=== PATIENT | female | born 1930 | race American Indian/Alaskan Native ===

== ENCOUNTER 2017-12-30 19:09 | Inpatient (IN) | payer MEDICARE ==
[2017-12-30 20:02] VITALS: BMI 33.8
--- NOTE | 2017-12-30 20:34 | ED PDOC ---
Arrival/HPI - General Chief Complaint: Lower Extremity Problem/Injury Time Seen by Provider: 12/30/17 19:20 Historian: Patient - History of Present Illness Narrative History of Present Illness (Text): 12/30/17 20:33 An 87 year old female presents to the emergency department complaining of generalized weakness and right leg swelling. Patient denies any fever, headache , dizziness, abdominal pain or any other complaints at this time. Symptom Onset: Sudden Symptom Course: Unchanged Activities at Onset: Rest Context: Home Past Medical History - Provider Review Nursing Documentation Reviewed: Yes - Infectious Disease Hx of Infectious Diseases: None - Psychiatric Hx Substance Use: No Family/Social History - Physician Review Nursing Documentation Reviewed: Yes Family/Social History: No Known Family HX Smoking Status: Never Smoked Hx Alcohol Use: No Hx Substance Use: No Allergies/Home Meds Allergies/Adverse Reactions: Allergies No Known Allergies Allergy (Verified 12/30/17 20:04) Home Medications: Home Meds Medication Instructions Recorded Confirmed Clopidogrel [Plavix] 1 tab PO DAILY 12/31/17 12/31/17 Furosemide [Lasix] 1 tab PO DAILY 12/31/17 12/31/17 Lubiprostone [Amitiza] 1 tab PO DAILY 12/31/17 12/31/17 Metoprolol Tartrate [Lopressor] 1 tab PO DAILY 12/31/17 12/31/17 Naproxen/Esomeprazole Mag [Vimovo 1 tab PO DAILY 12/31/17 12/31/17 Dr 375-20 mg Tablet] Torsemide [Demadex] 1 tab PO DAILY 12/31/17 12/31/17 amLODIPine [Norvasc] 1 tab PO DAILY 12/31/17 12/31/17 Review of Systems - Physician Review All systems were reviewed & negative as marked: Yes - Review of Systems Constitutional: Other (generalized weakness). absent: Fevers Gastrointestinal: absent: Abdominal Pain Musculoskeletal: Other (right leg swelling) Neurological: absent: Headache, Dizziness Physical Exam Vital Signs Reviewed: Yes Appearance: Positive for: Well-Appearing, Non-Toxic, Comfortable Pain Distress: None Mental Status: Positive for: Alert and Oriented X 3 - Systems Exam Head: Present: Atraumatic, Normocephalic Pupils: Present: PERRL Extroacular Muscles: Present: EOMI Conjunctiva: Present: Normal Mouth: Present: Moist Mucous Membranes Neck: Present: Normal Range of Motion Respiratory/Chest: Present: Clear to Auscultation, Good Air Exchange. No: Respiratory Distress, Accessory Muscle Use Cardiovascular: Present: Regular Rate and Rhythm, Normal S1, S2. No: Murmurs Abdomen: No: Tenderness, Distention, Peritoneal Signs Back: Present: Normal Inspection Upper Extremity: Present: Normal Inspection. No: Cyanosis, Edema Lower Extremity: Present: Other (right leg more swollen than left; erythematous) Neurological: Present: GCS=15, CN II-XII Intact, Speech Normal Skin: Present: Warm, Dry, Normal Color. No: Rashes Psychiatric: Present: Alert, Oriented x 3, Normal Insight, Normal Concentration Medical Decision Making ED Course and Treatment: 12/30/17 20:31 Impression: An 87 year old female with generalized weakness and right leg swelling. Plan: -- EKG -- Chest X-ray -- labs -- US lower extremity -- Reassess and disposition Progress Notes: 12/30/17 21:22 Chest X-ray shows cardiomegaly, as read by me. 12/30/17 22:06 Reviewed EKG, a fib at 72 bpm. Non-specific T wave changes. US Duplex Lower Extremities negative for DVT. 12/30/17 23:50 Case discussed with medical assembly airport operations manager, who is aware and agrees with plan. 12/31/17 00:[address] Almanza, who is aware and agrees with plan. Accepts pt in to his service. Pt will go to [facility] observation for leg cellulitis. - Lab Interpretations Microbiology Results: Microbiology Results 12/31/17 06:30 Blood-Venous Blood Culture - Preliminary NO GROWTH AFTER 3 DAYS 12/31/17 06:00 Blood-Venous Blood Culture - Preliminary NO GROWTH AFTER 3 DAYS Lab Results: 01/02/18 07:00 01/02/18 07:00 Lab Results 01/02/18 11:02: POC Glucose (mg/dL) 130 H 01/02/18 07:00: Manual Plt Count 110 L 01/02/18 07:00: Sodium 142, Chloride 99, Potassium 3.5 L, Carbon Dioxide 33, Anion Gap 13, BUN 21, Creatinine 0.9, Est GFR ( Amer) > 60, Est GFR (Non- Af Amer) 59, Random Glucose 109, Calcium 8.7, Magnesium 2.0, Total Bilirubin 0.6 , AST 32, ALT 22, Alkaline Phosphatase 100, Total Protein 7.2, Albumin 3.5, Globulin 3.7, Albumin/Globulin Ratio 0.9 L 01/02/18 07:00: WBC 5.1, RBC 4.33, Hgb 11.4 L, Hct 34.7 L, MCV 80.1, MCH 26.3, MCHC 32.9, RDW 16.5 H, Plt Count 97 L, MPV 10.5, Gran % 52.1, Lymph % (Auto) 32.7, [place] % (Auto) 12.1 H, Eos % (Auto) 2.9, Baso % (Auto) 0.2, Gran # 2.68, Lymph # (Auto) 1.7, [place] # (Auto) 0.6, Eos # (Auto) 0.2, Baso # (Auto) 0.01 01/02/18 06:40: POC Glucose (mg/dL) 107 01/01/18 21:04: POC Glucose (mg/dL) 142 H 01/01/18 15:47: POC Glucose (mg/dL) 128 H 01/01/18 11:27: POC Glucose (mg/dL) 90 01/01/18 07:30: Sodium 142, Chloride 101, Potassium 3.7, Carbon Dioxide 31, Anion Gap 14, BUN 18, Creatinine 0.9, Est GFR ( Amer) > 60, Est GFR (Non- Af Amer) 59, Random Glucose 87, Calcium 8.8, Magnesium 2.0, Total Bilirubin 0.6 , Direct Bilirubin 0.4, AST 30, ALT 27, Alkaline Phosphatase 113, Total Protein 7.5, Albumin 3.6, Globulin 3.9, Albumin/Globulin Ratio 0.9 L 01/01/18 07:30: WBC 5.4, RBC 4.30, Hgb 11.4 L, Hct 34.4 L, MCV 80.0, MCH 26.5, MCHC 33.1, RDW 16.6 H, Plt Count 91 L, Manual Plt Count 134, MPV 10.3, Gran % 51.7, Lymph % (Auto) 35.4 H, [place] % (Auto) 9.6 H, Eos % (Auto) 3.1, Baso % (Auto ) 0.2, Gran # 2.80, Lymph # (Auto) 1.9, [place] # (Auto) 0.5, Eos # (Auto) 0.2, Baso # (Auto) 0.01 01/01/18 06:52: POC Glucose (mg/dL) 88 12/31/17 : 25-OH Vitamin D Total 23.5 L 12/31/17 21:19: POC Glucose (mg/dL) 112 H 12/31/17 16:13: POC Glucose (mg/dL) 106 12/31/17 12:09: Manual Plt Count 160 12/31/17 10:57: POC Glucose (mg/dL) 114 H 12/31/17 07:43: POC Glucose (mg/dL) 106 12/31/17 07:35: Hemoglobin A1c 6.3 12/31/17 07:35: Free T4 1.74, Thyroxine (T4) 10.1, TSH 3rd Generation 2.39 12/31/17 06:00: Uric Acid 7.2 H, Magnesium 2.2, Triglycerides 61, Cholesterol 137, LDL Cholesterol Direct 44, HDL Cholesterol 67 H 12/31/17 06:00: NT-Pro-B Natriuret Pep 994 H 12/31/17 06:00: C-React Prot High Sens 5.62 H 12/31/17 06:00: Procalcitonin 0.05 L 12/31/17 06:00: Sodium 143, Chloride 100, Potassium 3.4 L, Carbon Dioxide 34 H, Anion Gap 13, BUN 18, Creatinine 0.8, Est GFR ( Amer) > 60, Est GFR (Non- Af Amer) > 60, Random Glucose 105, Calcium 9.1, Total Bilirubin 0.7, AST 33, ALT 33, Alkaline Phosphatase 141 H, C-Reactive Protein 9.20, Total Protein 7.9, Albumin 3.9, Globulin 3.9, Albumin/Globulin Ratio 1.0 L 12/31/17 06:00: WBC 4.5 D, RBC 4.55, Hgb 12.2, Hct 36.3, MCV 79.8 L, MCH 26.8, MCHC 33.6, RDW 16.6 H, Plt Count 95 L, MPV 10.8, Gran % 56.2, Lymph % (Auto) 32.6, [place] % (Auto) 8.6 H, Eos % (Auto) 2.2, Baso % (Auto) 0.4, Gran # 2.53, Lymph # (Auto) 1.5, [place] # (Auto) 0.4, Eos # (Auto) 0.1, Baso # (Auto) 0.02, ESR 36 H 12/31/17 00:05: POC Glucose (mg/dL) 129 H 12/30/17 22:05: Digoxin 0.9 12/30/17 22:05: Sodium 142, Chloride 97 L, Potassium 3.4 L, Carbon Dioxide 34 H , Anion Gap 14, BUN 23 H, Creatinine 0.8, Est GFR ( Amer) > 60, Est GFR ( Non-Af Amer) > 60, Random Glucose 120 H, Calcium 9.3, Magnesium 2.2, Lactate Dehydrogenase 711 H, Total Creatine Kinase 301 H, CK-MB (CK-2) 3.3, CK-MB (CK-2 ) % Cancelled, Troponin I 0.01, NT-Pro-B Natriuret Pep 934 H 12/30/17 22:05: pO2 78 H, VBG pH 7.41, VBG pCO2 58.0, VBG HCO3 36.8 H, VBG Total CO2 38.6 H, VBG O2 Sat (Calc) 96.6 H, VBG Base Excess 9.9 H, VBG Potassium 3.2 L, Sodium 137.0, Chloride 100.0, Glucose 119 H, Lactate 1.1, FiO2 21.0, Venous Blood Potassium 3.2 L 12/30/17 22:05: PT 11.1, INR 0.97, APTT 18.8 L 12/30/17 22:05: WBC 6.7, RBC 4.67, Hgb 12.6, Hct 37.0, MCV 79.2 L, MCH 27.0, MCHC 34.1, RDW 16.6 H, Plt Count 131, Gran % 70.6 H, Lymph % (Auto) 21.0 L, [place] % (Auto) 7.4 H, Eos % (Auto) 0.9 L, Baso % (Auto) 0.1, Gran # 4.74, Lymph # (Auto) 1.4, [place] # (Auto) 0.5, Eos # (Auto) 0.1, Baso # (Auto) 0.01 I have reviewed the lab results: Yes - RAD Interpretation Radiology Orders: 12/30/17 20:09 CHEST PORTABLE [RAD] Stat DUPLEX LOWER EXTRM VEIN BILAT [US] Stat 12/31/17 10:41 CHEST TWO VIEWS (PA/LAT) [RAD] Routine 01/01/18 11:22 BRAIN WITHOUT CONTRAST [MRI] Routine 01/02/18 12:43 ANKLE/BRACHIAL INDICE [US] Routine DUPLEX LOWER EXT ART BI LMTD [US] Routine 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: ED Physician - EKG Interpretation Interpreted by ED Physician: Yes Type: 12 lead EKG - Medication Orders Current Medication Orders: Allopurinol (Zyloprim) 100 mg PO DAILY [facility] Last Admin: 01/03/18 09:29 Dose: 100 mg Betamethasone/Clotrimazole (Lotrisone) 0 ml TOP DAILY [facility] Last Admin: 01/03/18 09:32 Dose: 1 applic Carbamide Peroxide (Debrox Ear Drops) 0 ml AU BID [facility] Last Admin: 01/03/18 18:33 Dose: 4 drop Comments: AU Docusate Sodium (Colace) 100 mg PO TID [facility] Last Admin: 01/03/18 18:26 Dose: 100 mg Enoxaparin Sodium (Lovenox) 40 mg SC DAILY [facility] PRN Reason: Protocol Last Admin: 01/03/18 09:30 Dose: 40 mg Subcutaneous Administrations Document 01/03/18 09:30 LMN (Rec: 01/03/18 09:30 LMN [id number]) Injection Site MAR Injection Site Left Abdomen Charges for Administration # of Subcutaneous Administrations 1 Ergocalciferol (Drisdol 50,000 Intl Units Cap) 1 cap PO Q7D [facility] Furosemide (Lasix) 40 mg IVP Q12 [facility] Last Admin: 01/03/18 09:29 Dose: 40 mg MAR Blood Pressure Document 01/03/18 09:29 LMN (Rec: 01/03/18 09:30 LMN [id number]) Blood Pressure Blood Pressure (100/60-150/90 mm Hg) 144/79 IVP Administration Document 01/03/18 09:29 LMN (Rec: 01/03/18 09:30 LMN [id number]) Charges for Administration # of IVP Administrations 1 Insulin Human Lispro (Humalog Low) 0 units SC ACHS [facility] PRN Reason: Protocol Last Admin: 01/03/18 17:55 Dose: Not Given Non-Admin Reason: Blood Sugar Parameter MAR Blood Glucose Document 01/03/18 17:55 LMN (Rec: 01/03/18 17:55 LMN [id number]) Blood Glucose Finger Stick Blood Glucose (70-120) 138 Metoprolol Tartrate (Lopressor) 12.5 mg PO 0800,1800 [facility] Pantoprazole Sodium (Protonix Ec Tab) 40 mg PO ACB [facility] Last Admin: 01/03/18 08:33 Dose: 40 mg Polyethylene Glycol (Miralax) 17 gm PO TID [facility] Last Admin: 01/03/18 18:26 Dose: 17 gm Potassium Chloride (K-Dur 20 Meq Er Tab) 20 meq PO TID [facility] Last Admin: 01/03/18 18:26 Dose: 20 meq Tramadol HCl (Ultram) 50 mg PO BID PRN PRN Reason: Pain, moderate (4-7) Discontinued Medications Betamethasone/Clotrimazole (Lotrisone) 1 ml TOP BID [facility] Digoxin (Digoxin) 0.125 mg PO 1400 [facility] Last Admin: 01/03/18 15:34 Dose: Not Given Non-Admin Reason: BP Parameters Not Met [facility] Apical Pulse Rate Document 01/03/18 15:34 LMN (Rec: 01/03/18 15:34 LMN [id number]) Apical Pulse Rate Apical Pulse Rate (60-90 beats/min) 55 Cefepime HCl (Maxipime 2gm) 2 gm in 100 mls @ 100 mls/hr IVPB Q12 [facility] PRN Reason: Protocol Stop: 01/05/18 01:16 Last Admin: 01/02/18 21:59 Dose: 100 mls/hr eMAR Start Stop Document 01/02/18 21:59 IMT (Rec: 01/02/18 21:59 IMT [id number]) Intravenous Solution Start Date 01/02/18 Start Time 21:59 End Date 01/02/18 End time 22:59 Total Infusion Time 60 Vancomycin HCl (Vancomycin 1gm) 1 gm in 250 mls @ 167 mls/hr IVPB STAT STA PRN Reason: Protocol Stop: 12/31/17 02:39 Last Admin: 12/31/17 02:59 Dose: 167 mls/hr eMAR Start Stop Document 05/10/18 02:59 PCO (Rec: 12/31/17 03:00 PCO [place] [id number]) Intravenous Solution Start Date 12/31/17 Start Time 04:30 End Date 12/31/17 End time 06:00 Total Infusion Time 90 Ketorolac Tromethamine (Toradol) 30 mg IM ONCE ONE Stop: 01/03/18 07:16 Last Admin: 01/03/18 07:13 Dose: 30 mg MAR Pain Assessment Document 01/03/18 07:13 LMN (Rec: 01/03/18 07:13 LMN [place] [id number]) Pain Reassessment Is this a pain reassessment? No Presence of Pain Presence of Pain Yes Pain Scale Used Pain Scale Used Numeric IM Administration Charges Document 01/03/18 07:13 LMN (Rec: 01/03/18 07:13 LMN [place] [id number]) Charges for Administration # of IM Administrations 1 Metoprolol Tartrate (Lopressor) 25 mg PO 0800,1800 [facility] Last Admin: 01/03/18 08:33 Dose: 25 mg MAR Pulse and Blood Pressure Document 01/03/18 08:33 LMN (Rec: 01/03/18 08:33 LMN [place] [id number]) Pulse Pulse Rate (60-90 beats/min) 79 Blood Pressure Blood Pressure (100/60-150/90 mm Hg) 144/79 Pantoprazole Sodium (Protonix Inj) 40 mg IVP DAILY [facility] Last Admin: 12/31/17 11:52 Dose: 40 mg Comments: Pt returned from xray, meds given late IVP Administration Document 12/31/17 11:52 KEVIN (Rec: 12/31/17 11:52 KEVIN [place] [id number]) Charges for Administration # of IVP Administrations 1 Polyethylene Glycol (Miralax) 17 gm PO DAILY [facility] Last Admin: 01/01/18 09:25 Dose: 17 gm Potassium Chloride (K-Dur 20 Meq Er Tab) 40 meq PO STAT STA Stop: 12/31/17 01:10 Last Admin: 12/31/17 02:46 Dose: 40 meq Potassium Chloride (K-Dur 20 Meq Er Tab) 40 meq PO STAT STA Stop: 12/31/17 07:28 Last Admin: 12/31/17 11:54 Dose: 40 meq Potassium Chloride (K-Dur 20 Meq Er Tab) 20 meq PO BID [facility] Last Admin: 01/02/18 09:51 Dose: 20 meq Potassium Chloride (Potassium Chloride Oral Soln) 40 meq PO ONCE ONE Stop: 01/02/18 14:34 Last Admin: 01/02/18 14:43 Dose: 40 meq - Scribe Statement The provider has reviewed the documentation as recorded by the Dominick Reaves Provider Scribe Attestation: All medical record entries made by the Scribe were at my direction and personally dictated by me. I have reviewed the chart and agree that the record accurately reflects my personal performance of the history, physical exam, medical decision making, and the department course for this patient. I have also personally directed, reviewed, and agree with the discharge instructions and disposition. Disposition/Present on Arrival - Present on Arrival Any Indicators Present on Arrival: No History of DVT/PE: No History of Uncontrolled Diabetes: No Urinary Catheter: No History of Decub. Ulcer: No History Surgical Site Infection Following: None - Disposition Have Diagnosis and Disposition been Completed?: Yes Diagnosis: Cellulitis of right lower extremity Disposition: HOSPITALIZED Disposition Time: 00:05 Patient Problems: Current Active Problems Problem Status Onset Cellulitis of right lower extremity Acute Gait abnormality Acute Impacted cerumen of right ear Acute Presbycusis of both ears Acute TIA (transient ischemic attack) Acute Condition: GOOD
[2017-12-30 22:17] LABS: VENOUS BLOOD GAS BASE EXCESS 9.9 mmol/L (0.0-2.0); VENOUS BLOOD GAS PO2 78 mm/Hg (30-55); VENOUS BLOOD PH 7.41 (7.32-7.43)
[2017-12-30 22:23] LABS: CALCIUM 9.3 mg/dL (8.4-10.5); GFR AFRICAN-AMERICAN > 60; GFR NON-AFRICAN AMERICAN > 60
[2017-12-30 22:24] LABS: INR 0.97 (0.93-1.08); PARTIAL THROMBOPLASTIN TIME 18.8 Seconds (25.1-36.5); PROTHROMBIN TIME 11.1 SECONDS (9.4-12.5)
[2017-12-30 22:27] LABS: BLOOD UREA NITROGEN 23 mg/dL (7-21)
[2017-12-30 22:28] LABS: BASO # 0.01 K/mm3 (0.0-2.0); BASO % 0.1 % (0.0-3.0); EOS # 0.1 (0.0-0.7); EOS % 0.9 % (1.5-5.0); GRAN # 4.74 (1.4-6.5); GRAN % 70.6 % (50.0-68.0); HEMOGLOBIN 12.6 g/dL (12.0-16.0); LYMPH # 1.4 (1.2-3.4); MEAN CELL VOLUME 79.2 fl (80.0-105.0); MEAN CORPUSCULAR HGB CONC 34.1 g/dl (31.0-37.0); MONO # 0.5 (0.1-0.6); MONO % 7.4 % (1.0-6.0); PLATELET COUNT 131 10^3/uL (120.0-450.0); RBC 4.67 10^6/uL (3.5-6.1); RED CELL DISTRIBUTION WIDTH 16.6 % (11.5-14.5); WHITE BLOOD COUNT 6.7 10^3/ul (4.5-11.0)
[2017-12-30 22:34] LABS: B-TYPE NATRIURETIC PEPTIDE 934 pg/mL (0-450); TROPONIN I 0.01 ng/mL
[2017-12-30 22:38] LABS: CK-MB 3.3 ng/mL (0.0-3.6)
[2017-12-31] MEDS ORDERED: Potassium Chloride 20 mEq ER Tab PO STA ×2 (01:09→07:27)
[2017-12-31] MEDS ORDERED: Vancomycin 1gm in NS 250ml 1 GM/250 ML BAG IVPB STA (01:10)
--- NOTE | 2017-12-31 01:29 | CP.PCM.HP ---
History of Present Illness - History of Present Illness History of Present Illness: CC: weakness and right leg swelling HPI: Patient is a 87 yo AA female with past medical history of DM2, HTN, and hemorrhoids who presents with a one day history of weakness and right lower leg swelling. Patient is noted to be poor historian in regards to medical history. Patient indicates that 1-2 days prior she began to experience dizzy spells at home while sitting, reporting the room was spinning. These symptoms resolved spontaneously and patient reported right lower extremity swelling and weakness. She contacted her PMD who informed her to go to the ED. Patient stated that she did not want to go to the ED yesterday due to her taking her constipation pills and that going to the ED would not work for her. She has chronic history of hemorrhoids for which she takes preparation H and follows up with a specialist. Patient denies fever, chills, diarrhea, nausea, vomiting, focal deficits, headache, changes in vision, shortness of breath, chest pain, abdominal pain, trauma or fall. 12 point ROS is benign other than mentioned in HPI PMH: HTN, DM2, Hemorrhoids PSH: ?Hemorrhoid repair FMH: Denies SOCHX: Denies tobacco, ETOH, ID ALL: [id number] MEDS: MAR reviewed PMD: Dr. Allegra Garcia Present on Admission - Present on Admission Any Indicators Present on Admission: Yes History of DVT/PE: Yes Review of Systems - Review of Systems All systems: reviewed and no additional remarkable complaints except (as mentioned in HPI) Past Patient History - Infectious Disease Hx of Infectious Diseases: None - Past Social History Smoking Status: Never Smoked Alcohol: None Drugs: Denies - PSYCHIATRIC Hx Substance Use: No Meds Allergies/Adverse Reactions: Allergies Allergy/AdvReac Type Severity Reaction Status Date / Time No Known Allergies Allergy Verified 12/30/17 20:04 Physical Exam - Constitutional Appears: Non-toxic - Head Exam Head Exam: ATRAUMATIC, NORMAL INSPECTION, NORMOCEPHALIC - Eye Exam Eye Exam: EOMI, PERRL - ENT Exam ENT Exam: Mucous Membranes Dry - Neck Exam Neck exam: Positive for: Full Rom - Respiratory Exam Respiratory Exam: Clear to Auscultation Bilateral, NORMAL BREATHING PATTERN. absent: Rales, Rhonchi, Wheezes - Cardiovascular Exam Cardiovascular Exam: Irregular Rhythm. absent: JVD, Systolic Murmur - GI/Abdominal Exam GI & Abdominal Exam: Normal Bowel Sounds, Soft. absent: Distended, Guarding, Tenderness - Extremities Exam Additional comments: bilateral lower extremity edema appreciated, right slightly more swollen than right, some mild erythematous skin changes on anterior right lower extremity - Neurological Exam Neurological exam: Alert, Oriented x3 Additional comments: motor and sensory grossly intact, able to move all four extremities past midline , follows simple commands - Psychiatric Exam Psychiatric exam: Normal Affect, Normal Mood - Skin Skin Exam: Dry, Erythema (mild LLE), Warm Results - Labs Result Diagrams: 12/31/17 06:00 12/31/17 06:00 Assessment & Plan - Assessment and Plan (Free Text) Assessment: 87 yo AA female with past medical history of DM2, HTN, and hemorrhoids who presents with a one day history of weakness and right lower leg swelling. Patient with negative doppler b/l lower extremities. Patient to be admitted for suspected cellulitis and general weakness. Plan: ?Cellulitis of right lower extremity - Afebrile, absent leukocytosis, slight erythematous on exam, right lower leg swelling compared to left - Cefepime, Vancomycin - Monitor, f/u labs Right lower extremity swelling - doppler US b/l negative - IV lasix 40mg BID - Monitor Atrial Fibrillation - unknown if valvular vs. non valvular afib - Not on anticoagulation from review of home meds, suspect 2/2 high risk for fall - INR subtheraputic, PT eval, discuss with day team consideration for AC - EKG showing Afib with rate control - Continue home metoprolol, digoxin - Repeat EKG in AM DVT ppx: Lovenox GI ppx: Protonix Case and plan discussed with attending - Date & Time Date: 12/31/17 Time: 01:31
--- NOTE | 2017-12-31 02:28 | CP.PCM.HP ---
Past Patient History - Infectious Disease Hx of Infectious Diseases: None - Past Social History Smoking Status: Never Smoked - PSYCHIATRIC Hx Substance Use: No Meds Allergies/Adverse Reactions: Allergies Allergy/AdvReac Type Severity Reaction Status Date / Time No Known Allergies Allergy Verified 12/30/17 20:04 Results - Vital Signs Recent Vital Signs: Last Vital Signs Temp 98 F 12/31/17 01:10 Pulse 71 12/31/17 01:10 Resp 19 12/31/17 01:10 BP 144/85 12/31/17 01:10 Pulse Ox 99 12/31/17 01:10 - Labs Result Diagrams: 12/30/17 22:05 12/30/17 22:05 Labs: Laboratory Results - last 24 hr 12/30/17 12/30/17 12/30/17 22:05 22:05 22:05 WBC 6.7 RBC 4.67 Hgb 12.6 Hct 37.0 MCV 79.2 L MCH 27.0 MCHC 34.1 RDW 16.6 H Plt Count 131 Gran % 70.6 H Lymph % (Auto) 21.0 L [place] % (Auto) 7.4 H Eos % (Auto) 0.9 L Baso % (Auto) 0.1 Gran # 4.74 Lymph # (Auto) 1.4 [place] # (Auto) 0.5 Eos # (Auto) 0.1 Baso # (Auto) 0.01 PT 11.1 INR 0.97 APTT 18.8 L pO2 78 H VBG pH 7.41 VBG pCO2 58.0 VBG HCO3 36.8 H VBG Total CO2 38.6 H VBG O2 Sat (Calc) 96.6 H VBG Base Excess 9.9 H VBG Potassium 3.2 L Sodium 137.0 Chloride 100.0 Glucose 119 H Lactate 1.1 FiO2 21.0 Potassium Carbon Dioxide Anion Gap BUN Creatinine Est GFR ( Amer) Est GFR (Non-Af Amer) POC Glucose (mg/dL) Random Glucose Calcium Magnesium Lactate Dehydrogenase Total Creatine Kinase CK-MB (CK-2) CK-MB (CK-2) % Troponin I NT-Pro-B Natriuret Pep Venous Blood Potassium 3.2 L Digoxin 12/30/17 12/30/17 12/31/17 22:05 22:05 00:05 WBC RBC Hgb Hct MCV MCH MCHC RDW Plt Count Gran % Lymph % (Auto) [place] % (Auto) Eos % (Auto) Baso % (Auto) Gran # Lymph # (Auto) [place] # (Auto) Eos # (Auto) Baso # (Auto) PT INR APTT pO2 VBG pH VBG pCO2 VBG HCO3 VBG Total CO2 VBG O2 Sat (Calc) VBG Base Excess VBG Potassium Sodium 142 Chloride 97 L Glucose Lactate FiO2 Potassium 3.4 L Carbon Dioxide 34 H Anion Gap 14 BUN 23 H Creatinine 0.8 Est GFR ( Amer) > 60 Est GFR (Non-Af Amer) > 60 POC Glucose (mg/dL) 129 H Random Glucose 120 H Calcium 9.3 Magnesium 2.2 Lactate Dehydrogenase 711 H Total Creatine Kinase 301 H CK-MB (CK-2) 3.3 CK-MB (CK-2) % Cancelled Troponin I 0.01 NT-Pro-B Natriuret Pep 934 H Venous Blood Potassium Digoxin 0.9
[2017-12-31] MEDS: Cefepime IV 2 gm in NS 2 GM/100 ML BAG IVPB SCH ×3 (02:58→22:14)
[2017-12-31 06:46] LABS: BASO # 0.02 K/mm3 (0.0-2.0); BASO % 0.4 % (0.0-3.0); EOS # 0.1 (0.0-0.7); EOS % 2.2 % (1.5-5.0); GRAN # 2.53 (1.4-6.5); GRAN % 56.2 % (50.0-68.0); HEMOGLOBIN 12.2 g/dL (12.0-16.0); LYMPH # 1.5 (1.2-3.4); LYMPH % 32.6 % (22.0-35.0); MEAN CELL VOLUME 79.8 fl (80.0-105.0); MEAN CORPUSCULAR HEMOGLOBIN 26.8 pg (25.0-35.0); MEAN CORPUSCULAR HGB CONC 33.6 g/dl (31.0-37.0); MEAN PLATELET VOLUME 10.8 fl (7.0-11.0); MONO # 0.4 (0.1-0.6); MONO % 8.6 % (1.0-6.0); RBC 4.55 10^6/uL (3.5-6.1); RED CELL DISTRIBUTION WIDTH 16.6 % (11.5-14.5); WHITE BLOOD COUNT 4.5 10^3/ul (4.5-11.0)
[2017-12-31 07:19] LABS: ALBUMIN 3.9 g/dL (3.0-4.8); ALT/SGPT 33 U/L (7-56); AST/SGOT 33 U/L (14-36); BLOOD UREA NITROGEN 18 mg/dL (7-21); CALCIUM 9.1 mg/dL (8.4-10.5); GFR AFRICAN-AMERICAN > 60; GFR NON-AFRICAN AMERICAN > 60
[2017-12-31] MEDS: Insulin Lispro (humaLOG) LOW Coverage SC SCH ×4 (07:52→22:15)
[2017-12-31 07:59] LABS: URIC ACID 7.2 mg/dL (2.5-6.2)
[2017-12-31 08:48] LABS: FREE T4 1.74 ng/dL (0.78-2.19); T4 10.1 ug/dL (5.5-11.0)
--- NOTE | 2017-12-31 09:12 | RAD ---
HISTORY: sob COMPARISON: No prior. FINDINGS: LUNGS: No active pulmonary disease. PLEURA: No significant pleural effusion identified, no pneumothorax apparent. CARDIOVASCULAR: Fall technique may magnify the cardiac silhouette however cardiomegaly is not completely excluded. No definite pulmonary vascular congestion. OSSEOUS STRUCTURES: No significant abnormalities. VISUALIZED UPPER ABDOMEN: Normal. OTHER FINDINGS: Surgical clips in the right neck soft tissue inferiorly. IMPRESSION: Questionable cardiomegaly however there is no infiltrate pleural effusion or pulmonary vascular congestion at this time. Frontal technique limits evaluation the cardiac size.
--- NOTE | 2017-12-31 10:25 | CARD ---
APPROVED REPORT EKG Measurement Heart [id number] <Conclusion> Atrial fibrillation with premature ventricular or aberrantly conducted complexes PRWP Nonspecific T wave abnormality
--- NOTE | 2017-12-31 11:30 | US ---
HISTORY: Leg pain and swelling. Evaluate for DVT PHYSICIAN(S): Rafael Elise MD. TECHNIQUE: Duplex sonography and color-flow Doppler with graded compression were used to evaluate the deep venous systems of both lower extremities. The exam is very limited by body habitus and edema. The tibial veins are not adequately seen. FINDINGS: The visualized deep venous systems of both lower extremities are sonographically normal and compressible. Normal wave forms and augmentation are seen. There is no sonographic evidence for deep venous thrombosis in the visualized segments of both lower extremities. IMPRESSION: No sonographic evidence for deep venous thrombosis in the visualized segments of both lower extremities. Very limited study.
--- NOTE | 2017-12-31 11:46 | RAD ---
HISTORY: Chf COMPARISON: 12/30/2017 TECHNIQUE: Chest PA and lateral FINDINGS: LUNGS: No active pulmonary disease. PLEURA: No significant pleural effusion identified. No pneumothorax apparent. CARDIOVASCULAR: Moderate cardiomegaly OSSEOUS STRUCTURES: No significant abnormalities. VISUALIZED UPPER ABDOMEN: Normal. OTHER FINDINGS: None. IMPRESSION: No active disease.
[2017-12-31] MEDS: Enoxaparin 40 mg Syringe SC SCH (11:52)
[2017-12-31] MEDS: POLYETHYLENE GLYCOL 3350 17 GM/Dose PACKET PO SCH (11:53)
[2017-12-31] MEDS: Digoxin 125 mcg (0.125 mg) Tab PO SCH (15:45)
[2017-12-31] MEDS: Potassium Chloride 20 mEq ER Tab PO SCH (18:57)
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
[2017-12-31] MEDS ORDERED: Ergocalciferol 50,000 Intl Units Cap PO SCH (23:15)
[2018-01-01] MEDS: Insulin Lispro (humaLOG) LOW Coverage SC SCH ×3 (07:42→16:19)
[2018-01-01 07:57] LABS: BASO # 0.01 K/mm3 (0.0-2.0); BASO % 0.2 % (0.0-3.0); EOS # 0.2 (0.0-0.7); EOS % 3.1 % (1.5-5.0); GRAN # 2.8 (1.4-6.5); GRAN % 51.7 % (50.0-68.0); HEMOGLOBIN 11.4 g/dL (12.0-16.0); LYMPH # 1.9 (1.2-3.4); LYMPH % 35.4 % (22.0-35.0); MEAN CORPUSCULAR HEMOGLOBIN 26.5 pg (25.0-35.0); MEAN CORPUSCULAR HGB CONC 33.1 g/dl (31.0-37.0); MEAN PLATELET VOLUME 10.3 fl (7.0-11.0); MONO # 0.5 (0.1-0.6); MONO % 9.6 % (1.0-6.0); RBC 4.3 10^6/uL (3.5-6.1); RED CELL DISTRIBUTION WIDTH 16.6 % (11.5-14.5); WHITE BLOOD COUNT 5.4 10^3/ul (4.5-11.0)
[2018-01-01] MEDS: Pantoprazole 40 mg EC Tab PO SCH (08:02)
[2018-01-01 08:17] LABS: ALB/GLOB RATIO 0.9 (1.1-1.8); ALBUMIN 3.6 g/dL (3.0-4.8); ALT/SGPT 27 U/L (7-56); AST/SGOT 30 U/L (14-36); BILIRUBIN,DIRECT 0.4 mg/dL (0.0-0.4); BLOOD UREA NITROGEN 18 mg/dL (7-21); CALCIUM 8.8 mg/dL (8.4-10.5); GFR AFRICAN-AMERICAN > 60; GFR NON-AFRICAN AMERICAN 59
[2018-01-01] MEDS: Potassium Chloride 20 mEq ER Tab PO SCH ×2 (09:23→18:33)
[2018-01-01] MEDS: Cefepime IV 2 gm in NS 2 GM/100 ML BAG IVPB SCH ×2 (09:24→22:12)
[2018-01-01] MEDS: Enoxaparin 40 mg Syringe SC SCH (09:25)
[2018-01-01] MEDS: POLYETHYLENE GLYCOL 3350 17 GM/Dose PACKET PO SCH ×2 (09:25→18:34)
--- NOTE | 2018-01-01 09:36 | CARD ---
APPROVED REPORT EXAM: Two-dimensional and M-mode echocardiogram with Doppler and color Doppler. Other Information Quality : AverageRhythm : INDICATION CHF 2D DIMENSIONS Left Atrium (2D)4.2 (1.6-4.0cm)IVSd1.2 (0.7-1.1cm) LVDd4.7 (3.9-5.9cm)PWd1.3 (0.7-1.1cm) LVDs3.5 (2.5-4.0cm)FS (%) 26.3 % LVEF (%)51.0 (>50%) M-Mode DIMENSIONS Aortic Root3.40 (2.2-3.7cm)Aortic Cusp Exc.2.10 (1.5-2.0cm) Aortic Valve AoV Peak Wlbzdrmo991.0cm/s Mitral Valve E/A ratio0.0 TDI E/Lateral E'0.0E/Medial E'0.0 Tricuspid Valve TR Peak [id number] [id number] Peak Gr.37mmHg [id number] LEFT VENTRICLE The left ventricle is normal size. There is normal left ventricular wall thickness. The left ventricular function is normal. The left ventricular ejection fraction is within the normal range. There is normal LV segmental wall motion. RIGHT VENTRICLE The right ventricle is normal size. ATRIA The left atrium is mildly dilated. The right atrium is moderately dilated. The interatrial septum is intact with no evidence for an atrial septal defect. AORTIC VALVE The aortic valve is normal in structure. MITRAL VALVE The mitral valve is normal in structure. Mitral regurgitation is mild. TRICUSPID VALVE The tricuspid valve is normal in structure. There is moderate tricuspid regurgitation. There is moderate pulmonary hypertension. PULMONIC VALVE The pulmonic valve is not well visualized. There is mild pulmonic valvular regurgitation. GREAT VESSELS The aortic root is normal in size. PERICARDIAL EFFUSION There is no pericardial effusion. <Conclusion> The left ventricle is normal size. There is normal left ventricular wall thickness. The left ventricular function is normal. Mitral regurgitation is mild. There is moderate tricuspid regurgitation. There is moderate pulmonary hypertension.
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
--- NOTE | 2018-01-01 10:07 | CP.PCM.PCO ---
Physician Communication Note - Physician Communication Note Physician Communication Note: Pleas allow patient to use her voltaren gel, check with pharmacy
--- NOTE | 2018-01-01 14:13 | PN ---
DATE: 01/01/2018 SUBJECTIVE: The patient is seen in room 574, bed 1. The patient states that she is feeling better since the day of hospitalization. The patient denies any chest pain, shortness of breath. Denies nausea, vomiting, diarrhea or constipation. The patient is complaining of being off balance and questionable dizziness with some ear fullness and questionable discharge. The patient complains of constipation. The patient's vital signs were reviewed. Overnight nurses' notes were reviewed. The patient has been voiding significant amount since on IV Lasix. OBJECTIVE: VITAL SIGNS: T-max, the patient is afebrile. Heart rate 74, 68, 86, 82; blood pressure 120/74, 130/84, 140/70; respirations 18 to 20; O2 saturation 98%, 97%, 96%. Intake and output as per the intake output sheets. HEENT: Head examination, normocephalic and atraumatic. HEENT examination shows pink conjunctivae. Anicteric sclerae. No oropharyngeal lesion. No neck rigidity. CHEST: Symmetrical. LUNGS: Show questionable decreased breath sounds at the bases, left more than the right. CARDIOVASCULAR: S1, S2. Positive systolic murmur, left sternal border, right second intercostal space, left second intercostal space. ABDOMEN: Protuberant, obese. Positive bowel sounds. No hepatosplenomegaly noted. GENITALIA: Female. RECTAL: Deferred. EXTREMITIES: Positive SCDs. Positive decreased swelling of the lower extremity. Positive pitting edema of the lower extremities, decreased since yesterday. MUSCULOSKELETAL: Shows an elevated body mass index for stated weight and height. NEUROLOGICAL: The patient is complaining of off balance and dizziness.. DIAGNOSTICS: The patient's chemistry and labs are pending from today. Vitamin D is low at 26. Echocardiogram results were reviewed. The patient appears to have pulmonary hypertension with tricuspid regurgitation, elevated right ventricular systolic pressure with left ventricular ejection fraction of around 50 plus percent. IMPRESSION AND PLAN: 1. Bilateral lower extremity cellulitis, right more than the left with lymphedema and venous stasis of the lower extremity (resolving). 2. Hypertension. 3. Well-controlled diabetes mellitus with hemoglobin A1c of 6.3. 4. Questionable gait dysfunction versus vertigo versus labyrinthitis versus dizziness of unknown etiology. 5. Constipation. 6. Questionable and possible bilateral cerumen impaction. 7. Morbid obesity. 8. Hypovitaminosis D. 9. Hypokalemia. 10. Pulmonary hypertension with elevated right ventricular systolic pressure. 11. Left ventricle ejection fraction of about 50 plus percent. 12. Tricuspid regurgitation. 13. Deconditioning. 14. History of thyroidectomy. 15. History of right knee surgery. PLAN: At this time, the patient will be ordered a Podiatry evaluation and consultation. ENT consultation has been requested. The patient will be started on Debrox ear drops for cerumen impaction. MiraLax will be increased to three times a day on Shanna Nicholson because she is constipated. The patient will be ordered an MRI of the brain with attention to internal auditory canal without gadolinium. The patient will be continued on IV antibiotics. The patient will be continued on IV Lasix 40 IV every 12 hours with potassium supplementation. The patient's lab work and chemistry will be monitored on a daily basis. The patient has been ordered out of bed to chair, ambulation, elevation of the lower extremity on two pillows, SCDs, RAMSES stockings, physical therapy, occupational therapy, ambulation therapy, out of bed has been ordered. The patient updated about her condition, diagnoses, test results, recommendation by all physicians involved in the care of the patient. All questions concerned answered to the patient's satisfaction. Dictated and electronically signed, not read. Kole Almanza MD
--- NOTE | 2018-01-01 14:30 | MRI ---
PROCEDURE: MRI BRAIN WITHOUT CONTRAST [facility] COMPARISON: None. TECHNIQUE: Multiplanar, multisequence MR images of the brain were obtained without intravenous contrast enhancement. FINDINGS: HEMORRHAGE: None DWI: No evidence of an acute or early subacute infarction. BRAIN PARENCHYMA: No mass effect or edema. Chronic encephalomalacia is seen in the left occipital and parietal lobe. There is no acute infarct VENTRICLES: Unremarkable. No hydrocephalus. CRANIUM: Unremarkable. ORBITS: Grossly unremarkable. PARANASAL SINUSES/MASTOIDS: Clear VASCULAR SYSTEM: Skull base flow voids intact. OTHER FINDINGS: Partially empty sella IMPRESSION: No acute intracranial findings
[2018-01-01] MEDS: Digoxin 125 mcg (0.125 mg) Tab PO SCH (14:40)
--- NOTE | 2018-01-01 18:04 | CP.PCM.CON ---
History of Present Illness - History of Present Illness History of Present Illness: Pt has had a gait issue for quite some time. Denies room spinning events. Walks with difficulty can not walk up stairs. She veers off while attempting to walk straight. She has some decreased hearing and has hx of cerumen noted. History of TIA Review of Systems - Constitutional Constitutional: As Per HPI - EENT Eyes: As Per HPI Ears: As Per HPI Nose/Mouth/Throat: As Per HPI - Breasts Breasts: As Per HPI - Cardiovascular Cardiovascular: As Per HPI - Respiratory Respiratory: As Per HPI - Gastrointestinal Gastrointestinal: As Per HPI - Genitourinary Genitourinary: As Per HPI - Reproductive: Female Reproductive:Female: As Per HPI - Menstruation Menstruation: As Per HPI - Musculoskeletal Musculoskeletal: As Per HPI - Integumentary Integumentary: As Per HPI - Neurological Neurological: As Per HPI - Psychiatric Psychiatric: As Per HPI - Endocrine Endocrine: As Per HPI - Hematologic/Lymphatic Hematologic: As Per HPI Past Patient History - Infectious Disease Hx of Infectious Diseases: None - Past Social History Smoking Status: Never Smoked Alcohol: None Drugs: Denies - CARDIAC Hx Hypertension: Yes - PULMONARY Hx Respiratory Disorders: No Hx Asthma: No Hx Bronchitis: No Hx Chronic Obstructive Pulmonary Disease (COPD): No Hx Emphysema: No Hx Pneumonia: No Hx Respiratory Aspiration: No Hx Respiratory Tract Infection: No Hx Sleep Apnea: No Hx Tuberculosis: No - NEUROLOGICAL Hx Neurological Disorder: No Hx Alzheimer's Disease: No HX Cerebrovascular Accident: Yes Hx Dementia: No Hx Dizziness: No Hx Migraine: No Hx Parkinson's Disease: No Hx Seizures: No Hx Transient Ischemic Attacks (TIA): No - HEENT Hx HEENT Problems: No Hx Blind: No Hx Cataracts: Yes Hx Deafness: No Hx Difficulty Chewing: No Hx Epistaxis: No Hx Glaucoma: No - ENDOCRINE/METABOLIC Hx Diabetes Mellitus Type 2: Yes - HEMATOLOGICAL/ONCOLOGICAL Hx Blood Disorders: Yes Hx AIDS: No Hx Anemia: No Hx Cancer: No Hx Chemotherapy: No Hx Cirrhosis: No Hx Hepatitis A: No Hx Hepatitis B: No Hx Hepatitis C: No Hx Human Immunodeficiency Virus (HIV): No Hx Metastesis: No Hx Shingles: No Hx Unexplained Bleeding: No - INTEGUMENTARY Hx Dermatological Problems: No Hx Basil Cell: No Hx Eczema: No Hx Melanoma: No Hx Psoriasis: No Hx Squamous Cell: No - MUSCULOSKELETAL/RHEUMATOLOGICAL Hx Falls: No - PSYCHIATRIC Hx Substance Use: No - SURGICAL HISTORY Hx Thyroidectomy: Yes (benign per patient) Meds Allergies/Adverse Reactions: Allergies Allergy/AdvReac Type Severity Reaction Status Date / Time No Known Allergies Allergy Verified 12/30/17 20:04 - Medications Medications: Current Medications Allopurinol (Zyloprim) 100 mg PO DAILY [facility] Last Admin: 01/01/18 09:23 Dose: 100 mg Carbamide Peroxide (Debrox Ear Drops) 0 ml AU BID [facility] Last Admin: 01/01/18 14:42 Dose: 4 drop Digoxin (Digoxin) 0.125 mg PO 1400 [facility] Last Admin: 01/01/18 14:40 Dose: 0.125 mg Docusate Sodium (Colace) 100 mg PO TID [facility] Last Admin: 01/01/18 14:45 Dose: Not Given Enoxaparin Sodium (Lovenox) 40 mg SC DAILY [facility] PRN Reason: Protocol Last Admin: 01/01/18 09:25 Dose: 40 mg Ergocalciferol (Drisdol 50,000 Intl Units Cap) 1 cap PO Q7D [facility] Furosemide (Lasix) 40 mg IVP Q12 [facility] Last Admin: 01/01/18 09:22 Dose: 40 mg Cefepime HCl (Maxipime 2gm) 2 gm in 100 mls @ 100 mls/hr IVPB Q12 [facility] PRN Reason: Protocol Stop: 01/05/18 01:16 Last Admin: 01/01/18 09:24 Dose: 100 mls/hr Insulin Human Lispro (Humalog Low) 0 units SC ACHS [facility] PRN Reason: Protocol Last Admin: 01/01/18 16:19 Dose: Not Given Metoprolol Tartrate (Lopressor) 25 mg PO 0800,1800 [facility] Last Admin: 01/01/18 08:02 Dose: 25 mg Pantoprazole Sodium (Protonix Ec Tab) 40 mg PO ACB [facility] Last Admin: 01/01/18 08:02 Dose: 40 mg Polyethylene Glycol (Miralax) 17 gm PO TID [facility] Potassium Chloride (K-Dur 20 Meq Er Tab) 20 meq PO BID [facility] Last Admin: 01/01/18 09:23 Dose: 20 meq Physical Exam - Constitutional Appears: Well, Non-toxic, No Acute Distress - Head Exam Head Exam: ATRAUMATIC, NORMAL INSPECTION, NORMOCEPHALIC - Eye Exam Eye Exam: EOMI, Normal appearance Pupil Exam: NORMAL ACCOMODATION, PERRL - ENT Exam ENT Exam: Mucous Membranes Moist - Expanded ENT Exam Expanded TM/Canal Exam: Cerumen Impaction: Right (removed with irrigation, patient tolerated well TM wnl) Mouth exam: normal external inspection Teeth exam: normal external inspection Throat exam: Normal Inspection - Neck Exam Neck exam: Negative for: Lymphadenopathy - Neurological Exam Neurological exam: Alert, CN II-XII Intact Results - Vital Signs Recent Vital Signs: Last Vital Signs Temp 98.1 F 01/01/18 06:00 Pulse 78 01/01/18 08:02 Resp 19 01/01/18 06:00 BP 123/60 01/01/18 09:22 Pulse Ox 94 L 01/01/18 06:00 - Labs Result Diagrams: 01/01/18 07:30 01/01/18 07:30 Labs: Laboratory Results - last 24 hr 12/31/17 01/01/18 01/01/18 21:19 06:52 07:30 WBC 5.4 RBC 4.30 Hgb 11.4 L Hct 34.4 L MCV 80.0 MCH 26.5 MCHC 33.1 RDW 16.6 H Plt Count 91 L Manual Plt Count 134 MPV 10.3 Gran % 51.7 Lymph % (Auto) 35.4 H Oliver % (Auto) 9.6 H Eos % (Auto) 3.1 Baso % (Auto) 0.2 Gran # 2.80 Lymph # (Auto) 1.9 Oliver # (Auto) 0.5 Eos # (Auto) 0.2 Baso # (Auto) 0.01 Sodium Potassium Chloride Carbon Dioxide Anion Gap BUN Creatinine Est GFR ( Amer) Est GFR (Non-Af Amer) POC Glucose (mg/dL) 112 H 88 Random Glucose Calcium Magnesium Total Bilirubin Direct Bilirubin AST ALT Alkaline Phosphatase Total Protein Albumin Globulin Albumin/Globulin Ratio 01/01/18 01/01/18 01/01/18 07:30 11:27 15:47 WBC RBC Hgb Hct MCV MCH MCHC RDW Plt Count Manual Plt Count MPV Gran % Lymph % (Auto) Oliver % (Auto) Eos % (Auto) Baso % (Auto) Gran # Lymph # (Auto) Oliver # (Auto) Eos # (Auto) Baso # (Auto) Sodium 142 Potassium 3.7 Chloride 101 Carbon Dioxide 31 Anion Gap 14 BUN 18 Creatinine 0.9 Est GFR ( Amer) > 60 Est GFR (Non-Af Amer) 59 POC Glucose (mg/dL) 90 128 H Random Glucose 87 Calcium 8.8 Magnesium 2.0 Total Bilirubin 0.6 Direct Bilirubin 0.4 AST 30 ALT 27 Alkaline Phosphatase 113 Total Protein 7.5 Albumin 3.6 Globulin 3.9 Albumin/Globulin Ratio 0.9 L Assessment & Plan (1) Impacted cerumen of right ear Status: Acute (2) Presbycusis of both ears Status: Acute (3) Gait abnormality Status: Acute (4) TIA (transient ischemic attack) Status: Acute - Assessment and Plan (Free Text) Plan: cerumen removed with irrigation right ear, f/u in office for out patient audio and VNG, may benefit from physical therapy - Date & Time Date: 01/01/18 Time: 18:03
[2018-01-02] MEDS: Pantoprazole 40 mg EC Tab PO SCH (07:22)
[2018-01-02 07:31] LABS: BASO # 0.01 K/mm3 (0.0-2.0); BASO % 0.2 % (0.0-3.0); EOS # 0.2 (0.0-0.7); EOS % 2.9 % (1.5-5.0); GRAN # 2.68 (1.4-6.5); GRAN % 52.1 % (50.0-68.0); HEMOGLOBIN 11.4 g/dL (12.0-16.0); LYMPH # 1.7 (1.2-3.4); LYMPH % 32.7 % (22.0-35.0); MEAN CELL VOLUME 80.1 fl (80.0-105.0); MEAN CORPUSCULAR HEMOGLOBIN 26.3 pg (25.0-35.0); MEAN CORPUSCULAR HGB CONC 32.9 g/dl (31.0-37.0); MEAN PLATELET VOLUME 10.5 fl (7.0-11.0); MONO # 0.6 (0.1-0.6); MONO % 12.1 % (1.0-6.0); RBC 4.33 10^6/uL (3.5-6.1); RED CELL DISTRIBUTION WIDTH 16.5 % (11.5-14.5); WHITE BLOOD COUNT 5.1 10^3/ul (4.5-11.0)
[2018-01-02 07:53] LABS: ALB/GLOB RATIO 0.9 (1.1-1.8); ALBUMIN 3.5 g/dL (3.0-4.8); ALT/SGPT 22 U/L (7-56); AST/SGOT 32 U/L (14-36); BLOOD UREA NITROGEN 21 mg/dL (7-21); CALCIUM 8.7 mg/dL (8.4-10.5); GFR AFRICAN-AMERICAN > 60; GFR NON-AFRICAN AMERICAN 59
[2018-01-02] MEDS: Insulin Lispro (humaLOG) LOW Coverage SC SCH ×4 (08:18→21:47)
--- NOTE | 2018-01-02 09:47 | CON ---
DATE: HISTORY OF PRESENT ILLNESS: An 87-year-old pleasant female seen at bedside with chief complaint of painful thickened fungal toenails and painful ingrowing right great toenail. PAST MEDICAL HISTORY: The patient's medical history is significant for type 2 diabetes with peripheral neuropathy, essential hypertension, morbid obesity and hemorrhoids. PAST SURGICAL HISTORY: The patient's past surgical history includes hemorrhoidectomy, SOCIAL HISTORY: The patient is a nonsmoker. Denies illicit drug use. Never used tobacco products. ALLERGIES: THE PATIENT HAS NO KNOWN DRUG ALLERGIES. FAMILY HISTORY: Noncontributory. MEDICATIONS: All medications are noted in the MAR. VITAL SIGNS: Reveal a temperature of 98.3, pulse rate 63, blood pressure of 129/70, respiratory rate of 18. LABORATORY DATA: Laboratory findings reveal white count of 5.1, hemoglobin of 11.4, hematocrit of 34.7, platelet count of 97. Her ESR is elevated at 36. Most recent blood culture reveals no growth after 48 hours. OBJECTIVE: Nonpalpable posterior tibial pulse and weakly palpable dorsalis pedis pulse noted bilaterally. Absent pedal hair growth noted bilaterally. Lower extremity skin presents thin, shining discolored bilaterally. Temperature gradient is within normal limits, bilateral legs. Lower extremity skin presents thin, shiny and discolored. The patient is unable to detect 5.07 g monofilament wire testing bilaterally. All nail plates are noted to be elongated, dystrophic, discolored with severe subungual fungal debris. There is noted to be a painful tibial nail border of the right hallux secondary to incurvation; however, there is no paronychia noted. There is no drainage. There are no signs of infection. ASSESSMENT: Diabetic with peripheral neuropathy, complaining of painful ingrowing right great toenail and thickened fungal toes. PLAN: The patient was examined. Both feet were cleansed with normal sterile saline. Excisional debridement was performed on all nail plates and angulated excisional debridement was performed on the right tibial nail border, which was then cleansed with saline and application of Bactroban and a dry sterile dressing was applied. We will order Lotrisone cream to be applied to both feet and legs daily. The patient will be seen and followed as needed. Kurt Lucas DPM
[2018-01-02] MEDS: Potassium Chloride 20 mEq ER Tab PO SCH ×2 (09:51→18:52)
[2018-01-02] MEDS ORDERED: Clotrimazole/Betamethasone Lotion(30 ml) TOP SCH (10:00)
[2018-01-02] MEDS: Cefepime IV 2 gm in NS 2 GM/100 ML BAG IVPB SCH ×2 (10:04→21:59)
[2018-01-02] MEDS: POLYETHYLENE GLYCOL 3350 17 GM/Dose PACKET PO SCH ×3 (10:04→18:52)
[2018-01-02] MEDS: Enoxaparin 40 mg Syringe SC SCH (10:04)
[2018-01-02] MEDS: Clotrimazole/Betamethasone Lotion(30 ml) TOP SCH (10:05)
[2018-01-02] MEDS ORDERED: Potassium Chloride 40 mEq/30 ml LIQ UD PO ONE ×2 (11:09→14:33)
[2018-01-02] MEDS: Digoxin 125 mcg (0.125 mg) Tab PO SCH (14:24)
--- NOTE | 2018-01-02 15:44 | PN ---
DATE: 01/02/2018 SUBJECTIVE: The patient is in room 574, bed 1. Overnight nurse's notes were reviewed. The patient's last 24-hour events were noted. The patient was seen by Podiatry. The patient was seen by Ear, Nose and Throat. The patient does report increased urination since the patient is on intravenous Lasix. The patient denies any chest pain or shortness of breath. The patient does complain of some constipation. PHYSICAL EXAMINATION: VITAL SIGNS: T-max 98, pulse 63, blood pressure 144/83 , respiration 18, O2 sat 95%. HEENT: Head: Normocephalic, atraumatic. HEENT examination shows pinkish conjunctivae. Anicteric sclerae. No oropharyngeal lesion. NECK: No neck rigidity. CHEST: Kyphosis. LUNGS: Shows decreased breath sound at the bases, left more than the right. CARDIOVASCULAR: S1 and S2, regular rhythm. Positive systolic murmur, left sternal border, right second intercostal space, left second intercostal space. ABDOMEN: Obese. Positive bowel sounds. Protuberant. No hepatosplenomegaly appreciated. GENITALIA: Female. RECTAL: Deferred. EXTREMITY: Shows positive SCDs. Positive decreasing edema and swelling of the lower extremity since admission. MUSCULOSKELETAL: Shows elevated body mass index for stated height and weight. NEUROLOGICAL: The patient is alert, awake, oriented x3. Gait examination is not tested. DIAGNOSTICS: On January 02, WBC 5.1, hemoglobin and hematocrit are 11.4 and 34.7, platelet 110. ESR 36. Sodium 140, potassium 3.5, chloride 99, CO2 33, anion gap noted, BUN 21, creatinine 0.9, glucose 109, calcium 8.7, magnesium 2.0. The patient's MRI of the brain was done, which shows left occipitoparietal encephalomalacia and partially empty sella. Echocardiogram was done shows ejection fraction 51%. Right ventricular systolic pressure 47 mmHg, biatrial enlargement, moderate tricuspid regurgitation, moderate pulmonary hypertension and mild pulmonic regurgitation. The patient was seen by Ear, Nose and Throat. The patient had cerumen impaction, right more than the left, which was removed by irrigation. The patient was noted to have presbycusis bilaterally. The patient was seen by Podiatry. Their evaluation also suggested decreased pulses of the lower extremity and peripheral neuropathy of both legs. IMPRESSION: 1. Resolving bilateral lower extremity cellulitis. 2. Resolving bilateral lower extremity venous stasis and lymphedema. 3. Normocytic anemia. 4. Relative thrombocytopenia. 5. Elevated erythrocyte sedimentation rate. 6. History of hypertension and diabetes. 7. History of transient ischemic infarct. 8. Hypokalemia. 9. Left occipitoparietal encephalomalacia. 10. Partial empty sella. 11. Hypertensive cardiovascular disease. 12. Pulmonary hypertension with right ventricular systolic pressure of 47 mmHg. 13. Moderate tricuspid regurgitation. 14. Mild pulmonic regurgitation. 15. Cerumen impaction status post irrigation and removal. 16. Bilateral presbycusis. 17. Bilateral lower extremity peripheral neuropathy and possible bilateral lower extremity peripheral arterial disease. 18. History of hypertension. 19. Gait dysfunction. 20. Morbid obesity. 21. History of right knee surgery. 22. History of thyroidectomy. PLAN AT THIS TIME: The patient is to be continued on therapeutic intervention as per MAR. The patient will be given supplemental potassium for hypokalemia. The patient has been ordered noninvasive arterial Doppler of the lower extremity with ankle-brachial indices. The patient had debridement of the foot nails by the Podiatry, which was noted. The patient was seen by ENT. The patient had wax removal from ears. The patient was recommended to have an outpatient followup with ENT for further evaluation of ENT tissues, which was explained to the patient at length. All questions and concerned answered. The patient has been ordered out of bed to chair. The patient has been ordered physical therapy, occupational therapy, ambulation therapy and gait training. Dictated and electronically signed, not read. Kole Almanza MD
[2018-01-03 07:52] LABS: ALB/GLOB RATIO 0.9 (1.1-1.8); ALBUMIN 3.4 g/dL (3.0-4.8); ALT/SGPT 23 U/L (7-56); AST/SGOT 24 U/L (14-36); BILIRUBIN,DIRECT 0.4 mg/dL (0.0-0.4); BLOOD UREA NITROGEN 20 mg/dL (7-21); CALCIUM 8.7 mg/dL (8.4-10.5); GFR AFRICAN-AMERICAN > 60; GFR NON-AFRICAN AMERICAN > 60
[2018-01-03] MEDS: Pantoprazole 40 mg EC Tab PO SCH (08:33)
[2018-01-03] MEDS: Potassium Chloride 20 mEq ER Tab PO SCH ×3 (09:29→18:26)
[2018-01-03] MEDS: POLYETHYLENE GLYCOL 3350 17 GM/Dose PACKET PO SCH ×3 (09:30→18:26)
[2018-01-03] MEDS: Enoxaparin 40 mg Syringe SC SCH (09:30)
[2018-01-03] MEDS: Insulin Lispro (humaLOG) LOW Coverage SC SCH ×4 (09:31→22:43)
[2018-01-03] MEDS: Clotrimazole/Betamethasone Lotion(30 ml) TOP SCH (09:32)
[2018-01-03 10:00] VITALS: RESP 18
[2018-01-03] MEDS: Digoxin 125 mcg (0.125 mg) Tab PO SCH (15:34)
[2018-01-03 15:40] VITALS: PULSE 55
--- NOTE | 2018-01-03 19:31 | PN ---
DATE: 01/03/2018 SUBJECTIVE: Overnight nurse's notes were reviewed. PHYSICAL EXAMINATION: VITAL SIGNS: T-max is 98.2, heart rate 55, 50, 79, 76, blood pressure 108/75, 144/79, respiration 18, O2 sat 99%. INTAKE/OUTPUT: Not documented correctly. HEENT: Head: Normocephalic, atraumatic. HEENT examination shows pinkish pale conjunctivae. Anicteric sclerae. No oropharyngeal lesion. NECK: No neck rigidity. CHEST: Kyphosis. LUNGS: Shows decreased breath sound at the bases, left more than the right. CARDIOVASCULAR: S1 and S2. Positive systolic murmur, left sternal border, right second intercostal space, left second intercostal space. ABDOMEN: Soft, protuberant. Positive bowel sounds. GENITALIA: Female. RECTAL: Deferred. EXTREMITIES: Shows trace to 1+ pitting edema of the lower extremity which is significantly less since admission. The patient had more than 2+ pitting edema on admission. MUSCULOSKELETAL: Shows a body mass index of 34. NEUROLOGICAL: The patient is alert, awake, oriented x3. Cranial nerves II-XII grossly intact. Motor strength is 5/5. DIAGNOSTICS: From 01/03/2018: Fingerstick blood sugar 138, 143, 106, 128, 106, 120. Sodium 145, potassium 3.8, chloride 102, CO2 33, anion gap 14, BUN 20, creatinine 0.8, GFR greater than 60, glucose 106, calcium 8.7, magnesium 2. LFTs are normal. Digoxin 0.9. Blood cultures are negative. Echocardiogram noted. IMPRESSION: 1. Bilateral lower extremity cellulitis (resolving to resolved). 2. Episodic bradycardia, asymptomatic. 3. Hypertension. 4. Normocytic anemia with mild thrombocytopenia. 5. Elevated erythrocyte sedimentation rate of 36. 6. Hyperglycemia with prediabetes and hemoglobin A1c of 6.3. 7. Hypokalemia. 8. Hypovitaminosis D. 9. Bilateral lower extremity venous stasis and possible lymphedema. 10. Hyperglycemia. 11. Left ventricular ejection fraction of 51%. 12. Biatrial enlargement. 13. Mild mitral regurgitation. 14. Moderate tricuspid regurgitation, moderate pulmonary hypertension. 15. Mild pulmonic valvular regurgitation. 16. Left occipitoparietal encephalomalacia. 17. Partially empty sella. 18. Questionable peripheral vascular disease. 19. Peripheral neuropathy. 20. Painful ingrown toenails. 21. Gait dysfunction. 22. Morbid obesity. 23. Episodic bradycardia. 24. Constipation. 25. Cerumen impaction. 26. Presbycusis of both ears. 27. History of old transient ischemic attack and old cerebrovascular accident. 28. Status post cerumen removal. PLAN AT THIS TIME: The patient has been ordered serial labs. Current consultation, ENT and Podiatry. The patient's case referred to Transitional Care Unit. CURRENT MEDICATIONS: Colace 100 mg three times a day, Debrox ear drop 4 drops to both ears twice a day, digoxin 0.125 daily, which will be stopped because ejection fraction is within normal limits, Drisdol 50,000 units weekly, Humalog low-dose sliding scale coverage, K-Dur 20 mEq three times a day, Lasix 40 IV every 12, Lopressor decreased to 12.5 mg daily, Lotrisone cream to the affected area of feet, Lovenox 40 mg subcu daily, MiraLax 17 g three times a day, Protonix 40 mg daily, Ultram 50 mg b.i.d. p.r.n. for hand pain, allopurinol 100 mg daily. The patient's arterial Doppler and ankle-brachial indices results are still pending. The patient is on consistent carbohydrate diet, out of bed, RAMSES stockings, SCDs, occupational and physical therapy ordered. Dictated and electronically signed, not read. Kole Almanza MD
[2018-01-04 08:06] LABS: ALBUMIN 3.7 g/dL (3.0-4.8); ALT/SGPT 27 U/L (7-56); AST/SGOT 26 U/L (14-36); BILIRUBIN,DIRECT 0.3 mg/dL (0.0-0.4); BLOOD UREA NITROGEN 26 mg/dL (7-21); CALCIUM 8.7 mg/dL (8.4-10.5); GFR AFRICAN-AMERICAN > 60; GFR NON-AFRICAN AMERICAN 53
[2018-01-04] MEDS: Insulin Lispro (humaLOG) LOW Coverage SC SCH ×2 (08:18→13:26)
[2018-01-04] MEDS: Pantoprazole 40 mg EC Tab PO SCH (08:22)
[2018-01-04 08:24] VITALS: O2SAT 100
[2018-01-04] MEDS ORDERED: Potassium Chloride 20 mEq ER Tab PO SCH (10:00)
[2018-01-04] MEDS: Clotrimazole/Betamethasone Lotion(30 ml) TOP SCH (11:10)
[2018-01-04] MEDS: Enoxaparin 40 mg Syringe SC SCH (11:10)
[2018-01-04] MEDS: POLYETHYLENE GLYCOL 3350 17 GM/Dose PACKET PO SCH ×2 (11:11→13:27)
--- NOTE | 2018-01-04 11:54 | CP.PCM.DIS ---
Provider - Provider Date of Admission: 01/02/18 12:44 Attending physician: Kole Almanza MD Primary care physician: Christine Garcia MD Hospital Course - Lab Results Lab Results: Most Recent Lab Values WBC 5.1 10^3/ul (4.5-11.0) 01/02/18 07:00 RBC 4.33 10^6/uL (3.5-6.1) 01/02/18 07:00 Hgb 11.4 g/dL (12.0-16.0) L 01/02/18 07:00 Hct 34.7 % (36.0-48.0) L 01/02/18 07:00 MCV 80.1 fl (80.0-105.0) 01/02/18 07:00 MCH 26.3 pg (25.0-35.0) 01/02/18 07:00 MCHC 32.9 g/dl (31.0-37.0) 01/02/18 07:00 RDW 16.5 % (11.5-14.5) H 01/02/18 07:00 Plt Count 97 10^3/uL (120.0-450.0) L 01/02/18 07:00 Manual Plt Count 110 K/mm3 (120-450) L 01/02/18 07:00 MPV 10.5 fl (7.0-11.0) 01/02/18 07:00 Gran % 52.1 % (50.0-68.0) 01/02/18 07:00 Lymph % (Auto) 32.7 % (22.0-35.0) 01/02/18 07:00 Stokes % (Auto) 12.1 % (1.0-6.0) H 01/02/18 07:00 Eos % (Auto) 2.9 % (1.5-5.0) 01/02/18 07:00 Baso % (Auto) 0.2 % (0.0-3.0) 01/02/18 07:00 Gran # 2.68 (1.4-6.5) 01/02/18 07:00 Lymph # (Auto) 1.7 (1.2-3.4) 01/02/18 07:00 Stokes # (Auto) 0.6 (0.1-0.6) 01/02/18 07:00 Eos # (Auto) 0.2 (0.0-0.7) 01/02/18 07:00 Baso # (Auto) 0.01 K/mm3 (0.0-2.0) 01/02/18 07:00 ESR 36 mm/hr (0.0-20.0) H 12/31/17 06:00 PT 11.1 SECONDS (9.4-12.5) 12/30/17 22:05 INR 0.97 (0.93-1.08) 12/30/17 22:05 APTT 18.8 Seconds (25.1-36.5) L 12/30/17 22:05 pO2 78 mm/Hg (30-55) H 12/30/17 22:05 VBG pH 7.41 (7.32-7.43) 12/30/17 22:05 VBG pCO2 58.0 (40-60) 12/30/17 22:05 VBG HCO3 36.8 mmol/l (21-28) H 12/30/17 22:05 VBG Total CO2 38.6 mmol.L (22-28) H 12/30/17 22:05 VBG O2 Sat (Calc) 96.6 % (40-65) H 12/30/17 22:05 VBG Base Excess 9.9 mmol/L (0.0-2.0) H 12/30/17 22:05 VBG Potassium 3.2 mmol/L (3.6-5.2) L 12/30/17 22:05 Sodium 137.0 mmol/L (132-148) 12/30/17 22:05 Chloride 100.0 mmol/L (98-107) 12/30/17 22:05 Glucose 119 mg/dl (65-105) H 12/30/17 22:05 Lactate 1.1 mmol/L (0.7-2.1) 12/30/17 22:05 FiO2 21.0 % 12/30/17 22:05 Sodium 144 mmol/L (132-148) 01/04/18 07:30 Potassium 4.1 mmol/L (3.6-5.0) 01/04/18 07:30 Chloride 101 mmol/L (98-107) 01/04/18 07:30 Carbon Dioxide 35 mmol/L (21-33) H 01/04/18 07:30 Anion Gap 12 (10-20) 01/04/18 07:30 BUN 26 mg/dL (7-21) H 01/04/18 07:30 Creatinine 1.0 mg/dl (0.7-1.2) 01/04/18 07:30 Est GFR ( Amer) > 60 01/04/18 07:30 Est GFR (Non-Af Amer) 53 01/04/18 07:30 POC Glucose (mg/dL) 111 mg/dL (65-110) H 01/04/18 11:10 Random Glucose 113 mg/dL (70-110) H 01/04/18 07:30 Hemoglobin A1c 6.3 % (4.2-6.5) 12/31/17 07:35 Uric Acid 7.2 mg/dL (2.5-6.2) H 12/31/17 06:00 Calcium 8.7 mg/dL (8.4-10.5) 01/04/18 07:30 Magnesium 2.0 mg/dL (1.7-2.2) 01/04/18 07:30 Total Bilirubin 0.4 mg/dL (0.2-1.3) 01/04/18 07:30 Direct Bilirubin 0.3 mg/dL (0.0-0.4) 01/04/18 07:30 AST 26 U/L (14-36) 01/04/18 07:30 ALT 27 U/L (7-56) 01/04/18 07:30 Alkaline Phosphatase 105 U/L (38-126) 01/04/18 07:30 Lactate Dehydrogenase 711 U/L (333-699) H 12/30/17 22:05 Total Creatine Kinase 301 U/L (35-230) H 12/30/17 22:05 CK-MB (CK-2) 3.3 ng/mL (0.0-3.6) 12/30/17 22:05 CK-MB (CK-2) % Cancelled 12/30/17 22:05 Troponin I 0.01 ng/mL 12/30/17 22:05 C-Reactive Protein 9.20 mg/L (0.0-9.9) 12/31/17 06:00 C-React Prot High Sens 5.62 mg/L (1.00-3.00) H 12/31/17 06:00 NT-Pro-B Natriuret Pep 994 pg/mL (0-450) H 12/31/17 06:00 Total Protein 7.4 g/dL (5.8-8.3) 01/04/18 07:30 Albumin 3.7 g/dL (3.0-4.8) 01/04/18 07:30 Globulin 3.7 gm/dL 01/04/18 07:30 Albumin/Globulin Ratio 1.0 (1.1-1.8) L 01/04/18 07:30 Triglycerides 61 mg/dL (35-160) 12/31/17 06:00 Cholesterol 137 mg/dL (130-200) 12/31/17 06:00 LDL Cholesterol Direct 44 mg/dL (0-129) 12/31/17 06:00 HDL Cholesterol 67 mg/dL (29-60) H 12/31/17 06:00 25-OH Vitamin D Total 23.5 NG/ML (30.0-100.0) L 12/31/17 Unknown Procalcitonin 0.05 NG/ML (0.19-0.49) L 12/31/17 06:00 Free T4 1.74 ng/dL (0.78-2.19) 12/31/17 07:35 Thyroxine (T4) 10.1 ug/dL (5.5-11.0) 12/31/17 07:35 TSH 3rd Generation 2.39 mIU/mL (0.46-4.68) 12/31/17 07:35 Venous Blood Potassium 3.2 mmol/L (3.6-5.2) L 12/30/17 22:05 Digoxin 0.9 ng/mL (0.8-2.0) 12/30/17 22:05 Discharge Exam - Head Exam Head Exam: ATRAUMATIC, NORMAL INSPECTION, NORMOCEPHALIC Discharge Plan - Discharge Medications Prescriptions: Allopurinol [Zyloprim] 100 mg PO DAILY #90 tab Carbamide Peroxide [Debrox Ear Drops] 1 ml AU BID #1 bottle Clotrimazole/Betamethasone [Lotrisone] 5 ml TOP DAILY #3 tub Docusate [Colace] 100 mg PO TID #90 cap Ergocalciferol [Drisdol 50,000 Intl Units Cap] 1 cap PO Q7D #12 cap Furosemide [Lasix] 1 tab PO BID #30 tablet Lubiprostone [Amitiza] 1 tab PO DAILY #60 capsule Metoprolol Tartrate [Lopressor] 1 tab PO DAILY #30 tab Pantoprazole [Protonix EC Tab] 40 mg PO ACB #30 ect Potassium Chloride [K-Dur 20 mEq ER Tab] 20 meq PO TID #30 tab - Follow Up Plan Condition: GOOD Disposition: HOME/ ROUTINE Additional Instructions: MAY DISCHARGE TO TCU IF ACCEPTED OTHERWISE MAY DISCHARGE HOME WITH [facility] AFTER ARTERIAL DOPPLER ARE DONE FOLLOW UP WITHIN 1 WEEK DISCHARGE MEDS PER UPDATED AMBULATORY MEDS AND NEW SCRIPTS. NO ALCOHOL, NO SMOKING NO DRIVING. Referrals: Christine Garcia MD [Primary Care Provider] - 1 Week (MAY DISCHARGE TO TCU IF ACCEPTED OTHERWISE MAY DISCHARGE HOME WITH [facility] AFTER ARTERIAL DOPPLER ARE DONE FOLLOW UP WITHIN 1 WEEK DISCHARGE MEDS PER UPDATED AMBULATORY MEDS AND NEW SCRIPTS. NO ALCOHOL, NO SMOKING NO DRIVING.)
[2018-01-04 14:24] VITALS: BP 145/70; PULSE 60; TEMP 97.5
--- NOTE | 2018-01-04 19:21 | US ---
PROCEDURE: Lower extremity JAYESH exam HISTORY: Peripheral vascular disease with pain and claudication. Diabetes. Previous smoking. PHYSICIAN(S): Rafael Elise MD. FINDINGS: The exam is limited by noncompressible vessels proximally. The resting JAYESH's are normal: right, and left, . The brachial systolic pressures are symmetric. The high thigh pressures are noncompressible. The high thigh PVR waveforms are normal and symmetric. The calf PVR waveforms are relatively normal and symmetric. However augmentation is not clearly demonstrated. The ankle and metatarsal waveforms are relatively normal and symmetric. No significant pressure gradients are noted across the lower legs. IMPRESSION: 1. Relatively normal JAYESH and PVR examination at rest.
--- NOTE | 2018-01-05 07:39 | DS ---
The patient is seen in room 574 bed 1. Overnight nurse's notes were reviewed. The patient had intermittent complaint of some hand pain and joint pain, for which the patient was given one dose of Toradol IV or IM with positive relief and the patient was started on Ultram 50 mg b.i.d. p.r.n. No other adverse events were documented. OBJECTIVE: GENERAL: The patient is comfortable. VITAL SIGNS: T-max 98.2; pulse 62; blood pressure 151/80, 150/80; respirations 18;O2 sat 96%. HEENT: Head examination, normocephalic and atraumatic. HEENT examination shows pink conjunctivae. Anicteric sclerae. No oropharyngeal lesion. No neck rigidity. CHEST: Examination is kyphosis. LUNGS: Examination shows no rales, crackles or wheezing. CARDIOVASCULAR: Examination S1, S2. Regular rhythm. Positive systolic murmur, left sternal border, right second intercostal space, left second intercostal space. ABDOMEN: Soft. Positive bowel sounds. Obese. GENITALIA: Female. RECTAL: Deferred. EXTREMITIES: Show significantly decreased pitting edema of the lower extremity. Now, the patient has trace to 1+ pitting edema of the legs as compared to more than 2+ pitting edema at the time of admission. Motor strength is 5/5 in upper and lower extremities. Positive surgical scar of the right knee. Positive surgical scar of the thyroid surgery noted. MUSCULOSKELETAL: Examination shows an elevated body mass with elevated body mass index. Gait examination is not tested. VASCULAR: . DATA: The patient's lab data is still pending. Chemistry from 01/04 was reviewed. Potassium is 4.1. Sodium is within normal limit. BUN is slightly elevated at 26. Creatinine is within normal limits. LFTs are normal. Magnesium and calcium are within normal limit. FINAL IMPRESSION, PLAN AND DISCHARGE DIAGNOSES: 1. Bilateral lower extremity cellulitis and venous stasis of the lower extremity (resolved versus resolving). 2. Uncontrolled hypertension. 3. Bradycardia. 4. Moderate pulmonary hypertension with moderate tricuspid regurgitation and elevated right ventricular systolic pressure. 5. Hypertensive cardiovascular disease. 6. Mild normocytic anemia with mild thrombocytopenia. 7. Hyperlipidemia. 8. Hypovitaminosis D. 9. Hyperuricemia. 10. Cerumen impaction, status post cerumen disimpaction. 11. Chronic history of old transient ischemic infarct versus cerebrovascular accident with occipitoparietal area chronic encephalomalacia. 12. Morbid obesity. 13. Hypokalemia. 14. Degenerative joint disease. PLAN: At this time, the patient has completed IV antibiotic treatment. The patient has responded to inpatient treatment and therapy. The patient's case was referred for discharge options. The patient has been ordered to be discharge either to Transitional Care Unit if accepted. If the patient is not accepted, otherwise the patient will be considered for discharge home with [facility], home physical therapy. The patient's case will be referred to [facility] Health aide, home physical therapy if the patient is discharged home and if the patient is not accepted to Transitional Care Unit. The patient has been advised to follow up. Discharge followup is with Dr. Christine Garcia in [place], the patient's primary care physician. The patient's discharge medications is as per updated ambulatory orders and the new scripts. Discharge diet is heart healthy diet, low salt, low cholesterol diet. The patient will be discharged after completion of the arterial Doppler of the lower extremity. DISCHARGE MEDICATIONS: Lasix 40 mg twice a day, K-Dur 20 mEq twice a day, allopurinol 100 mg daily, vitamin D 50,000 units weekly, Lopressor decreased to 25 mg p.o. daily. In addition, the patient will resume some of her home medications. The patient's discharge medications have been modified so the patient will be discharged home on updated ambulatory orders and the new scripts. During this hospitalization, the patient was extensively explained about the details of her diagnostic test results, recommendation by all physician involved the care of the patient including Podiatry and Ear, Nose, Throat. All questions concerned were answered to the patient during this hospitalization at length on a daily basis. Time spent in the entire discharge process was more than 45 minutes. Dictated and electronically signed, not read. Kole Almanza MD
== END 2018-01-04 18:19 | disposition home or self-care (01) | DRG 603 ==
LOC: ED 19:09 → ERH 12-31 00:05 → 5RSO 12-31 02:08 → OBSVTOIN 01-02 12:44
PROVIDERS: ADMIT Internal Medicine; ATTEND Internal Medicine
PROC: 3E1B78Z Irrigation of Ear using Irrigating Substance, Via Natural or Artificial Opening (ICD-10-PCS; 2018-01-01)
PROC: 0HBRXZZ Excision of Toe Nail, External Approach (ICD-10-PCS; principal; 2018-01-02)
PROC: 0HBRXZZ Excision of Toe Nail, External Approach (ICD-10-PCS; 2018-01-02)
PROC: 0HBRXZZ Excision of Toe Nail, External Approach (ICD-10-PCS; 2018-01-02)
PROC: 0HBRXZZ Excision of Toe Nail, External Approach (ICD-10-PCS; 2018-01-02)
PROC: 0HBRXZZ Excision of Toe Nail, External Approach (ICD-10-PCS; 2018-01-02)
PROC: 0HBRXZZ Excision of Toe Nail, External Approach (ICD-10-PCS; 2018-01-02)
PROC: 0HBRXZZ Excision of Toe Nail, External Approach (ICD-10-PCS; 2018-01-02)
PROC: 0HBRXZZ Excision of Toe Nail, External Approach (ICD-10-PCS; 2018-01-02)
PROC: 0HBRXZZ Excision of Toe Nail, External Approach (ICD-10-PCS; 2018-01-02)
PROC: 0HBRXZZ Excision of Toe Nail, External Approach (ICD-10-PCS; 2018-01-02)
DX: L03.116 Cellulitis of left lower limb (principal); E87.3 Alkalosis; N17.9 Acute kidney failure, unspecified; L03.115 Cellulitis of right lower limb; I87.8 Other specified disorders of veins; I27.22 Pulmonary hypertension due to left heart disease; I08.1 Rheumatic disorders of both mitral and tricuspid valves; I11.9 Hypertensive heart disease without heart failure; D64.9 Anemia, unspecified; D69.6 Thrombocytopenia, unspecified; E78.5 Hyperlipidemia, unspecified; E55.9 Vitamin D deficiency, unspecified; E87.6 Hypokalemia; G93.89 Other specified disorders of brain; E79.0 Hyperuricemia without signs of inflammatory arthritis and tophaceous disease; H61.21 Impacted cerumen, right ear; E66.01 Morbid (severe) obesity due to excess calories; I48.91 Unspecified atrial fibrillation; I37.1 Nonrheumatic pulmonary valve insufficiency; E11.42 Type 2 diabetes mellitus with diabetic polyneuropathy; E11.65 Type 2 diabetes mellitus with hyperglycemia; L60.0 Ingrowing nail; B35.1 Tinea unguium; H91.13 Presbycusis, bilateral; M19.90 Unspecified osteoarthritis, unspecified site; I89.0 Lymphedema, not elsewhere classified; K59.00 Constipation, unspecified; R00.1 Bradycardia, unspecified; R26.9 Unspecified abnormalities of gait and mobility; Z79.02 Long term (current) use of antithrombotics/antiplatelets; Z68.34 Body mass index [BMI] 34.0-34.9, adult; Z86.73 Personal history of transient ischemic attack (TIA), and cerebral infarction without residual deficits; Z86.718 Personal history of other venous thrombosis and embolism

== ENCOUNTER 2018-02-24 21:45 | Inpatient (IN) | payer MEDICARE ==
[2018-02-24 21:47] VITALS: PULSE 55; BMI 33.8
[2018-02-24 23:17] LABS: ALBUMIN 3.8 g/dL (3.0-4.8); ALT/SGPT 38 U/L (7-56); AST/SGOT 40 U/L (14-36); BLOOD UREA NITROGEN 17 mg/dL (7-21); CALCIUM 8.9 mg/dL (8.4-10.5); GFR AFRICAN-AMERICAN > 60; GFR NON-AFRICAN AMERICAN > 60
[2018-02-24 23:28] LABS: TROPONIN I 0.03 ng/mL
[2018-02-24 23:31] LABS: BASO # 0.01 K/mm3 (0.0-2.0); BASO % 0.2 % (0.0-3.0); EOS # 0.1 (0.0-0.7); EOS % 1.2 % (1.5-5.0); GRAN # 3.68 (1.4-6.5); GRAN % 63.3 % (50.0-68.0); LYMPH # 1.6 (1.2-3.4); MEAN CELL VOLUME 80.5 fl (80.0-105.0); MEAN CORPUSCULAR HEMOGLOBIN 26.8 pg (25.0-35.0); MEAN CORPUSCULAR HGB CONC 33.3 g/dl (31.0-37.0); MEAN PLATELET VOLUME 11.1 fl (7.0-11.0); MONO # 0.5 (0.1-0.6); MONO % 8.3 % (1.0-6.0); RBC 4.1 10^6/uL (3.5-6.1); RED CELL DISTRIBUTION WIDTH 16.3 % (11.5-14.5); WHITE BLOOD COUNT 5.8 10^3/ul (4.5-11.0)
--- NOTE | 2018-02-24 23:45 | ED PDOC ---
Arrival/HPI - General Historian: Patient - History of Present Illness Time/Duration: 24 hours Symptom Onset: Gradual Symptom Course: Unchanged Activities at Onset: Light Context: Home - General Chief Complaint: Lower Extremity Problem/Injury Time Seen by Provider: 02/24/18 22:37 - History of Present Illness Narrative History of Present Illness (Text): 02/24/18 22:40 Shanna Nicholson is an 88 year old female, whose past medical history includes Type 2 diabetes, recently treated for cellulitis, who presents to the Emergency department with left lower extremity pain for the two days. Patient states she normally uses a walker to ambulate and has stiffness in both legs but noticed more pronounced pain in the left lower extremity. Patient states she found it difficult to continue moving in house and had to sit more often. Patient also states she has a hemorrhoid, notes she is often constipated. Patient states she took a laxative and normal bowel movements today. Patient denies any rectal bleeding, bladder/bowel issues, recent trauma, fever, chills, nausea, vomiting, diarrhea, or any other complaints. (Mariam Espinosa) Past Medical History - Provider Review Nursing Documentation Reviewed: Yes - Travel History Have you recently traveled outside [place] w/in the past 3 mons?: No - Infectious Disease Hx of Infectious Diseases: None - Cardiac Hx Hypertension: Yes - Pulmonary Hx Respiratory Disorders: No Hx Asthma: No Hx Bronchitis: No Hx Chronic Obstructive Pulmonary Disease (COPD): No Hx Emphysema: No Hx Pneumonia: No Hx Respiratory Aspiration: No Hx Respiratory Tract Infection: No Hx Sleep Apnea: No Hx Tuberculosis: No - Neurological Hx Neurological Disorder: No Hx Alzheimer's Disease: No HX Cerebrovascular Accident: Yes Hx Dementia: No Hx Dizziness: No Hx Migraine: No Hx Parkinson's Disease: No Hx Seizures: No Hx Transient Ischemic Attacks (TIA): No - HEENT Hx HEENT Disorder: No Hx Blind: No Hx Cataracts: Yes Hx Deafness: No Hx Difficulty Chewing: No Hx Epistaxis: No Hx Glaucoma: No - Endocrine/Metabolic Hx Diabetes Mellitus Type 2: Yes - Hematological/Oncological Hx Blood Disorders: Yes Hx AIDS: No Hx Anemia: No Hx Cancer: No Hx Chemotherapy: No Hx Cirrhosis: No Hx Hepatitis A: No Hx Hepatitis B: No Hx Hepatitis C: No Hx Metastasis: No Hx Shingles: No Hx Unexplained Bleeding: No - Integumentary Hx Dermatological Disorder: No Hx Basal Cell Carcinoma: No Hx Eczema: No Hx Melanoma: No Hx Psoriasis: No Hx Squamous Cell Carcinoma: No - Musculoskeletal/Rheumatological Hx Falls: No - Psychiatric Hx Substance Use: No - Surgical History Hx Thyroidectomy: Yes (benign per patient) Family/Social History - Physician Review Nursing Documentation Reviewed: Yes Family/Social History: Unknown Family HX Smoking Status: Former Smoker Hx Alcohol Use: No Hx Substance Use: No Allergies/Home Meds Allergies/Adverse Reactions: Allergies No Known Allergies Allergy (Verified 12/30/17 20:04) Home Medications: Home Meds Medication Instructions Recorded Confirmed Clopidogrel [Plavix] 1 tab PO DAILY 12/31/17 02/25/18 Naproxen/Esomeprazole Mag [Vimovo 1 tab PO DAILY 12/31/17 02/25/18 Dr 375-20 mg Tablet] Review of Systems - Physician Review All systems were reviewed & negative as marked: Yes - Review of Systems Constitutional: Normal. absent: Fevers Eyes: Normal ENT: Normal Respiratory: Normal. absent: SOB, Cough Cardiovascular: Normal. absent: Chest Pain Gastrointestinal: Normal. absent: Abdominal Pain, Diarrhea, Nausea, Vomiting Genitourinary Female: Normal. absent: Dysuria, Frequency, Hematuria, Urine Output Changes Musculoskeletal: Other (+bilateral lower extremity stiffness/pain). absent: Back Pain, Neck Pain Skin: Normal. absent: Rash Neurological: Normal. absent: Headache, Dizziness Endocrine: Normal Hemo/Lymphatic: Normal Psychiatric: Normal Physical Exam Vital Signs Reviewed: Yes Temperature: Afebrile Blood Pressure: Hypertensive Pulse: Regular Respiratory Rate: Normal Appearance: Positive for: Well-Appearing, Non-Toxic, Comfortable Pain Distress: None Mental Status: Positive for: Alert and Oriented X 3 - Systems Exam Head: Present: Atraumatic, Normocephalic Pupils: Present: PERRL Extroacular Muscles: Present: EOMI Conjunctiva: Present: Normal Mouth: Present: Moist Mucous Membranes Neck: Present: Normal Range of Motion Respiratory/Chest: Present: Clear to Auscultation, Good Air Exchange. No: Respiratory Distress, Accessory Muscle Use Cardiovascular: Present: Regular Rate and Rhythm, Normal S1, S2. No: Murmurs Abdomen: No: Tenderness, Distention, Peritoneal Signs Back: Present: Normal Inspection Upper Extremity: Present: Normal Inspection. No: Cyanosis, Edema Lower Extremity: Present: Edema (General bilateral lower extremity edema), NORMAL PULSES, Normal ROM (Motor function limited, which is patient's baseline) , Neurovascularly Intact (Sensation intact), Capillary Refill < 2 s. No: Cyanosis, Tenderness, Erythema, Deformity, Temperature Abnormalties, Other (No lesions noted) Neurological: Present: GCS=15, CN II-XII Intact, Speech Normal Skin: Present: Warm, Dry, Normal Color. No: Rashes Psychiatric: Present: Alert, Oriented x 3, Normal Insight, Normal Concentration Vital Signs Temp Pulse Resp BP Pulse Ox 02/25/18 04:08 97.8 F 95 H 20 155/66 H 95 02/25/18 03:40 75 18 135/70 98 02/25/18 00:15 76 18 164/87 H 98 02/24/18 22:15 98.1 F 85 16 164/87 H 95 Medical Decision Making - EKG Interpretation Interpreted by ED Physician: Yes (Atrial fibrillation, non specific T wave abnormality, rate 68) Comparison: Com.w/previous EKG ED Course and Treatment: 02/25/18 02:[address] Stevenson, covering for Dr. Almanza, who is aware and agrees with plan. (Michael Hartley) 02/24/18 22:40 Impression: 88 year old female presents for bilateral lower extremity stiffness. Working Dx: cellulitis vs DVT Plan: -- Labs, cardiac enzymes -- Urinalysis -- US Duplex Lower Extremities -- Reassess and disposition Progress Notes: US Duplex Lower Extremity negative for DVT. 02/25/18 00:17 labs wnl pt resting well 02/25/18 01:15 will admit pt for cellulitis under Dr Almanza 02/25/18 01:44 02/25/18 02:[address] Hartley (Mariam Espinosa) - Lab Interpretations Lab Results: 02/24/18 23:02 02/24/18 23:02 Lab Results 02/24/18 23:02: Sodium 143, Potassium 3.4 L, Chloride 100, Carbon Dioxide 33, Anion Gap 12, BUN 17, Creatinine 0.8, Est GFR ( Amer) > 60, Est GFR (Non- Af Amer) > 60, Random Glucose 80, Calcium 8.9, Total Bilirubin 0.5, AST 40 H D, ALT 38, Alkaline Phosphatase 131 H D, Lactate Dehydrogenase 575, Total Creatine Kinase 221, Troponin I 0.03 D, Total Protein 7.4, Albumin 3.8, Globulin 3.7, Albumin/Globulin Ratio 1.0 L 02/24/18 23:02: PT 11.6, INR 1.02, APTT 29.5 02/24/18 23:02: WBC 5.8, RBC 4.10, Hgb 11.0 L, Hct 33.0 L, MCV 80.5, MCH 26.8, MCHC 33.3, RDW 16.3 H, Plt Count 125, MPV 11.1 H, Gran % 63.3, Lymph % (Auto) 27.0, [place] % (Auto) 8.3 H, Eos % (Auto) 1.2 L, Baso % (Auto) 0.2, Gran # 3.68, Lymph # (Auto) 1.6, [place] # (Auto) 0.5, Eos # (Auto) 0.1, Baso # (Auto) 0.01 - RAD Interpretation Narrative RAD Interpretations (Text): 02/25/18 00:17 Negative for DVT on bilateral doppler LE (Mariam Espinosa) Radiology Orders: 02/24/18 22:41 DUPLEX LOWER EXTRM VEIN BILAT [US] Stat 02/25/18 01:48 CHEST PORTABLE [RAD] Stat - Medication Orders Current Medication Orders: Acetaminophen (Tylenol 325mg Tab) 650 mg PO Q4H PRN PRN Reason: Pain, Mild (1-3) Allopurinol (Zyloprim) 100 mg PO DAILY [facility] Last Admin: 02/25/18 10:32 Dose: 100 mg Betamethasone/Clotrimazole (Lotrisone) 0 ml TOP DAILY [facility] Last Admin: 02/25/18 10:32 Dose: 1 applic Clopidogrel Bisulfate (Plavix) 75 mg PO DAILY [facility] Last Admin: 02/25/18 10:32 Dose: 75 mg Docusate Sodium (Colace) 100 mg PO TID [facility] Last Admin: 02/25/18 10:32 Dose: 100 mg Furosemide (Lasix) 40 mg PO BID [facility] Last Admin: 02/25/18 10:31 Dose: 40 mg MAR Blood Pressure Document 02/25/18 10:31 ML (Rec: 02/25/18 10:32 ML [id number]) Blood Pressure Blood Pressure (100/60-150/90) 135/72 Insulin Human Regular (Humulin R Low) 0 units SC ACHS [facility] PRN Reason: Protocol Metoprolol Succinate (Toprol Xl) 25 mg PO BRK [facility] Last Admin: 02/25/18 10:32 Dose: 25 mg Naproxen (Anaprox) 275 mg PO BID [facility] Last Admin: 02/25/18 10:32 Dose: 275 mg MAR Pain Assessment Document 02/25/18 10:32 ML (Rec: 02/25/18 10:32 ML [id number]) Pain Reassessment Is this a pain reassessment? No Pantoprazole Sodium (Protonix Ec Tab) 40 mg PO ACB [facility] Potassium Chloride (K-Dur 20 Meq Er Tab) 20 meq PO TID [facility] Last Admin: 02/25/18 10:32 Dose: 20 meq Discontinued Medications Vancomycin HCl (Vancomycin 1gm) 1 gm in 250 mls @ 167 mls/hr IVPB STAT STA PRN Reason: Protocol Stop: 02/25/18 03:53 Last Admin: 02/25/18 04:59 Dose: 167 mls/hr eMAR Start Stop Document 02/25/18 04:59 SG (Rec: 02/25/18 04:59 SG [id number]) Intravenous Solution Start Date 02/25/18 Start Time 04:59 End Date 02/25/18 End time 06:29 Total Infusion Time 90 Aztreonam (Azactam 1 Gm) 100 mls @ 100 mls/hr IVPB STAT STA PRN Reason: Protocol Stop: 02/25/18 03:24 Last Admin: 02/25/18 03:22 Dose: 100 mls/hr eMAR Start Stop Document 02/25/18 03:22 SS (Rec: 02/25/18 03:23 SS [id number]) Intravenous Solution Start Date 02/25/18 Start Time 03:23 End Date 02/25/18 End time 04:23 Total Infusion Time 60 - Scribe Statement The provider has reviewed the documentation as recorded by the Scribe - Scribe Statement Meri Aragon All medical record entries made by the Scribe were at my direction and personally dictated by me. I have reviewed the chart and agree that the record accurately reflects my personal performance of the history, physical exam, medical decision making, and the department course for this patient. I have also personally directed, reviewed, and agree with the discharge instructions and disposition. (Mariam Espinosa) Disposition/Present on Arrival - Present on Arrival Any Indicators Present on Arrival: Yes History of DVT/PE: No History of Uncontrolled Diabetes: No Urinary Catheter: No History of Decub. Ulcer: No History Surgical Site Infection Following: None - Disposition Have Diagnosis and Disposition been Completed?: Yes Disposition Time: 04:00 Patient Plan: Admission - Disposition Diagnosis: Cellulitis, leg, Gait abnormality Disposition: HOSPITALIZED Patient Problems: Current Active Problems Problem Status Onset Cellulitis, leg Acute Condition: STABLE
[2018-02-24 23:47] LABS: INR 1.02 (0.93-1.08); PARTIAL THROMBOPLASTIN TIME 29.5 Seconds (25.1-36.5); PROTHROMBIN TIME 11.6 SECONDS (9.4-12.5)
[2018-02-25] MEDS ORDERED: Vancomycin 1gm in NS 250ml 1 GM/250 ML BAG IVPB STA (02:24)
[2018-02-25] MEDS ORDERED: Aztreonam 1 Gm in NS 100mL 100 ML IVPB STA (02:25)
--- NOTE | 2018-02-25 07:51 | RAD ---
HISTORY: cp COMPARISON: Chest radiographs 12/31/2017. FINDINGS: LUNGS: No active pulmonary disease. A granuloma is questioned at the lateral mid left chest PLEURA: Trace right pleural effusion is identified. None is seen on the left. No pneumothorax bilaterally. CARDIOVASCULAR: Normal. OSSEOUS STRUCTURES: No significant abnormalities. VISUALIZED UPPER ABDOMEN: Normal. OTHER FINDINGS: Surgical clips are again seen the right neck base. IMPRESSION: Trace right pleural effusion suggested. Cardiomegaly stable. No pulmonary vascular congestion.
--- NOTE | 2018-02-25 08:03 | CP.PCM.HP ---
History of Present Illness - History of Present Illness History of Present Illness: 88 year old female with history of diabetes mellitus type II, hemorrhoids, constipation, anemia, atrial fibrillation, hypertension and TIA presented to the Emergency Room with pain and weakness of her left lower extremity. She says that she had cellulitis in December which she was treated for in the hospital. Since that time, she has felt progressively weaker in the left leg. She denies fever. Present on Admission - Present on Admission Any Indicators Present on Admission: No History of DVT/PE: No History of Uncontrolled Diabetes: No Urinary Catheter: No Decubitus Ulcer Present: No Review of Systems - Constitutional Constitutional: absent: Chills, Fever - Cardiovascular Cardiovascular: absent: Chest Pain, Diaphoresis, Dyspnea - Gastrointestinal Gastrointestinal: absent: Abdominal Pain, Nausea, Vomiting - Musculoskeletal Musculoskeletal: Abnormal Gait, Arthralgias Past Patient History - Infectious Disease Hx of Infectious Diseases: None - Past Social History Smoking Status: Never Smoked - CARDIAC Hx Cardiac Disorders: Yes Hx Atrial Fibrillation: Yes Hx Hypertension: Yes - PULMONARY Hx Respiratory Disorders: No Hx Asthma: No Hx Bronchitis: No Hx Chronic Obstructive Pulmonary Disease (COPD): No Hx Emphysema: No Hx Pneumonia: No Hx Respiratory Aspiration: No Hx Respiratory Tract Infection: No Hx Sleep Apnea: No Hx Tuberculosis: No - NEUROLOGICAL Hx Neurological Disorder: No Hx Alzheimer's Disease: No HX Cerebrovascular Accident: No Hx Dementia: No Hx Dizziness: No Hx Migraine: No Hx Parkinson's Disease: No Hx Seizures: No Hx Transient Ischemic Attacks (TIA): Yes - HEENT Hx HEENT Problems: No Hx Blind: No Hx Cataracts: Yes Hx Deafness: No Hx Difficulty Chewing: No Hx Epistaxis: No Hx Glaucoma: No - RENAL Hx Chronic Kidney Disease: No - ENDOCRINE/METABOLIC Hx Endocrine Disorders: Yes Hx Diabetes Mellitus Type 2: Yes - HEMATOLOGICAL/ONCOLOGICAL Hx Blood Disorders: No Hx AIDS: No Hx Anemia: No Hx Cancer: No Hx Chemotherapy: No Hx Cirrhosis: No Hx Hepatitis A: No Hx Hepatitis B: No Hx Hepatitis C: No Hx Metastesis: No Hx Shingles: No Hx Unexplained Bleeding: No - INTEGUMENTARY Hx Dermatological Problems: No Hx Basil Cell: No Hx Eczema: No Hx Melanoma: No Hx Psoriasis: No Hx Squamous Cell: No - MUSCULOSKELETAL/RHEUMATOLOGICAL Hx Musculoskeletal Disorders: Yes Hx Arthritis: Yes Hx Falls: No - GASTROINTESTINAL Hx Gastrointestinal Disorders: Yes Hx Constipation: Yes Hx Hemorrhoids: Yes - GENITOURINARY/GYNECOLOGICAL Hx Incontinence: Yes - PSYCHIATRIC Hx Psychophysiologic Disorder: No Hx Substance Use: No Meds Home Medications: Home Medication List Medication Instructions Recorded Confirmed Type Acetaminophen [Tylenol 325mg tab] 650 mg PO Q4H PRN tab 03/01/18 Rx Allopurinol [Zyloprim] 100 mg PO DAILY tab 03/01/18 Rx Clotrimazole/Betamethasone 0 ml TOP DAILY bottle 03/01/18 Rx [Lotrisone] Furosemide [Lasix] 40 mg IVP Q12 vial 03/01/18 Rx Lidocaine 5% [Lidoderm] 1 ea TD DAILY patch 03/01/18 Rx Metoprolol Succinate XL [Toprol XL] 25 mg PO BRK tab 03/01/18 Rx Allergies/Adverse Reactions: Allergies Allergy/AdvReac Type Severity Reaction Status Date / Time No Known Allergies Allergy Verified 03/01/18 19:10 Physical Exam - Constitutional Appears: No Acute Distress - Head Exam Head Exam: ATRAUMATIC, NORMOCEPHALIC - Respiratory Exam Respiratory Exam: Clear to Auscultation Bilateral, NORMAL BREATHING PATTERN - Cardiovascular Exam Cardiovascular Exam: +S1, +S2 - GI/Abdominal Exam GI & Abdominal Exam: Normal Bowel Sounds, Soft. absent: Tenderness - Extremities Exam Extremities exam: Positive for: pedal edema Additional comments: + thickened skin BL LE - Neurological Exam Neurological exam: Alert, CN II-XII Intact, Oriented x3 Results - Vital Signs Recent Vital Signs: Last Vital Signs Temp 97.8 F 02/25/18 04:08 Pulse 95 H 02/25/18 04:08 Resp 16 02/25/18 04:10 BP 155/66 H 02/25/18 04:08 Pulse Ox 100 02/25/18 04:10 - Labs Result Diagrams: 02/28/18 06:30 02/28/18 06:30 Labs: Laboratory Results - last 24 hr 02/25/18 03:40 POC Glucose (mg/dL) 61 L Assessment & Plan - Assessment and Plan (Free Text) Assessment: LLE cellulitis Weakness LLE HTN DMII H/O TIA history of anemia constipation Plan: Patient with cellulitis. Venous doppler negative for DVT. Arterial doppler done in December was relatively normal. Consult infectious disease for cellulitis. continue Metoprolol for hypertension. continue Colace for constipation. continue potassium for hypokalemia and Lasix for lower extremity edema. Will order accuchecks with sliding scale coverage for diabetes. Will order physical therapy evaluation.
--- NOTE | 2018-02-25 09:16 | US ---
HISTORY: Leg pain and swelling. Evaluate for DVT PHYSICIAN(S): Rafael Elise MD. TECHNIQUE: Duplex sonography and color-flow Doppler with graded compression were used to evaluate the deep venous systems of both lower extremities. The exam is very limited by body habitus and edema. The lower femoral veins and tibial veins are not well seen FINDINGS: The visualized deep venous systems of both lower extremities are sonographically normal and compressible. Normal wave forms and augmentation are seen. There is no sonographic evidence for deep venous thrombosis in the visualized segments of both lower extremities. IMPRESSION: No sonographic evidence for deep venous thrombosis in the visualized segments of both lower extremities. Very limited study.
[2018-02-25] MEDS: Naproxen 275 mg Tab PO SCH ×2 (10:32→18:31)
[2018-02-25] MEDS: Potassium Chloride 20 mEq ER Tab PO SCH ×3 (10:32→18:31)
[2018-02-25] MEDS: Clotrimazole/Betamethasone Lotion(30 ml) TOP SCH (10:32)
[2018-02-25] MEDS: Metoprolol Succinate 25 mg XL Tab PO SCH (10:32)
[2018-02-25] MEDS: Insulin Reg-LOW-Coverage SC SCH ×3 (12:48→22:05)
--- NOTE | 2018-02-25 12:59 | CARD ---
APPROVED REPORT EKG Measurement Heart [id number] <Conclusion> Atrial fibrillation with premature ventricular or aberrantly conducted complex Nonspecific T wave abnormality PRWP V 1 - 4
[2018-02-25] MEDS ORDERED: Iohexol 240 (50 ml) ONE (17:25)
[2018-02-25] MEDS: Cefepime 1gm in NS 100ml 1 GM/100 ML BAG IVPB SCH ×2 (18:30→22:07)
[2018-02-25 20:16] LABS: IRON 79 ug/dL (45-180)
[2018-02-25 20:24] LABS: TOTAL IRON BINDING CAPACITY 381 ug/dL (265-497)
[2018-02-25 20:26] LABS: % IRON SATURATION 21 % (20-55)
--- NOTE | 2018-02-25 22:52 | CON ---
DATE: 02/25/2018 LOCATION: The patient is in room 367, bed 2. CHIEF COMPLAINT: Lower extremity edema times several days. HISTORY OF PRESENT ILLNESS: This is an 88-year-old female with hypertension, diabetes, hemorrhoids, constipation, anemia, cataract, recent hospitalization, TIA, CVA, atrial fibrillation, who was admitted with a diagnosis of cellulitis of the leg. Review of systems reveals the patient has mild low-grade fevers. No chills. No chest pain. There is mild shortness of breath. No cough. REVIEW OF SYSTEMS: A 12-point review of systems is performed. PAST MEDICAL HISTORY: Significant for hypertension, diabetes, TIA, CVA, constipation, atrial fibrillation, anemia, cataracts, recent hospitalization. PAST SURGICAL HISTORY: Significant for thyroidectomy. ALLERGIES: THE PATIENT HAS NO KNOWN ALLERGIES. MEDICATIONS AT HOME: Noted with Plavix, Lopressor, Lasix, Colace. PHYSICAL EXAMINATION: GENERAL: The patient is in bed, appearing comfortable. VITAL SIGNS: Temperature of 96, blood pressure is 150/60, respiratory rate of 20, heart rate of 95. HEENT: Examination of HEENT is unremarkable. NECK: Supple. LUNGS: Have decreased breath sounds. HEART: Normal S1 and S2. ABDOMEN: Soft, nontender. No organomegaly. No rebound. No guarding. It is mildly distended. EXTREMITIES: Examination of lower extremities, significant bilateral edema; however, the left leg has erythema. Pulses are intact. LABORATORY DATA: Laboratory examination reveals a white count of 5.8, hemoglobin of 11, platelets of 125. BUN is 17, creatinine of 0.8. Microbiology is noted. Chest x-ray is reported to be negative. Urinalysis is negative . EKG has 401 QTc. ASSESSMENT AND PLAN: An 88-year-old female with diabetes, hypertension, transient ischemic attack, cerebrovascular accident, atrial fibrillation, hemorrhoids, constipation, anemia cataract with #1 is left leg cellulitis, bilateral edema of lower extremity, etiology of which is not clear. We will check on the blood cultures, urine culture, urinalysis and order a CAT scan of the abdomen and pelvis. We will treat with vancomycin and cefepime pending clinical response and the initial culture and workup results. We will follow closely with you. Christiano Mcintyre MD [facility] # [id number]
[2018-02-26] MEDS: Cefepime 1gm in NS 100ml 1 GM/100 ML BAG IVPB SCH ×3 (05:17→21:54)
[2018-02-26 06:35] LABS: BASO # 0.01 K/mm3 (0.0-2.0); BASO % 0.2 % (0.0-3.0); EOS # 0.1 (0.0-0.7); EOS % 2.2 % (1.5-5.0); GRAN # 3.44 (1.4-6.5); GRAN % 64.2 % (50.0-68.0); HEMOGLOBIN 10.6 g/dL (12.0-16.0); LYMPH # 1.4 (1.2-3.4); LYMPH % 25.4 % (22.0-35.0); MEAN CELL VOLUME 80.5 fl (80.0-105.0); MEAN CORPUSCULAR HEMOGLOBIN 26.4 pg (25.0-35.0); MEAN CORPUSCULAR HGB CONC 32.8 g/dl (31.0-37.0); MEAN PLATELET VOLUME 10.7 fl (7.0-11.0); MONO # 0.4 (0.1-0.6); RBC 4.01 10^6/uL (3.5-6.1); RED CELL DISTRIBUTION WIDTH 16.4 % (11.5-14.5); WHITE BLOOD COUNT 5.4 10^3/ul (4.5-11.0)
[2018-02-26 06:42] LABS: ALB/GLOB RATIO 0.9 (1.1-1.8); ALBUMIN 3.3 g/dL (3.0-4.8); ALT/SGPT 38 U/L (7-56); AST/SGOT 37 U/L (14-36); BLOOD UREA NITROGEN 17 mg/dL (7-21); CALCIUM 8.4 mg/dL (8.4-10.5); GFR AFRICAN-AMERICAN > 60; GFR NON-AFRICAN AMERICAN 59
--- NOTE | 2018-02-26 07:56 | CP.PCM.PN ---
Subjective - Date & Time of Evaluation Date of Evaluation: 02/26/18 Time of Evaluation: 07:35 - Subjective Subjective: (covering for Dr. Amlanza) Patient is seen this morning. She denies shortness of breath. Objective - Vital Signs/Intake and Output Vital Signs (last 24 hours): Temp Pulse Resp BP Pulse Ox 97.8 F 72 20 135/72 96 02/25/18 18:00 02/25/18 18:00 02/25/18 18:00 02/25/18 18:31 02/25/18 18:00 Intake and Output: 02/26/18 02/26/18 06:59 18:59 Intake Total 400 Output Total 1 Balance 399 - Medications Medications: Current Medications Acetaminophen (Tylenol 325mg Tab) 650 mg PO Q4H PRN PRN Reason: Pain, Mild (1-3) Allopurinol (Zyloprim) 100 mg PO DAILY [facility] Last Admin: 02/25/18 10:32 Dose: 100 mg Betamethasone/Clotrimazole (Lotrisone) 0 ml TOP DAILY [facility] Last Admin: 02/25/18 10:32 Dose: 1 applic Clopidogrel Bisulfate (Plavix) 75 mg PO DAILY [facility] Last Admin: 02/25/18 10:32 Dose: 75 mg Docusate Sodium (Colace) 100 mg PO TID [facility] Last Admin: 02/25/18 17:03 Dose: Not Given Furosemide (Lasix) 40 mg PO BID [facility] Last Admin: 02/25/18 18:31 Dose: 40 mg Cefepime HCl (Maxipime 1gm) 1 gm in 100 mls @ 100 mls/hr IVPB Q8 [facility] PRN Reason: Protocol Stop: 03/06/18 17:16 Last Admin: 02/26/18 05:17 Dose: 100 mls/hr Vancomycin HCl (Vancomycin 1gm) 1 gm in 250 mls @ 167 mls/hr IVPB DAILY [facility] PRN Reason: Protocol Stop: 03/03/18 10:01 Insulin Human Regular (Humulin R Low) 0 units SC ACHS [facility] PRN Reason: Protocol Last Admin: 02/25/18 22:05 Dose: Not Given Metoprolol Succinate (Toprol Xl) 25 mg PO BRK [facility] Last Admin: 02/25/18 10:32 Dose: 25 mg Naproxen (Anaprox) 275 mg PO BID [facility] Last Admin: 02/25/18 18:31 Dose: 275 mg Pantoprazole Sodium (Protonix Ec Tab) 40 mg PO ACB [facility] Potassium Chloride (K-Dur 20 Meq Er Tab) 20 meq PO TID [facility] Last Admin: 02/25/18 18:31 Dose: 20 meq - Labs Labs: 02/26/18 06:00 02/26/18 06:00 PT 11.6 SECONDS (9.4-12.5) 02/24/18 23:02 INR 1.02 (0.93-1.08) 02/24/18 23:02 APTT 29.5 Seconds (25.1-36.5) 02/24/18 23:02 - Constitutional Appears: No Acute Distress - Head Exam Head Exam: ATRAUMATIC, NORMOCEPHALIC - Respiratory Exam Respiratory Exam: Decreased Breath Sounds, Clear to Ausculation Bilateral, NORMAL BREATHING PATTERN - Cardiovascular Exam Cardiovascular Exam: +S1, +S2 - GI/Abdominal Exam GI & Abdominal Exam: Soft, Normal Bowel Sounds. absent: Tenderness - Extremities Exam Extremities Exam: Pedal Edema - Neurological Exam Neurological Exam: Alert, Awake, Oriented x3 Assessment and Plan - Assessment and Plan (Free Text) Assessment: LLE cellulitis BL lower extremity edema HTN Diabetes Plan: Patient is on IV antibiotics as per infectious disease. continue Lasix for lower extremity edema. Awaiting results of CT abd/pelvis. Doppler of lower extremities negative for DVT. PT evaluation was done yesterday and patient recommended for further PT and rehab in [facility].
[2018-02-26] MEDS: Insulin Reg-LOW-Coverage SC SCH ×4 (07:59→21:52)
[2018-02-26] MEDS ORDERED: Vancomycin 1gm in NS 250ml 1 GM/250 ML BAG IVPB SCH (10:00)
--- NOTE | 2018-02-26 10:00 | CT ---
PROCEDURE: CT Abdomen and Pelvis without intravenous contrast HISTORY: abd distention COMPARISON: None. TECHNIQUE: Without contrast.. Contrast dose: 0 Radiation dose: Total exam DLP = 1052.45 mGy-cm. This CT exam was performed using one or more of the following dose reduction techniques: Automated exposure control, adjustment of the mA and/or kV according to patient size, and/or use of iterative reconstruction technique. FINDINGS: LOWER THORAX: Unremarkable. LIVER: Unremarkable. No gross lesion or ductal dilatation. GALLBLADDER AND BILE DUCTS: Unremarkable. PANCREAS: Unremarkable. No gross lesion or ductal dilatation. SPLEEN: Unremarkable. ADRENALS: Unremarkable. No mass. KIDNEYS AND URETERS: Unremarkable. No hydronephrosis. No solid mass. VASCULATURE: Unremarkable. No aortic aneurysm. BOWEL: Sigmoid diverticulosis. No evidence of diverticulitis. No bowel obstruction. No other abnormal bowel loops are appreciated. APPENDIX: Unremarkable. Normal appendix. PERITONEUM: Unremarkable. No free fluid. No free air. LYMPH NODES: Unremarkable. No enlarged lymph nodes. BLADDER: Unremarkable. REPRODUCTIVE: Normal uterus. BONES: Extensive multilevel lumbar degenerative disc disease. No acute fracture. Incidentally noted lipoma of the right rectus femoris muscle. OTHER FINDINGS: None. IMPRESSION: Sigmoid diverticulosis without evidence of diverticulitis. No bowel obstruction. No ascites. No acute abnormality. Incidental findings as above. Preliminary interpretation of this examination was reported by [employer] at 9:40 p.m. on 02/25/2018. There is concurrence of this report with the preliminary interpretation.
[2018-02-26] MEDS: Naproxen 275 mg Tab PO SCH ×2 (11:12→17:52)
[2018-02-26] MEDS: Pantoprazole 40 mg EC Tab PO SCH (11:12)
[2018-02-26] MEDS: Potassium Chloride 20 mEq ER Tab PO SCH ×3 (11:12→17:52)
[2018-02-26] MEDS: Metoprolol Succinate 25 mg XL Tab PO SCH (11:13)
[2018-02-26] MEDS: Clotrimazole/Betamethasone Lotion(30 ml) TOP SCH (11:14)
[2018-02-26 18:08] LABS: FOLATE 15.4 ng/mL
--- NOTE | 2018-02-27 01:44 | PN ---
DATE: 02/26/2018 SUBJECTIVE: Patient is in bed, in no acute distress, was seen earlier this morning in 367, bed 2. PHYSICAL EXAMINATION: VITAL SIGNS: Temperature is 97, blood pressure is 130/80, respiratory rate of 20, heart rate of 66. HEENT: Unremarkable. NECK: Supple. LUNGS: Decreased breath sounds. HEART: Normal S1 and S2. ABDOMEN: Soft. EXTREMITIES: Examination of the leg is much improved. LABORATORY DATA: Reveals a white count of 5.4 and hemoglobin of 10. Chemistries are noted. Microbiology reveals the blood cultures have no growth. Patient had a CAT scan of the abdomen and pelvis, no evidence of any findings, and chest x-ray, trace right pleural effusion, cardiomegaly. ASSESSMENT AND PLAN: This is an 88-year-old female, seen earlier in room 367, bed 2, with diabetes, hypertension, transient ischemic attack, cerebrovascular accident, atrial fibrillation, hemorrhoids, constipation, anemia with a left leg cellulitis. Currently on vancomycin and cefepime, continues to improve. We will discontinue the antibiotics in the next 24 or 48 hours. We had an ultrasound of lower extremities, no evidence of deep venous thrombosis. Etiology of the bilateral edema is not entirely clear. We will request the third urinalysis which has been ordered twice and not done. We will also order a urine culture. Christiano Mcintyre MD
[2018-02-27 02:18] LABS: URINE BILIRUBIN NEGATIVE (NEGATIVE); URINE BLOOD NEGATIVE (NEGATIVE); URINE GLUCOSE (UA) NEGATIVE (NEGATIVE); URINE LEUKOCYTE ESTERASE NEGATIVE Leu/uL (NEGATIVE); URINE PROTEIN NEGATIVE mg/dL (<30 mg/dL); URINE UROBILINOGEN 0.2 E.U./dL (<1 E.U./dL)
[2018-02-27 02:20] LABS: URINE APPEARANCE CLEAR (CLEAR); URINE COLOR LIGHT YELLOW (YELLOW)
[2018-02-27] MEDS: Cefepime 1gm in NS 100ml 1 GM/100 ML BAG IVPB SCH (05:47)
[2018-02-27] MEDS: Insulin Reg-LOW-Coverage SC SCH ×4 (07:59→21:38)
[2018-02-27 08:28] VITALS: RESP 20
[2018-02-27] MEDS: Naproxen 275 mg Tab PO SCH ×2 (09:15→17:43)
[2018-02-27] MEDS: Metoprolol Succinate 25 mg XL Tab PO SCH (09:15)
[2018-02-27] MEDS: Potassium Chloride 20 mEq ER Tab PO SCH ×3 (09:15→17:43)
[2018-02-27] MEDS: Pantoprazole 40 mg EC Tab PO SCH (09:16)
[2018-02-27 09:19] LABS: ALBUMIN 3.9 g/dL (3.0-4.8); ALT/SGPT 42 U/L (7-56); AST/SGOT 35 U/L (14-36); BLOOD UREA NITROGEN 21 mg/dL (7-21); CALCIUM 8.6 mg/dL (8.4-10.5); GFR AFRICAN-AMERICAN > 60; GFR NON-AFRICAN AMERICAN 59
--- NOTE | 2018-02-27 09:51 | PN ---
DATE: 02/27/2018 SUBJECTIVE: This is an 88-year-old female patient who was admitted with cellulitis of left leg. The patient has past history of hypertension, history of hyperuricemia. The patient has history of hemorrhoids and constipation. The patient seen this morning sitting on the commode. She is complaining of some constipation problem at this time, but she had a bowel movement, she said yesterday. PHYSICAL EXAMINATION: VITAL SIGNS: The pulse is 62, blood pressure 125/77, respirations were 19 and O2 sat is 91% on room air. HEENT: The patient's head is normocephalic. The eyes are within normal limits. NECK: The thyroid is not enlarged. Carotid pulses are present. JVP is flat. LUNGS: Trachea is central. Breath sounds are vesicular. No adventitious sounds. ABDOMEN: Soft. Liver and spleen not palpable. FIELD PLACEMENT DIRECTOR: The patient has no focal deficits at this time. EXTREMITIES: The patient's legs shows marked chronic edema with induration of skin on both sides of the legs with long-standing edema. The patient has had evaluation for peripheral vascular disease, which was negative. MEDICATIONS: The patient is placed on medications; at this time, Lasix is given IV 40 mg every 12 hours, the patient is on potassium chloride 30 mEq daily, insulin coverage for diabetes, naproxen 275 mg b.i.d., the patient is on Plavix 75 mg daily, Maxipime 1 g every 8 hours, the patient gets metoprolol 25 mg daily, pantoprazole 40 mg daily and vancomycin 1 g daily. The patient is also on Zyloprim for gout. The patient's diet is heart-healthy diet, low sodium. The patient is improving gradually and progressing well at this time. We will continue current management and followup and the patient will be seen by the Infectious Disease, Dr. Mcintyre. Damaris Stevenson MD MTDOlivia
[2018-02-27] MEDS: Clotrimazole/Betamethasone Lotion(30 ml) TOP SCH (10:12)
--- NOTE | 2018-02-27 10:50 | PN ---
DATE: 02/27/2018 SUBJECTIVE: The patient is in bed, in no acute distress, nontoxic, was seen early this morning sitting in 367, bed 2. She is awake and alert. She is complaining of edema at this point. Her erythema in the left leg is resolved; however, she still has lower extremity edema. PHYSICAL EXAMINATION: VITAL SIGNS: On exam, temperature is 98, blood pressure is 119/70, respiratory rate of 18, heart rate of 62. HEENT: Examination of HEENT is unremarkable. NECK: Supple. LUNGS: Have decreased breath sounds. HEART: Normal S1, S2. ABDOMEN: Soft, nontender. No rebound or guarding. LABORATORY DATA: Laboratory examination reveals the blood cultures are negative, no growth at 24 hours. White count is 5.8, hemoglobin of 11, platelets of 107. Chemistries reveals the patient's blood sugar is elevated and AST is 37, BUN of 17, creatinine of 0.9. Urinalysis is unremarkable. Essentially a negative urinalysis with negative leukocyte esterase, negative nitrites. The patient had a CAT scan of the abdomen and pelvis, which showed sigmoid diverticulosis without any evidence of diverticulitis. No bowel obstruction, no ascites, no acute abnormalities. ASSESSMENT AND PLAN: An 88-year-old female, seen earlier this morning at 367 and the patient with diabetes, hypertension, TIA, cerebrovascular accident, atrial fibrillation, hemorrhoids, constipation, anemia and mild left leg cellulitis, now has bilateral lower extremity edema, negative ultrasound for deep venous thrombosis. Cultures negative. CAT scan of the abdomen is negative. No evidence of infection at this point. We will discontinue the cefepime and vancomycin. No need for any further antibiotics. The patient does have obesity with a body mass index of 33. Christiano Mcintyre MD
[2018-02-27 11:39] LABS: MEAN CELL VOLUME 80.9 fl (80.0-105.0); MEAN CORPUSCULAR HEMOGLOBIN 27.3 pg (25.0-35.0); MEAN CORPUSCULAR HGB CONC 33.7 g/dl (31.0-37.0); MEAN PLATELET VOLUME 10.1 fl (7.0-11.0); RBC 4.4 10^6/uL (3.5-6.1); RED CELL DISTRIBUTION WIDTH 16.3 % (11.5-14.5); WHITE BLOOD COUNT 5.2 10^3/ul (4.5-11.0)
[2018-02-27] MEDS ORDERED: Magnesium Citrate Oral SOL (300 ml) PO ONE (17:04)
--- NOTE | 2018-02-27 23:30 | CON ---
DATE: 02/27/2018 CONSULT REQUESTED BY: Dr. Jeff Stevenson. REASON FOR CONSULTATION: Anemia. HISTORY OF PRESENT ILLNESS: Ms. Nicholson is an 88-year-old female admitted to the hospital with lower extremity swelling and weakness. She has longstanding history of diabetes mellitus type 2. She also has a history of hemorrhoids. No active bleeding from hemorrhoids as per the patient. She has chronic constipation. History of atrial fibrillation, heart rate controlled with current medications. Her hemoglobin was above 12 last year and declined to 10.6 yesterday. Iron study showed normal iron of 79. B12 level is normal at 954. Renal functions are within normal limits with creatinine of 0.9 and BUN 21. She is able to ambulate in the house. She has prior history of TIA and no history of residual weakness. No history of bleeding from any site. REVIEW OF SYSTEMS: As per HPI. Rest of 12-point review of systems reviewed negative. PAST MEDICAL HISTORY: Diabetes mellitus type 2, history of internal hemorrhoids, constipation, chronic anemia, atrial fibrillation, hypertension, TIA. PAST SURGICAL HISTORY: None. ALLERGIES: NO KNOWN DRUG ALLERGIES. PHYSICAL EXAMINATION: GENERAL: Comfortable in bed, in no acute distress. VITAL SIGNS: Temperature 97.7, heart rate 66 per minute, blood pressure 148/65, respiratory rate 20 per minute, oxygen saturation 95% on room air. HEENT: Pallor positive. NECK: No lymphadenopathy. CHEST: Air entry present and equal bilateral. No added sound. CARDIOVASCULAR: S1, S2 normal. No murmur. No gallop. ABDOMEN: Soft, nontender. No hepatosplenomegaly. EXTREMITIES: Bilateral leg edema. Chronic skin changes present, peripheral vascular insufficiency. 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 No focal sensory or motor deficit. SKIN: No petechiae. No rash. SPINE: Nontender. LABORATORY DATA: White count is 5.2, hemoglobin 10.6 on 02/26/2018. On 02/27/2018, hemoglobin 12, hematocrit 35.6, platelet count 106. MCV 80, iron 79, bilirubin 0.6, LDH 575, B12 of 954, creatinine 0.9. Sodium 140, potassium 4, glucose 142. Blood culture, urine culture, no growth. ASSESSMENT AND PLAN: 1. Anemia. 2. Bilateral lower leg extremity cellulitis. 3. Atrial fibrillation. 4. History of hemorrhoids. No active bleeding. 5. Hypertension. 6. Diabetes mellitus type 2. 7. Morbid obesity. PLAN: Anemia is normocytic, normochromic. Normal iron studies, B12, folate normal. Very likely, she has anemia of chronic disease. She has diabetes mellitus, hypertension, stroke. We will continue to monitor blood count closely. She might have underlying myelodysplasia, but hemoglobin improved to 12 g/dL, normal MCV. Bilateral lower extremity edema. Antibiotics discontinued by Dr. Mcintyre. She was on cefepime and vanco. GI; she has history of hemorrhoids. No active bleeding. She might have slow bleeding from the hemorrhoids. We will repeat the blood counts tomorrow. We will repeat the iron studies also to make sure she is not iron deficient. Thank you, Dr. Stevenson for allowing us to participate in Ms. Nicholson's care. Nadia Ordonez MD RENE
[2018-02-28 06:54] LABS: BASO # 0.01 K/mm3 (0.0-2.0); BASO % 0.2 % (0.0-3.0); EOS # 0.1 (0.0-0.7); EOS % 1.6 % (1.5-5.0); GRAN # 3.07 (1.4-6.5); GRAN % 61.5 % (50.0-68.0); HEMOGLOBIN 11.2 g/dL (12.0-16.0); LYMPH # 1.4 (1.2-3.4); LYMPH % 28.7 % (22.0-35.0); MEAN CELL VOLUME 80.6 fl (80.0-105.0); MEAN CORPUSCULAR HEMOGLOBIN 26.5 pg (25.0-35.0); MEAN CORPUSCULAR HGB CONC 32.9 g/dl (31.0-37.0); MONO # 0.4 (0.1-0.6); RBC 4.22 10^6/uL (3.5-6.1); RED CELL DISTRIBUTION WIDTH 16.4 % (11.5-14.5)
[2018-02-28 07:20] LABS: BLOOD UREA NITROGEN 22 mg/dL (7-21); CALCIUM 8.4 mg/dL (8.4-10.5); GFR AFRICAN-AMERICAN > 60; GFR NON-AFRICAN AMERICAN 59
[2018-02-28] MEDS: Insulin Reg-LOW-Coverage SC SCH ×3 (07:45→17:14)
[2018-02-28 08:04] LABS: IRON 33 ug/dL (45-180)
[2018-02-28 08:14] LABS: % IRON SATURATION 9 % (20-55); TOTAL IRON BINDING CAPACITY 347 ug/dL (265-497)
--- NOTE | 2018-02-28 09:07 | PN ---
DATE: 02/28/2018 SUBJECTIVE: The patient is an 88-year-old white female. She is admitted with cellulitis of left leg for management with intravenous antibiotic and diuresis. The patient's past history, the patient has hypertension, history of reflux esophagitis, diabetes mellitus, chronic edema of legs associated with multiple episodes of cellulitis. The patient was seen this morning. She is resting. She was constipated yesterday. She had medication and the bowel emptied out to satisfaction. PHYSICAL EXAMINATION: VITAL SIGNS: The pulse is 66, blood pressure 135/83, respirations 20. O2 sat is 95% on room air. HEENT: The patient's examination of the head is normocephalic. NECK: The thyroid is not enlarged. JVP is flat. LUNGS: Trachea central. Breath sounds are vesicular. No adventitious sounds are heard. HEART: Normal sinus rhythm. S1 and S2 present. No murmurs. ABDOMEN: Soft. No distention now. The patient has no tenderness. GSA COORDINATOR: No focal deficits. MEDICATIONS: The patient's medications consist of naproxen. The patient is on Colace, insulin coverage for diabetes, potassium Lasix, Plavix, pantoprazole, Protonix, metoprolol, allopurinol and Tylenol. LABORATORY DATA: The patient's blood work, recent blood work done today. The patient's hemoglobin is 11.2. The patient's chemistry: The sodium is 141, GFR is within normal limits. The patient's blood sugar was 106. ASSESSMENT AND PLAN: The patient's condition is improving. The swelling in the leg is going down and the cellulitis seemed to show some improvement also. The patient is on antibiotic coverage, but currently the patient's antibiotic has been discontinued by the Infectious Disease. We will continue current management and follow up. Damaris Stevenson MD MTDD
[2018-02-28] MEDS: Potassium Chloride 20 mEq ER Tab PO SCH ×3 (09:22→17:13)
[2018-02-28] MEDS: Naproxen 275 mg Tab PO SCH ×2 (09:22→17:14)
[2018-02-28] MEDS: Metoprolol Succinate 25 mg XL Tab PO SCH (09:22)
[2018-02-28] MEDS: Pantoprazole 40 mg EC Tab PO SCH (09:24)
[2018-02-28] MEDS: Clotrimazole/Betamethasone Lotion(30 ml) TOP SCH (10:02)
--- NOTE | 2018-02-28 10:16 | PN ---
DATE: 02/28/2018 FOLLOWUP NOTE SUBJECTIVE: She is comfortable in bed, in no acute distress. Bilateral leg swelling decreased. She is ambulating in the room. She has mild anemia. Hemoglobin 11 g/dL. Iron studies were repeated. First set of iron studies was normal. Second set done today showed low iron of 33. Consistent with iron-deficiency anemia. She has history of hemorrhoids. She might have occult GI bleed. REVIEW OF SYSTEMS: As per HPI. Rest of 12-point review of systems reviewed negative. PHYSICAL EXAMINATION: GENERAL: Comfortable in bed, in no acute distress. VITAL SIGNS: Temperature 98, heart rate is 60 per minute, blood pressure 130/80, respiratory rate 18 per minute, oxygen saturation 95% on room air. NECK: No lymphadenopathy. CHEST: Air entry present and equal bilateral. No added sound. CARDIOVASCULAR: S1, S2 normal. No murmur. No gallop. ABDOMEN: Soft, nontender. No hepatosplenomegaly. EXTREMITY: Bilateral leg edema, 1+. Chronic skin changes present. 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 No focal sensorimotor deficits. SKIN: No petechiae. No rash. SPINE: Nontender. LABORATORY DATA: White count 5, hemoglobin 11.2, hematocrit 34, platelet 103. Iron 33, iron saturation 9%, ferritin pending. Sodium 141, potassium 3.8, creatinine 0.9. MEDICATIONS: Tylenol 650 every 4 hours p.r.n., allopurinol 100 mg daily, Plavix 75 mg daily, Lasix 40 mg IV every 12, insulin, metoprolol 25 mg p.o., Protonix 40 mg daily, K-Dur 20 mEq p.o. b.i.d. ASSESSMENT: 1. Severe iron deficiency. 2. Bilateral leg cellulitis. 3. Hypertension. 4. Diabetes mellitus type 2. PLAN: She has iron deficiency as indicated by second set of iron studies. Iron saturation is 9%. She will need oral / IV iron to replete the iron stores. She might have occult GI bleed. Stool occult to be sent. She declined GI workup. We will send the CEA for screening for colon cancer in combination with stool occult blood. She has chronic constipation. oral iron will not be a good choice for her . She declined IV iron. Advised her to improve diet . Discussed the iron rich diet with her. I advised her to follow up with PMD regarding iron deficiency, she sees Dr. Garcia in [place]. Bilateral lower extremity cellulitis improved. Diabetes mellitus type 2. Thank you, Dr. Stevenson for allowing us to participate in [facility] amita. Nadia Ordonez MD MTDOlivia
[2018-02-28 12:43] LABS: FERRITIN 13.5 ng/mL
--- NOTE | 2018-02-28 13:05 | PN ---
DATE: 02/28/2018 SUBJECTIVE: The patient is in bed, in no acute distress, nontoxic. No fevers and chills. PHYSICAL EXAMINATION: VITAL SIGNS: On exam, temperature is 98, blood pressure is 130/60, respiratory rate of 16. HEENT: Examination of HEENT is unremarkable. NECK: Supple. LUNGS: Have decreased breath sounds. HEART: Normal S1, S2. ABDOMEN: Soft, nontender. LABORATORY DATA: Laboratory examination reveals a white count of 5, hemoglobin of 11, platelets of 103. Chemistries reveals a BUN of 22, creatinine of 0.9. Urinalysis is noted. Microbiology reveals the urine cultures are negative. Blood cultures are negative. Review of orders reveals the patient to be on no antibiotics. The patient is on Plavix. Dr. Stevenson's note from this morning is reviewed. Dr. Ordonez's consultation from yesterday is reviewed. ASSESSMENT AND PLAN: An 88-year-old female seen earlier today in 364, bed 2 with diabetes mellitus, hypertension, transient ischemic attack, cerebrovascular accident, atrial fibrillation, hemorrhoids, constipation, anemia, mild left leg cellulitis which is resolved; however, bilateral edema is still present. The patient had a CAT scan of the abdomen and pelvis, which is negative. Currently, now off of antibiotics, afebrile in this patient with obesity with a body mass index of 33 and lower extremity edema, negative urinalysis with no proteinuria. Normal coagulation. Renal function is normal. The patient does have anemia and now a drop in the platelets. Hematology is following the patient. We will follow with you. Currently off of antibiotics. The patient is at risk for developing nosocomial infections. Christiano Mcintyre MD
[2018-03-01] MEDS: Insulin Reg-LOW-Coverage SC SCH ×3 (02:40→12:07)
[2018-03-01 08:14] VITALS: PULSE 72; TEMP 97.4; O2SAT 96
[2018-03-01] MEDS: Potassium Chloride 20 mEq ER Tab PO SCH ×2 (09:30→14:08)
[2018-03-01] MEDS: Metoprolol Succinate 25 mg XL Tab PO SCH (09:30)
[2018-03-01] MEDS: Pantoprazole 40 mg EC Tab PO SCH (09:31)
[2018-03-01] MEDS: Naproxen 275 mg Tab PO SCH (09:31)
[2018-03-01] MEDS: Clotrimazole/Betamethasone Lotion(30 ml) TOP SCH (09:32)
[2018-03-01 09:35] VITALS: BP 122/60
[2018-03-01] MEDS ORDERED: Lidocaine 5% Patch TD SCH (11:45)
--- NOTE | 2018-03-01 18:52 | DS ---
FINAL PROGRESS NOTE AND DISCHARGE SUMMARY HISTORY OF PRESENT ILLNESS: Patient is seen in room 367, bed 2. Patient is out of bed to recliner, sitting up in the recliner. Patient is alert, awake, and responsive. A 13-system review was done. Patient's nurse's notes were reviewed for the last 24 hours.. No adverse events were documented. PHYSICAL EXAMINATION: VITAL SIGNS: T-max 98.1; pulse 70 to 76; blood pressure 122/60, 128/63, 149/75, 149/86; respirations 20; O2 sat 96%. Intake and output noted. GENERAL: Patient is seen lying in the bed. HEENT: Head normocephalic, atraumatic. Pinkish conjunctivae. Anicteric sclerae. No oropharyngeal lesion. NECK: No neck rigidity. CHEST: Kyphosis. LUNGS: Show decreased breath sound at the bases. No rales, crackles, or wheezing. CARDIOVASCULAR: S1, S2. Regular rhythm. Positive systolic murmur at left sternal border, right second intercostal space, left second intercostal space. ABDOMEN: Obese. Positive bowel sound. Questionable suprapubic and lower abdominal distention noted. GENITALIA: Female. RECTAL: Not done. EXTREMITIES: Lower extremities show positive 2+ pitting edema of the lower extremities. MUSCULOSKELETAL: Shows a body mass index of 34. NEUROLOGIC: Cranial nerves II through XII limited. Gait examination not tested. VASCULAR: Unable to palpate lower extremity pulses because of obesity. PSYCHIATRIC: Negative. DIAGNOSTICS: 02/28/2018, was reviewed and 03/01/2018, was reviewed. Urinalysis, microbiology, blood and urine cultures were reviewed. FINAL IMPRESSION AND DISCHARGE DIAGNOSES: 1. Bilateral lower extremity cellulitis, left more than the right (resolved). 2. Gait dysfunction. 3. Hypertension. 4. Normocytic iron-deficiency anemia. 5. Chronic constipation. 6. Questionable urinary retention. 7. Hypokalemia. 8. Morbid obesity with elevated body mass index of 34. 9. Right pleural effusion. 10. Cardiomegaly. 11. Sigmoid diverticulosis. 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 14. Atrial fibrillation. 15. Resolved bilateral lower extremity venostasis. 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 17. Hyperuricemia. 18. Moderate tricuspid regurgitation and moderate pulmonary hypertension. PLAN: At this time, patient has been accepted to Transitional Care Unit. Patient has been off the intravenous antibiotics as per Infectious Disease recommendation. Patient will be discharged to Transitional Care Unit under Dr. Almanza's service. Discharge medications will be as follows: Allopurinol 100 mg daily, Tylenol 650 every 4 hours p.r.n., Toprol XL 25 mg daily, Protonix 40 mg daily, Plavix 75 mg daily, Lotrisone cream to the affected area, Lidoderm patch to affected area daily, Lasix 40 mg IV every 12 hours, K-Dur 20 mEq twice a day. Patient was given a dose of Venofer 200 mg x1 dose. Patient is on Humulin regular sliding scale coverage before meals and at bedtime, Colace 100 mg three times a day, Plavix 75 mg daily. The patient has been ordered to be discharged to Transitional Care Unit under Dr. Almanza's service with continuation of physical therapy, occupational therapy, ambulation therapy, and gait training. Patient was seen and evaluated by physical therapist. Their discharge recommendation was to continue PT in TCU. Time spent in the entire discharge process is more than 45 minutes. Dictated and electronically signed, not read. Kole Almanza MD
--- NOTE | 2018-03-01 20:54 | CP.PCM.PN ---
Subjective - Date & Time of Evaluation Date of Evaluation: 03/01/18 Time of Evaluation: 09:20 - Subjective Subjective: Comfortable, not in distress. Seen earlier this morning. Objective - Vital Signs/Intake and Output Vital Signs (last 24 hours): Temp Pulse Resp BP Pulse Ox 97.4 F L 72 20 122/60 96 03/01/18 08:13 03/01/18 09:30 03/01/18 08:13 03/01/18 09:32 03/01/18 08:13 - Labs Labs: 02/28/18 06:30 02/28/18 06:30 PT 11.6 SECONDS (9.4-12.5) 02/24/18 23:02 INR 1.02 (0.93-1.08) 02/24/18 23:02 APTT 29.5 Seconds (25.1-36.5) 02/24/18 23:02 - Constitutional Appears: Chronically Ill - Head Exam Head Exam: NORMAL INSPECTION - Cardiovascular Exam Cardiovascular Exam: +S1, +S2 - GI/Abdominal Exam GI & Abdominal Exam: Soft. absent: Tenderness Assessment and Plan - Assessment and Plan (Free Text) Plan: Assessment S/P mild cellulitis of right leg DM HTN TIA CVA history of hemorrhoids chronic constipation chronic anemia atrial fibrillation obesity with BMI 30 Plan Continue to monitor off antibiotics and apply lotrisone cream to prevent progression of fungal infections into cellulitis
== END 2018-03-01 15:31 | DRG 603 ==
LOC: ED 21:45 → ERH 02-25 02:50 → 3RNO 02-25 04:13 → OBSVTOIN 02-26 07:11
PROVIDERS: ADMIT Internal Medicine; ATTEND Internal Medicine
DX: L03.116 Cellulitis of left lower limb (principal); I10 Essential (primary) hypertension; E11.36 Type 2 diabetes mellitus with diabetic cataract; D50.9 Iron deficiency anemia, unspecified; E66.01 Morbid (severe) obesity due to excess calories; E89.0 Postprocedural hypothyroidism; I48.91 Unspecified atrial fibrillation; Z86.73 Personal history of transient ischemic attack (TIA), and cerebral infarction without residual deficits; K59.09 Other constipation; K64.9 Unspecified hemorrhoids; L03.115 Cellulitis of right lower limb; Z68.33 Body mass index [BMI] 33.0-33.9, adult; R33.9 Retention of urine, unspecified; E87.6 Hypokalemia; I51.7 Cardiomegaly; K57.30 Diverticulosis of large intestine without perforation or abscess without bleeding; M19.90 Unspecified osteoarthritis, unspecified site; E79.0 Hyperuricemia without signs of inflammatory arthritis and tophaceous disease; I07.1 Rheumatic tricuspid insufficiency; I27.20 Pulmonary hypertension, unspecified

== ENCOUNTER 2018-03-01 14:47 | Inpatient (IN) | payer OTHER, MEDICARE ==
[2018-03-01] MEDS: Insulin Reg-LOW-Coverage SC SCH ×2 (17:29→21:57)
[2018-03-01] MEDS ORDERED: Potassium Chloride 20 mEq ER Tab PO SCH (18:00)
[2018-03-01] MEDS ORDERED: Pneumococcal 23-Valent Vaccine IM ONE (20:25)
[2018-03-02] MEDS: Pantoprazole 40 mg EC Tab PO SCH (06:15)
[2018-03-02] MEDS: Insulin Reg-LOW-Coverage SC SCH ×4 (06:44→21:21)
[2018-03-02 07:06] LABS: ALB/GLOB RATIO 0.9 (1.1-1.8); ALBUMIN 3.5 g/dL (3.0-4.8); ALT/SGPT 25 U/L (7-56); AST/SGOT 26 U/L (14-36); BLOOD UREA NITROGEN 23 mg/dL (7-21); CALCIUM 8.6 mg/dL (8.4-10.5); GFR AFRICAN-AMERICAN > 60; GFR NON-AFRICAN AMERICAN > 60
[2018-03-02] MEDS: Metoprolol Succinate 25 mg XL Tab PO SCH (08:02)
[2018-03-02] MEDS: Lidocaine 5% Patch TD SCH (10:06)
[2018-03-02] MEDS: Clotrimazole/Betamethasone Lotion(30 ml) TOP SCH (10:07)
[2018-03-02] MEDS: Potassium Chloride 20 mEq ER Tab PO SCH ×2 (12:29→17:52)
[2018-03-02] MEDS: POLYETHYLENE GLYCOL 3350 17 GM/Dose PACKET PO SCH (17:53)
[2018-03-03] MEDS: Pantoprazole 40 mg EC Tab PO SCH (06:20)
[2018-03-03] MEDS: Insulin Reg-LOW-Coverage SC SCH ×4 (06:35→22:05)
[2018-03-03 06:54] LABS: ALBUMIN 3.5 g/dL (3.0-4.8); ALT/SGPT 28 U/L (7-56); AST/SGOT 30 U/L (14-36); BILIRUBIN,DIRECT 0.2 mg/dL (0.0-0.4); BLOOD UREA NITROGEN 20 mg/dL (7-21); CALCIUM 8.5 mg/dL (8.4-10.5); GFR AFRICAN-AMERICAN > 60; GFR NON-AFRICAN AMERICAN > 60
[2018-03-03] MEDS: Potassium Chloride 20 mEq ER Tab PO SCH ×4 (07:51→21:15)
[2018-03-03] MEDS: Metoprolol Succinate 25 mg XL Tab PO SCH (07:51)
[2018-03-03] MEDS ORDERED: Potassium Chloride 20 mEq/15 ml LIQ UD PO STA (07:56)
[2018-03-03] MEDS ORDERED: Magnesium Citrate Oral SOL (300 ml) PO ONE ×2 (08:19→11:34)
[2018-03-03] MEDS: Lidocaine 5% Patch TD SCH (09:17)
[2018-03-03] MEDS: Clotrimazole/Betamethasone Lotion(30 ml) TOP SCH (09:18)
[2018-03-03] MEDS: POLYETHYLENE GLYCOL 3350 17 GM/Dose PACKET PO SCH ×3 (09:18→17:17)
[2018-03-03] MEDS ORDERED: Potassium Chloride 20 mEq ER Tab PO SCH (10:00)
--- NOTE | 2018-03-03 12:39 | CP.PCM.HP ---
<Jimena Pina - Last Filed: 03/03/18 12:13> History of Present Illness - History of Present Illness History of Present Illness: Jimena Pina, PGY2, H&P for Dr Almanza: CC: leg weakness 88 year old female with PMH DM2, HTN, constipation, anemia, atrial fibrillation, and TIA, presents for pain and weakness of left lower extremity, admitted for mild lower extremity cellulitis and leg swelling. She says that she had cellulitis in December which she was treated for in the hospital. Since that time, she has felt progressively weaker in the left leg. Patient treated with IV cefepime and Vancomycin. Patient diuresed well with IV Lasix. Infectious disease consulted, deemed discontinuation of antibiotics as it is mild cellulitis. Hematology (Dr Ordonez) consulted for anemia, likely anemia of chronic disease, stable hgb. Physical therapy evaluated patient, recommended TCU. Patient transferred to TCU for further care and rehab. PMH: HTN, DM2, Hemorrhoids PSH: ?Hemorrhoid repair FMH: Denies SOCHX: Denies tobacco, ETOH, ID ALL: [id number] MEDS: MAR reviewed PMD: Dr. Allegra Garcia Present on Admission - Present on Admission Any Indicators Present on Admission: No History of DVT/PE: No History of Uncontrolled Diabetes: No Urinary Catheter: No Decubitus Ulcer Present: No Review of Systems - Review of Systems All systems: reviewed and no additional remarkable complaints except Review of Systems: as per HPI Past Patient History - Infectious Disease Hx of Infectious Diseases: None - Past Social History Smoking Status: Former Smoker - CARDIAC Hx Hypertension: Yes - PULMONARY Hx Chronic Obstructive Pulmonary Disease (COPD): No - NEUROLOGICAL HX Cerebrovascular Accident: Yes - HEENT Hx HEENT Problems: No Hx Blind: No Hx Cataracts: Yes Hx Deafness: No Hx Difficulty Chewing: No Hx Epistaxis: No Hx Glaucoma: No - RENAL Hx Chronic Kidney Disease: No - ENDOCRINE/METABOLIC Hx Diabetes Mellitus Type 2: Yes - HEMATOLOGICAL/ONCOLOGICAL Hx Blood Disorders: Yes Hx AIDS: No Hx Anemia: No Hx Cancer: No Hx Chemotherapy: No Hx Cirrhosis: No Hx Hepatitis A: No Hx Hepatitis B: No Hx Hepatitis C: No Hx Metastesis: No Hx Shingles: No Hx Unexplained Bleeding: No - INTEGUMENTARY Hx Dermatological Problems: No Hx Basil Cell: No Hx Eczema: No Hx Melanoma: No Hx Psoriasis: No Hx Squamous Cell: No - MUSCULOSKELETAL/RHEUMATOLOGICAL Hx Falls: No - GASTROINTESTINAL Hx Gastrointestinal Disorders: Yes (CONSTIPATION,SIGMOID DIVERTICULITIS,) - GENITOURINARY/GYNECOLOGICAL Hx Genitourinary Disorders: Yes (URINARY RETENTION,INCONTINENT) Hx Reproductive Disorders: No - PSYCHIATRIC Hx Substance Use: No - SURGICAL HISTORY Hx Thyroidectomy: Yes (benign per patient) Meds Allergies/Adverse Reactions: Allergies Allergy/AdvReac Type Severity Reaction Status Date / Time No Known Allergies Allergy Verified 03/01/18 19:10 Physical Exam - Constitutional Appears: Non-toxic, No Acute Distress - Head Exam Head Exam: ATRAUMATIC, NORMOCEPHALIC - Eye Exam Eye Exam: EOMI, PERRL. absent: Conjunctival injection, Scleral icterus Pupil Exam: NORMAL ACCOMODATION, PERRL. absent: Mydriatic, Unequal - ENT Exam ENT Exam: Mucous Membranes Moist - Neck Exam Neck exam: Positive for: Full Rom - Respiratory Exam Respiratory Exam: Clear to Auscultation Bilateral, NORMAL BREATHING PATTERN. absent: Chest Wall Tenderness, Prolonged Expiratory Phase, Rales, Rhonchi, Wheezes, Respiratory Distress - Cardiovascular Exam Cardiovascular Exam: Irregular Rhythm - GI/Abdominal Exam GI & Abdominal Exam: Normal Bowel Sounds, Soft. absent: Distended, Firm, Guarding, Organomegaly, Pulsatile Mass - Extremities Exam Extremities exam: Positive for: pedal edema. Negative for: calf tenderness Additional comments: eduar stockings in place - Back Exam Back exam: NORMAL INSPECTION - Neurological Exam Neurological exam: Alert, Oriented x3 - Psychiatric Exam Psychiatric exam: Normal Affect, Normal Mood - Skin Skin Exam: Dry, Normal Color, Warm Results - Vital Signs Recent Vital Signs: Last Vital Signs Temp 98.1 F 03/02/18 16:00 Pulse 63 03/03/18 07:51 Resp 20 03/02/18 16:00 BP 121/78 03/03/18 09:23 Pulse Ox 90 L 03/02/18 16:00 - Labs Result Diagrams: 03/03/18 05:30 Labs: Laboratory Results - last 24 hr 03/02/18 03/02/18 03/03/18 16:17 21:19 05:30 Sodium 141 Potassium 3.4 L Chloride 96 L Carbon Dioxide 39 H Anion Gap 10 BUN 20 Creatinine 0.7 Est GFR ( Amer) > 60 Est GFR (Non-Af Amer) > 60 POC Glucose (mg/dL) 129 H 108 Random Glucose 140 H Calcium 8.5 Magnesium 2.1 Total Bilirubin 0.5 Direct Bilirubin 0.2 AST 30 ALT 28 Alkaline Phosphatase 131 H Total Protein 7.1 Albumin 3.5 Globulin 3.6 Albumin/Globulin Ratio 1.0 L 03/03/18 03/03/18 06:25 11:06 Sodium Potassium Chloride Carbon Dioxide Anion Gap BUN Creatinine Est GFR ( Amer) Est GFR (Non-Af Amer) POC Glucose (mg/dL) 141 H 106 Random Glucose Calcium Magnesium Total Bilirubin Direct Bilirubin AST ALT Alkaline Phosphatase Total Protein Albumin Globulin Albumin/Globulin Ratio Assessment & Plan - Assessment and Plan (Free Text) Assessment: 88 year old female with PMH DM2, HTN, constipation, anemia, atrial fibrillation, and TIA, presents for pain and weakness of left lower extremity, admitted for mild lower extremity cellulitis and leg swelling: Lower extremity swelling: - s/p antibiotics. - ID on board, appreciate recs - Lasix IV 40 BID - Lidoderm patch b/l knees - clotrimazole cream - tylenol prn - remains afebrile, no leukocytosis - Physical therapy on board. Gout: - Allopurinol Hx of Afib: - Metoprolol succinate 25 mg PO daily Hx of DM: - ISS - Gabapentin. Cymbalta not supplied on TCU Hx of TIA: - Plavix Hx of cerumen: - debrox ear drops both ears qid Hx of constipation: - colace tid - miralax - mag citrate and dulcolax x1 PPX: protonix, scds Case seen and discussed with Dr Almanza. Jimena Pina, PGY2 <Kole Almanza U - Last Filed: 03/03/18 16:17> Results - Vital Signs Recent Vital Signs: Last Vital Signs Temp 98.1 F 03/02/18 16:00 Pulse 67 03/03/18 15:22 Resp 20 03/02/18 16:00 BP 121/78 03/03/18 09:23 Pulse Ox 94 L 03/03/18 15:22 - Labs Result Diagrams: 03/03/18 05:30 Labs: Laboratory Results - last 24 hr 03/02/18 03/02/18 03/03/18 16:17 21:19 05:30 Sodium 141 Potassium 3.4 L Chloride 96 L Carbon Dioxide 39 H Anion Gap 10 BUN 20 Creatinine 0.7 Est GFR ( Amer) > 60 Est GFR (Non-Af Amer) > 60 POC Glucose (mg/dL) 129 H 108 Random Glucose 140 H Calcium 8.5 Magnesium 2.1 Total Bilirubin 0.5 Direct Bilirubin 0.2 AST 30 ALT 28 Alkaline Phosphatase 131 H Total Protein 7.1 Albumin 3.5 Globulin 3.6 Albumin/Globulin Ratio 1.0 L 03/03/18 03/03/18 06:25 11:06 Sodium Potassium Chloride Carbon Dioxide Anion Gap BUN Creatinine Est GFR ( Amer) Est GFR (Non-Af Amer) POC Glucose (mg/dL) 141 H 106 Random Glucose Calcium Magnesium Total Bilirubin Direct Bilirubin AST ALT Alkaline Phosphatase Total Protein Albumin Globulin Albumin/Globulin Ratio Attending/Attestation - Attestation I have personally seen and examined this patient.: Yes I have fully participated in the care of the patient.: Yes I have reviewed all pertinent clinical information: Yes Notes (Text): Please see/read my dictated notes.
--- NOTE | 2018-03-03 14:10 | PN ---
DATE: 03/03/2018 SUBJECTIVE: The patient was seen in the physical therapist room. She is sitting in the chair. The patient is alert, awake, responsive. The patient is complaining of left earache, complaining of constipation and numbness of the fingertips. Overnight, the patient also complained of constipation and had very minimal bowel movement. Overnight nurse's notes were reviewed. PHYSICAL EXAMINATION: VITAL SIGNS: T-max is 98.1, pulse 63, blood pressure 121/78. O2 sat is 95-92%. GENERAL: The patient is seen sitting up in the chair. HEAD: Normocephalic, atraumatic. HEENT examination shows pinkish conjunctivae. Anicteric sclerae. No oropharyngeal lesions. No neck rigidity. CHEST: Kyphosis. LUNGS: No rales, crackles or wheezing. Questionable decreased breath sound at the bases. CARDIOVASCULAR: Shows S1, S2, regular rhythm. Questionable soft systolic murmur, left sternal border, left second intercostal space, right second intercostal space. ABDOMEN: Soft, protuberant, obese. Positive bowel sounds. GENITALIA: Female. RECTAL: Deferred. EXTREMITIES: Shows positive Colt wraps. MUSCULOSKELETAL: Shows body mass index of 34. NEUROLOGIC: The patient is alert, awake, responsive. Gait examination not tested. DIAGNOSTICS: Sodium 141, potassium 3.4, chloride 96, CO2 of 39, anion gap 10, BUN 20, creatinine 0.7, GFR greater than 60, glucose 140, calcium 8.5, magnesium 2.1. LFTs shows alk phos of 131. IMPRESSION AND PLAN: 1. Questionable and possible diabetic neuropathy with bilateral hand and fingertip numbness. 2. Constipation. 3. History of cerumen impaction. 4. Hypertension. 5 . Gait dysfunction. 6. Deconditioning. 7. Morbid obesity with elevated body mass index of 34. 8. Hypokalemia. 9. Possible mild diuretic-induced metabolic alkalosis. 10. Prerenal kidney injury (this is resolved). 11. Non insulin-requiring, non-oral hypoglycemic requiring diabetes mellitus with hyperglycemia. 12. Bilateral lower extremity venous stasis and lymphedema. 13. Gait dysfunction. 14. Deconditioning. 15. History of atrial fibrillation. 16. Right-sided diastolic congestive heart failure with moderate pulmonary hypertension and moderate tricuspid regurgitation. 17. Degenerative joint disease. 18. Hyperuricemia. 1. Bilateral lower extremity cellulitis, left more than the right (resolved). 2. Gait dysfunction. 3. Hypertension. 4. Normocytic iron-deficiency anemia. 5. Chronic constipation. 6. Questionable urinary retention. 7. Hypokalemia. 8. Morbid obesity with elevated body mass index of 34. 9. Right pleural effusion. 10. Cardiomegaly. 11. Sigmoid diverticulosis. 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 14. Atrial fibrillation. 15. Resolved bilateral lower extremity venostasis. 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 17. Hyperuricemia. 18. Moderate tricuspid regurgitation and moderate pulmonary hypertension. PLAN: At this time, the patient will be continued on the Transitional Care Unit with continuation of the physical therapy, occupational therapy, ambulation therapy, gait training. Serial labs ordered. Consultation Podiatry. MEDICATIONS: The patient is ordered a bottle of magnesium citrate for constipation, Colace 100 three times a day. The patient was started on Cymbalta 30 mg daily for fingertip numbness and tingling, Debrox 4 drops 4 times daily to both ears ordered, insulin low-dose sliding scale ordered, K-Dur 20 mEq changed to 4 times a day, Lasix 40 mg IV every 12 hours, Lidoderm 5% patch to the affected area, Lotrisone cream to the affected area. MiraLax 17 g three times a day, Plavix 75 mg daily, Protonix 40 mg daily, Toprol XL 25 mg daily, Tylenol 650 every 4 hours p.r.n., allopurinol 100 mg daily. Bladder scan has been ordered, out of bed, RAMSES stockings, sequential compression devices, physical therapy, occupational therapy ordered, gait training ordered. The patient will continue on physical therapy on the Transitional Care Unit, with daily physical therapy, ambulation therapy, gait training, occupational therapy. Dictated and electronically signed, not read. Kole Almanza MD MTDOlivia
[2018-03-04] MEDS: Pantoprazole 40 mg EC Tab PO SCH (05:29)
[2018-03-04] MEDS: Insulin Reg-LOW-Coverage SC SCH ×4 (06:46→22:29)
[2018-03-04] MEDS: Metoprolol Succinate 25 mg XL Tab PO SCH (08:23)
[2018-03-04] MEDS: Potassium Chloride 20 mEq ER Tab PO SCH ×4 (08:23→21:06)
--- NOTE | 2018-03-04 09:19 | CP.PCM.CON ---
<Sherice Mejía - Last Filed: 03/04/18 09:33> History of Present Illness - History of Present Illness History of Present Illness: Podiatry Consult Note - Dr. Mccallum 88 y/o -[place] female with PMHx of DM type II, HTN, TIA, atrial fibrillation and constipation seen at bedside for bilateral leg edema and right leg cellulitis. Pt states she noticed her legs swelling over the last week or so. States she has been given water pills which have helped with the swelling. She admits to formerly going to a foot doctor for diabetic foot care but no longer does so. States she is usually able to walk but lives alone, making it hard for her to go out of the house much. Admits to having poor circulation in the legs, but denies any pain to both lower extremities. She does however state that her legs often feel weak and tired. Denies any history of foot ulcerations or lower extremity infected wounds. Admits to occasional tingling and numbness in her fingers but not her toes or feet. Denies F/C/N/V/CP/SOB PSHx: thyroidectomy, hemorrhoid repair All: NKDA FamHx: family hx of diabetes SocHx: denies EtOH, cigarette or drug use Review of Systems - Review of Systems All systems: reviewed and no additional remarkable complaints except (per HPI) Past Patient History - Infectious Disease Hx of Infectious Diseases: None - Past Social History Smoking Status: Former Smoker - CARDIAC Hx Hypertension: Yes - PULMONARY Hx Chronic Obstructive Pulmonary Disease (COPD): No - NEUROLOGICAL HX Cerebrovascular Accident: Yes - HEENT Hx HEENT Problems: No Hx Blind: No Hx Cataracts: Yes Hx Deafness: No Hx Difficulty Chewing: No Hx Epistaxis: No Hx Glaucoma: No - RENAL Hx Chronic Kidney Disease: No - ENDOCRINE/METABOLIC Hx Diabetes Mellitus Type 2: Yes - HEMATOLOGICAL/ONCOLOGICAL Hx Blood Disorders: Yes Hx AIDS: No Hx Anemia: No Hx Cancer: No Hx Chemotherapy: No Hx Cirrhosis: No Hx Hepatitis A: No Hx Hepatitis B: No Hx Hepatitis C: No Hx Metastesis: No Hx Shingles: No Hx Unexplained Bleeding: No - INTEGUMENTARY Hx Dermatological Problems: No Hx Basil Cell: No Hx Eczema: No Hx Melanoma: No Hx Psoriasis: No Hx Squamous Cell: No - MUSCULOSKELETAL/RHEUMATOLOGICAL Hx Falls: No - GASTROINTESTINAL Hx Gastrointestinal Disorders: Yes (CONSTIPATION,SIGMOID DIVERTICULITIS,) - GENITOURINARY/GYNECOLOGICAL Hx Genitourinary Disorders: Yes (URINARY RETENTION,INCONTINENT) Hx Reproductive Disorders: No - PSYCHIATRIC Hx Substance Use: No - SURGICAL HISTORY Hx Thyroidectomy: Yes (benign per patient) Meds Allergies/Adverse Reactions: Allergies Allergy/AdvReac Type Severity Reaction Status Date / Time No Known Allergies Allergy Verified 03/01/18 19:10 - Medications Medications: Current Medications Acetaminophen (Tylenol 325mg Tab) 650 mg PO Q4H PRN PRN Reason: Pain, Mild (1-3) Allopurinol (Zyloprim) 100 mg PO 0800 [facility] PRN Reason: Protocol Last Admin: 03/04/18 08:23 Dose: 100 mg Betamethasone/Clotrimazole (Lotrisone) 0 ml TOP DAILY [facility] Last Admin: 03/03/18 09:18 Dose: 1 applic Carbamide Peroxide (Debrox Ear Drops) 0 ml AU QID [facility] Last Admin: 03/03/18 21:14 Dose: 10 drop Clopidogrel Bisulfate (Plavix) 75 mg PO DAILY [facility] Last Admin: 03/03/18 09:19 Dose: 75 mg Docusate Sodium (Colace) 100 mg PO TID [facility] Last Admin: 03/03/18 17:15 Dose: Not Given Furosemide (Lasix) 40 mg IVP Q12 [facility] Last Admin: 03/03/18 22:14 Dose: 40 mg Gabapentin (Neurontin) 300 mg PO TID [facility] PRN Reason: Protocol Last Admin: 03/03/18 17:18 Dose: 300 mg Insulin Human Regular (Humulin R Low) 0 units SC ACHS [facility] PRN Reason: Protocol Last Admin: 03/04/18 06:46 Dose: Not Given Lactic Acid (Lac-Hydrin 12% Cream (140 G)) 0 ea TOP DAILY [facility] Lidocaine (Lidoderm) 2 ea TD DAILY [facility] Last Admin: 03/03/18 09:17 Dose: 2 ea Metoprolol Succinate (Toprol Xl) 25 mg PO BRK [facility] Last Admin: 03/04/18 08:23 Dose: 25 mg Pantoprazole Sodium (Protonix Ec Tab) 40 mg PO 0630 [facility] Last Admin: 03/04/18 05:29 Dose: 40 mg Polyethylene Glycol (Miralax) 17 gm PO TID [facility] PRN Reason: Protocol Last Admin: 03/03/18 17:17 Dose: Not Given Potassium Chloride (K-Dur 20 Meq Er Tab) 20 meq PO 0730,1200,1800,2200 [facility] PRN Reason: Protocol Last Admin: 03/04/18 08:23 Dose: 20 meq Physical Exam - Constitutional Appears: Well, Non-toxic, No Acute Distress - Extremities Exam Additional comments: Lower extremity focused exam: Vasc: DP/PT pulses non-palpable B/L. +1 pitting edema noted to bilateral lower extremities: +2 at dorsum of foot B/L. Temperature gradient is warm to cold B/ L. Pedal hair growth absent. Derm: Thickened dystrophic toenails x 10. Diffuse xerosis noted to bilateral legs and feet. No open lesions, no erythema or cellulitis noted Neuro: Protective sensation grossly intact to bilateral lower extremities Ortho: no tenderness to palpation of bilateral lower extremities. Pes planus deformity noted B/L - Neurological Exam Neurological exam: Alert, Oriented x3 - Psychiatric Exam Psychiatric exam: Normal Affect, Normal Mood Results - Vital Signs Recent Vital Signs: Last Vital Signs Temp 98 F 03/03/18 16:00 Pulse 61 03/03/18 16:00 Resp 20 03/03/18 16:00 BP 125/66 03/04/18 08:23 Pulse Ox 92 L 03/03/18 16:00 - Labs Result Diagrams: 03/03/18 05:30 Labs: Laboratory Results - last 24 hr 03/03/18 03/03/18 03/03/18 11:06 17:20 21:44 POC Glucose (mg/dL) 106 94 148 H 03/04/18 04:45 POC Glucose (mg/dL) 156 H Assessment & Plan - Assessment and Plan (Free Text) Assessment: 88 y/o diabetic female with peripheral vascular disease Plan: Pt seen and evaluated with Dr. Mccallum Rx Lac Hydrin to be applied to legs and feet daily Rx arterial duplex LE study B/L Ultrasound called to inform us of recently performed arterial dopplers showing ABIs of approx 1.1; canceled studies Pt to be referred to Dr. Lucas for home visits for diabetic foot care Thank you for this consultation <Sharon Mccallum - Last Filed: 03/06/18 18:59> Meds - Medications Medications: Current Medications Acetaminophen (Tylenol 325mg Tab) 650 mg PO Q4H PRN PRN Reason: Pain, Mild (1-3) Allopurinol (Zyloprim) 100 mg PO 0800 [facility] PRN Reason: Protocol Last Admin: 03/06/18 08:18 Dose: 100 mg Betamethasone/Clotrimazole (Lotrisone) 0 ml TOP DAILY [facility] Last Admin: 03/06/18 09:53 Dose: 1 applic Carbamide Peroxide (Debrox Ear Drops) 0 ml AU QID [facility] Last Admin: 03/06/18 17:41 Dose: 1 drop Clopidogrel Bisulfate (Plavix) 75 mg PO DAILY [facility] Last Admin: 03/06/18 09:54 Dose: 75 mg Docusate Sodium (Colace) 100 mg PO TID [facility] Last Admin: 03/06/18 17:41 Dose: 100 mg Furosemide (Lasix) 40 mg IVP 0600,1800 [facility] Last Admin: 03/06/18 17:44 Dose: 40 mg Gabapentin (Neurontin) 100 mg PO HS [facility] PRN Reason: Protocol Last Admin: 03/05/18 22:59 Dose: 100 mg Insulin Human Regular (Humulin R Low) 0 units SC ACHS [facility] PRN Reason: Protocol Last Admin: 03/06/18 17:30 Dose: Not Given Lactic Acid (Lac-Hydrin 12% Cream (140 G)) 0 ea TOP DAILY [facility] Last Admin: 03/06/18 09:53 Dose: 1 appl Lidocaine (Lidoderm) 2 ea TD DAILY [facility] Last Admin: 03/06/18 09:54 Dose: 2 ea Metoprolol Succinate (Toprol Xl) 25 mg PO BRK [facility] Last Admin: 03/06/18 08:18 Dose: 25 mg Pantoprazole Sodium (Protonix Ec Tab) 40 mg PO 0630 [facility] Last Admin: 03/06/18 06:31 Dose: 40 mg Polyethylene Glycol (Miralax) 17 gm PO TID [facility] PRN Reason: Protocol Last Admin: 03/06/18 17:45 Dose: 17 gm Potassium Chloride (K-Dur 20 Meq Er Tab) 20 meq PO 0730,1200,1800,2200 [facility] PRN Reason: Protocol Last Admin: 03/06/18 17:42 Dose: 20 meq Results - Vital Signs Recent Vital Signs: Last Vital Signs Temp 97.3 F L 03/06/18 10:00 Pulse 60 03/06/18 10:00 Resp 20 07/14/18 10:00 BP 134/90 03/06/18 17:44 Pulse Ox 96 03/06/18 10:00 - Labs Result Diagrams: 03/05/18 06:30 Labs: Laboratory Results - last 24 hr 03/05/18 03/06/18 03/06/18 21:38 05:33 11:17 POC Glucose (mg/dL) 104 110 122 H 03/06/18 16:15 POC Glucose (mg/dL) 150 H Attending/Attestation - Attestation I have personally seen and examined this patient.: Yes I have fully participated in the care of the patient.: Yes I have reviewed all pertinent clinical information: Yes
[2018-03-04] MEDS: Lidocaine 5% Patch TD SCH (09:42)
[2018-03-04] MEDS: Ammonium Lactate 12% Cream (140 g) TOP SCH (09:44)
[2018-03-04] MEDS: POLYETHYLENE GLYCOL 3350 17 GM/Dose PACKET PO SCH ×3 (09:46→17:14)
[2018-03-04] MEDS: Clotrimazole/Betamethasone Lotion(30 ml) TOP SCH (09:50)
[2018-03-05] MEDS: Pantoprazole 40 mg EC Tab PO SCH (05:33)
[2018-03-05] MEDS: Insulin Reg-LOW-Coverage SC SCH ×4 (06:52→22:58)
[2018-03-05 07:34] LABS: ALBUMIN 3.4 g/dL (3.0-4.8); ALT/SGPT 24 U/L (7-56); AST/SGOT 26 U/L (14-36); BILIRUBIN,DIRECT 0.3 mg/dL (0.0-0.4); BLOOD UREA NITROGEN 20 mg/dL (7-21); CALCIUM 8.6 mg/dL (8.4-10.5); GFR AFRICAN-AMERICAN > 60; GFR NON-AFRICAN AMERICAN 59
--- NOTE | 2018-03-05 07:53 | PN ---
DATE: 03/04/2018 LOCATION: The patient is seen in room 319, bed 1. SUBJECTIVE: The patient was also seen today by the occupational therapist. The patient was seen also by the physical therapist today. The patient had a therapy session. The patient was seen ambulating with physical therapy. The patient ambulated. Overnight nurse's notes were reviewed. The patient had massive amount of stool yesterday after the patient was given magnesium citrate and after that, the patient has been having soft bowel movement. The patient refused bladder scan. OBJECTIVE: VITAL SIGNS: T-max 98.2, pulse 72, blood pressure 128/64, respiration 20, O2 sat 95%. HEENT: Head normocephalic, atraumatic. Pinkish conjunctivae. Anicteric sclerae. No oropharyngeal lesion. No neck rigidity. CHEST: Kyphosis. LUNGS: Shows no rales, crackles or wheezing. CARDIOVASCULAR: S1, S2. Irregular rhythm. ABDOMEN: Obese. Positive bowel sounds. GENITALIA: Female. RECTAL: Deferred. EXTREMITIES: Shows chronic venous stasis and lymphedema of the lower extremity. MUSCULOSKELETAL: Shows a body mass index of 41.2. NEUROLOGICAL: Motor strength is 5/5. Gait examination, the patient is ambulating with physical therapy. IMPRESSION AND PLAN: 1. Morbid obesity. 2. Gait dysfunction. 3. Deconditioning. 4. Bilateral lower extremity venous stasis of the lower extremity versus lymphedema. 5. Constipation. 6. History of cerumen impaction. 7. Questionable diabetic nephropathy of the hands and the feet. 8. Hypertension. 9. History of atrial fibrillation. 10. Hypokalemia. 11. [id number], non-oral hypoglycemic requiring diabetes mellitus. 12. Mild diuretic induced metabolic alkalosis. 13. Hyperglycemia. 14. Degenerative joint disease. 16. Diabetic neuropathy. 17. Hyperuricemia. PLAN: At this time, the patient has been ordered repeat labs. The patient's Podiatry consultation noted. The patient is seen by litigation secretary today. Their recommendation is to continue with Lac-Hydrin lotion. Current medications, Colace 100 three times a day, Debrox ear drops to both ears four times a day, sliding scale coverage insulin, regular insulin, K-Dur 20 mEq four times a day, Lac-Hydrin lotion to both legs and feet, Lasix 40 IV every 12 hours, Lidoderm 5% patch to the affected area, Lotrisone cream to the affected area, MiraLax 17 g three times a day, Neurontin has been ordered 100 mg at bedtime. The patient does not seem to be on Cymbalta. Plavix 75 mg daily, Protonix 40 mg daily, Toprol XL 25 mg daily, Tylenol 650 every 4 hours p.r.n., allopurinol 100 mg daily. The patient's Cymbalta which was started yesterday was changed to Neurontin 100 mg at bedtime. At present, the patient will be continued on physical therapy, occupational therapy, ambulation therapy, gait training. The patient seen by occupational therapist today. The patient recommendations were home with services. The patient seen by physical therapist today. The patient ambulated 100 feet times three with rolling walker and supervision with assist with wheelchair follow. Physical therapy recommendations, continue physical therapy, home with services. The patient is to be continued on physical therapy, occupational therapy, ambulation therapy, gait training while the patient is on Transitional Care Unit. Dictated and electronically signed, not read. Kole Almanza MD
[2018-03-05] MEDS: Metoprolol Succinate 25 mg XL Tab PO SCH (08:01)
[2018-03-05] MEDS: Potassium Chloride 20 mEq ER Tab PO SCH ×4 (08:01→22:58)
[2018-03-05] MEDS: Ammonium Lactate 12% Cream (140 g) TOP SCH (09:58)
[2018-03-05] MEDS: Lidocaine 5% Patch TD SCH (10:00)
--- NOTE | 2018-03-05 10:42 | CP.PCM.PN ---
Subjective - Date & Time of Evaluation Date of Evaluation: 03/05/18 Time of Evaluation: 10:40 - Subjective Subjective: Jimena Pina, pGY2, Progress Note for Dr Almanza: Patient seen and examined at bedside. No acute events overnight. Denies fevers, chills, nausea, vomiting, abdominal pain. Objective - Vital Signs/Intake and Output Vital Signs (last 24 hours): Temp Pulse Resp BP Pulse Ox 97.9 F 62 20 125/72 92 L 03/04/18 16:00 03/05/18 08:01 03/04/18 16:00 03/05/18 10:00 03/04/18 16:00 Intake and Output: 03/05/18 03/05/18 06:59 18:59 Output Total 800 800 Balance -800 -800 - Medications Medications: Current Medications Acetaminophen (Tylenol 325mg Tab) 650 mg PO Q4H PRN PRN Reason: Pain, Mild (1-3) Allopurinol (Zyloprim) 100 mg PO 0800 [facility] PRN Reason: Protocol Last Admin: 03/05/18 08:02 Dose: 100 mg Betamethasone/Clotrimazole (Lotrisone) 0 ml TOP DAILY [facility] Last Admin: 03/04/18 09:50 Dose: 1 applic Carbamide Peroxide (Debrox Ear Drops) 0 ml AU QID [facility] Last Admin: 03/05/18 09:58 Dose: 1 drop Clopidogrel Bisulfate (Plavix) 75 mg PO DAILY [facility] Last Admin: 03/05/18 09:58 Dose: 75 mg Docusate Sodium (Colace) 100 mg PO TID [facility] Last Admin: 03/05/18 09:58 Dose: 100 mg Furosemide (Lasix) 40 mg IVP Q12 [facility] Last Admin: 03/05/18 10:00 Dose: 40 mg Gabapentin (Neurontin) 100 mg PO HS [facility] PRN Reason: Protocol Last Admin: 03/04/18 23:04 Dose: 100 mg Insulin Human Regular (Humulin R Low) 0 units SC ACHS [facility] PRN Reason: Protocol Last Admin: 03/05/18 06:52 Dose: Not Given Lactic Acid (Lac-Hydrin 12% Cream (140 G)) 0 ea TOP DAILY [facility] Last Admin: 03/05/18 09:58 Dose: 1 appl Lidocaine (Lidoderm) 2 ea TD DAILY [facility] Last Admin: 03/05/18 10:00 Dose: 2 ea Metoprolol Succinate (Toprol Xl) 25 mg PO BRK [facility] Last Admin: 03/05/18 08:01 Dose: 25 mg Pantoprazole Sodium (Protonix Ec Tab) 40 mg PO 0630 [facility] Last Admin: 03/05/18 05:33 Dose: 40 mg Polyethylene Glycol (Miralax) 17 gm PO TID [facility] PRN Reason: Protocol Last Admin: 03/04/18 17:14 Dose: Not Given Potassium Chloride (K-Dur 20 Meq Er Tab) 20 meq PO 0730,1200,1800,2200 [facility] PRN Reason: Protocol Last Admin: 03/05/18 08:01 Dose: 20 meq - Labs Labs: 03/05/18 06:30 - Additional Findings Additional findings: - Constitutional Appears: Non-toxic, No Acute Distress - Head Exam Head Exam: ATRAUMATIC, NORMOCEPHALIC - Eye Exam Eye Exam: EOMI, PERRL. absent: Conjunctival injection, Scleral icterus Pupil Exam: NORMAL ACCOMODATION, PERRL. absent: Mydriatic, Unequal - ENT Exam ENT Exam: Mucous Membranes Moist - Neck Exam Neck exam: Positive for: Full Rom - Respiratory Exam Respiratory Exam: Clear to Auscultation Bilateral, NORMAL BREATHING PATTERN. absent: Chest Wall Tenderness, Prolonged Expiratory Phase, Rales, Rhonchi, Wheezes, Respiratory Distress - Cardiovascular Exam Cardiovascular Exam: Irregular Rhythm - GI/Abdominal Exam GI & Abdominal Exam: Normal Bowel Sounds, Soft. absent: Distended, Firm, Guarding, Organomegaly, Pulsatile Mass - Extremities Exam Extremities exam: Positive for: pedal edema. Negative for: calf tenderness Additional comments: eduar stockings in place - Back Exam Back exam: NORMAL INSPECTION - Neurological Exam Neurological exam: Alert, Oriented x3 - Psychiatric Exam Psychiatric exam: Normal Affect, Normal Mood - Skin Skin Exam: Dry, Normal Color, Warm Assessment and Plan - Assessment and Plan (Free Text) Assessment: 88 year old female with PMH DM2, HTN, constipation, anemia, atrial fibrillation, and TIA, presents for pain and weakness of left lower extremity, admitted for mild lower extremity cellulitis and leg swelling: Lower extremity swelling: - s/p antibiotics. - ID on board, appreciate recs - Lasix IV 40 BID - Lidoderm patch b/l knees - clotrimazole cream - tylenol prn - remains afebrile, no leukocytosis - Physical therapy on board. Gout: - Allopurinol Hx of Afib: - Metoprolol succinate 25 mg PO daily Hx of DM: - ISS - Gabapentin. Cymbalta not supplied on TCU Hx of TIA: - Plavix Hx of ear cerumen: - debrox ear drops both ears qid Hx of constipation: - colace tid - miralax - s/p mag citrate and dulcolax x1 PPX: protonix, scds Upon discharge, patient will f/u with Dr Garcia. Case seen and discussed with Dr Almanza. Jimena Pina, PGY2
[2018-03-05] MEDS: POLYETHYLENE GLYCOL 3350 17 GM/Dose PACKET PO SCH ×3 (11:00→17:16)
[2018-03-05] MEDS: Clotrimazole/Betamethasone Lotion(30 ml) TOP SCH (11:00)
--- NOTE | 2018-03-05 22:33 | PN ---
DATE: 03/05/2018 SUBJECTIVE: The patient is seen sitting up in the recliner today. The patient is out of bed to chair. The patient just finished lunch. The patient denies any chest pain. Denies any shortness of breath. Denies numbness, tingling of the hands or feet. The patient is refusing bladder scan. The patient denies any constipation. States that she is having a good bowel movement since the patient is taking a laxative. Overnight nurse's notes were reviewed. PHYSICAL EXAMINATION: VITAL SIGNS: T-max is 98.2; pulse 73 to 60; blood pressure 120/52, 122/71, 125/72, 124/69; respirations 20; O2 sat is 92%-94%. GENERAL: The patient is out of bed to chair. HEAD: Normocephalic, atraumatic. EENT: Shows pinkish conjunctivae. Anicteric sclerae. No oropharyngeal lesion. No neck rigidity. CHEST: Kyphosis. LUNGS: Show no rales, crackles, or wheezing. CARDIOVASCULAR: S1, S2, irregular rhythm. Positive systolic murmur in left sternal border, right second intercostal space, left second intercostal space. ABDOMEN: Protuberant, obese. Positive bowel sound. GENITALIA: Female. RECTAL: Deferred. EXTREMITIES: Lower extremity shows positive Colt wraps, positive lymphedema noted. MUSCULOSKELETAL: Shows a body mass index of 42. Motor strength is 5/5 upper and lower extremity. Gait examination is not tested. The patient is ambulating with physical therapy. VASCULAR: Nonpalpable. DIAGNOSTICS: From 03/05/2018, sodium 142, potassium 4, chloride 97, CO2 of 39, anion gap 10, BUN 20, creatinine 0.9, GFR greater than 60, glucose 117. Fingerstick blood sugar 145, 111, 148, 114, 136. Calcium 8.6, magnesium 2.4. LFTs are within normal limit. The patient is seen by Podiatry. Their recommendations are noted. IMPRESSION: 1. Deconditioning. 2. Gait dysfunction. 3. Morbid obesity with elevated body mass index of 42. 4. Diuretic-induced mild metabolic alkalosis. 5. Gkx-xbrywqt-xopyrthtc, zye-wplf-feeichzngdab-requiring diabetes mellitus with hyperglycemia. 6. Hypertension. 7. Atrial fibrillation. 8. Bilateral lower extremity venous stasis ulceration and lymphedema. 9. Constipation. 10. Cerumen impaction. 11. Hypokalemia. 12. Diastolic congestive heart failure with pulmonary hypertension and tricuspid regurgitation. 13. Degenerative joint disease. 14. Neuropathy. 15. Hyperuricemia. PLAN: At this time, the patient is to be continued on Transitional Care Unit with continuation of the daily physical therapy, occupational therapy, ambulation therapy, and gait training. The patient at present will be continued on the above. The patient's current medications: Colace 100 mg three times a day, Debrox ear drops to both ears four times a day, regular insulin sliding scale coverage before meals and at bedtime, K-Dur 20 mEq four times a day, Lac-Hydrin lotion to both legs daily, Lasix 40 mg IV every 12 hours, Lidoderm 5% patch daily, Lotrisone cream to the affected area daily, MiraLax 17 g three times a day, Neurontin 100 mg at bedtime, Plavix 75 mg daily, Protonix 40 mg daily, Toprol-XL 25 mg daily, Tylenol 650 mg p.o. every 4 hours p.r.n., allopurinol 100 mg daily. Chest PT ordered. Consistent carbohydrate diet ordered. Elevation of the bilateral lower extremity ordered, on two pillows, lying or sitting. Fingerstick blood sugar, out of bed to chair, RAMSES stockings, SCDs, occupational therapy, physical therapy all ordered. The patient will be continued on the Transitional Care Unit stay until approved number of days. The patient's case is referred to the [facility] for discharge planning. The patient's discharge planning is home with home care of via [facility]. Dictated and electronically signed, not read. Kole Almanza MD
[2018-03-06] MEDS: Pantoprazole 40 mg EC Tab PO SCH (06:31)
[2018-03-06] MEDS: Insulin Reg-LOW-Coverage SC SCH ×4 (07:00→22:10)
[2018-03-06] MEDS: Potassium Chloride 20 mEq ER Tab PO SCH ×4 (08:17→21:03)
[2018-03-06] MEDS: Metoprolol Succinate 25 mg XL Tab PO SCH (08:18)
--- NOTE | 2018-03-06 09:41 | PN ---
DATE: 03/06/2018 SUBJECTIVE: The patient is seen in TCU bed 319. The patient is lying in the bed and the patient is sitting up in the bed and eating breakfast. The patient is alert, awake, responsive. The patient states that she is feeling excellent.. The patient has no constipation. OBJECTIVE: VITAL SIGNS: At present, T max is 98; pulse 60; blood pressure 126/73, 130/67; respirations 20; O2 sat is 92 to 94 to 96. Intake/output is not documented. HEENT: Head examination, normocephalic and atraumatic. HEENT examination shows pinkish conjunctivae. Anicteric sclerae. No oropharyngeal lesion. NECK: No neck rigidity. CHEST: Examination, kyphosis. LUNGS: Examination shows no rales, crackles or wheezing. ABDOMEN: Soft. Positive bowel sounds. Obese, protuberant, distended. GENITALIA: Female. RECTAL: Deferred. EXTREMITIES: Show positive SCDs, positive swelling, venous stasis of the lower extremity. MUSCULOSKELETAL: Examination shows a body mass index of 42. Gait examination is not tested. Musculoskeletal: Examination shows an elevated body mass index. Cranial nerves II through XII limited. PSYCHIATRIC: Examination is negative. DIAGNOSTICS: None from today. IMPRESSION AND PLAN: 1. Deconditioning. 2. Gait dysfunction. 3. Morbid obesity with elevated body mass index. 4. Constipation. 5. Atrial fibrillation. 6. Hypokalemia. 7. Bilateral lower extremity venous stasis and lymphedema. 8. Right-sided diastolic congestive heart failure. 9. Pulmonary hypertension with tricuspid regurgitation. 10. Degenerative joint disease. 11. Neuropathy. 12. Hypertension. 13. Hyperuricemia. 14. Gex-bxkfhoz-lgevqcred, non-oral hypoglycemic requiring diabetes mellitus. 15. Sigmoid diverticulosis. 16. Urinary incontinence. PLAN: At this time, the patient is to be continued on Transitional Care Unit stay. The patient will continue on physical therapy, occupational therapy, ambulation therapy, gait training, out of bed to chair. CURRENT MEDICATIONS: 1. Colace 100 mg three times a day. 2. Debrox ear drops both ears four times a day. 3. Humulin regular low-dose sliding scale coverage. 4. K-Dur 20 mEq four times a day. 5. Lac-Hydrin lotion to both legs daily. 6. Lasix 40 mg IV every 12 hours. 7. Lidoderm 5% patch to the affected area. 8. Lotrisone cream to the affected area daily. 9. MiraLax 17 g three times a day. 10. Neurontin 100 mg p.o. at bedtime. 11. Plavix 75 mg daily. 12. Protonix 40 mg daily. 13. Toprol-XL 25 mg daily. 14. Tylenol 650 mg p.o. every 4 hours p.r.n. 15. Zyloprim 100 mg daily. Chest PT every 6 hours. The patient will be ordered out of bed to chair. The patient is on Plavix 75 daily, Protonix 40 daily, Toprol-XL 25 mg daily, Tylenol 650 every 4 hours p.r.n., allopurinol 100 mg daily, Neurontin 100 mg at bedtime, MiraLax 17 g three times a day, Lotrisone cream to the affected area, Lidoderm 5% patch to the knee area, Lasix 40 mg IV every 12 hours, Lac-Hydrin lotion to the legs and feet, K-Dur 20 mEq four times a day, Humulin low-dose sliding scale coverage, Debrox ear drops, Colace 100 mg three times a day. Dictated and electronically signed, not read. Kole Almanza MD
[2018-03-06] MEDS: Clotrimazole/Betamethasone Lotion(30 ml) TOP SCH (09:53)
[2018-03-06] MEDS: POLYETHYLENE GLYCOL 3350 17 GM/Dose PACKET PO SCH ×3 (09:53→17:45)
[2018-03-06] MEDS: Ammonium Lactate 12% Cream (140 g) TOP SCH (09:53)
[2018-03-06] MEDS: Lidocaine 5% Patch TD SCH (09:54)
[2018-03-07] MEDS: Pantoprazole 40 mg EC Tab PO SCH (06:07)
[2018-03-07] MEDS: Insulin Reg-LOW-Coverage SC SCH ×4 (06:47→21:23)
[2018-03-07 08:07] LABS: ALBUMIN 3.5 g/dL (3.0-4.8); ALT/SGPT 29 U/L (7-56); AST/SGOT 28 U/L (14-36); BILIRUBIN,DIRECT 0.2 mg/dL (0.0-0.4); BLOOD UREA NITROGEN 23 mg/dL (7-21); CALCIUM 8.8 mg/dL (8.4-10.5); GFR AFRICAN-AMERICAN > 60; GFR NON-AFRICAN AMERICAN > 60
[2018-03-07] MEDS: Metoprolol Succinate 25 mg XL Tab PO SCH (08:24)
[2018-03-07] MEDS: Potassium Chloride 20 mEq ER Tab PO SCH ×4 (09:27→21:18)
[2018-03-07] MEDS: Clotrimazole/Betamethasone Lotion(30 ml) TOP SCH (09:27)
[2018-03-07] MEDS: POLYETHYLENE GLYCOL 3350 17 GM/Dose PACKET PO SCH ×3 (09:28→18:29)
[2018-03-07] MEDS: Lidocaine 5% Patch TD SCH (09:37)
[2018-03-07] MEDS: Ammonium Lactate 12% Cream (140 g) TOP SCH (09:39)
--- NOTE | 2018-03-07 23:04 | PN ---
DATE: 03/07/2018 SUBJECTIVE: The patient is seen lying in the bed in room 319, bed 1. The patient is sleeping, but comfortable. The patient is arousable, alert, awake, responsive. The patient denies any constipation. Denies diarrhea. Denies nausea. Denies vomiting. Denies hemoptysis. Denies melena. Denies hematochezia. The patient is alert, awake, oriented x3. PHYSICAL EXAMINATION: VITAL SIGNS: T-max 97.1, pulse 60, blood pressure 128/82, 134/90; respiration 16-20, O2 sat 96%. Intake/output not documented. HEAD: Normocephalic, atraumatic. HEENT examination shows pinkish conjunctivae. Anicteric sclerae. No oropharyngeal lesion. No neck rigidity. CHEST: Kyphosis. LUNGS: Shows no rales, crackles or wheezing. CARDIOVASCULAR: S1, S2, regular rhythm. Questionable soft systolic murmur in left sternal border, right second intercostal space, left second intercostal space. ABDOMEN: Protuberant, obese. Positive bowel sounds. No hepatosplenomegaly appreciated. GENITALIA: Female. RECTAL: Examination deferred. EXTREMITIES: Shows positive Colt wrap. Positive leg swelling noted. MUSCULOSKELETAL: Shows a body mass index of 42. NEUROLOGIC: Cranial nerves II-XII limited. Gait examination is not tested. DIAGNOSTICS: On 03/07/2018: Sodium 141, potassium 4.1, chloride 98, CO2 of 37, anion gap 10, BUN 23, creatinine 0.8, GFR greater than 60, glucose 104, 134, calcium 8.8, magnesium 2.3. LFTs are normal. Alk phos 132. IMPRESSION AND PLAN: 1. Deconditioning. 2. Gait dysfunction. 3. Bilateral lower extremity venous stasis ulceration and lymphedema, slow resolving. 4. Diuretic-induced metabolic alkalosis. 5. Mild prerenal kidney injury. 6. Ssl-xdoggvb-honhiuayr, non-oral hypoglycemic requiring diabetes mellitus with hyperglycemia. 7. Morbid obesity with elevated body mass index of 42. 8. Anemia. 9. Cerumen impaction. 10. Constipation. 11. Questionable urinary retention. 12. Right-sided diastolic congestive heart failure. 13. Bilateral lower extremity venous stasis. 14. Hypokalemia. 15. Degenerative joint disease. 16. Neuropathy. 17. Hyperuricemia. PLAN: At this time, the patient is to be continued on the Transitional Care Unit stay with continuation of the physical therapy, occupational therapy, ambulation therapy and gait training. Serial labs ordered. Consultation, Podiatry. CURRENT MEDICATIONS: 1. Colace 100 mg 3 times a day. 2. Debrox ear drops 4 times a day. 3. Humulin low-dose sliding scale coverage before lunch and at bedtime. 4. K-Dur 20 mEq 4 times a day. 5. Lac-Hydrin lotion to the affected area daily. 6. Lasix 40 mg IV every 12 hours. 7. Lidoderm 5% patch to the affected area of pain. 8. Lotrisone cream to the affected area. 9. MiraLax 17 g 3 times a day. 10. Neurontin 100 mg at bedtime. 11. Plavix 75 mg daily. 12. Protonix 40 mg daily. 13. Toprol XL 25 mg daily. 14. Tylenol 650 every 4 hours p.r.n. 15. Allopurinol 100 mg daily. Chest PT ordered. Consistent carbohydrate diet ordered. Out of bed, RAMSES stockings, SCDs, physical therapy, occupational therapy all ordered. Dictated and electronically signed, not read. Kole Almanza MD
[2018-03-08] MEDS: Pantoprazole 40 mg EC Tab PO SCH (06:04)
[2018-03-08] MEDS: Insulin Reg-LOW-Coverage SC SCH ×4 (07:06→22:51)
[2018-03-08] MEDS: Metoprolol Succinate 25 mg XL Tab PO SCH (08:06)
[2018-03-08] MEDS: Potassium Chloride 20 mEq ER Tab PO SCH ×4 (08:06→22:51)
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
--- NOTE | 2018-03-08 10:38 | CP.PCM.PN ---
Subjective - Date & Time of Evaluation Date of Evaluation: 03/08/18 Time of Evaluation: 10:35 - Subjective Subjective: Podiatry Progress Note- Dr. Mccallum 88 female with PMHx of DM type II, HTN, TIA, atrial fibrillation and constipation seen at bedside for bilateral leg edema and right leg cellulitis- cellultis resolved. Patient seen resting comfortably in bed, in NAD. Patient denies lower extremity pain. Reports feeling her feet and legs are feeling well and doing good. Denies F/C/N/V/CP/SOB Objective - Vital Signs/Intake and Output Vital Signs (last 24 hours): Temp Pulse Resp BP Pulse Ox 97.1 F L 73 16 116/62 96 03/07/18 16:00 03/08/18 08:06 03/07/18 16:00 03/08/18 08:06 03/07/18 10:00 - Medications Medications: Current Medications Acetaminophen (Tylenol 325mg Tab) 650 mg PO Q4H PRN PRN Reason: Pain, Mild (1-3) Allopurinol (Zyloprim) 100 mg PO 0800 [facility] PRN Reason: Protocol Last Admin: 03/08/18 08:06 Dose: 100 mg Betamethasone/Clotrimazole (Lotrisone) 0 ml TOP DAILY [facility] Last Admin: 03/07/18 09:27 Dose: 1 applic Carbamide Peroxide (Debrox Ear Drops) 0 ml AU QID [facility] Last Admin: 03/07/18 21:17 Dose: 1 drop Clopidogrel Bisulfate (Plavix) 75 mg PO DAILY [facility] Last Admin: 03/07/18 09:28 Dose: 75 mg Docusate Sodium (Colace) 100 mg PO TID [facility] Last Admin: 03/07/18 18:25 Dose: Not Given Furosemide (Lasix) 40 mg IVP 0600,1800 [facility] Last Admin: 03/08/18 06:04 Dose: 40 mg Gabapentin (Neurontin) 100 mg PO HS [facility] PRN Reason: Protocol Last Admin: 03/07/18 21:18 Dose: 100 mg Insulin Human Regular (Humulin R Low) 0 units SC ACHS [facility] PRN Reason: Protocol Last Admin: 03/08/18 07:06 Dose: Not Given Lactic Acid (Lac-Hydrin 12% Cream (140 G)) 0 ea TOP DAILY [facility] Last Admin: 03/07/18 09:39 Dose: 1 appl Lidocaine (Lidoderm) 2 ea TD DAILY [facility] Last Admin: 03/07/18 09:37 Dose: 2 ea Metoprolol Succinate (Toprol Xl) 25 mg PO BRK [facility] Last Admin: 03/08/18 08:06 Dose: 25 mg Pantoprazole Sodium (Protonix Ec Tab) 40 mg PO 0630 [facility] Last Admin: 03/08/18 06:04 Dose: 40 mg Polyethylene Glycol (Miralax) 17 gm PO TID [facility] PRN Reason: Protocol Last Admin: 03/07/18 18:29 Dose: Not Given Potassium Chloride (K-Dur 20 Meq Er Tab) 20 meq PO 0730,1200,1800,2200 [facility] PRN Reason: Protocol Last Admin: 03/08/18 08:06 Dose: 20 meq - Labs Labs: 03/07/18 06:30 - Constitutional Appears: Well, Non-toxic, No Acute Distress - Extremities Exam Extremities Exam: absent: Calf Tenderness Additional comments: Lower extremity focused exam: Vasc: DP/PT pulses non-palpable B/L. +1 pitting edema noted to bilateral lower extremities: +2 at dorsum of foot B/L. Temperature gradient is warm to cold B/ L. Pedal hair growth absent. Derm: Thickened dystrophic toenails x 10. Diffuse xerosis noted to bilateral legs and feet. No open lesions, no erythema or cellulitis noted Neuro: Protective sensation grossly intact to bilateral lower extremities Ortho: no tenderness to palpation of bilateral lower extremities. Pes planus deformity noted B/L - Neurological Exam Neurological Exam: Awake - Psychiatric Exam Psychiatric exam: Normal Affect, Normal Mood Assessment and Plan - Assessment and Plan (Free Text) Assessment: 88 y/o diabetic female with lower extremity swelling with resolved cellulites Plan: Pt seen and evaluated with Dr. Mccallum Rx Lac Hydrin to be applied to legs and feet daily Venous duplex 02/24/18 (-) DVT Arterial duplex on 01/02 relatively normal JAYESH/PVR at rest Dispensed and applied compression tubigrip to bilateral lower extremity May take off tubigrip at night and put back on in the morning- thank you Pt to be referred to Dr. Lucas for home visits for diabetic foot care
[2018-03-08] MEDS: Clotrimazole/Betamethasone Lotion(30 ml) TOP SCH (11:35)
[2018-03-08] MEDS: Ammonium Lactate 12% Cream (140 g) TOP SCH (11:35)
[2018-03-08] MEDS: POLYETHYLENE GLYCOL 3350 17 GM/Dose PACKET PO SCH ×3 (11:35→17:30)
[2018-03-08] MEDS: Lidocaine 5% Patch TD SCH (12:30)
--- NOTE | 2018-03-08 14:57 | CP.PCM.PN ---
Subjective - Date & Time of Evaluation Date of Evaluation: 03/08/18 Time of Evaluation: 10:00 - Subjective Subjective: Jimena Pina, PGY2, Medicine Progress Note for Dr Almanza: Patient seen and examined at bedside. No acute events overnight. Denies fevers, chills, nausea, vomiting, abdominal pain, leg swelling. Pt reports long toenail of left foot that needs to be cut. Discussed with nursing staff, podiatry, who will come in again tomorrow. Objective - Vital Signs/Intake and Output Vital Signs (last 24 hours): Temp Pulse Resp BP Pulse Ox 97.1 F L 73 16 116/62 96 03/07/18 16:00 03/08/18 08:06 03/07/18 16:00 03/08/18 08:06 03/07/18 10:00 - Medications Medications: Current Medications Acetaminophen (Tylenol 325mg Tab) 650 mg PO Q4H PRN PRN Reason: Pain, Mild (1-3) Allopurinol (Zyloprim) 100 mg PO 0800 [facility] PRN Reason: Protocol Last Admin: 03/08/18 08:06 Dose: 100 mg Betamethasone/Clotrimazole (Lotrisone) 0 ml TOP DAILY [facility] Last Admin: 03/08/18 11:35 Dose: 1 applic Carbamide Peroxide (Debrox Ear Drops) 0 ml AU QID [facility] Last Admin: 03/08/18 11:35 Dose: 5 drop Clopidogrel Bisulfate (Plavix) 75 mg PO DAILY [facility] Last Admin: 03/08/18 11:36 Dose: 75 mg Docusate Sodium (Colace) 100 mg PO TID [facility] Last Admin: 03/08/18 14:22 Dose: Not Given Furosemide (Lasix) 40 mg IVP 0600,1800 [facility] Last Admin: 03/08/18 06:04 Dose: 40 mg Gabapentin (Neurontin) 100 mg PO HS [facility] PRN Reason: Protocol Last Admin: 03/07/18 21:18 Dose: 100 mg Insulin Human Regular (Humulin R Low) 0 units SC ACHS [facility] PRN Reason: Protocol Last Admin: 03/08/18 12:29 Dose: Not Given Lactic Acid (Lac-Hydrin 12% Cream (140 G)) 0 ea TOP DAILY [facility] Last Admin: 03/08/18 11:35 Dose: 1 appl Lidocaine (Lidoderm) 2 ea TD DAILY [facility] Last Admin: 03/08/18 12:30 Dose: 2 ea Metoprolol Succinate (Toprol Xl) 25 mg PO BRK [facility] Last Admin: 03/08/18 08:06 Dose: 25 mg Pantoprazole Sodium (Protonix Ec Tab) 40 mg PO 0630 [facility] Last Admin: 03/08/18 06:04 Dose: 40 mg Polyethylene Glycol (Miralax) 17 gm PO TID [facility] PRN Reason: Protocol Last Admin: 03/08/18 14:22 Dose: Not Given Potassium Chloride (K-Dur 20 Meq Er Tab) 20 meq PO 0730,1200,1800,2200 [facility] PRN Reason: Protocol Last Admin: 03/08/18 12:49 Dose: 20 meq - Labs Labs: 03/07/18 06:30 - Additional Findings Additional findings: - Constitutional Appears: Non-toxic, No Acute Distress - Head Exam Head Exam: ATRAUMATIC, NORMOCEPHALIC - Eye Exam Eye Exam: EOMI, PERRL. absent: Conjunctival injection, Scleral icterus Pupil Exam: NORMAL ACCOMODATION, PERRL. absent: Mydriatic, Unequal - ENT Exam ENT Exam: Mucous Membranes Moist - Neck Exam Neck exam: Positive for: Full Rom - Respiratory Exam Respiratory Exam: Clear to Auscultation Bilateral, NORMAL BREATHING PATTERN. absent: Chest Wall Tenderness, Prolonged Expiratory Phase, Rales, Rhonchi, Wheezes, Respiratory Distress - Cardiovascular Exam Cardiovascular Exam: Irregular Rhythm - GI/Abdominal Exam GI & Abdominal Exam: Normal Bowel Sounds, Soft. absent: Distended, Firm, Guarding, Organomegaly, Pulsatile Mass - Extremities Exam Extremities exam: decreasing pedal edema. + ingrown nail seen on left foot. Negative for: calf tenderness - Back Exam Back exam: NORMAL INSPECTION - Neurological Exam Neurological exam: Alert, Oriented x3 - Psychiatric Exam Psychiatric exam: Normal Affect, Normal Mood - Skin Skin Exam: Dry, Normal Color, Warm Assessment and Plan - Assessment and Plan (Free Text) Assessment: 88 year old female with PMH DM2, HTN, constipation, anemia, atrial fibrillation, and TIA, presents for pain and weakness of left lower extremity, admitted for mild lower extremity cellulitis and leg swelling: Lower extremity swelling: - improved - s/p antibiotics. - ID on board, appreciate recs - Lasix IV 40 BID - Lidoderm patch b/l knees - clotrimazole cream - tylenol prn - remains afebrile, no leukocytosis - Physical therapy on board. Gout: - Allopurinol Hx of Afib: - Metoprolol succinate 25 mg PO daily Hx of DM: - ISS - Gabapentin. Cymbalta not supplied on TCU Hx of TIA: - Plavix Hx of ear cerumen: - debrox ear drops both ears qid Hx of constipation: - colace tid - miralax - s/p mag citrate and dulcolax x1 PPX: protonix, scds Upon discharge, patient will f/u with Dr Garcia. Case seen and discussed with Dr Almanza. Jimena Pina, PGY2
--- NOTE | 2018-03-08 20:36 | PN ---
DATE: 03/08/2018 SUBJECTIVE: The patient is seen in room 319, bed 1. The patient is seen sitting up in the bed. The patient is alert, awake, responsive. The patient reports resolution of the earache and pain of the hands and numbness of the hands. Overnight nurse's notes were reviewed. The patient was found to be alert, awake, oriented x3 without any complaints. PHYSICAL EXAMINATION: VITAL SIGNS: T-max 97.1, heart rate 73, blood pressure 116/62, 128/82, respirations 16, O2 sat 96%. HEENT: Head examination normocephalic, atraumatic. Pinkish, pale conjunctivae. Anicteric sclerae. No neck rigidity. No facial asymmetry. CHEST: Kyphosis. LUNGS: Show no rales, crackles or wheezing. CARDIOVASCULAR: S1, S2. Regular rhythm. Questionable soft systolic murmur, left sternal border, right second intercostal space, left second intercostal space. ABDOMEN: Soft, protuberant, obese. Positive bowel sounds. Unable to appreciate any hepatosplenomegaly. GENITALIA: Female. RECTAL: Deferred. EXTREMITY: Shows positive Colt wraps. MUSCULOSKELETAL: Shows an elevated body mass index of BMI of 42. Fingerstick blood sugar 125, 82, 104, 134, 138, 102. DIAGNOSTIC DATA: None from today. The patient is complaining of toenail issue for which we will reconsult Podiatry. IMPRESSION AND PLAN: 1. Gait dysfunction. 2. Deconditioning. 3. Hypertension. 4. Morbid obesity with elevated body mass index of 42. 5. Cerumen impaction. 6. Diabetic neuropathy of the upper extremity and hands and fingertips. 7. Diuretic-induced metabolic alkalosis. 8. Prerenal kidney injury. 9. Non-insulin non-oral hypoglycemic requiring diabetes mellitus. 10. 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 11. Atrial fibrillation, non anticoagulation dependent. 12. Constipation. 13. Hypokalemia. 14. Right-sided diastolic congestive heart failure with pulmonary hypertension and tricuspid regurgitation. 15. Degenerative joint disease. 16. Neuropathy. 17. Hyperuricemia. Plan at this time, the patient is to continue on Transitional Care Unit with daily physical therapy, ambulation therapy, occupational therapy, gait training and ambulation treatment. The patient will continue Transitional Care Unit until approved number of days. Upon completion of TCU, the patient will be discharged home with visiting nurse, home health aide, home PT. Dictated and electronically signed, not read. Kole Almanza MD
[2018-03-09] MEDS: Pantoprazole 40 mg EC Tab PO SCH (05:38)
[2018-03-09] MEDS: Insulin Reg-LOW-Coverage SC SCH (06:39)
[2018-03-09] MEDS: Potassium Chloride 20 mEq ER Tab PO SCH ×2 (06:44→11:09)
[2018-03-09] MEDS: Metoprolol Succinate 25 mg XL Tab PO SCH (08:22)
[2018-03-09 10:28] VITALS: BP 118/81; PULSE 75; RESP 20; TEMP 97.8; O2SAT 94
[2018-03-09] MEDS: Lidocaine 5% Patch TD SCH (11:09)
[2018-03-09] MEDS: POLYETHYLENE GLYCOL 3350 17 GM/Dose PACKET PO SCH (11:11)
[2018-03-09] MEDS: Clotrimazole/Betamethasone Lotion(30 ml) TOP SCH (11:11)
--- NOTE | 2018-03-09 12:19 | CP.PCM.PN ---
<Alexei Crowe - Last Filed: 03/09/18 12:35> Subjective - Date & Time of Evaluation Date of Evaluation: 03/09/18 Time of Evaluation: 12:38 - Subjective Subjective: Podiatry Progress Note- Dr. Lucas 88 female with PMHx of DM type II, HTN, TIA, atrial fibrillation and constipation seen at bedside for bilateral leg edema and right leg cellulitis- cellultis resolved and elongated painful toenails x10. Patient seen resting comfortably in bed, in NAD. Patient denies lower extremity pain. Reports she is going home today. Denies F/C/N/V/CP/SOB Objective - Vital Signs/Intake and Output Vital Signs (last 24 hours): Temp Pulse Resp BP Pulse Ox 97.8 F 75 20 118/81 94 L 03/09/18 10:00 03/09/18 10:00 03/09/18 10:00 03/09/18 10:00 03/09/18 10:00 Intake and Output: 03/09/18 03/09/18 06:59 18:59 Output Total 400 Balance -400 - Medications Medications: Current Medications Acetaminophen (Tylenol 325mg Tab) 650 mg PO Q4H PRN PRN Reason: Pain, Mild (1-3) Last Admin: 03/09/18 05:38 Dose: 650 mg Allopurinol (Zyloprim) 100 mg PO 0800 [facility] PRN Reason: Protocol Last Admin: 03/09/18 08:23 Dose: 100 mg Betamethasone/Clotrimazole (Lotrisone) 0 ml TOP DAILY [facility] Last Admin: 03/09/18 11:11 Dose: 1 applic Carbamide Peroxide (Debrox Ear Drops) 0 ml AU QID [facility] Last Admin: 03/09/18 11:09 Dose: Not Given Clopidogrel Bisulfate (Plavix) 75 mg PO DAILY [facility] Last Admin: 03/09/18 11:11 Dose: 75 mg Docusate Sodium (Colace) 100 mg PO TID [facility] Last Admin: 03/09/18 11:08 Dose: Not Given Furosemide (Lasix) 40 mg IVP 0600,1800 [facility] Last Admin: 03/09/18 05:37 Dose: 40 mg Gabapentin (Neurontin) 100 mg PO HS [facility] PRN Reason: Protocol Last Admin: 03/08/18 22:52 Dose: 100 mg Insulin Human Regular (Humulin R Low) 0 units SC ACHS [facility] PRN Reason: Protocol Last Admin: 03/09/18 06:39 Dose: Not Given Lactic Acid (Lac-Hydrin 12% Cream (140 G)) 0 ea TOP DAILY [facility] Last Admin: 03/08/18 11:35 Dose: 1 appl Lidocaine (Lidoderm) 2 ea TD DAILY [facility] Last Admin: 03/09/18 11:09 Dose: 2 ea Metoprolol Succinate (Toprol Xl) 25 mg PO BRK [facility] Last Admin: 03/09/18 08:22 Dose: 25 mg Pantoprazole Sodium (Protonix Ec Tab) 40 mg PO 0630 [facility] Last Admin: 03/09/18 05:38 Dose: 40 mg Polyethylene Glycol (Miralax) 17 gm PO TID [facility] PRN Reason: Protocol Last Admin: 03/09/18 11:11 Dose: Not Given Potassium Chloride (K-Dur 20 Meq Er Tab) 20 meq PO 0730,1200,1800,2200 [facility] PRN Reason: Protocol Last Admin: 03/09/18 11:09 Dose: 20 meq - Labs Labs: 03/07/18 06:30 - Constitutional Appears: Well, Non-toxic, No Acute Distress - Extremities Exam Extremities Exam: absent: Calf Tenderness Additional comments: Lower extremity focused exam: Vasc: DP/PT pulses non-palpable B/L. +1 pitting edema noted to bilateral lower extremities: +2 at dorsum of foot B/L. Temperature gradient is warm to cold B/ L. Pedal hair growth absent. Derm: Thickened dystrophic toenails x 10. Diffuse xerosis noted to bilateral legs and feet. No open lesions, no erythema or cellulitis noted Neuro: Protective sensation grossly intact to bilateral lower extremities Ortho: no tenderness to palpation of bilateral lower extremities. Pes planus deformity noted B/L - Neurological Exam Neurological Exam: Alert, Awake, Oriented x3 - Psychiatric Exam Psychiatric exam: Normal Affect, Normal Mood Assessment and Plan - Assessment and Plan (Free Text) Assessment: 88 y/o diabetic female with lower extremity swelling with resolved cellulites and elongated bothersome toenails x10 Plan: Pt seen and evaluated with Dr. Mccallum Elongated toenails x10 debrided to normal length and thickness with a nail nipper. Patient tolerated the procedure well without incident. Tubigrip reapplied to the lower extremity bilaterally. Venous duplex 02/24/18 (-) DVT Arterial duplex on 01/02 relatively normal JAYESH/PVR at rest May take off tubigrip at night and put back on in the morning- thank you Pt to be referred to Dr. Lucas for home visits for diabetic foot care <Kurt Lucas - Last Filed: 03/09/18 14:04> Objective - Vital Signs/Intake and Output Vital Signs (last 24 hours): Temp Pulse Resp BP Pulse Ox 97.8 F 75 20 118/81 94 L 03/09/18 10:00 03/09/18 10:00 03/09/18 10:00 03/09/18 10:00 03/09/18 10:00 Intake and Output: 03/09/18 03/09/18 06:59 18:59 Output Total 400 Balance -400 - Medications Medications: Current Medications Acetaminophen (Tylenol 325mg Tab) 650 mg PO Q4H PRN PRN Reason: Pain, Mild (1-3) Last Admin: 03/09/18 05:38 Dose: 650 mg Allopurinol (Zyloprim) 100 mg PO 0800 [facility] PRN Reason: Protocol Last Admin: 03/09/18 08:23 Dose: 100 mg Betamethasone/Clotrimazole (Lotrisone) 0 ml TOP DAILY [facility] Last Admin: 03/09/18 11:11 Dose: 1 applic Carbamide Peroxide (Debrox Ear Drops) 0 ml AU QID [facility] Last Admin: 03/09/18 11:09 Dose: Not Given Clopidogrel Bisulfate (Plavix) 75 mg PO DAILY [facility] Last Admin: 03/09/18 11:11 Dose: 75 mg Docusate Sodium (Colace) 100 mg PO TID [facility] Last Admin: 03/09/18 11:08 Dose: Not Given Furosemide (Lasix) 40 mg IVP 0600,1800 [facility] Last Admin: 03/09/18 05:37 Dose: 40 mg Gabapentin (Neurontin) 100 mg PO HS [facility] PRN Reason: Protocol Last Admin: 03/08/18 22:52 Dose: 100 mg Insulin Human Regular (Humulin R Low) 0 units SC ACHS [facility] PRN Reason: Protocol Last Admin: 03/09/18 06:39 Dose: Not Given Lactic Acid (Lac-Hydrin 12% Cream (140 G)) 0 ea TOP DAILY [facility] Last Admin: 03/08/18 11:35 Dose: 1 appl Lidocaine (Lidoderm) 2 ea TD DAILY [facility] Last Admin: 03/09/18 11:09 Dose: 2 ea Metoprolol Succinate (Toprol Xl) 25 mg PO BRK [facility] Last Admin: 03/09/18 08:22 Dose: 25 mg Pantoprazole Sodium (Protonix Ec Tab) 40 mg PO 0630 [facility] Last Admin: 03/09/18 05:38 Dose: 40 mg Polyethylene Glycol (Miralax) 17 gm PO TID [facility] PRN Reason: Protocol Last Admin: 03/09/18 11:11 Dose: Not Given Potassium Chloride (K-Dur 20 Meq Er Tab) 20 meq PO 0730,1200,1800,2200 [facility] PRN Reason: Protocol Last Admin: 03/09/18 11:09 Dose: 20 meq - Labs Labs: 03/07/18 06:30 Attending/Attestation - Attestation I have personally seen and examined this patient.: Yes I have fully participated in the care of the patient.: Yes I have reviewed all pertinent clinical information, including history, physical exam and plan: Yes
--- NOTE | 2018-03-09 15:09 | CP.PCM.DIS ---
Provider - Provider Date of Admission: 03/01/18 14:47 Attending physician: Kole Almanza MD Primary care physician: NO FAMILY PROVIDER Consults: JOLYNN Ordonez Time Spent in preparation of Discharge (in minutes): 60 Diagnosis - Discharge Diagnosis (1) Cellulitis of right lower extremity Status: Acute (2) Gait abnormality Status: Acute (3) Impacted cerumen of right ear Status: Acute (4) Swelling of lower extremity Status: Acute Hospital Course - Lab Results Lab Results: Most Recent Lab Values Sodium 141 mmol/L (132-148) 03/07/18 06:30 Potassium 4.1 mmol/L (3.6-5.0) 03/07/18 06:30 Chloride 98 mmol/L (98-107) 03/07/18 06:30 Carbon Dioxide 37 mmol/L (21-33) H 03/07/18 06:30 Anion Gap 10 (10-20) 03/07/18 06:30 BUN 23 mg/dL (7-21) H 03/07/18 06:30 Creatinine 0.8 mg/dl (0.7-1.2) 03/07/18 06:30 Est GFR ( Amer) > 60 03/07/18 06:30 Est GFR (Non-Af Amer) > 60 03/07/18 06:30 POC Glucose (mg/dL) 150 mg/dL (65-110) H 03/09/18 05:26 Random Glucose 102 mg/dL (70-110) 03/07/18 06:30 Calcium 8.8 mg/dL (8.4-10.5) 03/07/18 06:30 Magnesium 2.3 mg/dL (1.7-2.2) H 03/07/18 06:30 Total Bilirubin 0.5 mg/dL (0.2-1.3) 03/07/18 06:30 Direct Bilirubin 0.2 mg/dL (0.0-0.4) 03/07/18 06:30 AST 28 U/L (14-36) 03/07/18 06:30 ALT 29 U/L (7-56) 03/07/18 06:30 Alkaline Phosphatase 132 U/L (38-126) H 03/07/18 06:30 Total Protein 7.0 g/dL (5.8-8.3) 03/07/18 06:30 Albumin 3.5 g/dL (3.0-4.8) 03/07/18 06:30 Globulin 3.5 gm/dL 03/07/18 06:30 Albumin/Globulin Ratio 1.0 (1.1-1.8) L 03/07/18 06:30 - Hospital Course Hospital Course: 88 year old female with PMH DM2, HTN, constipation, anemia, atrial fibrillation, and TIA, presents for pain and weakness of left lower extremity, admitted for mild lower extremity cellulitis and leg swelling. She states that she had cellulitis in December which she was treated for in the hospital. Since that time, she has felt progressively weaker in the left leg. Patient treated with IV cefepime and Vancomycin. Patient diuresed well with IV Lasix. Infectious disease consulted, deemed discontinuation of antibiotics as it is mild cellulitis. Hematology (Dr Ordonez) consulted for anemia, likely anemia of chronic disease, stable hgb. Physical therapy evaluated patient, recommended TCU. Patient transferred to TCU for further care and rehab. Patient received adequate strength training in TCU. Patient discharged home, will follow up with Dr Almanza in 1 week. Referral made to [facility], home PT. Medications reconciled. Case seen and discussed with Dr Almanza. Jimena Pina, PGY2 Discharge Exam - Additional Findings Additional findings: - Constitutional Appears: Non-toxic, No Acute Distress - Head Exam Head Exam: ATRAUMATIC, NORMOCEPHALIC - Eye Exam Eye Exam: EOMI, PERRL. absent: Conjunctival injection, Scleral icterus Pupil Exam: NORMAL ACCOMODATION, PERRL. absent: Mydriatic, Unequal - ENT Exam ENT Exam: Mucous Membranes Moist - Neck Exam Neck exam: Positive for: Full Rom - Respiratory Exam Respiratory Exam: Clear to Auscultation Bilateral, NORMAL BREATHING PATTERN. absent: Chest Wall Tenderness, Prolonged Expiratory Phase, Rales, Rhonchi, Wheezes, Respiratory Distress - Cardiovascular Exam Cardiovascular Exam: Irregular Rhythm - GI/Abdominal Exam GI & Abdominal Exam: Normal Bowel Sounds, Soft. absent: Distended, Firm, Guarding, Organomegaly, Pulsatile Mass - Extremities Exam Extremities exam: no pedal edema. Negative for: calf tenderness - Back Exam Back exam: NORMAL INSPECTION - Neurological Exam Neurological exam: Alert, Oriented x3 - Psychiatric Exam Psychiatric exam: Normal Affect, Normal Mood - Skin Skin Exam: Dry, Normal Color, Warm Discharge Plan - Discharge Medications Prescriptions: Acetaminophen [Tylenol 325mg tab] 650 mg PO Q4H PRN 30 Days tab PRN Reason: Pain, Mild (1-3) Allopurinol [Zyloprim] 100 mg PO DAILY #30 tab Ammonium Lactate 12% [Lac-Hydrin 12% Cream (140 g)] 1 gra TOP DAILY 30 Days tube Carbamide Peroxide [Debrox Ear Drops] 1 ml AU BID #1 bottle Clopidogrel [Plavix] 1 tab PO DAILY #30 tab Clotrimazole/Betamethasone [Lotrisone] 0 ml TOP DAILY 30 Days bottle Docusate [Colace] 100 mg PO TID 30 Days #90 cap Ergocalciferol [Drisdol 50,000 Intl Units Cap] 1 cap PO Q7D #12 cap Furosemide [Lasix] 40 mg PO BID 30 Days tablet Gabapentin [Neurontin] 100 mg PO HS 30 Days cap Lidocaine 5% [Lidoderm] 1 ea TD DAILY 30 Days patch Lubiprostone [Amitiza] 1 tab PO DAILY #60 capsule Metoprolol Succinate XL [Toprol XL] 25 mg PO BRK 30 Days tab Pantoprazole [Protonix EC Tab] 40 mg PO 0630 30 Days ect Pantoprazole [Protonix EC Tab] 40 mg PO ACB #30 ect Polyethylene Glycol 3350 [Miralax] 17 gm PO TID #30 packet Potassium Chloride [K-Dur 20 mEq ER Tab] 20 meq PO TID #30 tab - Follow Up Plan Condition: GOOD Disposition: HOME/ ROUTINE Instructions: Preventing Falls in the Older Adult, How to Weigh Yourself, Fluid Restricted Diet, Cellulitis (GEN), Weakness (GEN) Additional Instructions: FOLLOW UP WITHIN 1 WEEK DISCHARGE MEDS PER UPDATED AMBULATORY ORDERS PLUS NEW SCRIPTS REFER TO [facility] - Please take meds as given - Follow up with Podiatry in 1 week. - Follow up with Dr Almanza in 1 week. - Return to ER for any symptoms. Referrals: Kole Almanza MD [Staff Provider] - 1 Week (FOLLOW UP WITHIN 1 WEEK DISCHARGE MEDS PER UPDATED AMBULATORY ORDERS PLUS NEW SCRIPTS)
--- NOTE | 2018-03-09 19:57 | DS ---
HISTORY OF PRESENT ILLNESS: The patient is seen sitting up in the chair in room 319, bed 1. The patient is awake, comfortable, in no distress. The patient was found to be alert, awake, and oriented x3. PHYSICAL EXAMINATION: VITAL SIGNS: T-max 98.1; pulse 64 to 68; blood pressure 112/67, 117/67, 118/70; respirations 18; O2 sat 98%. HEENT: Head: Normocephalic, atraumatic. Pinkish pale conjunctivae. Anicteric sclerae. No oropharyngeal lesion. NECK: No neck rigidity. CHEST: Kyphosis. LUNGS: Show no rales, crackles, or wheezing. CARDIOVASCULAR: S1 and S2, regular rhythm. Questionable soft systolic murmur at the left sternal border, right second intercostal space, left second intercostal space. ABDOMEN: Protuberant, obese. Positive bowel sounds. No hepatosplenomegaly noted. GENITALIA: Female. RECTAL: Deferred. EXTREMITIES: Show significantly reduced venous stasis and pitting edema. MUSCULOSKELETAL: Shows a body mass index of 42. Motor strength is 5/5 in upper and lower extremities. Gait examination could not be tested. DIAGNOSTICS: None from today. FINAL IMPRESSION AND DISCHARGE DIAGNOSES: 1. Deconditioning. 2. Gait dysfunction. 3. Morbid obesity with elevated body mass index of 42. 4. 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 5. Bilateral lymphedema (resolved). 6. Resolving to resolved bilateral lower extremity venous stasis. 7. Hypertension. 8. Atrial fibrillation. 9. Status post cerumen impaction. 10. Trx-[id number], non-oral hypoglycemic requiring diabetes mellitus. 11. Hypokalemia. 12. Right-sided diastolic congestive heart failure with pulmonary hypertension and tricuspid regurgitation. 13. Degenerative joint disease. 14. Constipation. 15. Neuropathy. 16. Obesity. 17. Diabetic neuropathy. 18. Hyperuricemia. PLAN: At this time, the patient will be considered for discharge after completion of the transitional care unit stay. The patient will be discharged home with referral to A home health aide with home PT. Discharge followup with Dr. Almanza within 1 week. DISCHARGE MEDICATIONS: Tylenol 650 mg p.o. every 4 hours p.r.n., allopurinol 100 mg daily, Lac-Hydrin lotion to the affected area daily, Debrox ear drops to both ears twice a day, Plavix 75 mg daily, Lotrisone cream to the affected area daily, Colace 100 mg three times a day, Drisdol 50,000 units weekly, Lasix 40 mg twice a day, Neurontin 100 mg at bedtime, Lidoderm 5% patch to the affected area daily, Amitiza 24 mcg daily, Toprol-XL 25 mg daily, Protonix 40 mg daily, MiraLax 17 g three times a day, K-Dur 20 mEq twice a day. During this hospitalization, the patient was extensively explained about the details of her medical condition, diagnostic test results, recommendation by all physician was explained and reinforced on an almost daily basis in layman's language. All questions concerned answered. Time spent in the entire discharge process more than 45 minutes. Dictated and electronically signed, not read. Kole Almanza MD
== END 2018-03-09 14:27 | disposition home health service (06) | DRG 92 ==
LOC: TRCU 14:47
PROVIDERS: ADMIT Internal Medicine; ATTEND Internal Medicine
PROC: F07Z9FZ Gait Training/Functional Ambulation Treatment using Assistive, Adaptive, Supportive or Protective Equipment (ICD-10-PCS; principal; 2018-03-02)
PROC: F08Z4FZ Home Management Treatment using Assistive, Adaptive, Supportive or Protective Equipment (ICD-10-PCS; 2018-03-02)
DX: R26.89 Other abnormalities of gait and mobility (principal); L03.115 Cellulitis of right lower limb; Z68.41 Body mass index [BMI] 40.0-44.9, adult; I50.30 Unspecified diastolic (congestive) heart failure; L03.116 Cellulitis of left lower limb; E87.3 Alkalosis; L97.919 Non-pressure chronic ulcer of unspecified part of right lower leg with unspecified severity; L97.929 Non-pressure chronic ulcer of unspecified part of left lower leg with unspecified severity; H61.21 Impacted cerumen, right ear; K59.09 Other constipation; I48.91 Unspecified atrial fibrillation; M10.9 Gout, unspecified; E66.01 Morbid (severe) obesity due to excess calories; I87.2 Venous insufficiency (chronic) (peripheral); E87.6 Hypokalemia; I11.0 Hypertensive heart disease with heart failure; E11.40 Type 2 diabetes mellitus with diabetic neuropathy, unspecified; I27.20 Pulmonary hypertension, unspecified; I36.1 Nonrheumatic tricuspid (valve) insufficiency; E11.51 Type 2 diabetes mellitus with diabetic peripheral angiopathy without gangrene; E11.65 Type 2 diabetes mellitus with hyperglycemia; E11.622 Type 2 diabetes mellitus with other skin ulcer; D50.9 Iron deficiency anemia, unspecified; M47.816 Spondylosis without myelopathy or radiculopathy, lumbar region; M17.0 Bilateral primary osteoarthritis of knee; K57.30 Diverticulosis of large intestine without perforation or abscess without bleeding; T50.2X5A Adverse effect of carbonic-anhydrase inhibitors, benzothiadiazides and other diuretics, initial encounter; Z86.73 Personal history of transient ischemic attack (TIA), and cerebral infarction without residual deficits; Z87.891 Personal history of nicotine dependence

== ENCOUNTER 2018-03-27 20:39 | Inpatient (IN) | payer MEDICARE ==
[2018-03-27 20:40] VITALS: BMI 33.8
--- NOTE | 2018-03-27 21:27 | ED PDOC ---
Arrival/HPI - General Chief Complaint: Lower Extremity Problem/Injury Time Seen by Provider: 03/27/18 20:41 Historian: Patient - History of Present Illness Narrative History of Present Illness (Text): 03/27/18 21:27 This 88 year old female with PMH DM2, HTN, constipation, anemia , atrial fibrillation, and TIA, presents bilateral lower extremity swelling, and SOB x 2 days. Denies CP, abdominal pain, ABRLOW, dizziness, weakness, fever, recent trauma, or urinary symptoms. Time/Duration: Other (see hpi) Context: Home Past Medical History - Provider Review Nursing Documentation Reviewed: Yes - Infectious Disease Hx of Infectious Diseases: None - Cardiac Hx Cardiac Disorders: Yes Hx Hypertension: Yes - Pulmonary Hx Chronic Obstructive Pulmonary Disease (COPD): No - Neurological HX Cerebrovascular Accident: No - HEENT Hx HEENT Disorder: Yes Hx Blind: No Hx Cataracts: Yes Hx Deafness: No Hx Difficulty Chewing: No Hx Epistaxis: No Hx Glaucoma: No - Renal Hx Renal Disorder: No - Endocrine/Metabolic Hx Endocrine Disorders: Yes Hx Diabetes Mellitus Type 2: Yes - Hematological/Oncological Hx Blood Disorders: No - Integumentary Hx Dermatological Disorder: No Hx Basal Cell Carcinoma: No Hx Eczema: No Hx Melanoma: No Hx Psoriasis: No Hx Squamous Cell Carcinoma: No - Musculoskeletal/Rheumatological Hx Falls: No - Gastrointestinal Hx Gastrointestinal Disorders: Yes - Genitourinary/Gynecological Hx Genitourinary Disorders: Yes Hx Incontinence: Yes - Psychiatric Hx Psychophysiologic Disorder: No Hx Substance Use: No - Surgical History Hx Thyroidectomy: Yes (benign per patient) Family/Social History - Physician Review Nursing Documentation Reviewed: Yes Family/Social History: Other (noncontributory) Smoking Status: Never Smoked Hx Alcohol Use: No Hx Substance Use: No Allergies/Home Meds Allergies/Adverse Reactions: Allergies No Known Allergies Allergy (Verified 03/01/18 19:10) Home Medications: Home Meds Medication Instructions Recorded Confirmed Aspirin [Lo-Dose Aspirin EC] 81 mg PO DAILY 03/27/18 03/27/18 Digoxin [Lanoxin] 0.125 mg PO DAILY 03/27/18 03/27/18 Furosemide [Lasix] 40 mg PO DAILY 03/27/18 03/27/18 Metoprolol Succinate XL [Toprol XL] 25 mg PO DAILY 03/27/18 03/27/18 Polyethylene Glycol 3350 [Miralax] 17 gm PO PRN PRN 03/27/18 03/27/18 Repaglinide [Prandin] 1 mg PO DAILY 03/27/18 03/27/18 amLODIPine [Norvasc] 5 mg PO DAILY 03/27/18 03/27/18 Review of Systems - Review of Systems Constitutional: Normal. absent: Fatigue, Weight Change, Fevers, Night Sweats Eyes: Normal ENT: Normal Respiratory: SOB. absent: Sputum, Wheezing Cardiovascular: Edema, PEREIRA, Orthopnea. absent: Chest Pain, Palpitations, Calf Pain, Syncope Gastrointestinal: Normal. absent: Abdominal Pain, Nausea, Vomiting Genitourinary Female: Normal. absent: Dysuria, Frequency Musculoskeletal: Normal. absent: Back Pain, Neck Pain Skin: Normal Neurological: Gait Changes. absent: Headache, Dizziness, Focal Weakness, Speech Changes, Facial Droop, Disequilibrium, Seizure Endocrine: Normal Hemo/Lymphatic: Normal Psychiatric: Normal Physical Exam Vital Signs Temp Pulse Resp BP Pulse Ox 03/28/18 06:19 79 18 151/65 H 95 03/28/18 03:55 70 18 155/89 H 95 03/28/18 02:04 145/80 03/28/18 01:02 79 18 145/80 95 03/27/18 20:49 98.5 F 93 H 20 161/78 H 92 L Temperature: Afebrile Blood Pressure: Normal Pulse: Regular Respiratory Rate: Normal Appearance: Positive for: Well-Appearing, Non-Toxic, Comfortable Pain Distress: None Mental Status: Positive for: Alert and Oriented X 3 Finger Stick Blood Glucose: 94 - Systems Exam Head: Present: Atraumatic, Normocephalic Pupils: Present: PERRL Extroacular Muscles: Present: EOMI Conjunctiva: Present: Normal Mouth: Present: Moist Mucous Membranes Pharnyx: Present: Normal. No: ERYTHEMA, EXUDATE, TONSILS ENLARGED Neck: Present: Normal Range of Motion Respiratory/Chest: Present: Clear to Auscultation, Good Air Exchange. No: Respiratory Distress, Accessory Muscle Use, Wheezes, Rales, Retracting, Rhonchi , Tachypneic Cardiovascular: Present: Regular Rate and Rhythm, Normal S1, S2. No: Murmurs Abdomen: No: Tenderness, Distention, Peritoneal Signs Back: Present: Normal Inspection. No: CVA Tenderness Upper Extremity: Present: Normal Inspection, Normal ROM. No: Cyanosis, Edema Lower Extremity: Present: Normal Inspection, Edema (b/l lower leg edema), NORMAL PULSES, Normal ROM. No: CALF TENDERNESS Neurological: Present: GCS=15, CN II-XII Intact, Speech Normal Skin: Present: Warm, Dry, Normal Color. No: Rashes Psychiatric: Present: Alert, Oriented x 3, Normal Insight, Normal Concentration Medical Decision Making ED Course and Treatment: 03/28/18 01:[address] Almanza regarding patient c/o worsening of leg edema, and associated with SOB. BNP was elevated. Patient treated with Lasix. He recommended admission on Telemetry. He recommended DR. Ovalle consult. Re-evaluation Time: 01:00 Reassessment Condition: Re-examined, Improving,but remains with symptoms - Lab Interpretations Lab Results: 03/27/18 22:20 03/27/18 00:55 Lab Results 03/27/18 22:20: WBC 6.3 D, RBC 4.43, Hgb 12.1, Hct 35.6 L, MCV 80.4, MCH 27.3, MCHC 34.0, RDW 16.9 H, Plt Count 125, Gran % 70.8 H, Lymph % (Auto) 20.4 L, [place] % (Auto) 7.3 H, Eos % (Auto) 1.3 L, Baso % (Auto) 0.2, Gran # 4.43, Lymph # (Auto) 1.3, [place] # (Auto) 0.5, Eos # (Auto) 0.1, Baso # (Auto) 0.01 03/27/18 00:55: Sodium 143, Potassium 3.7, Chloride 103, Carbon Dioxide 31, Anion Gap 13, BUN 15, Creatinine 0.8, Est GFR ( Amer) > 60, Est GFR (Non- Af Amer) > 60, Random Glucose 120 H, Calcium 8.7, Magnesium 2.4 H, Total Bilirubin 0.6, AST 33, ALT 47, Alkaline Phosphatase 138 H, Lactate Dehydrogenase 569, Total Creatine Kinase 202, Troponin I 0.02 D, NT-Pro-B Natriuret Pep 1530 H, Total Protein 7.5, Albumin 3.6, Globulin 3.9, Albumin/ Globulin Ratio 0.9 L 03/27/18 00:55: PT 11.7, INR 1.03, APTT 27.5, D-Dimer, Quantitative 1587 I have reviewed the lab results: Yes Interpretation: Abnormal lab values - RAD Interpretation Narrative RAD Interpretations (Text): 03/28/18 01:32 CXR: NAD 03/28/18 03:30 PROCEDURE: CT Chest with contrast (Pulmonary Angiogram) FINDINGS: PULMONARY ARTERIES: Unremarkable. No pulmonary embolism. AORTA: There is minimal contrast opacification of the aorta. There is mild aortic dilatation LUNGS: Unremarkable. No nodule, mass or pulmonary consolidation. PLEURAL SPACES: Small bilateral pleural effusions HEART: Unremarkable. No cardiomegaly. No significant pericardial effusion. Coronary artery calcification LYMPH NODES: No lymphadenopathy. BONES, CHEST WALL: Unremarkable. No fracture or destructive lesion multilevel disc degeneration in the thoracic spine OTHER FINDINGS: The report concurs with the preliminary [facility] report IMPRESSION: Unremarkable CT pulmonary angiogram. No pulmonary embolus. Radiology Orders: 03/27/18 21:30 CHEST PORTABLE [RAD] Stat 03/27/18 21:37 DUPLEX LOWER EXTRM VEIN BILAT [US] Stat - EKG Interpretation Interpreted by ED Physician: Yes (A-fib @ [address] changes) Type: 12 lead EKG Comparison: Similar to previous EKG - Medication Orders Current Medication Orders: Albuterol/Ipratropium (Duoneb 3 Mg/0.5 Mg (3 Ml) Ud) 3 ml IH Q4H PRN PRN Reason: Shortness of Breath Amlodipine Besylate (Norvasc) 5 mg PO DAILY [facility] Last Admin: 03/28/18 09:47 Dose: 5 mg Aspirin (Ecotrin) 81 mg PO DAILY [facility] Last Admin: 03/28/18 09:47 Dose: 81 mg Clopidogrel Bisulfate (Plavix) 75 mg PO DAILY [facility] Last Admin: 03/28/18 09:48 Dose: 75 mg Digoxin (Digoxin) 0.125 mg PO DAILY [facility] Last Admin: 03/28/18 09:47 Dose: 0.125 mg MAR Apical Pulse Rate Document 03/28/18 09:47 ML (Rec: 03/28/18 09:47 ML [id number]) Apical Pulse Rate Apical Pulse Rate (60-90 beats/min) 72 Docusate Sodium (Colace) 100 mg PO TID [facility] Last Admin: 03/28/18 13:04 Dose: Not Given Non-Admin Reason: Patient Refused Furosemide (Lasix) 40 mg IVP DAILY [facility] Last Admin: 03/28/18 09:46 Dose: 40 mg MAR Blood Pressure Document 03/28/18 09:46 ML (Rec: 03/28/18 09:46 ML [id number]) Blood Pressure Blood Pressure (100/60-150/90) 176/76 IVP Administration Document 03/28/18 09:46 ML (Rec: 03/28/18 09:46 ML [id number]) Charges for Administration # of IVP Administrations 1 Gabapentin (Neurontin) 100 mg PO HS [facility] PRN Reason: Protocol Insulin Human Regular (Humulin R Low) 0 units SC ACHS [facility] PRN Reason: Protocol Last Admin: 03/28/18 12:18 Dose: Not Given Non-Admin Reason: Blood Sugar Parameter Lactic Acid (Lac-Hydrin 12% Cream (140 G)) 1 ea TOP DAILY [facility] Last Admin: 03/28/18 09:46 Dose: 1 applic Lidocaine (Lidoderm) 1 ea TD DAILY [facility] Last Admin: 03/28/18 09:46 Dose: 1 ea Metoprolol Succinate (Toprol Xl) 25 mg PO BRK [facility] Pantoprazole Sodium (Protonix Ec Tab) 40 mg PO ACB [facility] Polyethylene Glycol (Miralax) 17 gm PO DAILY [facility] Last Admin: 03/28/18 10:23 Dose: Potassium Chloride (K-Dur 20 Meq Er Tab) 20 meq PO TID [facility] Last Admin: 03/28/18 13:32 Dose: 20 meq Repaglinide (Prandin) 1 mg PO DAILY [facility] Last Admin: 03/28/18 09:48 Dose: 1 mg Discontinued Medications Furosemide (Lasix) 60 mg IVP STAT STA Stop: 03/28/18 01:37 Last Admin: 03/28/18 02:04 Dose: 60 mg MAR Blood Pressure Document 03/28/18 02:04 CNR (Rec: 03/28/18 02:04 CNR [id number]) Blood Pressure Blood Pressure (100/60-150/90) 145/80 IVP Administration Document 03/28/18 02:04 CNR (Rec: 03/28/18 02:04 CNR [id number]) Charges for Administration # of IVP Administrations 1 Disposition/Present on Arrival - Present on Arrival Any Indicators Present on Arrival: No History of DVT/PE: No History of Uncontrolled Diabetes: No Urinary Catheter: No History of Decub. Ulcer: No History Surgical Site Infection Following: None - Disposition Have Diagnosis and Disposition been Completed?: Yes Diagnosis: Acute exacerbation of CHF (congestive heart failure) Disposition: HOSPITALIZED Disposition Time: 02:05 Patient Plan: Admission Patient Problems: Current Active Problems Problem Status Onset Acute exacerbation of CHF (congestive heart failure) Acute Condition: STABLE
[2018-03-27 22:32] LABS: BASO # 0.01 K/mm3 (0.0-2.0); BASO % 0.2 % (0.0-3.0); EOS # 0.1 (0.0-0.7); EOS % 1.3 % (1.5-5.0); GRAN # 4.43 (1.4-6.5); GRAN % 70.8 % (50.0-68.0); HEMOGLOBIN 12.1 g/dL (12.0-16.0); LYMPH # 1.3 (1.2-3.4); LYMPH % 20.4 % (22.0-35.0); MEAN CELL VOLUME 80.4 fl (80.0-105.0); MEAN CORPUSCULAR HEMOGLOBIN 27.3 pg (25.0-35.0); MONO # 0.5 (0.1-0.6); MONO % 7.3 % (1.0-6.0); PLATELET COUNT 125 10^3/uL (120.0-450.0); RBC 4.43 10^6/uL (3.5-6.1); RED CELL DISTRIBUTION WIDTH 16.9 % (11.5-14.5); WHITE BLOOD COUNT 6.3 10^3/ul (4.5-11.0)
[2018-03-28 01:18] LABS: INR 1.03; PROTHROMBIN TIME 11.7 SECONDS (9.4-12.5)
[2018-03-28 01:21] LABS: PARTIAL THROMBOPLASTIN TIME 27.5 Seconds (25.1-36.5)
[2018-03-28 01:25] LABS: ALB/GLOB RATIO 0.9 (1.1-1.8); ALBUMIN 3.6 g/dL (3.0-4.8); ALT/SGPT 47 U/L (7-56); AST/SGOT 33 U/L (14-36); BLOOD UREA NITROGEN 15 mg/dL (7-21); CALCIUM 8.7 mg/dL (8.4-10.5); GFR AFRICAN-AMERICAN > 60; GFR NON-AFRICAN AMERICAN > 60
[2018-03-28 01:33] LABS: B-TYPE NATRIURETIC PEPTIDE 1530 pg/mL (0-450); TROPONIN I 0.02 ng/mL
[2018-03-28] MEDS ORDERED: Albuterol-Ipratrop 3 mg / 0.5 (3 ml) UD IH PRN (01:52)
[2018-03-28] MEDS ORDERED: Iohexol 300 100 ML IJ ONE (02:27)
--- NOTE | 2018-03-28 09:07 | CP.PCM.HP ---
History of Present Illness - History of Present Illness History of Present Illness: 88 year old female with history of diabetes mellitus, hypertension, anemia, atrial fibrillation, and TIA presented to the Emergency Room with shortness of breath for 2 days. Patient says that she was given respiratory treatment by her primary care doctor last week but she did not use it. Once she began having difficulty breathing, she decided to come to the hospital. She denies chest pain, nausea, vomiting or abdominal pain. Present on Admission - Present on Admission Any Indicators Present on Admission: No History of DVT/PE: No History of Uncontrolled Diabetes: No Urinary Catheter: No Decubitus Ulcer Present: No Review of Systems - Constitutional Constitutional: absent: Chills, Fever, Lethargy - Cardiovascular Cardiovascular: Dyspnea, Leg Edema. absent: Chest Pain - Respiratory Respiratory: As Per HPI - Gastrointestinal Gastrointestinal: absent: Abdominal Pain, Nausea, Vomiting Past Patient History - Infectious Disease Hx of Infectious Diseases: None - Past Social History Smoking Status: Former Smoker - CARDIAC Hx Cardiac Disorders: Yes Hx Hypertension: Yes - PULMONARY Hx Chronic Obstructive Pulmonary Disease (COPD): No - NEUROLOGICAL HX Cerebrovascular Accident: No - HEENT Hx HEENT Problems: Yes Hx Blind: No Hx Cataracts: Yes Hx Deafness: No Hx Difficulty Chewing: No Hx Epistaxis: No Hx Glaucoma: No - RENAL Hx Chronic Kidney Disease: No - ENDOCRINE/METABOLIC Hx Endocrine Disorders: Yes Hx Diabetes Mellitus Type 2: Yes - HEMATOLOGICAL/ONCOLOGICAL Hx Blood Disorders: No - INTEGUMENTARY Hx Dermatological Problems: No Hx Basil Cell: No Hx Eczema: No Hx Melanoma: No Hx Psoriasis: No Hx Squamous Cell: No - MUSCULOSKELETAL/RHEUMATOLOGICAL Hx Falls: Yes - GASTROINTESTINAL Hx Gastrointestinal Disorders: Yes - GENITOURINARY/GYNECOLOGICAL Hx Genitourinary Disorders: Yes Hx Incontinence: Yes - PSYCHIATRIC Hx Psychophysiologic Disorder: No - SURGICAL HISTORY Hx Surgeries: Yes Meds Allergies/Adverse Reactions: Allergies Allergy/AdvReac Type Severity Reaction Status Date / Time No Known Allergies Allergy Verified 03/01/18 19:10 Physical Exam - Constitutional Appears: No Acute Distress - Head Exam Head Exam: ATRAUMATIC, NORMOCEPHALIC - Cardiovascular Exam Cardiovascular Exam: +S1, +S2 - GI/Abdominal Exam GI & Abdominal Exam: Normal Bowel Sounds, Soft. absent: Tenderness - Extremities Exam Extremities exam: Positive for: pedal edema - Neurological Exam Neurological exam: Alert, CN II-XII Intact, Oriented x3 Results - Vital Signs Recent Vital Signs: Last Vital Signs Temp 98.5 F 03/27/18 20:49 Pulse 79 03/28/18 08:06 Resp 18 03/28/18 08:06 BP 151/65 H 03/28/18 08:06 Pulse Ox 95 03/28/18 06:19 - Labs Result Diagrams: 03/27/18 22:20 03/27/18 00:55 Assessment & Plan - Assessment and Plan (Free Text) Assessment: Acute on chronic diastolic heart failure HTN Diabetes mellitus Chronic anemia AFib history of TIA Plan: Patient is seen this morning. She is admitted with exacerbation of heart failure. Will have cardiology evaluate the patient. Echocardiogram done in December of 2017 shows normal LV function, mild mitral regurgitation, Moderate tricuspid regurgitation, and moderate pulmonary hypertension. continue maintenance medications for hypertension, atrial fibrillation and diabetes.
--- NOTE | 2018-03-28 09:09 | RAD ---
Date of service: 03/27/2018 HISTORY: sob COMPARISON: 02/25/2018 FINDINGS: LUNGS: No active pulmonary disease. PLEURA: No significant pleural effusion identified, no pneumothorax apparent. CARDIOVASCULAR: Mild cardiomegaly OSSEOUS STRUCTURES: No significant abnormalities. VISUALIZED UPPER ABDOMEN: Normal. OTHER FINDINGS: None. IMPRESSION: No active disease.
[2018-03-28] MEDS: Lidocaine 5% Patch TD SCH (09:46)
[2018-03-28] MEDS: Ammonium Lactate 12% Cream (140 g) TOP SCH (09:46)
[2018-03-28] MEDS: Potassium Chloride 20 mEq ER Tab PO SCH ×3 (09:47→17:15)
[2018-03-28] MEDS: Digoxin 125 mcg (0.125 mg) Tab PO SCH (09:47)
[2018-03-28] MEDS: POLYETHYLENE GLYCOL 3350 17 GM/Dose PACKET PO SCH ×2 (09:48→10:23)
[2018-03-28] MEDS ORDERED: REPAGLINIDE 1 MG PO SCH (10:00)
--- NOTE | 2018-03-28 10:22 | CT ---
Date of service: 03/28/2018 PROCEDURE: CT Chest with contrast (Pulmonary Angiogram) HISTORY: sob elevated dimer COMPARISON: None available. TECHNIQUE: Axial computed tomography images were obtained of the chest in the pulmonary arterial phase of enhancement. Coronal and sagittal reformatted images were created and reviewed. Intravenous contrast dose: 100 cc of Omni 300 Radiation dose: Total exam DLP = 534 mGy-cm. This CT exam was performed using one or more of the following dose reduction techniques: Automated exposure control, adjustment of the mA and/or kV according to patient size, and/or use of iterative reconstruction technique. FINDINGS: PULMONARY ARTERIES: Unremarkable. No pulmonary embolism. AORTA: There is minimal contrast opacification of the aorta. There is mild aortic dilatation LUNGS: Unremarkable. No nodule, mass or pulmonary consolidation. PLEURAL SPACES: Small bilateral pleural effusions HEART: Unremarkable. No cardiomegaly. No significant pericardial effusion. Coronary artery calcification LYMPH NODES: No lymphadenopathy. BONES, CHEST WALL: Unremarkable. No fracture or destructive lesion multilevel disc degeneration in the thoracic spine OTHER FINDINGS: The report concurs with the preliminary [facility] report IMPRESSION: Unremarkable CT pulmonary angiogram. No pulmonary embolus.
[2018-03-28] MEDS: Insulin Reg-LOW-Coverage SC SCH ×3 (12:18→22:05)
[2018-03-28 16:52] VITALS: RESP 20
--- NOTE | 2018-03-29 02:52 | CON ---
Copied To: Ander Bailey MD Attending MD: Ander Bailey MD DATE: 03/28/2018 CARDIOLOGY CONSULTATION REASON FOR CONSULTATION: Exacerbation of congestive heart failure as well as atrial fibrillation. HISTORY OF PRESENT ILLNESS: The patient is 88-year-old female with history of hypertension, diabetes mellitus, chronic atrial fibrillation, history of TIA in the past, presented because of shortness of breath, productive cough and bilateral leg swelling. The patient denies any fever or chills and denies any recent dizziness or syncope. The patient is followed by her clean up worker, Dr. Garcia in [place]. SOCIAL HISTORY: The patient is a nonsmoker, nondrinker. MEDICATIONS: The patient's home medications include Neurontin, Protonix, Plavix, K-Dur 20 mEq once a day, digoxin 0.125 mg once a day, aspirin 81 mg once a day, amlodipine 5 mg once a day, Toprol-XL 25 mg once a day, Lasix 40 mg p.o. once a day. Current hospital medications are digoxin 0.125 mg orally once a day, aspirin 81 mg once a day, K-Dur 20 mEq once a day, Lasix 40 mg intravenously once a day, Neurontin 100 mg once a day, Plavix 75 mg once a day, Norvasc 5 mg once a day, Toprol-XL 25 mg once a day, Protonix 40 mg p.o. once a day. REVIEW OF SYSTEMS: The patient is unaware of any prior history of coronary intervention. PHYSICAL EXAMINATION GENERAL: The patient is elderly female who does not appear to be in acute distress. VITAL SIGNS: Blood pressure 176/76, heart rate 73, respiration 18, temperature 98.5. HEENT: Normocephalic. NECK: Jugular venous distention is noted. CHEST: Diffuse bilateral rhonchi. HEART: S1, S2 regular. ABDOMEN: Soft. EXTREMITIES: 2+ pitting edema. LABORATORY DATA: Hemoglobin and hematocrit 12.1 and 35.6, white count 6.3, platelet count 125,000. SMA-7: Sodium 143, potassium 3.7, chloride 103, CO2 of 31, glucose 120, BUN 15, creatinine 0.7. ProBNP is 1530. PT, PTT, INR, and D-dimer are within normal limit. Echocardiographic study performed in 12/2017 revealed normal left ventricular size, wall thickness and ejection fraction with mild mitral insufficiency and moderate pulmonary hypertension. EKG revealed atrial fibrillation at the rate of 85. ASSESSMENT: 1. Chronic atrial fibrillation. 2. Moderate pulmonary hypertension. 3. Consider exacerbation of bronchial asthma. 4. Rule out deep venous thrombosis. 5. Consider diastolic heart failure. RECOMMENDATIONS: I did review the CT angio report, which was negative for pulmonary embolus and venous Doppler results are still pending. Continue digoxin 0.125 mg daily, aspirin 81 mg once a day, Lasix 40 mg intravenously daily, K-Dur 20 mEq t.i.d. Continue Toprol-XL 25 mg once a day. The indication of Plavix is not clear to me if this is an anticoagulation for chronic atrial fibrillation. Obtain TSH level and serum digoxin level. Ander Bailey MD
--- NOTE | 2018-03-29 06:56 | CARD ---
APPROVED REPORT Date of service: 03/27/2018 EKG Measurement Heart [id number] <Conclusion> Atrial fibrillation Nonspecific T wave abnormality Abnormal ECG
[2018-03-29] MEDS ORDERED: Pantoprazole 40 mg EC Tab PO SCH (07:30)
[2018-03-29] MEDS: Insulin Reg-LOW-Coverage SC SCH ×3 (07:31→16:30)
[2018-03-29 07:53] LABS: BASO # 0.01 K/mm3 (0.0-2.0); BASO % 0.2 % (0.0-3.0); EOS # 0.2 (0.0-0.7); EOS % 3.2 % (1.5-5.0); GRAN # 3.61 (1.4-6.5); GRAN % 63.2 % (50.0-68.0); HEMOGLOBIN 10.8 g/dL (12.0-16.0); LYMPH # 1.4 (1.2-3.4); LYMPH % 23.9 % (22.0-35.0); MEAN CORPUSCULAR HEMOGLOBIN 26.5 pg (25.0-35.0); MEAN PLATELET VOLUME 10.7 fl (7.0-11.0); MONO # 0.5 (0.1-0.6); MONO % 9.5 % (1.0-6.0); RBC 4.07 10^6/uL (3.5-6.1); RED CELL DISTRIBUTION WIDTH 16.6 % (11.5-14.5); WHITE BLOOD COUNT 5.7 10^3/ul (4.5-11.0)
[2018-03-29] MEDS ORDERED: Metoprolol Succinate 25 mg XL Tab PO SCH (08:00)
[2018-03-29 08:12] LABS: ALB/GLOB RATIO 0.9 (1.1-1.8); ALBUMIN 3.3 g/dL (3.0-4.8); ALT/SGPT 35 U/L (7-56); AST/SGOT 30 U/L (14-36); BLOOD UREA NITROGEN 18 mg/dL (7-21); CALCIUM 8.2 mg/dL (8.4-10.5); GFR AFRICAN-AMERICAN > 60; GFR NON-AFRICAN AMERICAN > 60
[2018-03-29 08:31] VITALS: PULSE 78
[2018-03-29 08:58] VITALS: TEMP 98; O2SAT 96
[2018-03-29] MEDS: Digoxin 125 mcg (0.125 mg) Tab PO SCH (09:24)
[2018-03-29] MEDS: Potassium Chloride 20 mEq ER Tab PO SCH ×3 (09:29→17:57)
[2018-03-29] MEDS: Ammonium Lactate 12% Cream (140 g) TOP SCH (09:30)
[2018-03-29] MEDS: Lidocaine 5% Patch TD SCH (09:31)
[2018-03-29] MEDS: POLYETHYLENE GLYCOL 3350 17 GM/Dose PACKET PO SCH ×3 (09:32→18:05)
[2018-03-29 09:44] VITALS: BP 125/64; PULSE 78
--- NOTE | 2018-03-29 10:00 | US ---
HISTORY: Leg pain and swelling. Evaluate for DVT PHYSICIAN(S): Rafael Elise MD. TECHNIQUE: Duplex sonography and color-flow Doppler with graded compression were used to evaluate the deep venous systems of both lower extremities. The exam is very limited by edema. FINDINGS: The visualized deep venous systems of both lower extremities are sonographically normal and compressible. Normal wave forms and augmentation are seen. There is no sonographic evidence for deep venous thrombosis in the visualized segments of both lower extremities. IMPRESSION: No sonographic evidence for deep venous thrombosis in the visualized segments of both lower extremities. Very limited study.
[2018-03-29] MEDS ORDERED: Enoxaparin 40 mg Syringe SC SCH (11:15)
--- NOTE | 2018-03-29 17:24 | DS ---
FINAL PROGRESS NOTE AND DISCHARGE SUMMARY Copied To: Kole Almanza MD Attending MD: Kole Almanza MD DATE: 03/29/2018 LOCATION: The patient is seen in room 373, bed 1. SUBJECTIVE: The patient was seen lying in the bed. The patient is comfortable. The patient's blood sugar yesterday dropped to 35 and the patient was symptomatic with diaphoresis. PHYSICAL EXAMINATION: GENERAL: Today, the patient is alert, awake, and responsive. VITAL SIGNS: T-max 98, pulse 78, blood pressure 125/64, respirations 20, and O2 sat 96%. HEENT: Head: Normocephalic, atraumatic. Pinkish pale conjunctivae. Anicteric sclerae. No oropharyngeal lesion. NECK: No neck rigidity. CHEST: Kyphosis. LUNGS: Show decreased breath sound at the bases. CARDIOVASCULAR: S1 and S2, irregular rhythm. Positive systolic murmur in the left sternal border, right second intercostal space, left second intercostal space. ABDOMEN: Obese. Positive bowel sound. No appreciable hepatosplenomegaly noted. GENITALIA: Female. EXTREMITIES: Show positive 2+ pitting edema of the lower extremity. MUSCULOSKELETAL: Shows a body mass index of 28. GAIT: Not tested. FINAL ASSESSMENT & PLAN AND DISCHARGE DIAGNOSES: 1. Questionable [id number] recurrent right-sided diastolic congestive heart failure with bilateral lower extremity venostasis. 2. Hypoglycemia. 3. Hypertension. 4. Severe gait dysfunction and deconditioning. 5. Normocytic anemia with granulocytosis. 6. Elevated D-dimer of greater than 1500. 7. Non-insulin, non-oral hypoglycemia requiring diabetic . 8. Congestive heart failure with elevated BNP. 9. Morbid obesity with elevated body mass index of 28. 10. Atrial fibrillation. 11. Aortic opacification with mild aortic dilatation. 12. Bilateral pleural effusion. 13. Cardiomegaly 14. Bilateral lower extremity venostasis. 15. Atrial fibrillation. 16. Symptomatic congestive heart failure, acute on chronic, recurrent. 17. Gait dysfunction. 18. Deconditioning. 19. Moderate pulmonary hypertension. 20. Diabetes mellitus with hypoglycemia. 22. Constipation. 23. Hypokalemia. 24. Hyperlipidemia. 25. Diabetic neuropathy. PLAN: At this time, the patient has been ordered serial labs. The patient is consulted with Cardiology. TCU evaluation referral ordered. CURRENT DISCHARGE MEDICATIONS: Colace 100 three times a day, digoxin 0.125 daily, aspirin 81 mg daily, Humulin low-dose sliding scale coverage before meals and at bedtime, K-Dur 20 mEq three times a day, Lasix 40 mg IV every 12 hours, Lidoderm 5% patch to the affected area, Lipitor 40 mg daily, Lovenox 40 mg subcu daily, MiraLax 17 g twice a day, Neurontin 100 mg at bedtime, Plavix 75 mg daily, patient's Prandin 1 mg is discontinued, Protonix 40 mg daily, Toprol-XL 25 mg daily, Tylenol p.r.n. ordered. Incentive spirometry. Oxygen ordered. Heart healthy diet. Out of bed to chair, physical therapy, occupational therapy, RAMSES stockings, SCDs ordered. The patient's diagnostic labs from 03/29/2018 reviewed. WBC 5.7, hemoglobin and hematocrit 11 and 34, platelet 98,000 which will be repeated. Sodium 140, potassium 3.7, chloride 99, CO2 of 35, anion gap 10. BUN 18, creatinine 0.8. GFR greater than 60. Glucose 130. Calcium 8.2. Alkaline phosphatase 178. The patient has been ordered. Repeat labs including CBC, CMP, LFTs, magnesium, phosphorous. The patient has also been ordered hemoglobin A1c, thyroid panel, vitamin D 25-hydroxy. At present, patient is to be continued on above therapeutic intervention with increased activity. The patient has been extensively explained about the details of her medical condition, diagnoses, etc. at length and all questions concerned answered, which she acknowledged and understand. PATIENT ACCEPTED TO TCU FOR DISCHARGE TO TCU TODAY. Dictated and electronically signed, not read. Kole Almanza MD RENE
[2018-03-30] MEDS ORDERED: Pantoprazole 40 mg EC Tab PO SCH (06:00)
== END 2018-03-29 19:06 | DRG 293 ==
LOC: ED 20:39 → ERH 03-28 01:49 → 3RSO 03-28 06:47
PROVIDERS: ADMIT Internal Medicine; ATTEND Internal Medicine
DX: I11.0 Hypertensive heart disease with heart failure (principal); I50.33 Acute on chronic diastolic (congestive) heart failure; I48.2 Chronic atrial fibrillation; I27.20 Pulmonary hypertension, unspecified; E11.649 Type 2 diabetes mellitus with hypoglycemia without coma; E11.40 Type 2 diabetes mellitus with diabetic neuropathy, unspecified; D64.9 Anemia, unspecified; I08.1 Rheumatic disorders of both mitral and tricuspid valves; Z87.891 Personal history of nicotine dependence; Z86.73 Personal history of transient ischemic attack (TIA), and cerebral infarction without residual deficits

== ENCOUNTER 2018-03-29 19:06 | Inpatient (IN) | payer OTHER, MEDICARE ==
[2018-03-29 21:48] VITALS: BMI 28.1
[2018-03-29] MEDS: Albuterol-Ipratrop 3 mg / 0.5 (3 ml) UD IH SCH (23:22)
[2018-03-30] MEDS: Albuterol-Ipratrop 3 mg / 0.5 (3 ml) UD IH SCH ×6 (05:16→23:38)
[2018-03-30] MEDS: Pantoprazole 40 mg EC Tab PO SCH (06:08)
[2018-03-30] MEDS: Insulin Reg-LOW-Coverage SC SCH ×4 (06:44→21:24)
[2018-03-30 07:04] LABS: BASO # 0.01 K/mm3 (0.0-2.0); BASO % 0.2 % (0.0-3.0); EOS # 0.1 (0.0-0.7); EOS % 3.1 % (1.5-5.0); GRAN # 2.77 (1.4-6.5); GRAN % 61.3 % (50.0-68.0); HEMOGLOBIN 11.6 g/dL (12.0-16.0); LYMPH # 1.2 (1.2-3.4); LYMPH % 27.4 % (22.0-35.0); MEAN CELL VOLUME 83.6 fl (80.0-105.0); MEAN CORPUSCULAR HEMOGLOBIN 26.9 pg (25.0-35.0); MEAN CORPUSCULAR HGB CONC 32.1 g/dl (31.0-37.0); MEAN PLATELET VOLUME 10.8 fl (7.0-11.0); MONO # 0.4 (0.1-0.6); RBC 4.32 10^6/uL (3.5-6.1); RED CELL DISTRIBUTION WIDTH 16.6 % (11.5-14.5); WHITE BLOOD COUNT 4.5 10^3/ul (4.5-11.0)
[2018-03-30] MEDS: Metoprolol Succinate 25 mg XL Tab PO SCH (07:53)
[2018-03-30 08:11] LABS: ALBUMIN 3.5 g/dL (3.0-4.8); BLOOD UREA NITROGEN 17 mg/dL (7-21); CALCIUM 8.6 mg/dL (8.4-10.5); GFR AFRICAN-AMERICAN > 60; GFR NON-AFRICAN AMERICAN > 60
[2018-03-30 08:12] LABS: ALB/GLOB RATIO 0.9 (1.1-1.8); ALT/SGPT 32 U/L (7-56); AST/SGOT 26 U/L (14-36)
[2018-03-30] MEDS: Lidocaine 5% Patch TD SCH (10:00)
[2018-03-30] MEDS ORDERED: Enoxaparin 40 mg Syringe SC SCH (10:00)
[2018-03-30] MEDS ORDERED: Potassium Chloride 20 mEq ER Tab PO SCH (10:00)
[2018-03-30] MEDS: Potassium Chloride 20 mEq ER Tab PO SCH ×2 (12:12→17:39)
[2018-03-30] MEDS: POLYETHYLENE GLYCOL 3350 17 GM/Dose PACKET PO SCH ×2 (12:13→17:42)
[2018-03-30] MEDS: Digoxin 125 mcg (0.125 mg) Tab PO SCH (13:35)
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
[2018-03-31] MEDS: Albuterol-Ipratrop 3 mg / 0.5 (3 ml) UD IH SCH ×5 (05:00→20:06)
[2018-03-31] MEDS: Enoxaparin 40 mg Syringe SC SCH (05:54)
[2018-03-31] MEDS: Pantoprazole 40 mg EC Tab PO SCH (05:54)
[2018-03-31] MEDS: Insulin Reg-LOW-Coverage SC SCH ×4 (06:51→21:59)
[2018-03-31] MEDS: Potassium Chloride 20 mEq ER Tab PO SCH ×3 (07:48→17:47)
[2018-03-31] MEDS: Metoprolol Succinate 25 mg XL Tab PO SCH (07:48)
[2018-03-31] MEDS: Lidocaine 5% Patch TD SCH (10:09)
[2018-03-31] MEDS: POLYETHYLENE GLYCOL 3350 17 GM/Dose PACKET PO SCH ×2 (10:10→17:48)
[2018-03-31] MEDS: Digoxin 125 mcg (0.125 mg) Tab PO SCH (13:36)
[2018-03-31] MEDS ORDERED: DICLOFENAC 1% TOP PRN (15:48)
[2018-03-31] MEDS: Nystatin 100,000 Units/gm Topical Pow(15 gm) TOP SCH (17:49)
--- NOTE | 2018-04-01 01:00 | PN ---
Copied To: Kole Almanza MD Attending MD: Kole Almanza MD DATE: 03/31/2018 SUBJECTIVE: The patient is seen in room 321 bed 1. The patient is sitting up out of bed to chair. The patient has multiple complaints and seems to be very unhappy with the care at on Transitional Care Unit. The patient is complaining about nursing home assistant administrator, nursing, etc. and I am unable to understand what is the real reason for the patient's complaint and it is very difficult to convince the patient regarding her care. I have explained almost on a daily basis regarding the patient's diagnoses, treatment plan, etc. in detail, which appears that the patient is just forgetting and has forgetfulness. REVIEW OF SYSTEMS: The patient's 13-system review was done. The patient was seen by the social media developer. PHYSICAL EXAMINATION: VITAL SIGNS: T-max 98, pulse 77; blood pressure 105/69, 122/59; respirations 16; O2 sat 97% on 2 liters. HEENT: Head: Normocephalic, atraumatic. HEENT examination shows pink conjunctivae. Anicteric sclerae. No oropharyngeal lesion. NECK: No rigidity. CHEST: Kyphosis. LUNG: Shows no rales, crackles or wheezing. Shows decreased breath sound at the bases. CARDIOVASCULAR: S1 and S2. Irregular rhythm. Positive systolic murmur in left sternal border, right second intercostal space, left second intercostal space. ABDOMEN: Obese. Positive bowel sounds. GENITALIA: Female. RECTAL: Deferred. EXTREMITIES: Shows positive lymphedema, both lower extremity; the patient has Colt wraps on. MUSCULOSKELETAL: Shows elevated body mass index of 42. NEUROLOGIC: The patient is alert, awake, responsive. She is able to move upper and lower extremity without assistance. GAIT: Not tested and unable to be tested by me. DIAGNOSTICS: From 03/30/2018 reviewed. Fingerstick blood sugar 112, 99, 163, 162, 128, 126. IMPRESSION AND PLAN: 1. Gait dysfunction. 2. Questionable memory dysfunction versus cognitive impairment versus mild dementia or early dementia. 3. Hypertension. 4. Morbid obesity with elevated body mass index of 41. 5. Severe deconditioning. 6. Non-insulin, non-oral hypoglycemic requiring diabetes mellitus. 7. Normocytic anemia. 8. Thrombocytopenia. 9. Bilateral lower extremity venous stasis. 10. Constipation. 11. Non anticoagulation dependent atrial fibrillation. 12. Hypokalemia. 13. Degenerative joint disease. 14. Hyperlipidemia. 15. Diabetic neuropathy. PLAN: At this time, the patient's case is referred to social science research assistant, case management for discharge planning. The patient is also been consulted with Neurology and Podiatry. Diabetic education,social media developer referral ordered. The patient is started on Aricept 5 mg at bedtime, Colace 100 mg three times a day, digoxin 0.125 daily, DuoNeb nebulizer every 4 hours, Ecotrin 81 mg daily, insulin Humulin low-dose sliding scale coverage. The patient is also taking home medications diclofenac gel to the affected area, K-Dur 20 mEq three times a day, Lasix 40 mg IV every 12, Lidoderm 5% patch to the affected area, Lipitor 40 mg daily, Lovenox 40 mg subcu daily, MiraLax 17 g twice a day, Neurontin 100 mg at bedtime, nystatin powder to the affected area, Plavix 75 mg daily, Protonix 40 mg daily, Toprol XL 25 mg daily, Tylenol p.r.n. 650 mg. The patient has been ordered out of bed, RAMSES stockings, ambulation, SCDs, occupational therapy, physical therapy. The patient will be continued on the Transitional Care Unit with daily physical therapy, occupational therapy, ambulation therapy, gait training. The patient was seen by the social media developer regarding discharge planning. The patient's further management will be dependent upon the patient's clinical condition, hemodynamic status and as per the patient response to therapeutic intervention as per the patient's diagnostic test results and as per evaluation by Podiatry and Urology. Dictated and electronically signed, not read. Kole Almanza MD
[2018-04-01] MEDS: Albuterol-Ipratrop 3 mg / 0.5 (3 ml) UD IH SCH ×7 (01:15→23:02)
[2018-04-01] MEDS: Enoxaparin 40 mg Syringe SC SCH (05:27)
[2018-04-01] MEDS: Pantoprazole 40 mg EC Tab PO SCH (05:27)
[2018-04-01] MEDS: Insulin Reg-LOW-Coverage SC SCH ×4 (06:42→22:28)
[2018-04-01] MEDS: Potassium Chloride 20 mEq ER Tab PO SCH ×3 (08:06→17:39)
[2018-04-01] MEDS: Metoprolol Succinate 25 mg XL Tab PO SCH (08:07)
--- NOTE | 2018-04-01 08:55 | CP.PCM.CON ---
History of Present Illness - History of Present Illness History of Present Illness: Podiatry Consult note for Dr. Mccallum 88F with PMHx diabetes mellitus, hypertension, anemia, atrial fibrillation, and TIA seen at bedside complaining of elongated, thickened, dystrophic nails. Patient states that she has tried antifungal medication for the nails in the past with limited success. She is AAO x 3 and NAD at time of visit. Denies any acute overnight events or any other pedal complaints at this time. Denies any recent N/V/F/C/CP/SOB/D/posterior calf pain when squeezed. Review of Systems - Review of Systems All systems: reviewed and no additional remarkable complaints except Review of Systems: as per HPI Past Patient History - Infectious Disease Hx of Infectious Diseases: None - Past Social History Smoking Status: Never Smoked - CARDIAC Hx Cardiac Disorders: Yes Hx Congestive Heart Failure: Yes Hx Hypertension: Yes - PULMONARY Hx Chronic Obstructive Pulmonary Disease (COPD): No - NEUROLOGICAL HX Cerebrovascular Accident: No - HEENT Hx HEENT Problems: Yes Hx Blind: No Hx Cataracts: Yes Hx Deafness: No Hx Difficulty Chewing: No Hx Epistaxis: No Hx Glaucoma: No - RENAL Hx Chronic Kidney Disease: No - ENDOCRINE/METABOLIC Hx Diabetes Mellitus Type 2: Yes - HEMATOLOGICAL/ONCOLOGICAL Hx Blood Disorders: No - INTEGUMENTARY Hx Dermatological Problems: No Hx Basil Cell: No Hx Eczema: No Hx Melanoma: No Hx Psoriasis: No Hx Squamous Cell: No - MUSCULOSKELETAL/RHEUMATOLOGICAL Hx Falls: No - GASTROINTESTINAL Hx Gastrointestinal Disorders: No - GENITOURINARY/GYNECOLOGICAL Hx Reproductive Disorders: No - PSYCHIATRIC Hx Psychophysiologic Disorder: No Hx Substance Use: No - SURGICAL HISTORY Hx Thyroidectomy: Yes (benign per patient) Meds Allergies/Adverse Reactions: Allergies Allergy/AdvReac Type Severity Reaction Status Date / Time No Known Allergies Allergy Verified 04/01/18 05:55 - Medications Medications: Current Medications Acetaminophen (Tylenol 325mg Tab) 650 mg PO Q6H PRN PRN Reason: Fever >100.4 F Albuterol/Ipratropium (Duoneb 3 Mg/0.5 Mg (3 Ml) Ud) 3 ml IH [id number] Last Admin: 04/01/18 07:31 Dose: 3 ml Aspirin (Ecotrin) 81 mg PO 0800 [facility] Last Admin: 04/01/18 08:06 Dose: 81 mg Atorvastatin Calcium (Lipitor) 40 mg PO DIN [facility] Last Admin: 03/31/18 17:48 Dose: 40 mg Clopidogrel Bisulfate (Plavix) 75 mg PO 0800 [facility] Last Admin: 04/01/18 08:07 Dose: 75 mg Digoxin (Digoxin) 0.125 mg PO 1400 [facility] Last Admin: 03/31/18 13:36 Dose: 0.125 mg Docusate Sodium (Colace) 100 mg PO TID [facility] Last Admin: 03/31/18 17:46 Dose: 100 mg Donepezil HCl (Aricept) 5 mg PO HS [facility] Last Admin: 03/31/18 21:16 Dose: 5 mg Enoxaparin Sodium (Lovenox) 40 mg SC 0600 [facility] PRN Reason: Protocol Last Admin: 04/01/18 05:27 Dose: 40 mg Furosemide (Lasix) 40 mg IVP 0600,1800 [facility] PRN Reason: Protocol Last Admin: 04/01/18 05:27 Dose: 40 mg Gabapentin (Neurontin) 100 mg PO HS [facility] PRN Reason: Protocol Last Admin: 03/31/18 21:16 Dose: 100 mg Home Med (Home Med) 0 unit TOP QID PRN; Protocol PRN Reason: Pain, Mild (1-3) Insulin Human Regular (Humulin R Low) 0 units SC ACHS [facility] PRN Reason: Protocol Last Admin: 04/01/18 06:42 Dose: Not Given Lidocaine (Lidoderm) 1 ea TD DAILY [facility] Last Admin: 03/31/18 10:09 Dose: Not Given Metoprolol Succinate (Toprol Xl) 25 mg PO BRK [facility] Last Admin: 04/01/18 08:07 Dose: 25 mg Nystatin (Nystop Topical Powder) 1 gm TOP BID [facility] PRN Reason: Protocol Last Admin: 03/31/18 17:49 Dose: 1 applic Pantoprazole Sodium (Protonix Ec Tab) 40 mg PO 0600 [facility] Last Admin: 04/01/18 05:27 Dose: 40 mg Polyethylene Glycol (Miralax) 17 gm PO BID [facility] Last Admin: 03/31/18 17:48 Dose: 17 gm Potassium Chloride (K-Dur 20 Meq Er Tab) 20 meq PO 0730,1200,1800 [facility] PRN Reason: Protocol Last Admin: 04/01/18 08:06 Dose: 20 meq Physical Exam - Constitutional Appears: Well, Non-toxic, No Acute Distress - Extremities Exam Additional comments: B/l LE focused exam: Vasc: DP/PT pulses fully palpable 2/4 b/l. Skin temperature warm to warm from proximal to distal. CFT < 3 seconds to all digits b/l. Minimal 1+, pitting b/l LE edema noted Neuro: Epicritic and protective sensation grossly intact b/l Derm: Nails 1-5 b/l noted to be elongated, thickened and dystrophic. Otherwise, no open lesions, wounds, maceration, xerosis, abnormal pigmentation or abnormal growths noted bl/ MSK: Minimal POP to nail plates. ROM WNL at all major muscle groups. MMT WNL for patient age. No other gross deformities noted - Neurological Exam Neurological exam: Alert, Oriented x3 - Psychiatric Exam Psychiatric exam: Normal Affect, Normal Mood Results - Vital Signs Recent Vital Signs: Last Vital Signs Temp 98 F 03/31/18 10:00 Pulse 77 03/31/18 12:21 Resp 16 03/31/18 10:00 BP 106/64 04/01/18 08:07 Pulse Ox 97 03/31/18 12:21 - Labs Result Diagrams: 03/30/18 06:20 03/30/18 06:20 Labs: Laboratory Results - last 24 hr 03/31/18 03/31/18 03/31/18 11:14 16:46 21:45 POC Glucose (mg/dL) 99 112 H 148 H 04/01/18 05:26 POC Glucose (mg/dL) 172 H Assessment & Plan - Assessment and Plan (Free Text) Assessment: 88F seen at bedside complaining of elongated, thickened, dystrophic nails Plan: Patient seen and evaluated Plan discussed with Dr. Mccallum Nails 1-5 debrided down to appropriate length b/l without incident using nail nippers Patient instructed to follow up with product tester fiberglass for routine diabetic foot care every 3-6 months Podiatry will sign off at this time Please reconsult in future as needed - Date & Time Date: 04/01/18 Time: 08:57
[2018-04-01] MEDS: POLYETHYLENE GLYCOL 3350 17 GM/Dose PACKET PO SCH ×2 (10:33→17:40)
[2018-04-01] MEDS: Lidocaine 5% Patch TD SCH (10:33)
[2018-04-01] MEDS: Nystatin 100,000 Units/gm Topical Pow(15 gm) TOP SCH ×2 (10:34→17:43)
[2018-04-01] MEDS: Digoxin 125 mcg (0.125 mg) Tab PO SCH (13:09)
--- NOTE | 2018-04-01 19:15 | CON ---
Copied To: Beck Burks MD Attending MD: Beck Burks MD DATE: 04/01/2018 NEUROLOGY CONSULT CHIEF COMPLAINT: Evaluate for dementia. HISTORY OF PRESENT ILLNESS: This is a well-educated woman with past medical history of uncontrolled diabetes mellitus with a recent episode of hypoglycemia, morbid obesity, degenerative joint disease, gait dysfunction, hypertension, normocytic anemia and granulocytosis and thrombocytopenia, moderate pulmonary hypertension, history of AFib, not on anticoagulation, who came in to the acute site for CHF exacerbation and had some episodes of hypoglycemia, which was corrected on the medical site and is on TCU for deconditioned state and reconditioning. I was called to evaluate for dementia. The patient is alert and oriented to person, place, month and year. Her attention span is very short. She is very loud and vocal. She is doing her checks and balances and writing checks for her bills at bedside. She is able to read the newspaper and interpret. Her recall after 5 minutes is 2/3. Mild slowing of attention span, otherwise overall is good. Her mini mental status examination is 28/30 and is doing completely well. She is definitely deconditioned. PAST MEDICAL HISTORY: As above. SOCIAL HISTORY: No illicit drug use, smoking or EtOH abuse. MEDICATIONS: Reviewed by nurses' reconciliation sheet. FAMILY HISTORY: Noncontributory. REVIEW OF SYSTEMS: Fourteen-point review of systems is negative except as per the HPI. LABORATORY DATA: Today's blood sugar is 139. PHYSICAL EXAMINATION: VITAL SIGNS: Temperature 98.1, pulse rate of 85, blood pressure 132/72, respiratory rate of 18, oxygen saturation 97% by room air. GENERAL: The patient is sitting up in the chair, in no acute distress. HEENT: Atraumatic, normocephalic. PERRLA. Extraocular muscles intact. NECK: Supple. No JVD, no adenopathy noted. LUNGS: Decreased breath sounds bilaterally. HEART: S1, S2. Normal rate and rhythm. No murmurs, rubs or gallops except for positive systolic murmur in the left sternal border. ABDOMEN: Obese, positive bowel sounds. Unable to appreciate hepatosplenomegaly. EXTREMITIES: Show positive swelling of the lower extremities. Otherwise, peripheral pulses 2+ felt bilaterally. NEUROLOGIC: The patient is alert and oriented to person, place, month and year. Speech is fluent without any errors. Mini mental status examination 28/30. Cranial nerves II through XII intact. Motor exam: Moves all extremities equally. No pronator drift seen. Sensory exam: Decreased light touch and pinprick up to the calves bilaterally. Decreased vibration of the toes. DTRs are 2+ throughout, absent at knees and ankles. Coordination: [id number] intact. No dysmetria noted. ASSESSMENT AND PLAN: This is an 88-year-old woman with past medical history of type 2 diabetes mellitus, diabetic peripheral neuropathy, congestive heart failure, deconditioned state, morbid obesity, degenerative joint disease of the spine, knees and joints; who presented to the hospital to see if it is exacerbation, currently on Transitional Care Unit for reconditioning and I was called to evaluate for possible underlying dementia. She does not have any evidence of any dementia or any Alzheimer's. She is quite sharp. She is able to do her checks and balances. Occasionally, she could get mildly delirious due to her acute medical conditions, but at this point, she is clinically stable mentally. At this time, I will recommend, 1. Attention and concentration exercises. 2. B complex vitamins and thiamine 100 mg p.o. daily for cognition. 3. Physical therapy/occupational therapy for reconditioning. 4. Diabetic control. Keep blood sugar between 140-180 and avoid hypoglycemic events and physical therapy for gait and balance for underlying diabetic neuropathy. Once again, she is clinically stable. Thank you for this consult. Beck Burks MD
--- NOTE | 2018-04-01 20:29 | PN ---
Copied To: Kole Almanza MD Attending MD: Kole Almanza MD DATE: 04/01/2018 SUBJECTIVE: The patient is seen lying in the bed in room 320, bed 1. The patient is being cleaned up and washed. Overnight nurses' notes were reviewed. The patient is being washed and cleaned by the nursing service administrator. The patient does not appear to be in any distress at present. The patient appears to be comfortable. The patient was seen sitting up in the bed. PHYSICAL EXAMINATION: VITAL SIGNS: T-max 98.1, pulse 65 to 68, blood pressure 133/72, 135/92, respirations 18, O2 sat 97%. HEENT: Head: Normocephalic, atraumatic. HEENT examination shows pink conjunctivae. Anicteric sclerae. No oropharyngeal lesion. NECK: No neck rigidity. CHEST: Kyphosis. LUNGS: Shows decreased breath sounds. CARDIOVASCULAR: S1 and S2. Irregular rhythm. Positive systolic murmur, left sternal border, right second intercostal space. ABDOMEN: Obese. Positive bowel sounds. GENITALIA: Female. RECTAL: Deferred. EXTREMITIES: Shows positive chronic venous stasis with some lymphedema noted. Positive Colt wraps on. MUSCULOSKELETAL: Shows elevated body mass index of 41. DIAGNOSTIC DATA: None. Fingerstick blood sugar 130, 179, 172, 148, 112, 99. The patient was seen by the cupboard builder. Recommendation is dystrophic bilateral lower extremity nail, status post debridement. IMPRESSION: 1. Deconditioning. 2. Gait dysfunction. 3. Morbid obesity. 4. Questionable intermittent memory dysfunction or cognitive impairment versus early dementia. 5. Bilateral lower extremity venous stasis. 6. Dystrophic elongated thickened bilateral lower extremity nail, status post debridement. 7. Hypertension. 8. Atrial fibrillation. 9. Non-insulin, non-oral hypoglycemic requiring diabetes mellitus. 10. Hypokalemia. 11. Pulmonary hypertension. 12. Acute recurrent chronic diastolic congestive heart failure. 13. Constipation. 14. Degenerative joint disease. 15. Hyperlipidemia. 16. Neuropathy. PLAN AT THIS TIME: We are still awaiting for Neurology evaluation. The patient has been ordered daily out of bed, daily physical therapy, daily outpatient therapy, daily ambulation therapy, gait training. The patient's case referred to Qa Test Analyst for discharge planning. The patient has been ordered thyroid profile, vitamin B12, folate, RPR. The patient will be ordered lab data for tomorrow. The patient has been ordered Neurology consultation. The patient was seen by Podiatry. The patient will be continued on SCD, RAMSES stockings. CURRENT MEDICATIONS: Aricept 5 mg at bedtime, Colace 100 mg three times a day, digoxin 0.125 daily, DuoNeb nebulizer every 4 hours, Ecotrin 81 mg daily, Humulin low-dose sliding scale coverage, K-Dur 20 mEq three times a day, Lasix 40 mg IV every 12, Lidoderm 5% patch to the affected area, Lipitor 40 mg daily, Lovenox 40 mg subcutaneously daily for DVT prophylaxis and Protonix 40 mg daily for GI prophylaxis, Neurontin 100 mg at bedtime, nystatin powder, Plavix 75 mg daily, Toprol-XL 25 mg daily, Tylenol p.r.n., out of bed to chair, RAMSES stocking, SCDs, physical therapy and occupational therapy all ordered. The patient's case also referred to Qa Test Analyst for discharge planning. The patient was seen by Qa Test Analyst. The patient's case will be referred to [facility] upon discharge. Dictated and electronically signed, not read. Kole Almanza MD
[2018-04-02] MEDS: Enoxaparin 40 mg Syringe SC SCH (05:21)
[2018-04-02] MEDS: Pantoprazole 40 mg EC Tab PO SCH (05:21)
[2018-04-02] MEDS: Albuterol-Ipratrop 3 mg / 0.5 (3 ml) UD IH SCH ×2 (05:49→07:28)
[2018-04-02] MEDS: Insulin Reg-LOW-Coverage SC SCH ×4 (06:38→22:39)
[2018-04-02 07:28] LABS: FREE T4 0.98 ng/dL (0.78-2.19); T4 6.1 ug/dL (5.5-11.0)
[2018-04-02 07:57] LABS: ALB/GLOB RATIO 0.9 (1.1-1.8); ALBUMIN 3.4 g/dL (3.0-4.8); ALT/SGPT 17 U/L (7-56); AST/SGOT 25 U/L (14-36); BILIRUBIN,DIRECT 0.2 mg/dL (0.0-0.4); BLOOD UREA NITROGEN 19 mg/dL (7-21); CALCIUM 8.7 mg/dL (8.4-10.5); GFR AFRICAN-AMERICAN > 60; GFR NON-AFRICAN AMERICAN 59
[2018-04-02] MEDS: Potassium Chloride 20 mEq ER Tab PO SCH ×3 (08:29→18:02)
[2018-04-02] MEDS: Metoprolol Succinate 25 mg XL Tab PO SCH (08:30)
[2018-04-02] MEDS ORDERED: Levalbuterol 0.63 MG/3 ML Inhal Soln UD IH PRN (08:30)
[2018-04-02] MEDS ORDERED: Acetylcysteine 20% Inhal Soln (4ml) IH SCH (08:30)
--- NOTE | 2018-04-02 09:54 | PN ---
Copied To: Kole Almanza MD Attending MD: Kole Almanza MD DATE: 04/02/2018 SUBJECTIVE: The patient is seen lying in the bed in room 321, bed 1. The patient is sitting up in the bed, complaining of difficulty expectoration cough and inability to bring up the phlegm. Overnight nurse's notes were reviewed. There were no adverse events documented. PHYSICAL EXAMINATION: VITAL SIGNS: T-max is 98.1, pulse 69, blood pressure 104/68, respirations 20, O2 sat is 92-97%. HEENT: Head examination normocephalic, atraumatic. HEENT examination shows pink conjunctivae. Anicteric sclerae. No oropharyngeal lesion. No neck rigidity. CHEST: Kyphosis. LUNGS: Shows positive rhonchi, upper lung chaudhari anteriorly. CARDIOVASCULAR: S1, S2. Irregular rhythm. Positive systolic murmur, right second intercostal space, left second intercostal space, left sternal border. ABDOMEN: Protuberant, obese. Positive bowel sound. Unable to appreciate any hepatosplenomegaly. GENITALIA: Female. RECTAL: Deferred. EXTREMITY: Shows positive SCDs. Positive pitting edema, 2+. MUSCULOSKELETAL: Shows a body mass index of 41. NEUROLOGICAL: The patient is alert, awake, responsive. She is able to move upper and lower extremity without assistance. Gait examination is not tested. DIAGNOSTICS: From 04/02/2018, sodium 139, potassium 3.9, chloride 94, CO2 of 38, anion gap 11, BUN 19, creatinine 0.9, GFR greater than 60, glucose 134, calcium 8.7, magnesium is 2.2. LFTs are normal. TSH is 3.5. T4 is 6.1. B12, folate are pending. Lyme titers, RPR are pending. The patient was seen by Neurology, Dr. Burks for evaluation of cognitive and memory impairment. The patient was evaluated by Neurology. According to Neurology, the patient does not have any evidence of dementia or Alzheimer's. The patient was evaluated by Neurology and considered mildly delirious due to acute medical condition. The patient was advised thiamine 100 mg p.o. daily for cognition. Gait training. IMPRESSION AND PLAN: 1. Questionable and possible volume overload versus fluid overload with symptoms of cough with difficulty expectoration. 2. History of right-sided diastolic congestive heart failure. 3. Pulmonary hypertension. 4. Atrial fibrillation. 5. Normocytic anemia. 6. Thrombocytopenia. 7. Diuretic-induced contraction metabolic alkalosis. 8. Gait dysfunction. 9. Deconditioning. 10. Morbid obesity with elevated body mass index of 41. 11. Bilateral lower extremity venous stasis and possible lymphedema. 12. Constipation. 13. 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 14. Hypokalemia. 15. Congestive heart failure. 16. Hyperlipidemia. 17. Diabetic neuropathy. Plan at this time, the patient has been ordered serial labs. Current referral to Snuff Blender, laminating press operator. The patient is started on Xopenex and Mucomyst nebulizer every 6 hours. The patient is on Colace 100 three times a day, digoxin 0.125 daily, Ecotrin 81 mg daily, regular insulin sliding scale coverage, K-Dur 20 mEq three times a day, Lasix 40 mg IV every 12, Lidoderm 5% patch to the affected area of pain, Lipitor 40 mg daily, Lovenox 40 mg subcu daily, MiraLax 17 g twice a day, Neurontin 100 mg at bedtime, nystatin powder to affected area twice a day, Plavix 75 mg daily, Protonix 40 mg daily, Toprol-XL 25 mg daily, Tylenol 650 every 6 p.r.n., thiamine 100 mg p.o. daily, Xopenex nebulizer 0.63 every 6 hours [id number]. The patient has been ordered chest x-ray PA and lateral. The patient has been ordered oxygen 2 L continuous humidified. The patient has been ordered chest PT, out of bed, thromboembolic disease stockings, sequential compression devices. At present, the patient will be continued on the above therapeutic intervention. The patient's chest x-ray will be reviewed. The patient's further management will be dependent upon the patient's clinical condition, hemodynamic status and as per the patient response to therapeutic intervention, as per the patient's diagnostic test results and as per recommendation by all physicians involved in the care of the patient. The patient will continue on the Transitional Care Unit stay with physical therapy, occupational therapy, ambulation therapy, gait training, etc. Dictated and electronically signed, not read. Kole Almanza MD
[2018-04-02] MEDS: Acetylcysteine 20% Inhal Soln (4ml) IH SCH ×4 (10:24→19:45)
[2018-04-02] MEDS: Levalbuterol 0.63 MG/3 ML Inhal Soln UD IH SCH ×4 (10:24→19:45)
--- NOTE | 2018-04-02 10:37 | RAD ---
Date of service: 04/02/2018 HISTORY: COUGH/CHF COMPARISON: 03/27/2018 TECHNIQUE: Chest PA and lateral FINDINGS: LUNGS: No active pulmonary disease. PLEURA: No significant pleural effusion identified. No pneumothorax apparent. CARDIOVASCULAR: Moderate cardiomegaly OSSEOUS STRUCTURES: No significant abnormalities. VISUALIZED UPPER ABDOMEN: Normal. OTHER FINDINGS: None. IMPRESSION: No active disease.
[2018-04-02] MEDS: Lidocaine 5% Patch TD SCH (10:43)
[2018-04-02] MEDS: POLYETHYLENE GLYCOL 3350 17 GM/Dose PACKET PO SCH ×2 (10:43→18:03)
[2018-04-02] MEDS: Nystatin 100,000 Units/gm Topical Pow(15 gm) TOP SCH ×2 (10:45→18:04)
[2018-04-02 12:50] LABS: FOLATE 12.2 ng/mL
[2018-04-02] MEDS: Digoxin 125 mcg (0.125 mg) Tab PO SCH (14:04)
[2018-04-03] MEDS: Acetylcysteine 20% Inhal Soln (4ml) IH SCH ×4 (02:10→21:06)
[2018-04-03] MEDS: Levalbuterol 0.63 MG/3 ML Inhal Soln UD IH SCH ×4 (02:10→21:06)
[2018-04-03] MEDS: Enoxaparin 40 mg Syringe SC SCH (05:52)
[2018-04-03] MEDS: Pantoprazole 40 mg EC Tab PO SCH (05:53)
[2018-04-03] MEDS: Insulin Reg-LOW-Coverage SC SCH ×4 (07:40→22:17)
[2018-04-03] MEDS: Potassium Chloride 20 mEq ER Tab PO SCH ×3 (08:31→17:43)
[2018-04-03] MEDS: Metoprolol Succinate 25 mg XL Tab PO SCH (08:32)
[2018-04-03] MEDS: POLYETHYLENE GLYCOL 3350 17 GM/Dose PACKET PO SCH ×2 (09:34→17:26)
[2018-04-03] MEDS: Nystatin 100,000 Units/gm Topical Pow(15 gm) TOP SCH ×2 (09:37→17:43)
[2018-04-03] MEDS: Lidocaine 5% Patch TD SCH (09:37)
--- NOTE | 2018-04-03 10:04 | PN ---
Copied To: Kole Almanza MD Attending MD: Kole Almanza MD DATE: 04/03/2018 SUBJECTIVE: The patient is seen in room 321, bed 1. The patient is seen lying in the bed. The patient is receiving nebulizer treatment. Overnight nurse's notes were reviewed. No adverse events documented. OBJECTIVE: VITAL SIGNS: T-max 98.4; heart rate 75 to 91; blood pressure 136/74, 112/47, 136/74; respirations 20; O2 sat 93% to 99%. HEENT: Head examination, normocephalic and atraumatic. HEENT examination shows pink conjunctivae. Anicteric sclerae. No oropharyngeal lesion. NECK: No neck rigidity. CHEST: Kyphosis. LUNGS: Examination shows questionable decreased breath sound at the bases, left more than the right. CARDIOVASCULAR: S1, S2. Irregular rhythm. Positive systolic murmur, left sternal border, right second intercostal space, left second intercostal space. ABDOMEN: Obese. Unable to appreciate any hepatosplenomegaly. No guarding. No rigidity. No rebound tenderness. GENITALIA: Female. RECTAL: Deferred. EXTREMITIES: Shows positive swelling and pitting edema of the lower extremity. Positive SCDs. MUSCULOSKELETAL: Examination shows a body mass index of 40. NEUROLOGIC: The patient is alert, awake, responsive, is able to move upper and lower extremity without assistance. Gait examination is not tested. VASCULAR: Unable to palpate pulses because of morbid obesity. DIAGNOSTICS: TSH 3.53, T4 6.1, vitamin B12 841, folate 12.2. RPR is negative. IMPRESSION AND PLAN: 1. Gait dysfunction. 2. Severe deconditioning. 3. Morbid obesity with elevated body mass index of 40. 4. Hypertension. 5. Bilateral lower extremity venous stasis. 6. Normocytic anemia. 7. Possible diuretic induced contraction alkalosis. 8. 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 9. Dystrophic, elongated, thickened nails of the lower extremity and feet. 10. 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 11. Occasional delirium. 12. Constipation. 13. Hypokalemia. 14. Right-sided diastolic congestive heart failure. 15. Hyperlipidemia. 16. Diabetic neuropathy. PLAN: At this time, the patient is to continue on Transitional Care Unit stay with daily physical therapy, occupational therapy, ambulation therapy, gait training, out of bed to chair. CURRENT MEDICATIONS: Mucomyst nebulizer 20% 4 mL every 6 hours with Xopenex nebulizer 0.63 mg every 6 hours, Colace 100 mg three times a day, digoxin 0.125 mg daily, Ecotrin 81 mg daily, Humulin low-dose sliding scale coverage before meals and at bedtime, K-Dur 20 mEq three times a day, Lasix 40 mg IV every 12 hours, Lidoderm 5% patch to the affected area, Lipitor 40 mg daily, Lovenox 40 mg subcu daily, MiraLax 17 g twice a day, Neurontin 100 mg at bedtime, nystatin powder to the affected area, Plavix 75 mg daily Protonix 40 mg daily, Toprol-XL 25 mg daily Tylenol 650 every 6 hours p.r.n., thiamine 100 mg p.o. daily, Xopenex nebulizer 0.63 mg every 6 hours. Chest PT, incentive spirometer, oxygen, RAMSES stockings, SCDs, occupational therapy, physical therapy ordered. Dictated and chronically signed, not read. Kole Almanza MD
[2018-04-03] MEDS: Digoxin 125 mcg (0.125 mg) Tab PO SCH (14:24)
[2018-04-04] MEDS: Levalbuterol 0.63 MG/3 ML Inhal Soln UD IH SCH ×4 (02:21→19:39)
[2018-04-04] MEDS: Pantoprazole 40 mg EC Tab PO SCH (05:24)
[2018-04-04] MEDS: Enoxaparin 40 mg Syringe SC SCH (05:24)
[2018-04-04] MEDS: Insulin Reg-LOW-Coverage SC SCH ×4 (06:49→23:05)
[2018-04-04] MEDS: Acetylcysteine 20% Inhal Soln (4ml) IH SCH ×3 (07:34→19:39)
[2018-04-04] MEDS: Metoprolol Succinate 25 mg XL Tab PO SCH (07:42)
[2018-04-04] MEDS: Potassium Chloride 20 mEq ER Tab PO SCH ×3 (08:10→17:38)
[2018-04-04] MEDS: Lidocaine 5% Patch TD SCH (09:08)
[2018-04-04] MEDS: POLYETHYLENE GLYCOL 3350 17 GM/Dose PACKET PO SCH ×2 (09:10→17:36)
[2018-04-04] MEDS: Nystatin 100,000 Units/gm Topical Pow(15 gm) TOP SCH ×2 (09:12→17:37)
--- NOTE | 2018-04-04 13:37 | PN ---
Copied To: Kole Almanza MD Attending MD: Kole Almanza MD DATE: 04/04/2018 SUBJECTIVE: The patient is seen in room 321 bed 1. The patient is in the process of being assisted to the bedside commode. Overnight nurse's notes were reviewed. OBJECTIVE: VITAL SIGNS: T-max 98.2, heart rate 58, blood pressure 111/54 and 140/83; respirations 22; O2 sat is 97%. HEENT: The patient's head examination is normocephalic, atraumatic. HEENT examination shows pinkish conjunctivae. Anicteric sclerae. No oropharyngeal lesion. NECK: No neck rigidity. CHEST: Kyphosis. LUNGS: Examination shows decreased breath sound at the bases, left more than the right. CARDIOVASCULAR: S1, S2. Irregular rhythm. Positive systolic murmur, left sternal border, right second intercostal space, left second intercostal space. ABDOMEN: Obese, protuberant. Positive bowel sound. GENITALIA: Female. RECTAL: Deferred. EXTREMITIES: Shows chronic swelling and lymphedema of the lower extremity. MUSCULOSKELETAL: Examination shows a body mass index of 40. NEUROLOGICAL: The patient is alert, awake, oriented x3. Cranial nerves II to XII limited. Gait examination is assisted with walker and physical therapist. DATA: Chest x-ray was done which shows cardiomegaly, no CHF. DIAGNOSTICS: None from today. IMPRESSION AND PLAN: 1. Deconditioning. 2. Gait dysfunction. 3. Lrgvn-fs-gnjnxew right-sided diastolic congestive heart failure. 4. Ucc-paxurmc-ojrsodefh diabetes mellitus. 5. Non-anticoagulation requiring atrial fibrillation. 6. Morbid obesity with elevated body mass index of 40. 7. Bilateral lower extremity venous stasis and possible lymphedema. 8. Constipation. 9. Intermittent delirium. 10. Hypokalemia. 11. Hyperlipidemia. 12. Neuropathy. PLAN: At this time, the patient is to be continued on Transitional Care Unit stay. The patient was seen by neurologist and Podiatry. Their recommendations are noted. The patient will be continued with Needle Maker and staff development educator referral. CURRENT MEDICATIONS: 1. Mucomyst nebulizer 20% 4 mL every 6 hours. 2. Colace 100 mg three times a day. 3. Digoxin 0.125 daily. 4. Aspirin 81 mg daily. 5. Humulin low-dose sliding scale coverage. 6. K-Dur 20 mEq three times a day. 7. Lasix 40 mg IV every 12 hours. 8. Lidoderm 5% patch to the affected area. 9. Lipitor 40 mg. 10. Lovenox 40 mg subcu daily. 11. MiraLax 17 g twice a day. 12. Neurontin 100 mg at bedtime. 13. Nystatin cream and powder to the affected area. 14. Plavix 75 mg daily. 15. Protonix 40 mg daily. 16. Toprol-XL 25 mg daily, Tylenol 650 every 6 hours p.r.n. 17. Thiamine 100 mg daily. 18. Xopenex 0.63 mg every 6 hours. The patient has been ordered chest PT, incentive spirometer, oxygen. The patient has been ordered heart-healthy diet. The patient has been ordered out of bed, RAMSES stockings, SCDs, physical therapy, occupational therapy, ambulation therapy, gait training. At present, the patient will continue on the above therapeutic intervention on Transitional Care Unit. The patient will be considered for discharge once cleared by all subspecialty and once TCU stay is completed. The patient has met with . The patient's discharge planning has already been arranged by the Needle Maker. The patient will be discharged home with visiting nurse. Dictated and electronically signed, not read. Kole Almanza MD
[2018-04-04] MEDS: Digoxin 125 mcg (0.125 mg) Tab PO SCH (14:03)
[2018-04-05] MEDS: Levalbuterol 0.63 MG/3 ML Inhal Soln UD IH SCH ×4 (01:21→19:36)
[2018-04-05] MEDS: Acetylcysteine 20% Inhal Soln (4ml) IH SCH ×4 (01:21→19:35)
[2018-04-05] MEDS: Pantoprazole 40 mg EC Tab PO SCH (05:58)
[2018-04-05] MEDS: Enoxaparin 40 mg Syringe SC SCH (05:58)
[2018-04-05] MEDS: Insulin Reg-LOW-Coverage SC SCH ×4 (07:00→22:00)
[2018-04-05] MEDS: Metoprolol Succinate 25 mg XL Tab PO SCH (08:00)
[2018-04-05] MEDS: Potassium Chloride 20 mEq ER Tab PO SCH ×3 (08:01→17:58)
[2018-04-05] MEDS: Lidocaine 5% Patch TD SCH (10:26)
[2018-04-05] MEDS: POLYETHYLENE GLYCOL 3350 17 GM/Dose PACKET PO SCH ×2 (10:26→17:38)
[2018-04-05] MEDS: Nystatin 100,000 Units/gm Topical Pow(15 gm) TOP SCH ×2 (10:58→17:38)
[2018-04-05] MEDS: Hydrocortisone 2.5% Rectal Cream(30 gm) PR SCH ×2 (12:13→17:57)
--- NOTE | 2018-04-05 12:22 | PN ---
Copied To: Kole Almanza MD Attending MD: Kole Almanza MD DATE: 04/05/2018 LOCATION: The patient is seen in room 321, bed 1. SUBJECTIVE: The patient is complaining of some numbness and tingling of the hands and fingers and also complaining of hemorrhoids. The patient denies being constipated. Denies chest pain. Denies shortness of breath. Denies nausea, vomiting, diarrhea or constipation. PHYSICAL EXAMINATION: VITAL SIGNS: T-max 98, pulse 86, 59, blood pressure 138/78, 110/61, respiration 20, O2 sat 99%. HEENT: Head: Normocephalic, atraumatic. HEENT examination shows pinkish conjunctivae. Anicteric sclerae. No oropharyngeal lesion. NECK: No neck rigidity. CHEST: Kyphosis. LUNGS: Shows decreased breath sound at the bases, left more than the right. CARDIOVASCULAR: S1 and S2, regular rhythm. Positive systolic murmur, left sternal border, right second intercostal space, left second intercostal space. ABDOMEN: Obese. Positive bowel sound. Protuberant. No hepatosplenomegaly noted. GENITALIA: Female. RECTAL: Deferred. EXTREMITIES: Shows positive swelling of the lower extremity. Missing RAMSES stockings. MUSCULOSKELETAL: Shows elevated body mass index of 40. DIAGNOSTICS: None from 04/05/2018. IMPRESSION: 1. Internal hemorrhoids. 2. Diabetic neuropathy with symptoms of numbness of the fingers and hands. 3. Gait dysfunction. 4. Deconditioning. 5. Morbid obesity with elevated body mass index of 40. 6. Acute recurrent diastolic right-sided congestive heart failure with elevated BNP. 7. Tricuspid regurgitation and pulmonary hypertension. 8. Normocytic anemia. 9. Thrombocytopenia. 10. Mild metabolic alkalosis. 11. Mild delirium. 12. Bilateral lower extremity venous stasis. 13. Cardiomegaly. 14. Hypertension. 15. Non-anticoagulation requiring atrial fibrillation. 16. History of internal hemorrhoids. 17. Constipation. 18. 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 19. Hypokalemia. 20. Hyperlipidemia. 21. Diabetic neuropathy. 22. Bilateral lower extremity venous stasis secondary to diastolic right-sided congestive heart failure and pulmonary hypertension. PLAN AT THIS TIME: The patient's Neurontin is increased to 200 mg at bedtime with instructions about the side effects to the patient, which she understands. CURRENT MEDICATIONS: Mucomyst 20% nebulizer every 6 hours. The patient was started on Anusol suppository twice a day, Colace 100 mg three times a day, digoxin 0.125 daily, Ecotrin 81 mg daily, regular insulin sliding scale before meals and at bedtime, K-Dur 20 mEq three times a day, Lasix 40 mg IV every 12, Lidoderm 5% patch to the affected area, Lipitor 40 mg daily, Lovenox 40 mg subcu daily, MiraLax 17 g twice a day, Neurontin increased to 200 mg at bedtime, nystatin powder, Plavix 75 mg daily, Protonix 40 mg daily, Toprol-XL 25 mg daily, Tylenol 650 every 6 p.r.n., thiamine 100 mg daily, Xopenex 0.63 mg every 6 hours. Chest PT, incentive spirometry, oxygen ordered out of bed. RAMSES evangelinaings, SCDs, physical therapy, occupational therapy ordered. The patient's case referred to Customer Success Representative for discharge planning. The patient will be continued on TCU with daily physical therapy, ambulation therapy, occupational therapy, gait training, ambulation training. The patient will be discharged upon completion of TCU stay, which the patient is aware of. Dictated and electronically signed, not read. Kole Almanza MD : 04/05/2018 11:21:44
--- NOTE | 2018-04-05 13:45 | PCM.FALL ---
Post Fall Progress Note - Post Fall Fall Date: 04/05/18 Fall Time: 01:06 Description of Fall: Code Star Note Patient was being assisted by aide to and from commode. As patient was being transitioned to chair, the chair began to slide. The aide slowly lowered the patient to the floor as she could not lift the patient back to the chair on her own. No trauma was endured by patient. As nurse saw that patient was on the floor, she called a code star at 1:06 pm. Patient denied any fall, trauma, pain , dizziness, headache, or LOC. Patient was helped by staff and myself back to her chair. Patient was adamant that no fall occurred. - Post Fall Exam Vital Sign: Temp Pulse Resp BP Pulse Ox 98 F 59 L 20 100/61 99 04/04/18 16:00 04/05/18 08:00 04/04/18 16:00 04/05/18 08:00 04/04/18 16:00 Skull Exam: Negative for: Scalp wound, Scalp hematoma, Scalp depression, Ridge in skull Eye Exam: Negative for: Pupils equal, Pupils reactive Ear Exam: Negative for: Discharge, Bleeding Nose Exam: Negative for: Discharge, Bleeding Skin Exam: Negative for: Colour, Lacerations, Grazes, Bruising Mouth Exam: Negative for: Tongue bitten, Teeth dislodge Neck Exam: Negative for: Tenderness, Tingling, Weakness Spinal Exam: Negative for: Tenderness, Tingling, Weakness Chest Exam: Negative for: Difficulty breathing, Tenderness in collar bones, Tenderness in ribs Abdomen Exam: Negative for: Tenderness Pelvic Exam: Negative for: Tenderness, Hematuria Arm Exam: Negative for: Deformity, Alteration in range of movement Leg Exam: Negative for: Deformity, Alteration in range of movement Impression/Plan: 88 yo F s/p code star, but did not fall and endured no trauma. Attending notified. No other plans at this time.
[2018-04-05] MEDS: Digoxin 125 mcg (0.125 mg) Tab PO SCH (15:00)
[2018-04-05 15:01] VITALS: PULSE 62
[2018-04-05 17:07] VITALS: RESP 18; TEMP 98.1; O2SAT 96
[2018-04-06] MEDS: Acetylcysteine 20% Inhal Soln (4ml) IH SCH ×2 (01:48→07:30)
[2018-04-06] MEDS: Levalbuterol 0.63 MG/3 ML Inhal Soln UD IH SCH ×2 (01:49→07:30)
[2018-04-06] MEDS: Enoxaparin 40 mg Syringe SC SCH (06:16)
[2018-04-06] MEDS: Pantoprazole 40 mg EC Tab PO SCH (06:16)
[2018-04-06] MEDS: Insulin Reg-LOW-Coverage SC SCH (06:33)
[2018-04-06] MEDS: Potassium Chloride 20 mEq ER Tab PO SCH (06:43)
[2018-04-06] MEDS: Metoprolol Succinate 25 mg XL Tab PO SCH (08:01)
[2018-04-06 08:03] VITALS: BP 115/64; PULSE 68
[2018-04-06] MEDS: Hydrocortisone 2.5% Rectal Cream(30 gm) PR SCH (10:35)
[2018-04-06] MEDS: Lidocaine 5% Patch TD SCH (10:36)
[2018-04-06] MEDS: POLYETHYLENE GLYCOL 3350 17 GM/Dose PACKET PO SCH (10:36)
[2018-04-06] MEDS: Nystatin 100,000 Units/gm Topical Pow(15 gm) TOP SCH (10:37)
--- NOTE | 2018-04-06 15:29 | DS ---
Copied To: Kole Almanza MD Attending MD: Kole Almanza MD LOCATION: The patient is seen in room 321, bed 1. HISTORY: The patient is getting cleaned up. Overnight nurse's notes were reviewed. The patient was found to be alert, awake, oriented x3. No sleeping issues were noted. The patient was seen by physical therapist. The patient was seen by social worker palliative care.. The patient was seen by social worker palliative care. Home health care referral was sent to the [facility] for home care. PHYSICAL EXAMINATION: VITAL SIGNS: T-max 98.1, heart rate 84, blood pressure 125/72, respiration 18, O2 sat 96%. HEENT: Head examination, normocephalic, atraumatic. HEENT examination shows pinkish conjunctivae. Anicteric sclerae. No oropharyngeal lesion. NECK: No neck rigidity. CHEST: Kyphosis. LUNGS: Shows decreased breath sound at the bases, left more than the right. CARDIOVASCULAR: S1, S2, irregular rhythm. Positive systolic murmur in left sternal border, left second intercostal space, right second intercostal space. ABDOMEN: Obese. Positive bowel sounds. Protuberant, unable to appreciate any hepatosplenomegaly. GENITALIA: Female. RECTAL: Deferred. EXTREMITIES: Shows decreasing pitting edema and swelling of the lower extremity. MUSCULOSKELETAL: Elevated body mass index of 40. NEUROLOGIC: The patient is alert, awake, responsive, follows command. Moves upper and lower extremities without assistance. Gait examination is assisted with walker and physical therapist. FINAL IMPRESSION, PLAN AND DISCHARGE DIAGNOSES: 1. Gait dysfunction. 2. Deconditioning. 3. Morbid obesity with elevated body mass index of 40. 4. Normocytic anemia. 5. Transient thrombocytopenia. 6. Non-insulin non-oral hypoglycemic requiring diabetes mellitus. 7. Mild metabolic alkalosis secondary to diuretics. 8. Possible mild delirium. 9. Cardiomegaly. 10. Acute recurrent and [id number] right-sided diastolic congestive heart failure with elevated BNP 11. Tricuspid regurgitation and pulmonary hypertension. 12. Thrombocytopenia, resolved. 13. Bilateral lower extremity venous stasis. 14. Hypertension. 15. History of internal hemorrhoids. 16. Constipation. 17. 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 18. Hypokalemia. 19. Hyperlipidemia. 20. Diabetic neuropathy. PLAN: Plan at this time, the patient is going to be discharged home after completion of the TCU stay. The patient's case is referred to [facility] aid home PT. DISCHARGE FOLLOWUP: With Dr. Almanza within 1 week. DISCHARGE MEDICATIONS: As per updated ambulatory orders and then used prescription, the patient is discharged home on Lac-Hydrin lotion to both legs daily, Ecotrin 81 mg daily, Lipitor 40 mg daily, Plavix 75 mg daily, Lotrisone cream to the affected area, digoxin 0.125 mg daily, Colace 100 mg 3 times a day, Lasix 40 mg twice a day, Neurontin 100-200 mg at bedtime., Lidoderm 5% patch to the affected area, Toprol XL 25 mg daily, nystatin powder to the affected area, Protonix 40 mg daily, MiraLax 17 g twice a day, K-Dur 20 mEq three times a day. The patient was given all the prescription which was sent to the patient's pharmacy. The patient is to be discharged home with discharge followup with Dr. Almanza within 1 week and discharge medications as dictated above. The patient's current medications are Mucomyst nebulizer 20% 4 ml every 6 hours, Anusol rectal suppository twice a day, Colace 100 mg three times a day, digoxin 0.125 daily, Ecotrin 81 mg daily, K-Dur 20 mEq three times a day, Lasix 40 mg IV daily. Lidoderm 5% patch to the affected area, Lipitor 40 mg daily, Lovenox 40 mg subcu daily, MiraLax 17 g twice a day, Neurontin increased to 200 mg at bedtime, nystatin powder to the affected area, Plavix 75 mg daily, Protonix 40 mg daily, Toprol XL 25 mg daily and Tylenol 650 every 6 hours p.r.n., thiamine 100 mg p.o. daily, Xopenex 0.63 mg every 6 hours. Dictated and electronically signed, not read. Kole Almanza MD
[2018-04-07 08:42] LABS: 23 KD (IGG) BAND Nonreactive
== END 2018-04-06 11:47 | disposition home or self-care (01) | DRG 299 ==
LOC: TRCU 19:06
PROVIDERS: ADMIT Internal Medicine; ATTEND Internal Medicine
PROC: F07Z9FZ Gait Training/Functional Ambulation Treatment using Assistive, Adaptive, Supportive or Protective Equipment (ICD-10-PCS; principal; 2018-03-30)
PROC: F07M6ZZ Therapeutic Exercise Treatment of Musculoskeletal System - Whole Body (ICD-10-PCS; 2018-03-30)
PROC: F08Z0ZZ Bathing/Showering Techniques Treatment (ICD-10-PCS; 2018-03-30)
PROC: F08Z1ZZ Dressing Techniques Treatment (ICD-10-PCS; 2018-03-30)
PROC: F08Z4ZZ Home Management Treatment (ICD-10-PCS; 2018-03-30)
PROC: F08Z2ZZ Grooming/Personal Hygiene Treatment (ICD-10-PCS; 2018-03-30)
DX: E11.51 Type 2 diabetes mellitus with diabetic peripheral angiopathy without gangrene (principal); I50.33 Acute on chronic diastolic (congestive) heart failure; E87.3 Alkalosis; Z68.41 Body mass index [BMI] 40.0-44.9, adult; D64.9 Anemia, unspecified; D69.6 Thrombocytopenia, unspecified; E11.42 Type 2 diabetes mellitus with diabetic polyneuropathy; E66.01 Morbid (severe) obesity due to excess calories; E78.5 Hyperlipidemia, unspecified; E87.6 Hypokalemia; E89.0 Postprocedural hypothyroidism; I07.1 Rheumatic tricuspid insufficiency; I11.0 Hypertensive heart disease with heart failure; I25.10 Atherosclerotic heart disease of native coronary artery without angina pectoris; I27.20 Pulmonary hypertension, unspecified; I48.91 Unspecified atrial fibrillation; I87.8 Other specified disorders of veins; I89.0 Lymphedema, not elsewhere classified; K59.00 Constipation, unspecified; K64.8 Other hemorrhoids; L60.2 Onychogryphosis; M17.0 Bilateral primary osteoarthritis of knee; M47.9 Spondylosis, unspecified; T50.2X5A Adverse effect of carbonic-anhydrase inhibitors, benzothiadiazides and other diuretics, initial encounter; Z79.02 Long term (current) use of antithrombotics/antiplatelets; Z79.899 Other long term (current) drug therapy; Z86.73 Personal history of transient ischemic attack (TIA), and cerebral infarction without residual deficits; R26.9 Unspecified abnormalities of gait and mobility

== ENCOUNTER 2018-05-21 00:20 | Inpatient (IN) | payer MEDICARE ==
[2018-05-21 00:35] VITALS: BMI 34.9
--- NOTE | 2018-05-21 01:13 | ED PDOC ---
Arrival/HPI - General Chief Complaint: Lower Extremity Problem/Injury Time Seen by Provider: 05/21/18 00:22 Historian: Patient - History of Present Illness Narrative History of Present Illness (Text): 05/21/18 01:11 An 88 year old female, whose past medical history includes DM, HTN, A- Fib, TIA, and congestive heart failure, presents to the emergency department this evening with a complaint of shortness of breath today associated with worsening leg edema, according to the patient. The patient denies fevers, chills, headache, dizziness, sore throat, cough, chest pain, dyspnea on exertion, abdominal pain, nausea, vomiting, diarrhea, neck/back pain, urinary/bowel changes or any other complaint. PMD: Dr. Garcia Time/Duration: Other (Today) Symptom Onset: Sudden Symptom Course: Unchanged Activities at Onset: Rest, Light Context: Home Past Medical History - Provider Review Nursing Documentation Reviewed: Yes - Infectious Disease Hx of Infectious Diseases: None - Cardiac Hx Cardiac Disorders: Yes Hx Hypertension: Yes - Pulmonary Hx Chronic Obstructive Pulmonary Disease (COPD): No - Neurological HX Cerebrovascular Accident: No - HEENT Hx HEENT Disorder: Yes Hx Blind: No Hx Cataracts: Yes Hx Deafness: No Hx Difficulty Chewing: No Hx Epistaxis: No Hx Glaucoma: No - Renal Hx Renal Disorder: No - Endocrine/Metabolic Hx Endocrine Disorders: Yes Hx Diabetes Mellitus Type 2: Yes - Hematological/Oncological Hx Blood Disorders: No - Integumentary Hx Dermatological Disorder: No Hx Basal Cell Carcinoma: No Hx Eczema: No Hx Melanoma: No Hx Psoriasis: No Hx Squamous Cell Carcinoma: No - Musculoskeletal/Rheumatological Hx Falls: No - Gastrointestinal Hx Gastrointestinal Disorders: Yes - Genitourinary/Gynecological Hx Genitourinary Disorders: Yes Hx Incontinence: Yes - Psychiatric Hx Psychophysiologic Disorder: No Hx Substance Use: No - Surgical History Hx Thyroidectomy: Yes (benign per patient) Family/Social History - Physician Review Nursing Documentation Reviewed: Yes Family/Social History: No Known Family HX Smoking Status: Never Smoked Hx Alcohol Use: No Hx Substance Use: No Allergies/Home Meds Allergies/Adverse Reactions: Allergies No Known Allergies Allergy (Verified 04/01/18 05:55) Review of Systems - Physician Review All systems were reviewed & negative as marked: Yes - Review of Systems Constitutional: absent: Fevers Respiratory: SOB. absent: Cough Cardiovascular: absent: Chest Pain, PEREIRA Gastrointestinal: absent: Abdominal Pain, Stool Changes, Diarrhea, Nausea, Vomi ting Genitourinary Female: absent: Urine Output Changes Musculoskeletal: Other (Worsening lower extremity edema. ). absent: Back Pain, Neck Pain Neurological: absent: Headache, Dizziness Physical Exam Vital Signs Reviewed: Yes Vital Signs Temp Pulse Resp BP Pulse Ox 05/21/18 00:35 98.3 F 88 19 165/91 H 97 Temperature: Afebrile Blood Pressure: Hypertensive Pulse: Regular Respiratory Rate: Normal Appearance: Positive for: Well-Appearing, Non-Toxic, Comfortable Pain Distress: None Mental Status: Positive for: Alert and Oriented X 3 - Systems Exam Head: Present: Atraumatic, Normocephalic Pupils: Present: PERRL Extroacular Muscles: Present: EOMI Conjunctiva: Present: Normal Mouth: Present: Moist Mucous Membranes Neck: Present: Normal Range of Motion Respiratory/Chest: Present: Rhonchi (Scattered rhonchi bilaterally.) Cardiovascular: Present: Regular Rate and Rhythm, Normal S1, S2. No: Murmurs Abdomen: No: Tenderness, Distention, Peritoneal Signs Back: Present: Normal Inspection Upper Extremity: Present: Normal Inspection. No: Cyanosis, Edema Lower Extremity: Present: Edema (Bilateral lower extremity edema (Chronic)) Neurological: Present: GCS=15, CN II-XII Intact, Speech Normal Skin: Present: Warm, Dry, Normal Color. No: Rashes Psychiatric: Present: Alert, Oriented x 3, Normal Insight, Normal Concentration Medical Decision Making ED Course and Treatment: 05/21/18 01:13 Impression: An 88 year old female presents to the emergency department with a complaint of shortness of breath associated with worsening lower extremity edema. Plan: -- EKG -- Chest X-ray -- Lower Extremity Vein US -- Labs -- Reassess and disposition Prior Visits: Notes and results from previous visits were reviewed. Progress Notes: 05/21/18 02:27: Chest X-ray read and interpreted by me shows increased pulmonary vascular markings. EKG: Ordered, reviewed, and independently interpreted the EKG. Rate : 76 BPM Rhythm : Sinus arrhythmia Interpretation : Occasional PVC. Non- specific ST- T changes. 05/21/18 03:00: Spoke with US media technician who informed me that the patient's lower extremity venous doppler was negative. 05/21/18 03:42: Case discussed in detail wt Dr. Almanza who accepts the patient to his service. Requests Dr. Cathryn Ovalle on consult. Spoke to medical coding technician. 05/21/18 03:48 - Lab Interpretations I have reviewed the lab results: Yes - EKG Interpretation Interpreted by ED Physician: Yes Type: 12 lead EKG - Scribe Statement The provider has reviewed the documentation as recorded by the Scribe Darlene Roth Provider Scribe Attestation: All medical record entries made by the Scribe were at my direction and personally dictated by me. I have reviewed the chart and agree that the record accurately reflects my personal performance of the history, physical exam, medical decision making, and the department course for this patient. I have also personally directed, reviewed, and agree with the discharge instructions and disposition. Disposition/Present on Arrival - Present on Arrival Any Indicators Present on Arrival: No History of DVT/PE: No History of Uncontrolled Diabetes: No Urinary Catheter: No History of Decub. Ulcer: No History Surgical Site Infection Following: None - Disposition Have Diagnosis and Disposition been Completed?: Yes Diagnosis: Acute exacerbation of CHF (congestive heart failure) Disposition: HOSPITALIZED Disposition Time: 03:43 Patient Plan: Admission Patient Problems: Current Active Problems Problem Status Onset Acute exacerbation of CHF (congestive heart failure) Acute Condition: STABLE
[2018-05-21 02:44] LABS: MEAN CELL VOLUME 81.6 fl (80.0-105.0); MEAN CORPUSCULAR HEMOGLOBIN 26.7 pg (25.0-35.0); MEAN CORPUSCULAR HGB CONC 32.7 g/dl (31.0-37.0); MEAN PLATELET VOLUME 10.5 fl (7.0-11.0); RBC 4.5 10^6/uL (3.5-6.1); RED CELL DISTRIBUTION WIDTH 16.2 % (11.5-14.5)
[2018-05-21 03:06] LABS: INR 1.03; PARTIAL THROMBOPLASTIN TIME 27.6 Seconds (25.1-36.5); PROTHROMBIN TIME 11.7 SECONDS (9.4-12.5)
[2018-05-21 03:08] LABS: ALBUMIN 4.1 g/dL (3.0-4.8); ALT/SGPT 36 U/L (7-56); AST/SGOT 48 U/L (14-36); BLOOD UREA NITROGEN 15 mg/dL (7-21); GFR NON-AFRICAN AMERICAN > 60
[2018-05-21 03:22] LABS: B-TYPE NATRIURETIC PEPTIDE 1480 pg/mL (0-450); TROPONIN I 0.02 ng/mL
--- NOTE | 2018-05-21 05:33 | CP.PCM.HP ---
<Miguel Morgan - Last Filed: 05/21/18 06:47> History of Present Illness - History of Present Illness History of Present Illness: HISTORY & PHYSICAL NOTE FOR DR. MAXIM Morgan D.O. PGY-1 CC: SOB/Cough/LE Weakness x 1 week 88 y/o F with PMH of CHF, afib, DM, HTN, TIA presents to [facility] with complaints of SOB, cough and LE swelling for at least week. Pt reports she has had several similar episodes previously. She denies fevers, chills, nausea, vomiting, headache, dizziness, chest pain, palpitations, nausea, vomiting, diarrhea, dysuria. PMH: HTN, DM2, Hemorrhoids PSH: ?Hemorrhoid repair FMH: Denies SOCHX: Denies tobacco, ETOH, ID ALL: [id number] MEDS: MAR reviewed PMD: Dr. Almanza Present on Admission - Present on Admission Any Indicators Present on Admission: No Review of Systems - Review of Systems Review of Systems: per HPI Past Patient History - Infectious Disease Hx of Infectious Diseases: None - Past Social History Smoking Status: Never Smoked - CARDIAC Hx Cardiac Disorders: Yes Hx Hypertension: Yes - PULMONARY Hx Chronic Obstructive Pulmonary Disease (COPD): No - NEUROLOGICAL HX Cerebrovascular Accident: No - HEENT Hx HEENT Problems: Yes Hx Blind: No Hx Cataracts: Yes Hx Deafness: No Hx Difficulty Chewing: No Hx Epistaxis: No Hx Glaucoma: No - RENAL Hx Chronic Kidney Disease: No - ENDOCRINE/METABOLIC Hx Endocrine Disorders: Yes Hx Diabetes Mellitus Type 2: Yes - HEMATOLOGICAL/ONCOLOGICAL Hx Blood Disorders: No - INTEGUMENTARY Hx Dermatological Problems: No Hx Basil Cell: No Hx Eczema: No Hx Melanoma: No Hx Psoriasis: No Hx Squamous Cell: No - MUSCULOSKELETAL/RHEUMATOLOGICAL Hx Falls: No - GASTROINTESTINAL Hx Gastrointestinal Disorders: Yes - GENITOURINARY/GYNECOLOGICAL Hx Genitourinary Disorders: Yes Hx Incontinence: Yes - PSYCHIATRIC Hx Psychophysiologic Disorder: No Hx Substance Use: No - SURGICAL HISTORY Hx Thyroidectomy: Yes (benign per patient) Meds Allergies/Adverse Reactions: Allergies Allergy/AdvReac Type Severity Reaction Status Date / Time No Known Allergies Allergy Verified 05/24/18 19:24 Physical Exam - Constitutional Appears: Well, Non-toxic, No Acute Distress - Head Exam Head Exam: NORMAL INSPECTION, NORMOCEPHALIC - Eye Exam Eye Exam: EOMI, Normal appearance - ENT Exam ENT Exam: Mucous Membranes Moist, Normal Exam - Neck Exam Neck exam: Positive for: Normal Inspection - Respiratory Exam Respiratory Exam: Rales (b/l LL), NORMAL BREATHING PATTERN - Cardiovascular Exam Cardiovascular Exam: REGULAR RHYTHM, +S1, +S2 - GI/Abdominal Exam GI & Abdominal Exam: Soft. absent: Tenderness - Extremities Exam Extremities exam: Positive for: pedal edema, pedal pulses present Additional comments: 2+ pitting edema - Back Exam Back exam: NORMAL INSPECTION - Neurological Exam Neurological exam: Alert, CN II-XII Intact, Oriented x3 - Psychiatric Exam Psychiatric exam: Normal Affect, Normal Mood - Skin Skin Exam: Dry, Warm Results - Vital Signs Recent Vital Signs: Last Vital Signs Temp 98.3 F 05/21/18 00:35 Pulse 72 05/21/18 04:28 Resp 17 05/21/18 04:28 BP 154/88 H 05/21/18 04:26 Pulse Ox 98 05/21/18 04:28 - Labs Result Diagrams: 05/21/18 02:32 05/21/18 02:32 Labs: Laboratory Results - last 24 hr 05/21/18 05/21/18 05/21/18 02:32 02:32 02:32 WBC 8.0 D RBC 4.50 Hgb 12.0 Hct 36.7 MCV 81.6 MCH 26.7 MCHC 32.7 RDW 16.2 H Plt Count 135 MPV 10.5 PT 11.7 INR 1.03 APTT 27.6 Sodium 138 Potassium 4.4 Chloride 100 Carbon Dioxide 32 Anion Gap 11 BUN 15 Creatinine 0.7 Est GFR ( Amer) > 60 Est GFR (Non-Af Amer) > 60 Random Glucose 129 H Calcium 9.0 Total Bilirubin 0.5 AST 48 H D ALT 36 Alkaline Phosphatase 199 H D Lactate Dehydrogenase 691 Total Creatine Kinase 219 Troponin I 0.02 NT-Pro-B Natriuret Pep 1480 H Total Protein 8.3 Albumin 4.1 Globulin 4.2 Albumin/Globulin Ratio 1.0 L Assessment & Plan - Assessment and Plan (Free Text) Assessment: 88 F with pmhx CHF, afib, DM, HTN, TIA admitted for CHF exacerbation Plan: Start Lasix 40mg IVP q12 Continue home meds Obtain b/l LE duplex u/s Consult cardiology: Dr. Ovalle <Kole Almanza - Last Filed: 05/25/18 22:09> Results - Vital Signs Recent Vital Signs: Last Vital Signs Temp 98.1 F 05/24/18 06:00 Pulse 70 05/24/18 14:00 Resp 20 05/24/18 06:00 BP 135/67 05/24/18 09:34 Pulse Ox 97 05/24/18 06:00 - Labs Result Diagrams: 05/22/18 07:30 05/24/18 08:15 Attending/Attestation - Attestation I have personally seen and examined this patient.: Yes I have fully participated in the care of the patient.: Yes I have reviewed all pertinent clinical information: Yes Notes (Text): Please see/read my dictated notes.
--- NOTE | 2018-05-21 07:57 | RAD ---
Date of service: 05/21/2018 HISTORY: sob COMPARISON: Chest radiographs 04/02/2018. FINDINGS: LUNGS: No active pulmonary disease. PLEURA: No significant pleural effusion identified, no pneumothorax apparent. CARDIOVASCULAR: Cardiac silhouette remains enlarged and mild pulmonary vascular congestion is question. OSSEOUS STRUCTURES: No significant abnormalities. VISUALIZED UPPER ABDOMEN: Normal. OTHER FINDINGS: Surgical clips reiterated at the right neck soft tissue region. IMPRESSION: Questionable mild pulmonary vascular congestion. No definite alveolitis, pleural effusion or pneumothorax bilaterally.
[2018-05-21] MEDS: Potassium Chloride 20 mEq ER Tab PO SCH ×3 (08:07→17:59)
[2018-05-21] MEDS: Metoprolol Succinate 25 mg XL Tab PO SCH (08:11)
[2018-05-21 08:57] VITALS: RESP 20
[2018-05-21] MEDS: POLYETHYLENE GLYCOL 3350 17 GM/Dose PACKET PO SCH ×2 (09:11→18:00)
[2018-05-21] MEDS: Enoxaparin 40 mg Syringe SC SCH (09:13)
[2018-05-21] MEDS: Lidocaine 5% Patch TD SCH (09:14)
--- NOTE | 2018-05-21 10:23 | CARD ---
APPROVED REPORT Date of service: 05/21/2018 EKG Measurement Heart [id number] <Conclusion> A. Fib. PVCs, new PRWP NSSTW changes
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
[2018-05-21] MEDS: Hydrocortisone 2.5% Rectal Cream(30 gm) PR SCH ×2 (11:07→18:03)
[2018-05-21] MEDS: Ammonium Lactate 12% Cream (140 g) TOP SCH (11:08)
[2018-05-21] MEDS ORDERED: Digoxin 125 mcg (0.125 mg) Tab PO SCH (14:00)
--- NOTE | 2018-05-21 14:53 | CON ---
DATE: 05/21/2018 CARDIOLOGY CONSULTATION HISTORY: The patient is an 88-year-old woman, who presented to the emergency room with increasing shortness of breath and bilateral pedal edema. The patient's past medical history is notable for documented pulmonary hypertension by echocardiogram several months ago. Her LV function is normal. The patient has chronic atrial fibrillation, in which she has been treated with anticoagulation by Dr. Garcia in [place]. She denies chest pain. She denies history of myocardial infarction. Her past medical history is also notable for history of hypertension, hypercholesterolemia. She is on Plavix for questionable reasons and she suffers from hypercholesterolemia. She has chronic pedal edema in the lower extremities. SOCIAL HISTORY: The patient has not smoked for over 40 years. REVIEW OF SYSTEMS: Fourteen-point review of systems is reviewed in detail. No additional symptoms other than the ones mentioned above. PHYSICAL EXAMINATION: VITAL SIGNS: Blood pressure is 140/84, heart rate is in the 70s. NECK: Negative JVD. LUNGS: Decreased breath sounds with crackles at the bases. HEART: Reveals S1, S2. EXTREMITIES: Chronic edema. EKG shows atrial fibrillation with nonspecific ST-T changes. LABORATORY DATA: Laboratories reveals a hemoglobin of 12. Chemistries: BUN and creatinine are unremarkable. The glucose is 129. The ProBNP is 1480. The troponin is negative. IMPRESSION: 1. Acute systolic congestive heart failure. 2. Moderate pulmonary hypertension. 3. Chronic pedal edema. 4. Dyspnea. 5. Chronic atrial fibrillation. 6. Hypertension. 7. Hypercholesterolemia. PLAN: Given these findings, I agree with IV Lasix. We will give her an extra dose today given her chronic dyspnea. We will an ARB to her diuretics in the hopes of unloading her LV. Rafael Ovalle MD
[2018-05-22] MEDS: Pantoprazole 40 mg EC Tab PO SCH (06:07)
[2018-05-22 07:56] LABS: BASO # 0.02 K/mm3 (0.0-2.0); BASO % 0.4 % (0.0-3.0); EOS # 0.2 (0.0-0.7); EOS % 3.3 % (1.5-5.0); GRAN # 3.26 (1.4-6.5); GRAN % 58.9 % (50.0-68.0); HEMOGLOBIN 11.4 g/dL (12.0-16.0); LYMPH # 1.5 (1.2-3.4); LYMPH % 27.5 % (22.0-35.0); MEAN CELL VOLUME 82.8 fl (80.0-105.0); MEAN CORPUSCULAR HEMOGLOBIN 26.1 pg (25.0-35.0); MEAN CORPUSCULAR HGB CONC 31.6 g/dl (31.0-37.0); MEAN PLATELET VOLUME 11.8 fl (7.0-11.0); MONO # 0.6 (0.1-0.6); MONO % 9.9 % (1.0-6.0); RBC 4.36 10^6/uL (3.5-6.1); RED CELL DISTRIBUTION WIDTH 16.2 % (11.5-14.5); WHITE BLOOD COUNT 5.5 10^3/ul (4.5-11.0)
[2018-05-22] MEDS: Potassium Chloride 20 mEq ER Tab PO SCH ×2 (08:30→18:20)
[2018-05-22] MEDS: Metoprolol Succinate 25 mg XL Tab PO SCH (08:30)
[2018-05-22 08:34] LABS: ALB/GLOB RATIO 0.9 (1.1-1.8); ALBUMIN 3.5 g/dL (3.0-4.8); ALT/SGPT 27 U/L (7-56); AST/SGOT 45 U/L (14-36); BILIRUBIN,DIRECT 0.3 mg/dL (0.0-0.4); BLOOD UREA NITROGEN 21 mg/dL (7-21); CALCIUM 8.3 mg/dL (8.4-10.5); GFR NON-AFRICAN AMERICAN > 60
--- NOTE | 2018-05-22 09:35 | PN ---
DATE: 05/22/2018 SUBJECTIVE: The patient is seen in room 377, bed 2. The patient is seen lying in the bed with head down. The patient is comfortable, in no distress. Overnight nurse's notes were reviewed. The patient was found to be alert, awake, oriented x3 without any adverse events documented. PHYSICAL EXAMINATION: VITAL SIGNS: T-max is 98.3; heart rate 74, 62, 44, 52, 68; blood pressure 121/69; respirations 18-20, O2 sat 96-98%. HEENT: Head examination normocephalic, atraumatic. HEENT examination shows pink conjunctivae. Anicteric sclerae. No oropharyngeal lesion. No neck rigidity. CHEST: Kyphosis. LUNGS: Shows decreasing crackles, rales and creps and also decreased breath sound at the bases, left more than the right. CARDIOVASCULAR: S1 and S2. Positive systolic murmur, left second intercostal space, right second intercostal space, left sternal border. ABDOMEN: Morbidly obese. GENITALIA: Female. RECTAL: Deferred today. EXTREMITY: Shows more than 2+-3+ pitting edema of the lower extremity. MUSCULOSKELETAL: Shows a body mass index of 35. Gait examination is not tested. VASCULAR: Could not be assessed of the lower extremity because of venous stasis of the lower extremity. DIAGNOSTICS: On 05/22/2018, WBC 5.5, hemoglobin and hematocrit 11.4 and 36.1, platelet 124. Sodium 137, potassium 4.9, chloride 101, CO2 of 28, anion gap 13, BUN 21, creatinine 0.8, GFR greater than 60, glucose 88 and 107, calcium 8.3, phosphorus 4.9, magnesium 2.3, AST 45, ALT 27, alk phos 146. Digoxin level is 0.8. The patient is seen by Cardiology. Their recommendations noted. IMPRESSION AND PLAN: 1. Acute recurrent congestive heart failure with moderate tricuspid regurgitation, moderate pulmonary hypertension and right ventricular systolic pressure of 47 mmHg. 2. Moderate tricuspid regurgitation and moderate pulmonary hypertension. 3. Bilateral lower extremity venous stasis. 4. History of chronic atrial fibrillation. 5. Internal hemorrhoids. 6. Morbid obesity with elevated body mass index. 7. Anemia. 8. Transaminitis. 9. Gait dysfunction. 10. Morbid obesity. 11. Cardiomegaly and pulmonary vascular congestion. 12. Atrial fibrillation. 1. Acute exacerbation of right-sided diastolic congestive heart failure with bilateral lower extremity venous stasis and lymphedema and symptoms of shortness of breath. 2. Hypertension. 3. Atrial fibrillation. 4. Non anticoagulation requiring dependent atrial fibrillation. 5. History of type 2 diabetes mellitus with hyperglycemia. 6. Acute recurrent right-sided diastolic congestive heart failure with elevated BNP, cardiomegaly and pulmonary vascular congestion. Plan at this time, the patient has been ordered repeat lab for the morning. TCU evaluation ordered. The patient is currently on Anusol suppository twice a day, Colace 100 mg three times a day, Ecotrin 81 mg daily, K-Dur 20 mEq three times a day, Lac-Hydrin lotion to the both feet and legs, Lasix 40 mg IV every 12, Lidoderm 5% patch to the affected area of pain, Lipitor 40 mg daily, Lovenox 40 mg subcu daily, MiraLax 17 g twice a day, Neurontin 100 mg at bedtime, Plavix 75 mg daily, Protonix 40 mg daily, Toprol-XL 25 mg daily, Tylenol p.r.n., Zestril 5 mg daily, Zofran 4 mg IV every 4 p.r.n. Incentive spirometry, oxygen nasal cannula. Elevate head of the bed 30 degrees, out of bed to chair, RAMSES stockings, SCDs, occupational therapy, physical therapy all ordered. The patient's will be continued on the above therapeutic intervention until further stabilization. The patient will be considered for discharge to TCU if accepted, otherwise the patient will be considered for discharge home. Dictated and electronically signed, not read. Kole Almanza MD [facility]
[2018-05-22] MEDS: Hydrocortisone 2.5% Rectal Cream(30 gm) PR SCH ×2 (10:43→18:20)
[2018-05-22] MEDS: POLYETHYLENE GLYCOL 3350 17 GM/Dose PACKET PO SCH ×2 (10:43→18:22)
[2018-05-22] MEDS: Ammonium Lactate 12% Cream (140 g) TOP SCH (10:44)
[2018-05-22] MEDS: Enoxaparin 40 mg Syringe SC SCH (10:44)
[2018-05-22] MEDS: Lidocaine 5% Patch TD SCH (10:44)
--- NOTE | 2018-05-22 15:43 | PN ---
DATE: 05/22/[address] Rafael Ovalle. SUBJECTIVE: It was notified by the nursing team that the patient had 2-second pause on the monitor. The patient denies any dizziness or chest pain. She is mildly short of breath. PHYSICAL EXAMINATION: VITAL SIGNS: Blood pressure 110/68, heart rate 68, temperature 97.7, respirations 20. HEENT: Normocephalic. CHEST: Diffuse bilateral rhonchi. HEART: S1 and S2 regular. ABDOMEN: Soft. EXTREMITIES: 2+ pitting edema. LABORATORY DATA: Today's hemoglobin and hematocrit 11.4 and 36.1. White count and platelet count are within normal limit. Today's SMA-7 is within normal limit. Calcium is below normal at 8.3. Today's digoxin level is 0.8. ASSESSMENT: 1. Acute systolic heart failure. 2. Moderate pulmonary hypertension. 3. Chronic atrial fibrillation. 4. Systemic hypertension. 5. Insignificant pause on the rhythm monitor. RECOMMENDATIONS: Continue aspirin 81 mg once a day, K-Dur at 20 mEq twice a day, Lasix 40 mg intravenously twice a day, Lipitor 40 mg once a day, Lovenox 40 mg once a day, Plavix 75 mg once a day, Toprol-XL 25 mg once a day, Zestril at 5 mg once a day. Resume digoxin 0.125 mg orally daily. A significant pause in the presence of atrial fibrillation should be 5 seconds or more. Ander Bailey MD
[2018-05-23] MEDS: Pantoprazole 40 mg EC Tab PO SCH (06:08)
[2018-05-23 07:38] LABS: ALBUMIN 3.6 g/dL (3.0-4.8); ALT/SGPT 23 U/L (7-56); AST/SGOT 32 U/L (14-36); BILIRUBIN,DIRECT 0.3 mg/dL (0.0-0.4); BLOOD UREA NITROGEN 23 mg/dL (7-21); CALCIUM 8.3 mg/dL (8.4-10.5); GFR NON-AFRICAN AMERICAN 59
[2018-05-23] MEDS: Potassium Chloride 20 mEq ER Tab PO SCH ×3 (08:03→17:17)
[2018-05-23] MEDS: Metoprolol Succinate 25 mg XL Tab PO SCH (08:03)
[2018-05-23] MEDS: Digoxin 125 mcg (0.125 mg) Tab PO SCH (09:38)
[2018-05-23] MEDS: Enoxaparin 40 mg Syringe SC SCH (09:39)
[2018-05-23] MEDS: POLYETHYLENE GLYCOL 3350 17 GM/Dose PACKET PO SCH ×2 (09:40→17:18)
[2018-05-23] MEDS: Hydrocortisone 2.5% Rectal Cream(30 gm) PR SCH ×2 (09:41→17:18)
[2018-05-23] MEDS: Lidocaine 5% Patch TD SCH (09:41)
[2018-05-23] MEDS: Ammonium Lactate 12% Cream (140 g) TOP SCH (09:41)
--- NOTE | 2018-05-23 16:34 | US ---
HISTORY: Leg pain and swelling. Evaluate for DVT PHYSICIAN(S): Rafael Elise MD. TECHNIQUE: Duplex sonography and color-flow Doppler with graded compression were used to evaluate the deep venous systems of both lower extremities. FINDINGS: The distal femoral veins and tibial veins are not well visualized. The exam is very limited due to body habitus and edema. There is no sonographic evidence for deep venous thrombosis the visualized segments of both lower extremity deep venous systems. IMPRESSION: No sonographic evidence for deep venous thrombosis in the visualized segments of both lower extremities. Very limited study. The distal femoral veins and are not adequately visualized
[2018-05-23] MEDS ORDERED: Magnesium Citrate Oral SOL (300 ml) PO ONE (16:50)
--- NOTE | 2018-05-23 19:20 | PN ---
DATE: 05/23/2018 SUBJECTIVE: The patient is mildly short of breath, no reported pauses except the 2.9 second pause, it was reported day before yesterday. PHYSICAL EXAMINATION: VITAL SIGNS: Blood pressure 137/63, heart rate 97, temperature 98.4, respirations 20. HEENT: Head, normocephalic. CHEST: Diffuse bilateral rhonchi. HEART: S1 and S2 regular. EXTREMITIES: 1+ pitting edema. LABORATORY DATA: Today's SMA-7: Sodium 139, potassium 4.4, chloride 99, CO2 of 35, glucose 90, BUN 23, creatinine 0.9. ASSESSMENT: 1. Exacerbation of congestive heart failure. 2. Chronic atrial fibrillation. 3. Moderate pulmonary hypertension. 4. Systemic hypertension. RECOMMENDATIONS: Continue digoxin 0.125 mg daily, aspirin 81 mg once a day, K-Dur 20 mEq three times a day, Lasix 40 mg intravenously twice a day, Lipitor 40 mg once a day, Toprol-XL 25 mg once a day, Plavix 75 mg once a day, Zestril 5 mg daily. Ander Bailey MD
--- NOTE | 2018-05-24 01:18 | PN ---
DATE: 05/23/2018 SUBJECTIVE: The patient was seen lying in the recliner. The patient is out of bed to recliner in room 377, bed 2. Nurse's notes were reviewed. According to the patient's nurse, diarrhea. The patient complains of constipation and very limited bowel movement. The patient complained of constipation. PHYSICAL EXAMINATION: VITAL SIGNS: T-max 98; pulse 52, 68; blood pressure is 137/63, 136/78, 137/63, 133/53; respirations 20; O2 sat 98%. Yesterday's output was 1300. Today's output is 1000. HEENT: The patient's head examination normocephalic, atraumatic. HEENT examination shows pink conjunctivae. Anicteric sclerae. No oropharyngeal lesion. No neck rigidity. CHEST: Kyphosis. LUNGS: Shows decreased breath sounds with fine crackles noted, right more than the left. CARDIOVASCULAR: S1, S2. Positive systolic murmur, left sternal border, right second intercostal space, left second intercostal space. ABDOMEN: Obese. Positive bowel sound. Unable to appreciate any hepatosplenomegaly. Nontender. GENITALIA: Female. RECTAL: Deferred. EXTREMITY: Shows positive pitting edema with SCDs, but RAMSES stockings are missing. MUSCULOSKELETAL: Shows elevated body mass index of 41. The patient is able to move upper and lower extremity without assistance. Gait examination is not tested. NEUROLOGIC: The patient is alert, awake, responsive, is able to move upper and lower extremity without assistance. DIAGNOSTICS: Chemistry from 05/23/2018 shows sodium 139, potassium 4.4, chloride 99, CO2 of 35, anion gap 10, BUN 23, creatinine 0.9, GFR greater than 60, glucose 90, calcium 8.3, phosphorus 4, magnesium 2.3. LFTs are normal. Fingerstick blood sugar 147, 108, 91, 75, 111. Digoxin level was 0.8 on 2 occasions, which is within normal limit. IMPRESSION AND PLAN: 1. Acute recurrent right-sided diastolic congestive heart failure with elevated BNP and bilateral lower extremity venous stasis. 2. Chronic atrial fibrillation. 3. Pulmonary hypertension. 4. Constipation. 5. Bilateral lower extremity lymphedema. 6. Morbid obesity with elevated body mass index of 41. 7. Mild normocytic anemia. 8. Metabolic alkalosis. 9. Mild prerenal kidney injury. 10. Transient transaminitis. 1. Acute recurrent congestive heart failure with moderate tricuspid regurgitation, moderate pulmonary hypertension and right ventricular systolic pressure of 47 mmHg. 2. Moderate tricuspid regurgitation and moderate pulmonary hypertension. 3. Bilateral lower extremity venous stasis. 4. History of chronic atrial fibrillation. 5. Internal hemorrhoids. 6. Morbid obesity with elevated body mass index. 7. Anemia. 8. Transaminitis. 9. Gait dysfunction. 10. Morbid obesity. 11. Cardiomegaly and pulmonary vascular congestion. 12. Atrial fibrillation. 1. Acute exacerbation of right-sided diastolic congestive heart failure with bilateral lower extremity venous stasis and lymphedema and symptoms of shortness of breath. 2. Hypertension. 3. Atrial fibrillation. 4. Non anticoagulation requiring dependent atrial fibrillation. 5. History of type 2 diabetes mellitus with hyperglycemia. 6. Acute recurrent right-sided diastolic congestive heart failure with elevated BNP, cardiomegaly and pulmonary vascular congestion. Plan at this time, the patient has been ordered repeat chemistry for monitoring of the patient's electrolytes. The patient's Lasix is increased to 40 mg IV every eight. The patient is ordered one bottle of magnesium citrate for constipation. The patient is currently on Anusol suppository twice a day per rectum, Colace 100 mg three times a day, digoxin 0.125 daily, aspirin 81 mg daily, K-Dur 20 mEq three times a day, Lac-Hydrin lotion to both feet and leg, Lasix increased to 40 mg IV every 8, Lidoderm 5% patch to the affected area, Lipitor 40 mg daily, Lovenox 40 mg subcu daily, MiraLax 17 g twice a day, Neurontin 100 mg at bedtime, Plavix 75 mg daily, Protonix 40 mg daily, Toprol-XL 25 mg daily, Tylenol 650 p.o. suppository every 6 p.r.n., Zestril 5 mg daily, Zofran 4 mg IV every 4 p.r.n., oxygen 2 L. Heart healthy diet, RAMSES stockings, SCDs, head of the bed 30 degrees, out of bed, physical therapy, occupational therapy all ordered. At present, the patient will be continued on the above therapeutic intervention. The patient has been again requested for TCU evaluation. The patient was seen by the physical therapist. Their recommendation was TCU, otherwise subacute rehab if the patient is not accepted to TCU. Dictated and electronically signed, not read. Kole Almanza MD [facility]
[2018-05-24] MEDS: Pantoprazole 40 mg EC Tab PO SCH (06:03)
[2018-05-24 07:05] VITALS: BP 135/67; TEMP 98.1; O2SAT 97
[2018-05-24] MEDS: Potassium Chloride 20 mEq ER Tab PO SCH ×2 (08:31→12:19)
[2018-05-24 08:57] LABS: ALB/GLOB RATIO 0.9 (1.1-1.8); ALBUMIN 3.4 g/dL (3.0-4.8); ALT/SGPT 37 U/L (7-56); AST/SGOT 35 U/L (14-36); BILIRUBIN,DIRECT 0.1 mg/dL (0.0-0.4); BLOOD UREA NITROGEN 19 mg/dL (7-21); CALCIUM 8.4 mg/dL (8.4-10.5); GFR NON-AFRICAN AMERICAN 59
[2018-05-24] MEDS: Digoxin 125 mcg (0.125 mg) Tab PO SCH (09:30)
[2018-05-24] MEDS: Lidocaine 5% Patch TD SCH (09:32)
[2018-05-24] MEDS: Enoxaparin 40 mg Syringe SC SCH (09:33)
[2018-05-24] MEDS: POLYETHYLENE GLYCOL 3350 17 GM/Dose PACKET PO SCH (09:33)
[2018-05-24] MEDS: Metoprolol Succinate 25 mg XL Tab PO SCH (09:34)
[2018-05-24] MEDS: Ammonium Lactate 12% Cream (140 g) TOP SCH (09:44)
[2018-05-24] MEDS: Hydrocortisone 2.5% Rectal Cream(30 gm) PR SCH (09:44)
[2018-05-24 09:46] VITALS: PULSE 62
[2018-05-24 16:30] VITALS: PULSE 70
--- NOTE | 2018-05-25 12:15 | DS ---
SUMMARY: The patient is now accepted to Transitional Care Unit as per the nurses TCU evaluation. The patient was seen out of bed to recliner. PHYSICAL EXAMINATION: VITAL SIGNS:. Temperature of 98.2, pulse of 70, blood pressure 135/67, O2 sat was 97. The patient is sitting up in the recliner. HEAD: Normocephalic, atraumatic. HEENT examination shows pink conjunctivae. Anicteric sclerae. No oropharyngeal lesion. No neck rigidity. CHEST: Kyphosis. LUNGS: Shows no audible rales, crackles or wheezing. Decreased breath sounds at the bases. CARDIOVASCULAR: S1, S2, regular rhythm. Positive systolic murmur at left sternal border, right second intercostal space, left second intercostal space. ABDOMEN: Obese. Positive bowel sounds. No palpable hepatosplenomegaly noted. GENITALIA: Female. RECTAL: Deferred. EXTREMITIES: Shows almost complete resolution of 2-3+ pitting edema of the lower extremity. MUSCULOSKELETAL: Shows elevated body mass index of 41. NEUROLOGIC: The patient is alert, awake, responsive, is able to move upper and lower extremity without assistance. Gait examination is not tested. DIAGNOSTICS: 05/24/2018: Sodium 139, potassium 3.7, chloride 93, CO2 of 42, anion gap 8, BUN is 19, creatinine 0.9 GFR greater than 60, glucose 104, calcium 8.4, phosphorus 3.5, magnesium 2.2, alk phos 133. FINAL IMPRESSION, PLAN AND DISCHARGE DIAGNOSES: 1. Acute recurrent right-sided diastolic congestive heart failure with elevated BNP and bilateral lower extremity venous stasis and lymphedema. 2. Chronic atrial fibrillation. 3. Pulmonary hypertension. 4. Constipation. 5. Bilateral lower extremity lymphedema. 6. Morbid obesity with elevated body mass index of 41. 7. Mild normocytic anemia. 8. Contraction alkalosis, probably diuretic induced. 9. Atrial fibrillation. 10. Gait dysfunction. 11. Deconditioning. 12. Possible hemorrhoids. 13. History of hypokalemia. 14. 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 15. Possible diabetic neuropathy. 16. Hypertension. 1. Acute recurrent right-sided diastolic congestive heart failure with elevated BNP and bilateral lower extremity venous stasis. 2. Chronic atrial fibrillation. 3. Pulmonary hypertension. 4. Constipation. 5. Bilateral lower extremity lymphedema. 6. Morbid obesity with elevated body mass index of 41. 7. Mild normocytic anemia. 8. Metabolic alkalosis. 9. Mild prerenal kidney injury. 10. Transient transaminitis. 1. Acute recurrent congestive heart failure with moderate tricuspid regurgitation, moderate pulmonary hypertension and right ventricular systolic pressure of 47 mmHg. 2. Moderate tricuspid regurgitation and moderate pulmonary hypertension. 3. Bilateral lower extremity venous stasis. 4. History of chronic atrial fibrillation. 5. Internal hemorrhoids. 6. Morbid obesity with elevated body mass index. 7. Anemia. 8. Transaminitis. 9. Gait dysfunction. 10. Morbid obesity. 11. Cardiomegaly and pulmonary vascular congestion. 12. Atrial fibrillation. 1. Acute exacerbation of right-sided diastolic congestive heart failure with bilateral lower extremity venous stasis and lymphedema and symptoms of shortness of breath. 2. Hypertension. 3. Atrial fibrillation. 4. Non anticoagulation requiring dependent atrial fibrillation. 5. History of type 2 diabetes mellitus with hyperglycemia. 6. Acute recurrent right-sided diastolic congestive heart failure with elevated BNP, cardiomegaly and pulmonary vascular congestion. DISCHARGE MEDICATIONS: 1. Anusol hydrocortisone suppository twice a day per rectum. 2. Colace 100 mg three times a day. 3. Digoxin 0.125 daily. 4. Aspirin 81 mg daily. 5. K-Dur decreased to 20 mEq once a day, 6. Lac-Hydrin lotion to both feet and legs. 7. Lasix decreased to 40 mg IV daily. 8. Lidoderm 5% patch to the affected area. 9. Lipitor 40 mg daily. 10. Lovenox 40 mg subcu daily. 11. MiraLax 17 g 2 to 3 times a day. 12. Neurontin 100 mg at bedtime. 13. Plavix 75 mg daily. 14. Protonix 40 mg daily. 15. Toprol XL 25 mg daily. 16. Tylenol 650 mg p.o. suppository every 6 hours p.r.n. 17. Zestril 5 mg daily. 18. Zofran 4 mg IV every 4 hours p.r.n. for nausea, vomiting. At this time, the patient is accepted to Transitional Care Unit. The patient will be discharged to Transitional Care Unit. TIME SPENT IN THE DISCHARGE PROCESS: 35 minutes. Dictated and electronically signed, not read. Kole Almanza MD [facility] # [id number] [facility]
== END 2018-05-24 16:43 | DRG 292 ==
LOC: ED 00:20 → ERH 03:44 → 3RSO 05:21
PROVIDERS: ADMIT Internal Medicine; ATTEND Internal Medicine
DX: I11.0 Hypertensive heart disease with heart failure (principal); Z68.41 Body mass index [BMI] 40.0-44.9, adult; E87.3 Alkalosis; T50.2X5A Adverse effect of carbonic-anhydrase inhibitors, benzothiadiazides and other diuretics, initial encounter; I50.33 Acute on chronic diastolic (congestive) heart failure; I89.0 Lymphedema, not elsewhere classified; I87.8 Other specified disorders of veins; I48.2 Chronic atrial fibrillation; I27.20 Pulmonary hypertension, unspecified; K59.00 Constipation, unspecified; E66.01 Morbid (severe) obesity due to excess calories; D64.9 Anemia, unspecified; M17.0 Bilateral primary osteoarthritis of knee; M47.9 Spondylosis, unspecified; E78.00 Pure hypercholesterolemia, unspecified; I07.1 Rheumatic tricuspid insufficiency; E11.40 Type 2 diabetes mellitus with diabetic neuropathy, unspecified; K64.8 Other hemorrhoids; Z79.01 Long term (current) use of anticoagulants; Z79.02 Long term (current) use of antithrombotics/antiplatelets; Z79.899 Other long term (current) drug therapy; Z79.82 Long term (current) use of aspirin; Z86.73 Personal history of transient ischemic attack (TIA), and cerebral infarction without residual deficits; Z87.891 Personal history of nicotine dependence

== ENCOUNTER 2018-05-24 16:38 | Inpatient (IN) | payer OTHER, MEDICARE ==
[2018-05-24 22:00] VITALS: BMI 39.1
[2018-05-24] MEDS ORDERED: Pneumococcal 23-Valent Vaccine IM ONE (22:00)
[2018-05-24] MEDS ORDERED: Influenza Vaccine 60 mcg/0.5 mL SYR (4YR UP) IM ONE (22:00)
[2018-05-24] MEDS: POLYETHYLENE GLYCOL 3350 17 GM/Dose PACKET PO SCH (22:26)
[2018-05-25] MEDS: Enoxaparin 40 mg Syringe SC SCH (05:24)
[2018-05-25] MEDS: Pantoprazole 40 mg EC Tab PO SCH (05:25)
[2018-05-25 07:33] LABS: ALB/GLOB RATIO 0.9 (1.1-1.8); ALBUMIN 3.2 g/dL (3.0-4.8); ALT/SGPT 36 U/L (7-56); AST/SGOT 29 U/L (14-36); BLOOD UREA NITROGEN 20 mg/dL (7-21); CALCIUM 8.5 mg/dL (8.4-10.5); GFR NON-AFRICAN AMERICAN > 60
[2018-05-25] MEDS: Potassium Chloride 20 mEq ER Tab PO SCH (08:05)
[2018-05-25] MEDS: Metoprolol Succinate 25 mg XL Tab PO SCH (08:14)
[2018-05-25] MEDS ORDERED: Hydrocortisone 2.5% Rectal Cream(30 gm) PR SCH (10:00)
[2018-05-25] MEDS: Lidocaine 5% Patch TD SCH (10:58)
[2018-05-25] MEDS: POLYETHYLENE GLYCOL 3350 17 GM/Dose PACKET PO SCH ×3 (10:58→22:27)
[2018-05-25] MEDS: Digoxin 125 mcg (0.125 mg) Tab PO SCH (14:20)
--- NOTE | 2018-05-25 18:11 | CP.PCM.CON ---
<Rayo Foreman - Last Filed: 05/25/18 18:29> History of Present Illness - History of Present Illness History of Present Illness: General surgery Consult: Dr. Kaufman Reason for consult: hemorrhoids Mrs. Nicholson is a 88 yo female patient with a pmh of DM2, CHF, HTN who has been in the hospital for a week and a half for CHF related issues. Surgery was consulted to evaluate her hemorrhoids. Patient states she has had a hx of hemorrhoids for the past 30 years and has been taking hydrocortisone cream for them as treatment. Lately, her hemorrhoids have been bothering more than usual and she requested for them to be evaluated today. Patient denies any bloody bowel movements, urinary issues, n/v/d or fevers. Patient has a hx of constipation she says is due to her hemorrhoids, last bowel movement was a day ago described as hard, non painful and without blood. Patient denies pain with defecation. Patient last colonoscopy was a year ago and was unremarkable. med hx - CHF, hemorrhoids, DM2, HTN, unknown thyroid issues surg hx - Ccolonoscopies Social - non smoker, drinker or use of illict drugs Review of Systems - Constitutional Constitutional: absent: Chills, Fatigue, Fever, Headache, Night Sweats - Cardiovascular Cardiovascular: absent: Chest Pain - Respiratory Respiratory: absent: Dyspnea - Gastrointestinal Gastrointestinal: Constipation. absent: Abdominal Pain, Diarrhea, Nausea, Vomiting - Genitourinary Genitourinary: absent: Difficulty Urinating, Hematuria, Urinary Urgency - Musculoskeletal Musculoskeletal: absent: Muscle Weakness - Endocrine Endocrine: absent: Fatigue, Palpitations Past Patient History - Infectious Disease Hx of Infectious Diseases: None - Past Medical History & Family History Past Medical History?: Yes - Past Social History Smoking Status: Never Smoked - CARDIAC Hx Cardiac Disorders: Yes Hx Congestive Heart Failure: Yes Hx Hypertension: Yes - PULMONARY Hx Chronic Obstructive Pulmonary Disease (COPD): No - NEUROLOGICAL HX Cerebrovascular Accident: Yes - HEENT Hx HEENT Problems: Yes Hx Blind: No Hx Cataracts: Yes Hx Deafness: No Hx Difficulty Chewing: No Hx Epistaxis: No Hx Glaucoma: No - RENAL Hx Chronic Kidney Disease: No - ENDOCRINE/METABOLIC Hx Diabetes Mellitus Type 2: Yes - HEMATOLOGICAL/ONCOLOGICAL Hx Blood Disorders: No - INTEGUMENTARY Hx Dermatological Problems: No Hx Basil Cell: No Hx Eczema: No Hx Melanoma: No Hx Psoriasis: No Hx Squamous Cell: No - MUSCULOSKELETAL/RHEUMATOLOGICAL Hx Arthritis: Yes - GASTROINTESTINAL Hx Gastrointestinal Disorders: Yes (CONSTIPATION) Hx Constipation: Yes (Has been a chronic problem for years) - GENITOURINARY/GYNECOLOGICAL Hx Genitourinary Disorders: Yes (SOME INCONTINENCY) Hx Reproductive Disorders: No - PSYCHIATRIC Hx Psychophysiologic Disorder: No Hx Substance Use: No - SURGICAL HISTORY Hx Thyroidectomy: Yes (benign per patient) Meds Allergies/Adverse Reactions: Allergies Allergy/AdvReac Type Severity Reaction Status Date / Time No Known Allergies Allergy Verified 05/24/18 19:24 - Medications Medications: Current Medications Acetaminophen (Tylenol 325mg Tab) 650 mg PO Q6H PRN; Protocol PRN Reason: Fever >99.5 F Acetaminophen (Tylenol 650 Mg Supp) 650 mg RC Q6 PRN; Protocol PRN Reason: Fever >99.5 F Aspirin (Ecotrin) 81 mg PO 0800 [facility]; Protocol Last Admin: 05/25/18 08:04 Dose: 81 mg Atorvastatin Calcium (Lipitor) 40 mg PO DIN [facility]; Protocol Last Admin: 05/25/18 17:46 Dose: 40 mg Clopidogrel Bisulfate (Plavix) 75 mg PO DAILY [facility]; Protocol Last Admin: 05/25/18 10:58 Dose: 75 mg Digoxin (Digoxin) 0.125 mg PO 1400 [facility]; Protocol Last Admin: 05/25/18 14:20 Dose: 0.125 mg Docusate Sodium (Colace) 100 mg PO TID [facility]; Protocol Last Admin: 05/25/18 17:43 Dose: 100 mg Enoxaparin Sodium (Lovenox) 40 mg SC 0600 [facility]; Protocol Last Admin: 05/25/18 05:24 Dose: 40 mg Furosemide (Lasix) 40 mg PO DAILY [facility]; Protocol Last Admin: 05/25/18 10:53 Dose: 40 mg Gabapentin (Neurontin) 100 mg PO HS [facility]; Protocol Last Admin: 05/24/18 22:27 Dose: 100 mg Hydrocortisone (Anusol-Hc) 0 gm MT BID [facility]; Protocol Lidocaine (Lidoderm) 1 ea TD DAILY [facility]; Protocol Last Admin: 05/25/18 10:58 Dose: 1 ea Lisinopril (Zestril) 5 mg PO DAILY [facility]; Protocol Last Admin: 05/25/18 10:59 Dose: 5 mg Metoprolol Succinate (Toprol Xl) 25 mg PO BRK [facility]; Protocol Last Admin: 05/25/18 08:14 Dose: 25 mg Ondansetron HCl (Zofran Inj) 4 mg IVP Q4H PRN; Protocol PRN Reason: Nausea/Vomiting Pantoprazole Sodium (Protonix Ec Tab) 40 mg PO 0600 [facility]; Protocol Last Admin: 05/25/18 05:25 Dose: 40 mg Polyethylene Glycol (Miralax) 17 gm PO TID [facility]; Protocol Last Admin: 05/25/18 14:21 Dose: 17 gm Potassium Chloride (K-Dur 20 Meq Er Tab) 20 meq PO 0800 [facility]; Protocol Last Admin: 05/25/18 08:05 Dose: 20 meq Physical Exam - Constitutional Appears: Well, Non-toxic, No Acute Distress - Head Exam Head Exam: ATRAUMATIC, NORMAL INSPECTION - Eye Exam Eye Exam: Normal appearance - ENT Exam ENT Exam: Mucous Membranes Moist - Respiratory Exam Respiratory Exam: NORMAL BREATHING PATTERN - Cardiovascular Exam Cardiovascular Exam: +S1, +S2 - GI/Abdominal Exam GI & Abdominal Exam: Normal Bowel Sounds, Soft. absent: Guarding, Tenderness - Rectal Exam Additional comments: Rectal exam - Good rectal tone, no hemorrhoids, no external lesions. - Neurological Exam Neurological exam: Alert, Oriented x3 - Psychiatric Exam Psychiatric exam: Normal Mood - Skin Skin Exam: Dry, Warm Additional comments: A superficial abrasion about 3 cm in length along the sacral fold was noted. It is non-bloody, without discharge, swelling or edema. Results - Vital Signs Recent Vital Signs: Last Vital Signs Temp 98.3 F 05/25/18 16:00 Pulse 55 L 05/25/18 16:00 Resp 20 05/25/18 16:00 BP 122/56 L 05/25/18 16:00 Pulse Ox 98 05/25/18 16:00 - Labs Result Diagrams: 05/25/18 07:00 Labs: Laboratory Results - last 24 hr 05/25/18 05/25/18 05/25/18 05:44 07:00 10:20 Sodium 139 Potassium 3.8 Chloride 91 L Carbon Dioxide 43 H Anion Gap 9 L BUN 20 Creatinine 0.8 Est GFR ( Amer) > 60 Est GFR (Non-Af Amer) > 60 POC Glucose (mg/dL) 83 Random Glucose 126 H Calcium 8.5 Magnesium 2.3 H Total Bilirubin 0.5 AST 29 ALT 36 Alkaline Phosphatase 119 Total Protein 7.0 Albumin 3.2 Globulin 3.7 Albumin/Globulin Ratio 0.9 L Digoxin 0.7 L 05/25/18 16:16 Sodium Potassium Chloride Carbon Dioxide Anion Gap BUN Creatinine Est GFR ( Amer) Est GFR (Non-Af Amer) POC Glucose (mg/dL) 114 H Random Glucose Calcium Magnesium Total Bilirubin AST ALT Alkaline Phosphatase Total Protein Albumin Globulin Albumin/Globulin Ratio Digoxin Assessment & Plan - Assessment and Plan (Free Text) Assessment: Mrs. Nicholson is a 88yo female patient with a stage I sacral ulcer the sacral fold. Plan: With no evidence of hemorrhoids on exam, decision was made to place an optifoam bandage over the sacral abrasion. -No surgical intervention is needed at this time. -Regular local wound care -Advise to change position of the patient every 2 hours to avoid further ulcer formation. -No further surgical intervention necessary Further recs per Dr. Mandeep Armenta PGY3 - Date & Time Date: 05/25/18 Time: 18:00 <Dev Kaufman - Last Filed: 05/29/18 20:26> Meds - Medications Medications: Current Medications Acetaminophen (Tylenol 325mg Tab) 650 mg PO Q6H PRN; Protocol PRN Reason: Fever >99.5 F Acetaminophen (Tylenol 650 Mg Supp) 650 mg RC Q6 PRN; Protocol PRN Reason: Fever >99.5 F Aspirin (Ecotrin) 81 mg PO 0800 [facility]; Protocol Last Admin: 05/29/18 08:27 Dose: 81 mg Atorvastatin Calcium (Lipitor) 40 mg PO DIN [facility]; Protocol Last Admin: 05/29/18 17:06 Dose: 40 mg Clopidogrel Bisulfate (Plavix) 75 mg PO DAILY [facility]; Protocol Last Admin: 05/29/18 09:42 Dose: 75 mg Digoxin (Digoxin) 0.125 mg PO 1400 [facility]; Protocol Last Admin: 05/29/18 13:35 Dose: 0.125 mg Docusate Sodium (Colace) 100 mg PO TID [facility]; Protocol Last Admin: 05/29/18 17:05 Dose: 100 mg Enoxaparin Sodium (Lovenox) 40 mg SC 0600 [facility]; Protocol Last Admin: 05/29/18 05:52 Dose: 40 mg Furosemide (Lasix) 40 mg IVP 0600 [facility] Last Admin: 05/29/18 06:08 Dose: Not Given Gabapentin (Neurontin) 100 mg PO HS [facility]; Protocol Last Admin: 05/28/18 21:11 Dose: 100 mg Hydrocortisone (Anusol-Hc) 0 gm MT BID [facility]; Protocol Last Admin: 05/29/18 17:05 Dose: Not Given Lidocaine (Lidoderm) 1 ea TD DAILY [facility]; Protocol Last Admin: 05/29/18 09:41 Dose: 1 ea Lisinopril (Zestril) 5 mg PO DAILY [facility]; Protocol Last Admin: 05/29/18 09:42 Dose: 5 mg Metoprolol Succinate (Toprol Xl) 25 mg PO BRK [facility]; Protocol Last Admin: 05/29/18 08:28 Dose: Not Given Ondansetron HCl (Zofran Inj) 4 mg IVP Q4H PRN; Protocol PRN Reason: Nausea/Vomiting Last Admin: 05/27/18 18:16 Dose: 4 mg Pantoprazole Sodium (Protonix Ec Tab) 40 mg PO 0600 [facility]; Protocol Last Admin: 05/29/18 05:52 Dose: 40 mg Polyethylene Glycol (Miralax) 17 gm PO TID [facility]; Protocol Last Admin: 05/29/18 17:06 Dose: 17 gm Potassium Chloride (K-Dur 20 Meq Er Tab) 20 meq PO 0800 [facility]; Protocol Last Admin: 05/29/18 08:27 Dose: 20 meq Results - Vital Signs Recent Vital Signs: Last Vital Signs Temp 98.5 F 05/29/18 16:00 Pulse 67 05/29/18 16:20 Resp 16 05/29/18 16:00 BP 153/69 H 05/29/18 16:00 Pulse Ox 95 05/29/18 16:20 - Labs Result Diagrams: 05/25/18 07:00 Labs: Laboratory Results - last 24 hr 05/28/18 05/29/18 05/29/18 21:41 05:45 11:39 POC Glucose (mg/dL) 100 88 97 Assessment & Plan - Assessment and Plan (Free Text) Plan: D Internal hemmorhoids/Constipation Plan Office Banding hemorrhoids-Miralax: Pt concurs This consult done under my direct supervision Jesenia Kaufman MD FACS
[2018-05-25] MEDS: Hydrocortisone 2.5% Rectal Cream(30 gm) PR SCH (22:27)
--- NOTE | 2018-05-26 04:48 | HP ---
HISTORY OF PRESENT ILLNESS: The patient is now admitted to TCU bed 303, bed 1. The patient is seen sitting up in the recliner. The patient is alert, awake, responsive. The patient's 13-system review was positive for hemorrhoids, bordering the patient and complaining of pain in the hemorrhoid area. Overnight nurse's notes were reviewed. No adverse events were documented. The patient was found to be alert, awake, oriented x3. Past medical and surgical history and past medical history details, please refer to the history and physical examination dictated on 05/21/2019 and discharge summary dictated on 05/25/2018. PHYSICAL EXAMINATION: VITAL SIGNS: In the last 12-24 hours, T-max 98.4; heart rate 62, 64. Blood pressure 122/58, 113/66, 122/56; respirations 20; O2 sat 98%. GENERAL: The patient is seen sitting up in the bed. HEENT: Head examination normocephalic, atraumatic. HEENT examination shows pink conjunctivae. Anicteric sclerae. No oropharyngeal lesion. No neck rigidity. CHEST: Kyphosis. LUNGS: Shows no rales, crackles or wheezing. Questionable decreased breath sound at the base, left more than the right. CARDIOVASCULAR: S1, S2, irregular rhythm. Positive systolic murmur, left sternal border, right second intercostal space, left second intercostal space. ABDOMEN: Obese, protuberant. Positive bowel sound. GENITALIA: Female. RECTAL: Deferred. EXTREMITIES: Shows significant reduction and degrees in the 2-3+ pitting edema and lymphedema of the lower extremity. MUSCULOSKELETAL: Shows a body mass index of almost 40. NEUROLOGICAL: The patient is alert, awake, oriented x3. The patient is able to move upper and lower extremity without assistance. Gait examination is not tested. VASCULAR: Palpable pulses. PSYCHIATRIC: Not applicable. DIAGNOSTICS: Sodium 139, potassium is 3.8, chloride 91, CO2 of 43, anion gap 9, BUN 20, creatinine 0.8, GFR greater than 60, glucose 114, calcium 8.5, magnesium 2.3. LFTs are normal. Digoxin level is 0.7. IMPRESSION AND PLAN: 1. Deconditioning. 2. Gait dysfunction. 3. Morbid obesity with elevated body mass index of 40. 4. Acute recurrent right-sided diastolic congestive heart failure with elevated BNP and bilateral lower extremity venous stasis and lymphedema. 5. Chronic atrial fibrillation. 6. Pulmonary hypertension. 7. Constipation. 8. Bilateral lower extremity lymphedema. 9. Internal and external hemorrhoid. 10. Mild normocytic anemia. 11. Diuretic-induced contraction alkalosis. 12. History of hypokalemia. 13. 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 14. Possible diabetic neuropathy. 15. Hypertension. 16. Hypochloremic metabolic alkalosis. 17. Atherosclerotic heart disease. 18. Hypokalemia. 19. Hyperlipidemia. 20. Neuropathy. Plan at this time, the patient is admitted to TCU. Next, the patient will continue on daily physical therapy, occupational therapy, ambulation therapy, gait training and ambulation training. Next, the patient has been requested to be seen by surgery, Dr. Kaufman for evaluation of the hemorrhoid. The patient is on Anusol suppository per rectum twice a day. The patient has been ordered Anusol, hydrocortisone suppository twice a day per rectum. The patient has been ordered Colace 100 mg three times a day, digoxin 0.125 daily, aspirin 81 mg daily, potassium 20 mEq once a day, Lasix 40 mg p.o. daily, Lidoderm 5% patch to the affected area, Lipitor 40 mg daily, Lovenox 40 mg subcu daily for DVT prophylaxis, MiraLax 17 g three times a day, Neurontin 100 mg at bedtime, Plavix 75 mg daily, Protonix 40 mg daily for GI prophylaxis, Toprol-XL 25 mg daily, Tylenol 650 p.o. suppository every 6 p.r.n., Zestril 5 mg daily, Zofran 4 mg IV every 4 p.r.n.. Incentive spirometer, oxygen 2 L, SCDs, RAMSES stockings, out of bed, occupational therapy, physical therapy, ambulation therapy, gait training ordered. At present, the patient's further management will be dependent upon the patient's clinical condition, hemodynamic status and as per the patient's response to therapeutic intervention, as per the patient's diagnostic and therapeutic intervention, as per surgical evaluation. Dictated and electronically signed, not read. Kole Almanza MD
[2018-05-26] MEDS: Pantoprazole 40 mg EC Tab PO SCH (05:39)
[2018-05-26] MEDS: Enoxaparin 40 mg Syringe SC SCH (07:29)
[2018-05-26] MEDS: Potassium Chloride 20 mEq ER Tab PO SCH (08:38)
[2018-05-26] MEDS: Metoprolol Succinate 25 mg XL Tab PO SCH (08:39)
[2018-05-26] MEDS: Lidocaine 5% Patch TD SCH (09:41)
[2018-05-26] MEDS: POLYETHYLENE GLYCOL 3350 17 GM/Dose PACKET PO SCH ×3 (09:41→17:15)
[2018-05-26] MEDS: Hydrocortisone 2.5% Rectal Cream(30 gm) PR SCH ×2 (12:03→17:13)
[2018-05-26] MEDS: Digoxin 125 mcg (0.125 mg) Tab PO SCH (14:00)
[2018-05-27] MEDS: Enoxaparin 40 mg Syringe SC SCH (05:11)
[2018-05-27] MEDS: Pantoprazole 40 mg EC Tab PO SCH (05:12)
[2018-05-27] MEDS: Potassium Chloride 20 mEq ER Tab PO SCH (08:06)
[2018-05-27] MEDS: Metoprolol Succinate 25 mg XL Tab PO SCH (08:06)
--- NOTE | 2018-05-27 08:09 | PN ---
DATE: 05/26/2018 SUBJECTIVE: The patient is seen sitting up in the recliner today in room 303. The patient was also being seen by Dr. Kaufman from Surgery regarding her hemorrhoid issue. The patient is sitting out of bed to recliner. The patient is alert, awake, responsive. REVIEW OF SYSTEMS: The patient's 13-system review was done. The patient denies chest pain. Denies shortness of breath. Denies nausea, denies vomiting, denies diarrhea. Complains of some perianal and hemorrhoidal problems which the patient has been experienced for which the patient has been seen and examined by the surgical service. PHYSICAL EXAMINATION: VITAL SIGNS: T-max 98.7; heart rate 68, 73, 82, 86; respiration 18-20; O2 sat is mid to high 90%. Blood pressure is 138/84, 129/74. HEENT: Head: Normocephalic, atraumatic. HEENT examination shows pinkish conjunctivae. Anicteric sclerae. No oropharyngeal lesion. No neck rigidity. CHEST: Kyphosis. LUNGS: Examination shows decreased breath sound at the bases, left more than the right. CARDIOVASCULAR: S1, S2, irregular rhythm. Positive systolic murmur at left sternal border, right second intercostal space, left second intercostal space. ABDOMEN: Morbidly obese, protuberant. Positive bowel sound. GENITALIA: Female. RECTAL: Examination is deferred. EXTREMITIES: Shows almost complete resolution of the 2 to 3+ pitting edema and lymphedema of the lower extremity. MUSCULOSKELETAL: Examination shows an elevated body mass index. NEUROLOGIC: Motor strength is 5/5. Cranial nerves II-XII limited. Gait examination is not tested. VASCULAR: Not appreciable. DIAGNOSTICS: None from 05/26. IMPRESSION: 1. Deconditioning. 2. Gait dysfunction. 3. Acute recurrent right-sided diastolic congestive heart failure with elevated BNP, pulmonary vascular congestion and cardiomegaly. 4. Pulmonary hypertension. 5. Morbid obesity with elevated body mass index. 6. Bilateral lower extremity venous stasis and lymphedema (resolving). 7. Internal hemorrhoids. 8. Anemia. 9. Atrial fibrillation. 10. Constipation. 11. Hypokalemia. 12. Diuretic induced contraction alkalosis. 13. Lymphedema of the lower extremity. PLAN: At this time, the patient is awaiting further surgical recommendations regarding management of the patient's hemorrhoid issue. The patient was offered by Dr. Kaufman outpatient followup in the office to address the hemorrhoid problem which the patient agrees to. At present, the patient will be continued on the Transitional Care Unit with daily physical therapy, ambulation therapy, occupational therapy, gait training and ambulation therapy. At present, the patient will be continued on the above therapeutic intervention as per the MAR. The patient will be continued on all the medications as per the MAR, which are reviewed and revised. The patient will has been reordered RAMSES stockings and SCDs. The patient's nurse was advised to place the RAMSES stockings for the patient. Dictated and electronically signed, not read. Kole Almanza MD
[2018-05-27] MEDS: Lidocaine 5% Patch TD SCH (09:58)
[2018-05-27] MEDS: POLYETHYLENE GLYCOL 3350 17 GM/Dose PACKET PO SCH ×3 (09:59→17:17)
--- NOTE | 2018-05-27 11:07 | PN ---
DATE: 05/27/2018 SUBJECTIVE: The patient is in room 303, bed 1. The patient is lying in the bed. The patient is alert, awake, responsive. The patient was seen by the surgical service yesterday for evaluation of hemorrhoid. PHYSICAL EXAMINATION: VITAL SIGNS: T-max afebrile; heart rate 58, 63, 74; blood pressure is running a little bit low at 96/64, 100/74; respiration 18-20; O2 sat is mid to high 90%. HEENT: Head examination normocephalic, atraumatic. HEENT examination shows pinkish pale conjunctivae. Anicteric sclerae. No oropharyngeal lesion. No neck rigidity. CHEST: Kyphosis. LUNGS: Shows no audible crackle, rales or wheezing. Questionable decreased breath sounds at the bases, left more than the right. CARDIOVASCULAR: S1, S2. Irregular rhythm. Positive systolic murmur, left second intercostal space, right second intercostal space, left sternal border. ABDOMEN: Obese. Positive bowel sounds, soft. Unable to appreciate any palpable hepatosplenomegaly or organomegaly. GENITALIA: Female. RECTAL: Deferred. EXTREMITY: Shows trace swelling of the lower extremity and trace pitting edema, which has significantly resolved since the admission on the acute care site. MUSCULOSKELETAL: Shows an elevated body mass index. Cranial nerves II through XII limited. Gait examination is not tested. VASCULAR: Palpable pulses. The patient's repeat blood pressure at this time is 105/69. The patient is asymptomatic. IMPRESSION AND PLAN: 1. Deconditioning. 2. Gait dysfunction. 3. Asymptomatic hypotension. 4. Possible hemorrhoid. 5. Morbid obesity with elevated body mass index. 6. Acute recurrent right-sided diastolic congestive heart failure with elevated BNP, pulmonary vascular congestion and pulmonary hypertension. 7. Morbid obesity. 8. Bilateral lower extremity lymphedema and venous stasis (resolving versus resolved). 9. Atrial fibrillation. 10. Mild normocytic anemia. 11. Diuretic-induced contraction metabolic alkalosis. 12. Obesity. 13. 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 14. History of constipation. Plan at this time, the patient will be monitored with hemodynamic status. The patient will be continued on the medications as per the MAR. Blood pressure monitoring will be closely checked. The patient will continue on Transitional Care Unit with daily physical therapy, occupational therapy, ambulation therapy, gait training. The patient has been advised by the Surgical Service and the surgical attending outpatient followup for evaluation and treatment of the hemorrhoid, which she acknowledged and understand. We will continue on the medications as per the MAR, which are reviewed from 05/27/2018. Dictated and electronically signed, not read. Kole Almanza MD
[2018-05-27] MEDS: Hydrocortisone 2.5% Rectal Cream(30 gm) PR SCH ×2 (13:53→17:16)
[2018-05-27] MEDS: Digoxin 125 mcg (0.125 mg) Tab PO SCH (14:02)
[2018-05-28] MEDS: Pantoprazole 40 mg EC Tab PO SCH (05:24)
[2018-05-28] MEDS: Enoxaparin 40 mg Syringe SC SCH (05:24)
[2018-05-28] MEDS: Potassium Chloride 20 mEq ER Tab PO SCH (07:40)
[2018-05-28] MEDS: Metoprolol Succinate 25 mg XL Tab PO SCH (07:41)
[2018-05-28] MEDS: Hydrocortisone 2.5% Rectal Cream(30 gm) PR SCH ×2 (09:55→17:19)
[2018-05-28] MEDS: Lidocaine 5% Patch TD SCH (09:56)
[2018-05-28] MEDS: POLYETHYLENE GLYCOL 3350 17 GM/Dose PACKET PO SCH ×3 (09:57→17:20)
[2018-05-28] MEDS: Digoxin 125 mcg (0.125 mg) Tab PO SCH (13:14)
--- NOTE | 2018-05-29 00:55 | PN ---
DATE: 05/28/2018 SUBJECTIVE: The patient is seen in room 303, bed 1. [facility] The patient is awake, responsive. The patient denies any chest pain or shortness of breath. The patient is comfortable watching TV. PHYSICAL EXAMINATION: VITAL SIGNS: T-max is 98.1. Heart rate 85 beats per minute. Blood pressure 112/83. Respiration 18, O2 sat is 95%-99%. HEENT: Head: Normocephalic, atraumatic. HEENT examination shows pink conjunctivae. Anicteric sclerae. No oropharyngeal lesion. No neck rigidity. CHEST: Kyphosis. LUNGS: Examination shows slightly decreased breath sound at the bases. CARDIOVASCULAR: S1, S2, irregular rhythm. Positive systolic murmur at left sternal border, right second intercostal space, left second intercostal space. ABDOMEN: Obese. Positive bowel sounds. No palpable appreciable hepatosplenomegaly or organomegaly noted. GENITALIA: Female. RECTAL: Examination is deferred. EXTREMITIES: Shows 1+ pitting edema or more than 1+ pitting edema of the lower extremity which has increased in the last 24-48 hours. The patient does not have RAMSES stockings on. The patient does not have SCDs on. MUSCULOSKELETAL: Examination shows elevated body mass index of 42. NEUROLOGIC: The patient is alert, awake, responsive, is able to move upper and lower extremities without assistance. Gait examination is not tested. DIAGNOSTICS: None. IMPRESSION: 1. Deconditioning. 2. Gait dysfunction. 3. Acute recurrent right-sided diastolic congestive heart failure with elevated BNP. 4. Pulmonary hypertension. 5. Recurrent bilateral lower extremity venous stasis and lymphedema. 6. Morbid obesity with elevated body mass index of 42. 7. Hypertension. 8. [id number] diabetes mellitus. 9. Mild contraction alkalosis. 10. Atrial fibrillation. 11. Possible hemorrhoids. 12. Constipation. 13. Hypokalemia. 14. 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 15. Hyperlipidemia. 16. Neuropathy. PLAN: At this time, the patient is to be continued on Transitional Care Unit stay. CURRENT MEDICATIONS: Anusol suppository per rectum twice a day, Colace 100 mg three times a day, digoxin 0.125 daily, aspirin 81 mg daily, K-Dur 20 mEq daily, Lasix changed to 40 mg IV push daily starting today. The patient is on Lidoderm 5% patch to the affected area daily, Lipitor 40 mg daily, Lovenox 40 mg subcu daily, MiraLax 17 g three times a day, Neurontin 100 mg at bedtime, Plavix 75 mg daily, Protonix 40 mg daily, Toprol XL 25 mg daily, Tylenol 650 mg p.o. or suppository every 6 p.r.n., Zestril 5 mg daily, Zofran 4 mg IV every 4 p.r.n. The patient has been ordered RAMSES stockings, thigh-high SCDs and SCD devices ordered. The patient has been ordered continuation of the physical therapy, occupational therapy, ambulation therapy, gait training. The patient will be continued on above therapeutic intervention. Dictated and electronically signed, not read. Kole Almanza MD
[2018-05-29] MEDS: Enoxaparin 40 mg Syringe SC SCH (05:52)
[2018-05-29] MEDS: Pantoprazole 40 mg EC Tab PO SCH (05:52)
[2018-05-29] MEDS: Potassium Chloride 20 mEq ER Tab PO SCH (08:27)
[2018-05-29] MEDS: Metoprolol Succinate 25 mg XL Tab PO SCH (08:28)
[2018-05-29] MEDS: Hydrocortisone 2.5% Rectal Cream(30 gm) PR SCH ×2 (09:41→17:05)
[2018-05-29] MEDS: Lidocaine 5% Patch TD SCH (09:41)
[2018-05-29] MEDS: POLYETHYLENE GLYCOL 3350 17 GM/Dose PACKET PO SCH ×3 (09:42→17:06)
[2018-05-29] MEDS: Digoxin 125 mcg (0.125 mg) Tab PO SCH (13:35)
--- NOTE | 2018-05-29 20:06 | CP.PCM.PCO ---
Physician Communication Note - Physician Communication Note Physician Communication Note: Plan office hemorrhoid Banding p D/C
--- NOTE | 2018-05-29 23:20 | PN ---
DATE: 05/29/2018 SUBJECTIVE: The patient was seen lying in the bed. The patient was seen around 9:00 a.m. in the morning. The patient was seen lying in the bed. The patient was sleeping, but arousable. Overnight nurse's notes were reviewed. PHYSICAL EXAMINATION: VITAL SIGNS: T-max 98.5. Heart rate 68, 67. Blood pressure in the last 24 hours 118/60, 90/52, 143/78; respirations 16; O2 sat 99-100%. HEENT: Head examination normocephalic, atraumatic. HEENT examination shows pink conjunctivae. Anicteric sclerae. No oropharyngeal lesion. NECK: No neck rigidity. CHEST: Kyphosis. LUNGS: Shows decreased breath sounds at the bases. CARDIOVASCULAR: S1, S2. Irregular rhythm. Positive systolic murmur, left sternal border, right second intercostal space. ABDOMEN: Soft, obese, protuberant. Positive bowel sound. No palpable hepatosplenomegaly noted. GENITALIA: Female. RECTAL: Deferred. EXTREMITY: Shows positive SCDs. Positive pitting edema of the lower extremity. MUSCULOSKELETAL: Shows a body mass index of almost 43. NEUROLOGICAL: The patient is alert, awake, responsive, is able to move upper and lower extremity without assistance. Gait examination is not tested. LABORATORY DATA: Fingerstick blood sugar 97, 88, 100, 131, 106, 121. IMPRESSION AND PLAN: 1. Transient asymptomatic hypotension (resolved). 2. Severe gait dysfunction and deconditioning. 3. Super morbid obesity with elevated body mass index of 43. 4. Diuretic-induced contraction alkalosis. 5. Noninsulin, non-oral hypoglycemic requiring diabetes mellitus. 6. Hemorrhoids. 7. Internal hemorrhoid with history of constipation. 8. Acute recurrent right-sided diastolic congestive heart failure with elevated BNP and bilateral lower extremity lymphedema and venous stasis. 9. Constipation. 10. Hypokalemia. 11. Hyperlipidemia. 12. Constipation. 13. History of hypertension. Plan at this time, the patient is to be continued on Transitional Care Unit until approved number of days. The patient will continue on daily physical therapy, occupational therapy, ambulation therapy, gait training. The patient has been ordered repeat chemistry, LFTs, magnesium, phosphorus for the morning. The patient's current medications are Anusol suppository twice a day, Colace 100 mg three times a day, digoxin 0.125 mg daily, Ecotrin 81 mg daily, K-Dur 20 mEq daily, Lasix 40 mg IV daily, Lidoderm 5% patch to the affected area daily, Lipitor 40 mg daily, Lovenox 40 mg subcu daily, MiraLax 17 g three times a day, Neurontin 100 mg at bedtime, Plavix 75 mg daily, Protonix 40 mg daily, Toprol-XL 25 mg daily, Tylenol 650 every 6 p.r.n. p.o. suppository, Zestril 5 mg daily, Zofran 4 mg IV every 4 p.r.n. Incentive spirometry, oxygen 2 L p.r.n. Heart-healthy diet, SCDs, RAMSES stockings. Head of the bed at 30 degrees. Intake, output. Out of bed. Physical therapy, occupational therapy all ordered. At present, the patient will be continued discussed above. The patient will be continued on physical therapy, ambulation therapy, gait training. The patient updated about her condition. The patient encouraged to be out of bed to recliner. Dictated and electronically signed, not read. Kole Almanza MD
[2018-05-29] MEDS: Fluticasone Nasal 50 mcg/Spray NS SCH (23:37)
[2018-05-30] MEDS: Enoxaparin 40 mg Syringe SC SCH (06:02)
[2018-05-30] MEDS: Pantoprazole 40 mg EC Tab PO SCH (06:03)
[2018-05-30] MEDS: Potassium Chloride 20 mEq ER Tab PO SCH (08:02)
[2018-05-30] MEDS: Metoprolol Succinate 25 mg XL Tab PO SCH (08:03)
--- NOTE | 2018-05-30 08:11 | CP.PCM.PN ---
Subjective - Date & Time of Evaluation Date of Evaluation: 05/30/18 Time of Evaluation: 07:50 - Subjective Subjective: (covering for Dr. Almanza) Patient is seen this morning. She says she is feeling better. She denies shortness of breath or chest pain. Objective - Vital Signs/Intake and Output Vital Signs (last 24 hours): Temp Pulse Resp BP Pulse Ox 98.5 F 62 16 109/52 L 95 05/29/18 16:00 05/30/18 08:03 05/29/18 16:00 05/30/18 08:03 05/29/18 16:20 Intake and Output: 05/30/18 05/30/18 06:59 18:59 Output Total 650 Balance -650 - Medications Medications: Current Medications Acetaminophen (Tylenol 325mg Tab) 650 mg PO Q6H PRN; Protocol PRN Reason: Fever >99.5 F Acetaminophen (Tylenol 650 Mg Supp) 650 mg RC Q6 PRN; Protocol PRN Reason: Fever >99.5 F Aspirin (Ecotrin) 81 mg PO 0800 FATOU; Protocol Last Admin: 05/30/18 08:02 Dose: 81 mg Atorvastatin Calcium (Lipitor) 40 mg PO DIN FATOU; Protocol Last Admin: 05/29/18 17:06 Dose: 40 mg Clopidogrel Bisulfate (Plavix) 75 mg PO DAILY FATOU; Protocol Last Admin: 05/29/18 09:42 Dose: 75 mg Digoxin (Digoxin) 0.125 mg PO 1400 FATOU; Protocol Last Admin: 05/29/18 13:35 Dose: 0.125 mg Docusate Sodium (Colace) 100 mg PO TID FATOU; Protocol Last Admin: 05/29/18 17:05 Dose: 100 mg Enoxaparin Sodium (Lovenox) 40 mg SC 0600 FATOU; Protocol Last Admin: 05/30/18 06:02 Dose: 40 mg Fluticasone Propionate (Flonase) 1 actuation NS BID FATOU Last Admin: 05/29/18 23:37 Dose: 1 spr Furosemide (Lasix) 40 mg IVP 1000 FATOU Gabapentin (Neurontin) 100 mg PO HS FATOU; Protocol Last Admin: 05/29/18 21:16 Dose: 100 mg Hydrocortisone (Anusol-Hc) 0 gm PA BID FATOU; Protocol Last Admin: 05/29/18 17:05 Dose: Not Given Lidocaine (Lidoderm) 1 ea TD DAILY FATOU; Protocol Last Admin: 05/29/18 09:41 Dose: 1 ea Lisinopril (Zestril) 5 mg PO DAILY FATOU; Protocol Last Admin: 05/29/18 09:42 Dose: 5 mg Loratadine (Claritin) 10 mg PO DAILY FATOU Last Admin: 05/29/18 23:37 Dose: 10 mg Metoprolol Succinate (Toprol Xl) 25 mg PO BRK FATOU; Protocol Last Admin: 05/30/18 08:03 Dose: 25 mg Ondansetron HCl (Zofran Inj) 4 mg IVP Q4H PRN; Protocol PRN Reason: Nausea/Vomiting Last Admin: 05/27/18 18:16 Dose: 4 mg Pantoprazole Sodium (Protonix Ec Tab) 40 mg PO 0600 FATOU; Protocol Last Admin: 05/30/18 06:03 Dose: 40 mg Polyethylene Glycol (Miralax) 17 gm PO TID FATOU; Protocol Last Admin: 05/29/18 17:06 Dose: 17 gm Potassium Chloride (K-Dur 20 Meq Er Tab) 20 meq PO 0800 FATOU; Protocol Last Admin: 05/30/18 08:02 Dose: 20 meq - Labs Labs: 05/25/18 07:00 - Constitutional Appears: No Acute Distress - Head Exam Head Exam: ATRAUMATIC, NORMOCEPHALIC - Respiratory Exam Respiratory Exam: Decreased Breath Sounds, NORMAL BREATHING PATTERN - Cardiovascular Exam Cardiovascular Exam: REGULAR RHYTHM, +S1, +S2 - GI/Abdominal Exam GI & Abdominal Exam: Soft, Normal Bowel Sounds. absent: Tenderness - Neurological Exam Neurological Exam: Alert, Awake, Oriented x3 Assessment and Plan - Assessment and Plan (Free Text) Assessment: Gait dysfunction Chronic diastolic heart failure Hemorrhoids HTN Morbid obesity Plan: Patient is lying in bed in room 303 bed 1. She denies any new complaints. She will continue her medications. continue physical therapy.
[2018-05-30 10:02] LABS: ALB/GLOB RATIO 0.8 (1.1-1.8); ALBUMIN 3.2 g/dL (3.0-4.8); BILIRUBIN,DIRECT 0.2 mg/dL (0.0-0.4); BLOOD UREA NITROGEN 20 mg/dL (7-21); CALCIUM 8.6 mg/dL (8.4-10.5); GFR NON-AFRICAN AMERICAN > 60
[2018-05-30 10:03] LABS: ALT/SGPT 23 U/L (7-56); AST/SGOT 25 U/L (14-36)
[2018-05-30] MEDS: Hydrocortisone 2.5% Rectal Cream(30 gm) PR SCH ×2 (10:42→17:14)
[2018-05-30] MEDS: Fluticasone Nasal 50 mcg/Spray NS SCH ×2 (10:43→17:14)
[2018-05-30] MEDS: Lidocaine 5% Patch TD SCH (10:43)
[2018-05-30] MEDS: POLYETHYLENE GLYCOL 3350 17 GM/Dose PACKET PO SCH ×3 (10:44→17:15)
[2018-05-30] MEDS: Lubricant Eye Drops UD OU SCH ×2 (10:44→17:15)
[2018-05-30] MEDS: Digoxin 125 mcg (0.125 mg) Tab PO SCH (13:26)
[2018-05-30] MEDS ORDERED: Alum-Mag Hydrox-Simethicone Susp (30 mL) PO PRN (13:44)
[2018-05-30] MEDS ORDERED: Alum-Mag Hydrox-Simethicone Susp (30 mL) PO ONE (13:44)
[2018-05-31] MEDS: Enoxaparin 40 mg Syringe SC SCH (05:55)
[2018-05-31] MEDS: Pantoprazole 40 mg EC Tab PO SCH (05:55)
[2018-05-31] MEDS: Potassium Chloride 20 mEq ER Tab PO SCH (08:02)
[2018-05-31] MEDS: Metoprolol Succinate 25 mg XL Tab PO SCH (08:03)
[2018-05-31] MEDS: Hydrocortisone 2.5% Rectal Cream(30 gm) PR SCH ×2 (10:33→17:12)
[2018-05-31] MEDS: POLYETHYLENE GLYCOL 3350 17 GM/Dose PACKET PO SCH ×3 (10:35→17:13)
[2018-05-31] MEDS: Lidocaine 5% Patch TD SCH (10:35)
[2018-05-31] MEDS: Lubricant Eye Drops UD OU SCH ×2 (10:36→17:13)
[2018-05-31] MEDS: Fluticasone Nasal 50 mcg/Spray NS SCH ×2 (11:10→17:13)
[2018-05-31] MEDS: Digoxin 125 mcg (0.125 mg) Tab PO SCH (14:42)
[2018-05-31 14:44] VITALS: PULSE 62
--- NOTE | 2018-06-01 03:01 | PN ---
DATE: 05/31/2018 SUBJECTIVE: The patient was seen sitting up in the recliner. Patient is alert, awake, responsive, does not appear to be in any distress. The patient is in the process of being assisted by the physical therapy for ambulation, but the patient stood up from the bed and stood for few seconds with the walker and then sat down in the chair, in the recliner. PHYSICAL EXAMINATION: VITAL SIGNS: T-max 98.3, pulse 70, 59, blood pressure 124/63, 138/74, 138/74, respiration 20, O2 sat is 100-98%. HEAD: Normocephalic, atraumatic. HEENT examination shows pinkish conjunctivae. Anicteric sclerae. No oropharyngeal lesion. No neck rigidity. CHEST: Kyphosis. LUNGS: Shows no rales, crackles or wheezing. Questionable decreased breath sound at the bases. CARDIOVASCULAR: S1, S2, regular irregular rhythm. Positive systolic murmur in left sternal border, right second intercostal space, left second intercostal space. ABDOMEN: Morbidly obese with no palpable hepatosplenomegaly noted. GENITALIA: Female. RECTAL: Deferred. EXTREMITIES: Shows positive swelling of the lower extremity. No RAMSES stockings noted. MUSCULOSKELETAL: Shows a body mass index of 39.5. NEUROLOGIC: The patient is alert, awake, responsive, is able to move upper and lower extremities without assistance. Gait examination could not be tested as the patient stood up from the bed with assistance of physical therapy and walker and then sat down in the recliner. Fingerstick blood sugar 124, 141, 102, 98, 139. During the night, the patient slept well. IMPRESSION AND PLAN: 1. Gait dysfunction. 2. Deconditioning. 3. Internal hemorrhoid. 4. Hypertension. 5. Atrial fibrillation. 6. Morbid obesity. 7. Acute recurrent right-sided diastolic congestive heart failure with venous stasis of the lower extremity and elevated ProBNP. 8. Contraction metabolic alkalosis secondary to diuretic. 9. Iyk-iyzxfaq-evncuaggy diabetes mellitus. 10. Bilateral lower extremity lymphedema. 11. Degenerative joint disease of the knees and the spine. 12. Morbid obesity. 13. History of constipation and internal hemorrhoid. 14. Questionable rhinitis. 15. Hypokalemia. 16. Hyperlipidemia. 17. Diabetic neuropathy. PLAN: At this time, the patient is to be continued on Transitional Care Unit until approved number of days. The patient will be continued on daily physical therapy, occupational therapy, ambulation therapy, gait training. Current medications, Anusol-hydrocortisone suppository twice a day per rectum, Claritin 10 mg daily, Colace 100 mg 3 times a day, digoxin 0.125 mg daily, Ecotrin 81 mg daily, Flonase nasal spray 1 spray each nostril twice a day, K-Dur 20 mEq daily, Lasix 40 mg daily, Lidoderm 5% patch to the affected area. Lipitor 40 mg daily, Lovenox 40 mg subcu daily, Maalox p.r.n., MiraLax 17 g 3 times a day. Neurontin 100 mg at bedtime, Plavix 75 mg daily, Protonix 40 mg daily, Refresh eye drops twice a day, Toprol XL 25 mg daily, Tylenol 650 mg p.o. suppository every 6 hours p.r.n., Zestril 5 mg daily, Zofran 4 mg IV every 4 hours p.r.n. In addition, the patient at present is requesting home O2 for which the patient was advised if the patient's room air oxygen is at certain level and is above certain level, the home O2 most likely will not be approved, but the patient's case was referred to aids social worker, case management and home O2 if the patient is found eligible. The patient will be continued on the above therapeutic intervention as above. Dictated and electronically signed, not read. Kole Almanza MD
[2018-06-01] MEDS: Pantoprazole 40 mg EC Tab PO SCH (05:53)
[2018-06-01] MEDS: Enoxaparin 40 mg Syringe SC SCH (05:53)
[2018-06-01] MEDS: Potassium Chloride 20 mEq ER Tab PO SCH (07:57)
[2018-06-01] MEDS: Metoprolol Succinate 25 mg XL Tab PO SCH (07:59)
[2018-06-01 09:14] VITALS: RESP 18
[2018-06-01 10:06] VITALS: BP 120/60; PULSE 62; TEMP 97.8; O2SAT 98
[2018-06-01] MEDS: Lidocaine 5% Patch TD SCH (10:36)
[2018-06-01] MEDS: Hydrocortisone 2.5% Rectal Cream(30 gm) PR SCH (10:37)
[2018-06-01] MEDS: Fluticasone Nasal 50 mcg/Spray NS SCH (10:37)
[2018-06-01] MEDS: POLYETHYLENE GLYCOL 3350 17 GM/Dose PACKET PO SCH (10:38)
[2018-06-01] MEDS: Lubricant Eye Drops UD OU SCH (10:38)
[2018-06-01] MEDS ORDERED: Furosemide 40 mg/5 mL Oral Soln UD PO SCH (11:15)
--- NOTE | 2018-06-02 06:09 | DS ---
FINAL PROGRESS NOTE AND DISCHARGE SUMMARY HISTORY OF PRESENT ILLNESS: The patient is seen in room 303, bed 1. The patient is getting cleaned up by the inpatient nursing aide. Overnight nurse's notes were reviewed. The patient was found to be alert, awake, oriented x3 by the nurses. No adverse events documented. The patient denies any chest pain or shortness of breath. PHYSICAL EXAMINATION: VITAL SIGNS: T-max 97.8; pulse 56, 62; blood pressure 113/54, 120/60; respiration 18; O2 sat 98%. GENERAL: The patient is seen lying in the bed. HEENT: Head: Normocephalic, atraumatic. HEENT examination shows pinkish conjunctivae. Anicteric sclerae. No oropharyngeal lesion. No neck rigidity. CHEST: Kyphosis. LUNGS: Examination shows decreased breath sound at the bases, left more than right. CARDIOVASCULAR: S1, S2, irregular rhythm. Positive systolic murmur at left sternal border, right second intercostal space, left second intercostal space. ABDOMEN: Soft. Positive bowel sounds. GENITALIA: Female. RECTAL: Examination is deferred. EXTREMITIES: Decreased swelling of the lower extremity. MUSCULOSKELETAL: Examination shows a body mass index of 42.4. NEUROLOGIC: The patient is alert, awake, responsive. The patient is able to move upper and lower extremities without assistance. DIAGNOSTICS: Fingerstick blood sugar 130, 82, 124. IMPRESSION AND PLAN: 1. Deconditioning. 2. Gait dysfunction. 3. Acute recurrent right-sided diastolic congestive heart failure. 4. Exertional desaturation and exercise-induced desaturation with hypoxemia. 5. Morbid obesity. 6. Acute recurrent diastolic congestive heart failure with lymphedema and bilateral lower extremity venous stasis and elevated brain natriuretic peptide. 7. Hypertension. 8. Atrial fibrillation. 9. Kyf-jcnilwo-lefibvrkv diabetes mellitus. 10. Diuretic-induced metabolic alkalosis. 11. Internal hemorrhoid. 12. Constipation. 13. Rhinitis. 14. Hypokalemia. 15. Hyperlipidemia. 16. Diabetic neuropathy. At present, the patient is to be discharged home after completion of Transitional Care Unit stay. Case was referred to [facility] for home oxygen. The patient was discharged under the care of the patient's family and next of kin. The patient's home oxygen was arranged through the [employer] [employer] [facility], Case Management. The patient was educated about the use of the home O2. DISCHARGE MEDICATIONS: As follows; Tylenol 650 mg p.o. or suppository every 6 p.r.n., Lac-Hydrin lotion to both feet and legs daily, Ecotrin 81 mg daily, Lipitor 40 mg daily, Plavix 75 mg daily, digoxin 0.125 daily, Colace 100 mg three times a day, Flonase nasal spray 1 puff each nostril twice a day, Lasix 40 mg p.o. daily, Neurontin 100 mg at bedtime, Anusol suppository twice a day per rectum, Lidoderm 5% patch to the affected area, Zestril 5 mg daily, Claritin 10 mg daily, Toprol XL 25 mg daily, Protonix 40 mg daily, MiraLax 17 g three times a day, K-Dur 20 mEq daily. The patient was discharged home. DISCHARGE FOLLOWUP: With Dr. Christine Garcia or Dr. Kole Almanza. During this hospitalization, the patient was extensively explained about her condition, diagnosis, treatment plan, management plan, outpatient followup plan. All details discussed and explained to the patient during this hospitalization at length and all questions concerned answered. Time spent in the discharge process 45 minutes. Dictated and electronically signed, not read. Kole Almanza MD
== END 2018-06-01 13:53 | disposition home or self-care (01) | DRG 91 ==
LOC: TRCU 16:38
PROVIDERS: ADMIT Internal Medicine; ATTEND Internal Medicine
PROC: F07Z8FZ Transfer Training Treatment using Assistive, Adaptive, Supportive or Protective Equipment (ICD-10-PCS; principal; 2018-05-26)
PROC: F08Z2FZ Grooming/Personal Hygiene Treatment using Assistive, Adaptive, Supportive or Protective Equipment (ICD-10-PCS; 2018-05-26)
PROC: F08Z1FZ Dressing Techniques Treatment using Assistive, Adaptive, Supportive or Protective Equipment (ICD-10-PCS; 2018-05-26)
PROC: F07Z9FZ Gait Training/Functional Ambulation Treatment using Assistive, Adaptive, Supportive or Protective Equipment (ICD-10-PCS; 2018-05-27)
PROC: F07L6YZ Therapeutic Exercise Treatment of Musculoskeletal System - Lower Back / Lower Extremity using Other Equipment (ICD-10-PCS; 2018-05-27)
DX: R26.89 Other abnormalities of gait and mobility (principal); I50.33 Acute on chronic diastolic (congestive) heart failure; Z68.41 Body mass index [BMI] 40.0-44.9, adult; E87.3 Alkalosis; I11.0 Hypertensive heart disease with heart failure; E11.40 Type 2 diabetes mellitus with diabetic neuropathy, unspecified; D64.9 Anemia, unspecified; E66.01 Morbid (severe) obesity due to excess calories; K59.00 Constipation, unspecified; K64.4 Residual hemorrhoidal skin tags; K64.8 Other hemorrhoids; M17.0 Bilateral primary osteoarthritis of knee; M47.9 Spondylosis, unspecified; I89.0 Lymphedema, not elsewhere classified; I27.20 Pulmonary hypertension, unspecified; I87.8 Other specified disorders of veins; E78.5 Hyperlipidemia, unspecified; I48.2 Chronic atrial fibrillation; I25.10 Atherosclerotic heart disease of native coronary artery without angina pectoris; J31.0 Chronic rhinitis; Z86.73 Personal history of transient ischemic attack (TIA), and cerebral infarction without residual deficits

== ENCOUNTER 2018-11-05 16:50 | Inpatient (IN) | payer MEDICARE ==
--- NOTE | 2018-11-05 17:18 | ED PDOC ---
Arrival/HPI - General Chief Complaint: Lower Extremity Problem/Injury Time Seen by Provider: 11/05/18 16:51 Historian: Patient - History of Present Illness Narrative History of Present Illness (Text): 11/05/18 17:14 A 88 year old female, whose past medical history includes CHF, hypertension, diabetes, atrial fibrillation, and thyroidectomy, presents to the emergency department complaining of left leg weakness since yesterday. Patient reports she is on home oxygen at 2 liters and states having issues with hemorrhoids that she would like to discuss with me. Patient denies any numbness or pain to left leg. Patient denies chest pain, shortness of breath, upper extremity weakness, trouble speaking or seeing, or any other complaints. PMD: Kalina Richard Last Admission was under Dr. Almanza Time/Duration: 24 hours (yesterday) Symptom Onset: Gradual Symptom Course: Unchanged Activities at Onset: Light Context: Home Past Medical History - Provider Review Nursing Documentation Reviewed: Yes - Infectious Disease Hx of Infectious Diseases: None - Cardiac Hx Cardiac Disorders: Yes Hx Congestive Heart Failure: Yes Hx Hypertension: Yes - Pulmonary Hx Chronic Obstructive Pulmonary Disease (COPD): No - Neurological HX Cerebrovascular Accident: Yes - HEENT Hx HEENT Disorder: Yes Hx Blind: No Hx Cataracts: Yes Hx Deafness: No Hx Difficulty Chewing: No Hx Epistaxis: No Hx Glaucoma: No - Renal Hx Renal Disorder: No - Endocrine/Metabolic Hx Diabetes Mellitus Type 2: Yes - Hematological/Oncological Hx Blood Disorders: No - Integumentary Hx Dermatological Disorder: No Hx Basal Cell Carcinoma: No Hx Eczema: No Hx Melanoma: No Hx Psoriasis: No Hx Squamous Cell Carcinoma: No - Musculoskeletal/Rheumatological Hx Falls: No - Gastrointestinal Hx Gastrointestinal Disorders: Yes Hx Constipation: Yes - Genitourinary/Gynecological Hx Genitourinary Disorders: Yes - Psychiatric Hx Psychophysiologic Disorder: No Hx Substance Use: No - Surgical History Hx Thyroidectomy: Yes (benign per patient) - Anesthesia Hx Anesthesia: Yes Family/Social History - Physician Review Nursing Documentation Reviewed: Yes Family/Social History: No Known Family HX Smoking Status: Never Smoked Hx Alcohol Use: No Hx Substance Use: No Allergies/Home Meds Allergies/Adverse Reactions: Allergies No Known Allergies Allergy (Verified 11/05/18 16:54) Review of Systems - Physician Review All systems were reviewed & negative as marked: Yes - Review of Systems Eyes: absent: Other (no trouble seeing) ENT: absent: Other (no trouble speaking) Respiratory: absent: SOB Cardiovascular: absent: Chest Pain Musculoskeletal: absent: Back Pain Neurological: Other (left leg weakness; denies numbness to leg, upper extremity weakness or numbness, ) Physical Exam Vital Signs Reviewed: Yes Vital Signs Temp Pulse Resp BP Pulse Ox 11/05/18 17:11 98.2 F 51 L 18 149/67 99 Temperature: Afebrile Blood Pressure: Normal Pulse: Bradycardic Respiratory Rate: Normal Mental Status: Positive for: Alert and Oriented X 3 - Systems Exam Head: Present: Atraumatic, Normocephalic Pupils: Present: PERRL Extroacular Muscles: Present: EOMI Conjunctiva: Present: Normal Respiratory/Chest: Present: Clear to Auscultation, Good Air Exchange. No: Respiratory Distress, Accessory Muscle Use Abdomen: No: Tenderness, Distention, Peritoneal Signs Rectal: Present: Normal Rectal Tone. No: Occult Blood, Rectal Tenderness, Gross Blood, Melena, Hemorrhoids, Fissures, Nodule/Mass/Lesions Lower Extremity: Present: Edema (+2 lower left extremity edema), Other (decreased strength to lower left extremity; strength intact in upper and right lower extemity ) Neurological: Present: GCS=15, CN II-XII Intact, Speech Normal Skin: Present: Warm Psychiatric: Present: Alert, Oriented x 3, Normal Insight, Normal Concentration Medical Decision Making ED Course and Treatment: 11/05/18 17:17 Impression: 88 year old female presenting to the emergency room complaining of left leg weakness. Differential Diagnosis included but are not limited to: CVA vs. chronic leg weakness Plan: -- Type and screen -- Head CT without contrast -- EKG -- Labs -- CBC -- COAGs -- Chest X-ray -- Reassess and disposition Prior Visits: Notes and results from previous visits were reviewed. Progress Notes: 11/05/18 17:17 EKG: Ordered, reviewed, and independently interpreted the EKG. Rate : 60 BPM Rhythm : Atrial fibrillation. 11/05/18 18:33 I explained to the patient that her PMD Dr. Kalina aGrcia admits to Dr. Young but that Dr. Almanza admitted her on her last admission. She said she'd stay with Dr. Almanza. 11/05/18 18:43 CXR negative. Signed out to Dr. Gomes to f/u CT, reevaluation, and disposition. - RAD Interpretation Radiology Orders: 11/05/18 17:04 HEAD W/O CONTRAST [CT] Stat CHEST PORTABLE [RAD] Stat NIHSS Scale ([place]) Time Performed: 17:15 - How Severe is the Stoke Baseline Level of Consciousness: 0=Alert LOC to Questions: 0=Both comments correct LOC to commands: 0=Obeys both correctly Best Gaze: 0=Normal Visual: 0=No visual loss Facial: 0=Normal Motor Arm - Left: 0=No drift Motor Arm - Right: 0=No drift Motor Leg - Left: 1=Drift before 5 sec Motor Leg - Right: 0=No drift Limb Ataxia: 0=Absent Sensory: 0=Normal Best Language: 0=No aphasia Dysarthia: 0=Normal articulation Extinction & Inattention (Neglect): 0=Normal, no object Score: 1 Risk Level: Minor Stroke Risk rTPA Inclusion/Exclusion - Refusal of Treatment Patient Refused Treatment: No - Inclusion Criteria for Altepase Patient is 18 years or Older: Yes The Clinical Diagnosis of Ischemic Stroke That is Causing a Potentially Disabling Neurological Deficit: No Time of Onset is Well Established to be Less Than 270 Minute Before Treatment Would Begin: No Risk/Benefit Discussed With Patient/Family Member Present: No - Scribe Statement The provider has reviewed the documentation as recorded by the Dominick Pickard All medical record entries made by the Scribe were at my direction and personally dictated by me. I have reviewed the chart and agree that the record accurately reflects my personal performance of the history, physical exam, medical decision making, and the department course for this patient. I have also personally directed, reviewed, and agree with the discharge instructions and disposition. Disposition/Present on Arrival - Present on Arrival Any Indicators Present on Arrival: No History of DVT/PE: No History of Uncontrolled Diabetes: No Urinary Catheter: No History of Decub. Ulcer: No History Surgical Site Infection Following: None - Disposition Have Diagnosis and Disposition been Completed?: Yes Diagnosis: Leg weakness Disposition Time: 19:05 Condition: FAIR Forms: Electronifie (Lao)
[2018-11-05 17:47] LABS: BASO # 0.02 K/mm3 (0.0-2.0); BASO % 0.4 % (0.0-3.0); EOS # 0.1 (0.0-0.7); EOS % 1.4 % (1.5-5.0); HEMOGLOBIN 12.7 g/dL (12.0-16.0); LYMPH # 1.2 (1.2-3.4); LYMPH % 23.5 % (22.0-35.0); MEAN CELL VOLUME 83.6 fl (80.0-105.0); MEAN CORPUSCULAR HEMOGLOBIN 27.4 pg (25.0-35.0); MEAN CORPUSCULAR HGB CONC 32.7 g/dl (31.0-37.0); MONO # 0.5 (0.1-0.6); MONO % 8.9 % (1.0-6.0); RBC 4.64 10^6/uL (3.5-6.1); RED CELL DISTRIBUTION WIDTH 15.8 % (11.5-14.5); WHITE BLOOD COUNT 5.1 10^3/uL (4.5-11.0)
[2018-11-05 18:31] LABS: PLATELET COUNT 180 10^3/uL (120.0-450.0)
--- NOTE | 2018-11-05 18:48 | RAD ---
Date of service: 11/05/2018 HISTORY: Code Stroke COMPARISON: 05/13/2018 FINDINGS: LUNGS: The lungs are well inflated and clear. PLEURA: No pleural effusions or pneumothorax. CARDIOVASCULAR: Persistent severe cardiomegaly. No aortic atherosclerotic calcifications present. OSSEOUS STRUCTURES: Within normal limits for the patient's age. VISUALIZED UPPER ABDOMEN: Normal. OTHER FINDINGS: There are multiple surgical clips overlying the right lower neck. IMPRESSION: No active pulmonary disease. Severe cardiomegaly.
[2018-11-05 18:49] LABS: INR 1.09; PARTIAL THROMBOPLASTIN TIME 33.1 Seconds (26.9-38.3); PROTHROMBIN TIME 12.1 SECONDS (9.4-12.5)
--- NOTE | 2018-11-05 19:28 | CARD ---
APPROVED REPORT Date of service: 11/05/2018 EKG Measurement Heart [id number] <Conclusion> Atrial fibrillation Nonspecific T wave abnormality, Abnormal ECG
[2018-11-05 19:43] LABS: ALB/GLOB RATIO 0.9 (1.1-1.8); ALT/SGPT 26 U/L (7-56); AST/SGOT 35 U/L (14-36); BLOOD UREA NITROGEN 16 mg/dL (7-21); GFR NON-AFRICAN AMERICAN > 60; HDL CHOLESTEROL 48 mg/dL (29-60)
[2018-11-05 19:54] LABS: LDL CHOLESTEROL 71 mg/dL (0-129)
--- NOTE | 2018-11-05 20:11 | ED PDOC ---
Physical Exam Vital Signs Temp Pulse Resp BP Pulse Ox 11/05/18 17:30 54 L 18 149/67 99 11/05/18 17:11 98.2 F 51 L 18 149/67 99 Medical Decision Making ED Course and Treatment: 11/05/18 20:11 Patient signed out by . Results for imaging still pending. 11/05/18 20:18 CT Head, reviewed by radiologist: IMPRESSION: Small to moderate-sized low-density infarct at the left posterior parietal region. Clinical correlation advised. Electronically signed on Nov 05, 2018 7:44:18 PM EDT by: Scott Carpio M.D., Certified by [facility], Diagnostic Radiology CT head read reviewed and discussed with patient. Will admit for new L leg weakness with possible infarct on CT, although location of lesion does not correlate with deficit. Case discussed with Dr. Villarreal for consult. Case discussed with Dr. Almanza who knows the patient well, accepts patient to his service for admission. - Lab Interpretations Lab Results: PT 12.1 SECONDS (9.4-12.5) 11/05/18 18:20 INR 1.09 11/05/18 18:20 APTT 33.1 Seconds (26.9-38.3) 11/05/18 18:20 Total Bilirubin 0.6 mg/dL (0.2-1.3) 11/05/18 18:20 AST 35 U/L (14-36) 11/05/18 18:20 ALT 26 U/L (7-56) 11/05/18 18:20 Alkaline Phosphatase 140 U/L (38-126) H 11/05/18 18:20 Total Protein 8.3 g/dL (5.8-8.3) 11/05/18 18:20 Albumin 4.0 g/dL (3.0-4.8) 11/05/18 18:20 Globulin 4.3 gm/dL 11/05/18 18:20 Albumin/Globulin Ratio 0.9 (1.1-1.8) L 11/05/18 18:20 - RAD Interpretation Radiology Orders: 11/05/18 17:04 HEAD W/O CONTRAST [CT] Stat CHEST PORTABLE [RAD] Stat - Scribe Statement The provider has reviewed the documentation as recorded by the Scribe Disposition/Present on Arrival - Present on Arrival Any Indicators Present on Arrival: No History of DVT/PE: No History of Uncontrolled Diabetes: No Urinary Catheter: No History of Decub. Ulcer: No History Surgical Site Infection Following: None - Disposition Have Diagnosis and Disposition been Completed?: Yes Diagnosis: Leg weakness Disposition: HOSPITALIZED Disposition Time: 20:47 Patient Problems: Current Active Problems Problem Status Onset Leg weakness Acute Condition: FAIR
[2018-11-05 20:54] LABS: TROPONIN I 0.02 ng/mL
[2018-11-05 20:55] LABS: B-TYPE NATRIURETIC PEPTIDE 2450 pg/mL (0-450)
--- NOTE | 2018-11-05 20:55 | CP.PCM.HP ---
<Marzena Jean L - Last Filed: 11/06/18 00:30> History of Present Illness - History of Present Illness History of Present Illness: Resident History & Physical for Dr. Almanza Patient is a 88 year old female with past medical history of HTN, diastolic CHF, atrial fibrillation, T2DM, DVT, CVA, obesity presenting with chief complaint of acute left lower extremity weakness which began earlier today. Patient has baseline lower extremity weakness due to chronic swelling and ambulates with a walker. Patient states this weakness is new and her lower lower extremity feels like a weight. Patient also admits to dizziness. Denies hearing or vision changes, headache, shortness of breath, chest pain, abdominal pain, diarrhea, dysuria. PMH: HTN, diastolic CHF, atrial fibrillation, T2DM, DVT, CVA, obesity PSH: thyroidectomy, right knee surgery, hemorrhoidectomy SHx: denies alcohol, tobacco, illicit drug use Allergies: NKDA PMD: Dr. Kalina Richard Present on Admission - Present on Admission Any Indicators Present on Admission: No Review of Systems - Review of Systems All systems: reviewed and no additional remarkable complaints except (as stated in HPI) Past Patient History - Infectious Disease Hx of Infectious Diseases: None - Past Social History Smoking Status: Never Smoked - CARDIAC Hx Cardiac Disorders: Yes Hx Congestive Heart Failure: Yes Hx Hypertension: Yes - PULMONARY Hx Chronic Obstructive Pulmonary Disease (COPD): No - NEUROLOGICAL HX Cerebrovascular Accident: Yes - HEENT Hx HEENT Problems: Yes Hx Blind: No Hx Cataracts: Yes Hx Deafness: No Hx Difficulty Chewing: No Hx Epistaxis: No Hx Glaucoma: No - RENAL Hx Chronic Kidney Disease: No - ENDOCRINE/METABOLIC Hx Diabetes Mellitus Type 2: Yes - HEMATOLOGICAL/ONCOLOGICAL Hx Blood Disorders: No - INTEGUMENTARY Hx Dermatological Problems: No Hx Basil Cell: No Hx Eczema: No Hx Melanoma: No Hx Psoriasis: No Hx Squamous Cell: No - MUSCULOSKELETAL/RHEUMATOLOGICAL Hx Falls: No - GASTROINTESTINAL Hx Gastrointestinal Disorders: Yes Hx Constipation: Yes - GENITOURINARY/GYNECOLOGICAL Hx Genitourinary Disorders: Yes - PSYCHIATRIC Hx Psychophysiologic Disorder: No Hx Substance Use: No - SURGICAL HISTORY Hx Thyroidectomy: Yes (benign per patient) - ANESTHESIA Hx Anesthesia: Yes Meds Allergies/Adverse Reactions: Allergies Allergy/AdvReac Type Severity Reaction Status Date / Time No Known Allergies Allergy Verified 11/05/18 16:54 Physical Exam - Constitutional Appears: Non-toxic, No Acute Distress - Head Exam Head Exam: ATRAUMATIC, NORMOCEPHALIC - Eye Exam Eye Exam: EOMI, Normal appearance, PERRL - ENT Exam ENT Exam: Mucous Membranes Moist - Respiratory Exam Respiratory Exam: Clear to Auscultation Bilateral, NORMAL BREATHING PATTERN. absent: Accessory Muscle Use, Decreased Breath Sounds, Rales, Rhonchi, Wheezes - Cardiovascular Exam Cardiovascular Exam: Irregular Rhythm, +S1, +S2. absent: Systolic Murmur - GI/Abdominal Exam GI & Abdominal Exam: Normal Bowel Sounds, Soft. absent: Distended, Firm, Guarding, Rebound, Rigid, Tenderness - Extremities Exam Additional comments: lower extremity lymphedema - Neurological Exam Neurological exam: Alert, CN II-XII Intact, Oriented x3 Additional comments: Muscle strength +4/5 LLE Sensation grossly intact - Psychiatric Exam Psychiatric exam: Normal Affect, Normal Mood - Skin Skin Exam: Dry, Intact, Warm Results - Vital Signs Recent Vital Signs: Last Vital Signs Temp 98.2 F 11/05/18 17:11 Pulse 54 L 11/05/18 17:30 Resp 18 11/05/18 17:30 BP 149/67 11/05/18 17:30 Pulse Ox 99 11/05/18 17:30 - Labs Result Diagrams: 11/05/18 17:41 11/05/18 18:20 Labs: Laboratory Results - last 24 hr 11/05/18 11/05/18 11/05/18 17:31 17:41 18:20 WBC 5.1 RBC 4.64 Hgb 12.7 Hct 38.8 MCV 83.6 MCH 27.4 MCHC 32.7 RDW 15.8 H Plt Count 180 Neut % (Auto) 65.8 Lymph % (Auto) 23.5 Sutton % (Auto) 8.9 H Eos % (Auto) 1.4 L Baso % (Auto) 0.4 Lymph # (Auto) 1.2 Sutton # (Auto) 0.5 Eos # (Auto) 0.1 Baso # (Auto) 0.02 Absolute Neuts (auto) 3.33 PT 12.1 INR 1.09 APTT 33.1 Sodium Chloride Carbon Dioxide Anion Gap BUN Creatinine Est GFR ( Amer) Est GFR (Non-Af Amer) Random Glucose Calcium Total Bilirubin AST ALT Alkaline Phosphatase Total Protein Albumin Globulin Albumin/Globulin Ratio Triglycerides Cholesterol LDL Cholesterol Direct HDL Cholesterol Blood Type B POSITIVE Antibody Screen Negative BBK History Checked No verified bt 11/05/18 18:20 WBC RBC Hgb Hct MCV MCH MCHC RDW Plt Count Neut % (Auto) Lymph % (Auto) Sutton % (Auto) Eos % (Auto) Baso % (Auto) Lymph # (Auto) Sutton # (Auto) Eos # (Auto) Baso # (Auto) Absolute Neuts (auto) PT INR APTT Sodium 141 Chloride 100 Carbon Dioxide 33 Anion Gap 12 BUN 16 Creatinine 0.7 Est GFR ( Amer) > 60 Est GFR (Non-Af Amer) > 60 Random Glucose 106 Calcium 9.0 Total Bilirubin 0.6 AST 35 ALT 26 Alkaline Phosphatase 140 H Total Protein 8.3 Albumin 4.0 Globulin 4.3 Albumin/Globulin Ratio 0.9 L Triglycerides 88 Cholesterol 159 LDL Cholesterol Direct 71 HDL Cholesterol 48 Blood Type Antibody Screen BBK History Checked Assessment & Plan - Assessment and Plan (Free Text) Assessment: Patient is a 88 year old female with past medical history of HTN, diastolic CHF, atrial fibrillation, T2DM, DVT, CVA, obesity presenting with chief complaint of acute left lower extremity weakness Plan: LLE weakness - CT head shows small to moderate-sized low-density infarct at the left posterior parietal region - Dopplers neg for DVT in lower extremities bilaterally - Neurology consulted - Lipid panel - CXR and EKG in AM - Carotid dopplers - PT eval - Lipitor - ASA/Plavix - Lasix Atrial fibrillation - not on anticoagulation previously due to fall risk - Cardiology consulted - CHADsVASc 8 - HAS-BLED 3 Diastolic CHF - ECHO from December 2017 shows EF 51%, moderate pulmonary hypertension - repeat ECHO - BNP in AM - Digoxin level - home Digoxin T2DM - ISS, Accuchecks - home Neurontin Hypertension - home Metoprolol - home Lisinopril PPX - Lovenox SC, Protonix Case reviewed with Dr. Archie Jean PGY-1 <Kole Almanza - Last Filed: 11/08/18 19:18> Results - Vital Signs Recent Vital Signs: Last Vital Signs Temp 97.8 F 11/08/18 18:00 Pulse 69 11/08/18 18:00 Resp 18 11/08/18 18:00 BP 135/80 11/08/18 18:00 Pulse Ox 94 L 11/08/18 06:00 - Labs Result Diagrams: 11/08/18 06:10 11/08/18 06:10 Labs: Laboratory Results - last 24 hr 11/08/18 11/08/18 06:10 06:10 WBC 4.9 RBC 4.41 Hgb 11.8 L Hct 37.6 MCV 85.3 MCH 26.8 MCHC 31.4 RDW 15.7 H Plt Count 77 L Manual Plt Count 124 Neut % (Auto) 55.7 Lymph % (Auto) 34.0 Sutton % (Auto) 7.2 H Eos % (Auto) 2.9 Baso % (Auto) 0.2 Lymph # (Auto) 1.7 Sutton # (Auto) 0.4 Eos # (Auto) 0.1 Baso # (Auto) 0.01 Absolute Neuts (auto) 2.70 Sodium 141 Potassium 4.0 Chloride 95 L Carbon Dioxide > 40 H Anion Gap 10 BUN 21 Creatinine 0.9 Est GFR ( Amer) > 60 Est GFR (Non-Af Amer) 59 Random Glucose 107 Calcium 8.9 Phosphorus 3.4 Magnesium 2.2 Total Bilirubin 0.5 AST 23 ALT 16 Alkaline Phosphatase 107 Total Protein 7.8 Albumin 3.5 Globulin 4.3 Albumin/Globulin Ratio 0.8 L Attending/Attestation - Attestation I have personally seen and examined this patient.: Yes I have fully participated in the care of the patient.: Yes I have reviewed all pertinent clinical information: Yes Notes (Text): Please see/read my dictated notes.
[2018-11-05] MEDS ORDERED: Metoprolol 1 mg/ml Inj IVP STA (23:18)
[2018-11-06 01:09] LABS: FREE T4 1.21 ng/dL (0.78-2.19)
[2018-11-06] MEDS ORDERED: Dextrose 50% SYRINGE Inj (50 ml) IV PRN (02:34)
[2018-11-06 02:40] VITALS: BMI 33.6
[2018-11-06 02:50] LABS: TROPONIN I 0.02 ng/mL
--- NOTE | 2018-11-06 02:52 | CP.PCM.PN ---
Subjective - Date & Time of Evaluation Date of Evaluation: 11/06/18 Time of Evaluation: 02:51 - Subjective Subjective: Patient was seen at bedside. She complained of left lower extremity weakness. Has no other complaints. I was asked by resident physician to co-sign about half a dozen orders. This 88 year old woman was admitted with left lower extremity weakness. Has PMH of : HTN. Diastolic CHF. Atrial fibrillation. History of DVT. Obesity. Objective - Vital Signs/Intake and Output Vital Signs (last 24 hours): Temp Pulse Resp BP Pulse Ox 98.4 F 55 L 18 171/86 H 99 11/06/18 01:09 11/06/18 02:03 11/06/18 02:03 11/06/18 01:22 11/06/18 01:09 - Medications Medications: Current Medications Acetaminophen (Tylenol 325mg Tab) 650 mg PO Q6 PRN PRN Reason: TEMP>=99.5F Aspirin (Ecotrin) 81 mg PO 0800 [facility] Atorvastatin Calcium (Lipitor) 40 mg PO DIN [facility] Clopidogrel Bisulfate (Plavix) 75 mg PO DAILY [facility] Dextrose (Dextrose 50% Inj) 0 ml IV STAT PRN; Protocol PRN Reason: Hypoglycemia Protocol Digoxin (Digoxin) 0.125 mg PO 1400 [facility] Docusate Sodium (Colace) 100 mg PO TID [facility] Enoxaparin Sodium (Lovenox) 40 mg SC DAILY [facility]; Protocol Fluticasone Propionate (Flonase) 1 actuation NS BID [facility] Furosemide (Lasix) 40 mg IVP Q12H [facility] Last Admin: 11/06/18 01:22 Dose: 40 mg Gabapentin (Neurontin) 100 mg PO HS [facility]; Protocol Dextrose (Dextrose 5% In Water 1000 Ml) 1,000 mls @ 0 mls/hr IV .Q0M PRN; Protocol PRN Reason: Hypoglycemia Protocol Insulin Human Regular (Humulin R Med) 0 units SC ACHS [facility]; Protocol Lisinopril (Zestril) 5 mg PO DAILY [facility] Metoprolol Succinate (Toprol Xl) 25 mg PO BRK [facility] Pantoprazole Sodium (Protonix Ec Tab) 40 mg PO 0600 [facility] Polyethylene Glycol (Miralax) 17 gm PO TID [facility] Potassium Chloride (Klor-Con 10) 10 meq PO BID [facility] - Labs Labs: 11/05/18 17:41 11/05/18 18:20 PT 12.1 SECONDS (9.4-12.5) 11/05/18 18:20 INR 1.09 11/05/18 18:20 APTT 33.1 Seconds (26.9-38.3) 11/05/18 18:20 - Constitutional Appears: Well, No Acute Distress - Head Exam Head Exam: ATRAUMATIC, NORMAL INSPECTION, NORMOCEPHALIC - Eye Exam Eye Exam: Normal appearance - ENT Exam ENT Exam: Normal External Ear Exam - Neck Exam Neck Exam: Normal Inspection - Respiratory Exam Respiratory Exam: NORMAL BREATHING PATTERN - Cardiovascular Exam Cardiovascular Exam: absent: JVD - GI/Abdominal Exam GI & Abdominal Exam: absent: Distended - Rectal Exam Rectal Exam: Deferred - Exam Additional comments: Deferred. - Extremities Exam Extremities Exam: Normal Inspection - Back Exam Back Exam: NORMAL INSPECTION - Neurological Exam Neurological Exam: Alert, Awake, Oriented x3 - Psychiatric Exam Psychiatric exam: Normal Affect, Normal Mood - Skin Skin Exam: Normal Color Assessment and Plan - Assessment and Plan (Free Text) Assessment: Sinus pause on monitor. Left lower extremity weakness. HTN. Diastolic CHF. Atrial fibrillation. History of DVT. Obesity. Plan: Hold betablocker. F/u digoxin level Continue present management.
[2018-11-06] MEDS: Pantoprazole 40 mg EC Tab PO SCH (05:13)
[2018-11-06 07:06] LABS: BASO # 0.01 K/mm3 (0.0-2.0); BASO % 0.2 % (0.0-3.0); EOS # 0.1 (0.0-0.7); EOS % 2.6 % (1.5-5.0); HEMOGLOBIN 11.3 g/dL (12.0-16.0); LYMPH # 1.7 (1.2-3.4); LYMPH % 38.4 % (22.0-35.0); MEAN CORPUSCULAR HEMOGLOBIN 26.5 pg (25.0-35.0); MEAN CORPUSCULAR HGB CONC 31.6 g/dl (31.0-37.0); MONO # 0.3 (0.1-0.6); MONO % 7.2 % (1.0-6.0); RBC 4.26 10^6/uL (3.5-6.1); RED CELL DISTRIBUTION WIDTH 15.6 % (11.5-14.5); WHITE BLOOD COUNT 4.3 10^3/uL (4.5-11.0)
[2018-11-06 07:24] LABS: ALB/GLOB RATIO 0.9 (1.1-1.8); ALBUMIN 3.5 g/dL (3.0-4.8); ALT/SGPT 19 U/L (7-56); AST/SGOT 26 U/L (14-36); BLOOD UREA NITROGEN 16 mg/dL (7-21); CALCIUM 8.7 mg/dL (8.4-10.5); GFR NON-AFRICAN AMERICAN > 60; HDL CHOLESTEROL 41 mg/dL (29-60)
[2018-11-06 07:30] LABS: TROPONIN I 0.02 ng/mL
[2018-11-06 07:32] LABS: LDL CHOLESTEROL 62 mg/dL (0-129)
[2018-11-06] MEDS: Insulin Reg-MEDIUM-Coverage SC SCH ×4 (07:43→23:06)
[2018-11-06] MEDS ORDERED: Potassium Chloride 40 mEq/30 ml LIQ UD PO ONE (07:55)
[2018-11-06] MEDS ORDERED: Metoprolol Succinate 25 mg XL Tab PO SCH (08:00)
[2018-11-06 08:25] LABS: PLATELET COUNT 88 10^3/uL (120.0-450.0)
[2018-11-06] MEDS: Potassium Chloride 10 mEq ER Tab PO SCH ×2 (09:26→18:12)
[2018-11-06] MEDS: POLYETHYLENE GLYCOL 3350 17 GM/Dose PACKET PO SCH ×3 (09:40→18:11)
[2018-11-06] MEDS: Enoxaparin 40 mg Syringe SC SCH (09:40)
[2018-11-06] MEDS ORDERED: Potassium Chloride 10 mEq ER Tab PO SCH (10:00)
[2018-11-06] MEDS ORDERED: Gadodiamide 287 MG/ML VIAL (15ML) IV ONE (10:53)
--- NOTE | 2018-11-06 11:37 | CT ---
Date of service: 11/05/2018 PROCEDURE: CT HEAD WITHOUT CONTRAST. HISTORY: left leg weakness COMPARISON: None available. TECHNIQUE: Axial computed tomography images were obtained through the head/brain without intravenous contrast. Supplemental Coronal and Sagittal projections created and reviewed. Radiation dose: Total exam DLP = 1027.48 mGy-cm. This CT exam was performed using one or more of the following dose reduction techniques: Automated exposure control, adjustment of the mA and/or kV according to patient size, and/or use of iterative reconstruction technique. FINDINGS: HEMORRHAGE: No intracranial hemorrhage. BRAIN: Geographic infarct watershed location posterior left parietal occipital region. This appears to be a nonhemorrhagic area of cortical infarction. VENTRICLES: Unremarkable. No hydrocephalus. CALVARIUM: Unremarkable. PARANASAL SINUSES: Unremarkable as visualized. No significant inflammatory changes. MASTOID AIR CELLS: Unremarkable as visualized. No inflammatory changes. OTHER FINDINGS: None. IMPRESSION: Nonhemorrhagic/bland infarct watershed distribution posterior left parietal region. Concordant results (preliminary interpretation) provided by [facility]. Procedure Completed: 19:10. Preliminary Report: Interpreted and electronically signed: 19:44. Final Interpretation: 11:33. November 06, 2018
--- NOTE | 2018-11-06 11:53 | MRI ---
Date of service: 11/06/2018 PROCEDURE: MRI BRAIN WITH AND WITHOUT CONTRAST HISTORY: r/o CVA COMPARISON: MRI exam 01/01/2018, CT scan head 11/05/2018 TECHNIQUE: Multiplanar, multisequence MR images of the brain were obtained with and without intravenous contrast enhancement. FINDINGS: HEMORRHAGE: Gradient imaging shows no evidence of hemosiderin to suggest recent infarct. DWI: There is a small area of restricted diffusion identified in the central left cerebellar hemisphere adjacent to the vermis and seen on diffusion-weighted image 8 and ADC image 8. There is an area of previously identified chronic infarct from the prior examination dated 01/01/2018. No other area of restricted diffusion is seen. BRAIN PARENCHYMA: There is chronic encephalomalacia in the left posterior parietal lobe related to the prior chronic infarct. Scattered small vessel changes are seen elsewhere in the white matter tracts. No cortical effacement is clearly seen elsewhere. Age related atrophy is noted. ENHANCEMENT: No mass enhancing lesions are seen. No abnormal enhancement is seen elsewhere. VENTRICLES: Unremarkable. No hydrocephalus. CRANIUM: Intact. ORBITS: Grossly unremarkable. PARANASAL SINUSES/MASTOIDS: Clear VASCULAR SYSTEM: Skull base flow voids intact. OTHER FINDINGS: There is once again evidence of a chronic empty sella.. IMPRESSION: Small recent infarct in the left cerebellar hemisphere. 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 No evidence of intracranial hemorrhage.
[2018-11-06] MEDS: Digoxin 125 mcg (0.125 mg) Tab PO SCH (13:20)
[2018-11-06] MEDS: Fluticasone Nasal 50 mcg/Spray NS SCH ×2 (13:23→18:19)
--- NOTE | 2018-11-06 13:43 | CARD ---
APPROVED REPORT Date of service: 11/06/2018 EXAM: Two-dimensional and M-mode echocardiogram with Doppler and color Doppler. INDICATION CVA/TIA 2D DIMENSIONS Left Atrium (2D)3.8 (1.6-4.0cm)IVSd1.1 (0.7-1.1cm) Aortic Root (2D)3.6 (2.0-3.7cm)LVDd5.3 (3.9-5.9cm) PWd1.2 (0.7-1.1cm)LVDs3.4 (2.5-4.0cm) FS (%) 36.0 %LVEF (%)65.1 (>50%) M-Mode DIMENSIONS Aortic Cusp Exc.2.20 (1.5-2.0cm) Mitral Valve MV E Smozwdar276.0cm/s TDI Lateral E' Peak V10.70cm/sMedial E' Peak V6.53cm/sE/Lateral E'9.5 E/Medial E'15.6 Pulmonary Valve PV Peak Lrlsahfd34.0cm/sPV Peak Grad.4mmHg Tricuspid Valve TR Peak Fhzrwont230gx/sRAP [id number] Peak Gr.46mmHg [id number] LEFT VENTRICLE The left ventricle is normal size. There is mild concentric left ventricular hypertrophy. The left ventricular function is normal. The left ventricular ejection fraction is within the normal range. There is normal LV segmental wall motion. RIGHT VENTRICLE The right ventricle is normal size. The right ventricular systolic function is normal. ATRIA The left atrium is mildly dilated. The right atrium is moderately dilated. The interatrial septum is intact with no evidence for an atrial septal defect. AORTIC VALVE The aortic valve is normal in structure. No aortic regurgitation is present. There is no aortic valvular stenosis. MITRAL VALVE The mitral valve is mildly thickened. Mitral regurgitation is mild to moderate. TRICUSPID VALVE The tricuspid valve is normal in structure. There is moderate tricuspid regurgitation. There is moderate pulmonary hypertension. PULMONIC VALVE The pulmonary valve is normal in structure. There is mild pulmonic valvular regurgitation. GREAT VESSELS The aortic root is normal in size. The IVC is normal in size and collapses >50% with inspiration. PERICARDIAL EFFUSION There is no pleural effusion. There is no pericardial effusion. <Conclusion> Biatrial enlargement. Normal LV size and systolic function. Mild concentric LVH. Mild to moderate mitral regurgitation. Moderate tricuspid regurgitation. Moderate pulmonary hypertension. No obvious source of cardiac embolus seen. If clinical suspicion for embolic event is high, consider LEIGHANN and imaging.
--- NOTE | 2018-11-06 15:45 | RAD ---
Date of service: 11/06/2018 HISTORY: Weakness. COMPARISON: November 05, 2018. TECHNIQUE: Chest PA and lateral FINDINGS: LUNGS: No active pulmonary disease. PLEURA: No significant pleural effusion identified. No pneumothorax apparent. CARDIOVASCULAR: No aortic atherosclerotic calcification present. Cardiomegaly. No evidence of acute, significant cardiovascular disease. No pulmonary vascular congestion. OSSEOUS STRUCTURES: No significant abnormalities. VISUALIZED UPPER ABDOMEN: Normal. OTHER FINDINGS: None. IMPRESSION: No active disease. No significant interval change compared to the prior examination(s).
--- NOTE | 2018-11-06 16:37 | CON ---
DATE OF CONSULTATION: 11/06/2018 REASON FOR CONSULTATION: Congestive heart failure. HISTORY OF PRESENT ILLNESS: The patient is an 88-year-old female who has a history of hypertension, diabetes mellitus, atrial fibrillation and congestive heart failure as well as thyroidectomy, presented because of left leg weakness for which she was unable to stand on it as well as worsening of her shortness of breath. The patient denies any chest pain and is unaware of any history of coronary intervention in the past. SOCIAL HISTORY: The patient is a former smoker, former social drinker. She lives with her granddaughter. CURRENT MEDICATIONS: Colace 100 mg t.i.d., digoxin 0.125 mg daily orally, aspirin 81 mg once a day, Flonase 1 actuation twice a day, Lasix 40 mg intravenous twice a day, Lipitor 40 mg once a day, Lovenox 40 mg subcutaneous once a day, Neurontin 100 mg at bedtime, Plavix 75 mg once a day, Toprol XL 25 mg once a day, Zestril 5 mg once a day. REVIEW OF SYSTEMS: No nausea or vomiting. No recent syncope or fall and no retrosternal chest pain. PHYSICAL EXAMINATION: GENERAL: The patient is an elderly female who does not appear to be in acute distress. VITAL SIGNS: Blood pressure 143/74, heart rate 64, temperature 98, respirations 18. HEENT: Normocephalic. CHEST: Diffuse bilateral rhonchi. HEART: S1 and S2, irregular. ABDOMEN: Soft. EXTREMITIES: 2+ pitting edema. DIAGNOSTIC DATA: Hemoglobin and hematocrit 11.3 and 35.8, white count 4.3, platelet count 88,000. SMA-7: Sodium 140, potassium 3.3, chloride 98, CO2 37, Cozaar 24, BUN 16, creatinine 0.7 and EKG revealed atrial fibrillation at the rate of 60, nonspecific T-wave changes. Brain MRI performed today, revealed a small recent infarct in the left cerebellar hemisphere, chronic left posterior parietal infarct seen on prior MRI in December 2017. No evidence of intracranial hemorrhage. Chest x-ray revealed cardiomegaly with mild CHF. ASSESSMENT: 1. Consider recent cerebrovascular accident. The MRI findings involve the left cerebellar hemisphere with a chronic left posterior parietal infarct. 2. Exacerbation of congestive heart failure. 3. Chronic atrial fibrillation. 4. Hypokalemia. The patient's potassium level is 3.3. RECOMMENDATIONS: Continue current digoxin 0.125 mg daily, aspirin 81 mg once a day, Klor-Con at 20 mEq twice a day, Lasix 40 mg intravenously twice a day, Plavix 75 mg once a day, Toprol XL 25 mg once a day, Zestril 5 mg once a day. I would review the echocardiograph study performed today. If there is no neurological contraindication, the patient needs to be placed on long-term anticoagulation such as Eliquis at 2.5 mg daily. Ander Bailey MD
--- NOTE | 2018-11-06 16:56 | CON ---
DATE OF CONSULTATION: 11/06/2018 CHIEF COMPLAINT: Left lower extremity weakness. HISTORY OF PRESENT ILLNESS: This is an 88-year-old woman with a history of hypertension, diastolic CHF, AFib, type 2 diabetes mellitus, DVT, CVA, obesity, presented with a chief complaint of acute left lower extremity weakness that began early today along with dizziness and difficulty to walk. She underwent an MRI of the brain, which showed a small recent infarct in the left cerebellar hemisphere and a chronic left posterior parietal infarct also seen. She is on aspirin, Plavix and statin for stroke prevention. We need to get her out of bed to chair. She denies any new focal deficits at this time. Dysdiadochokinesia on neuro exam. PAST MEDICAL HISTORY: Diastolic CHF, AFib, type 2 diabetes mellitus, DVT, CVA and obesity. PAST SURGICAL HISTORY: Thyroidectomy and history of hemorrhoidectomy. FAMILY HISTORY: Noncontributory. SOCIAL HISTORY: No illicit drug use, smoking or EtOH abuse. MEDICATIONS: Reviewed by nurse's reconciliation sheet. ALLERGIES: NO KNOWN DRUG ALLERGIES. REVIEW OF SYSTEMS: A 14-point review of systems is negative except per the HPI. PHYSICAL EXAMINATION: GENERAL: The patient is seen up in bed and in no acute distress. VITAL SIGNS: Temperature 98, pulse rate 64, blood pressure 143/74, and respiratory rate of 18. HEENT: Atraumatic and normocephalic. PERRLA. Extraocular muscles intact. NECK: Supple. No JVD. No adenopathy noted. LUNGS: Clear to auscultation. No adventitious sounds. HEART: S1 and S2. Normal rate and rhythm. No murmurs, rubs, or gallops. ABDOMEN: Soft and nontender. Nondistended. Bowel sounds are present. EXTREMITIES: No clubbing. No cyanosis. Peripheral pulses 2+ bilaterally. NEUROLOGIC: The patient is alert and oriented to person, place, month, and year. Speech is fluent without any errors. Cranial nerves II through XII are intact. Motor exam: Moves all extremities equally except for mild left lower extremity weakness 5-/5. Sensory exam: Pinprick proprioception up to the calves bilaterally. Decreased vibration at the toes. DTRs are 2+ throughout and 1 in both the knees and ankles. Coordination: Glzivf-qy-raca intact. Dysdiadochokinesia is present. Gait is deferred for now. LABORATORY DATA: Sodium 140, potassium 3.3, chloride 98, carbon dioxide 37.9, BUN 16, creatinine 0.7, and random glucose 134. ASSESSMENT AND PLAN: 1. This is an 88-year-old woman with a past medical history of hypertension, diastolic chronic heart failure, atrial fibrillation, type 2 diabetes mellitus, deep venous thrombosis, cerebrovascular accident in the left posterior parietal infarct region, who presents with left lower extremity weakness, dizziness, generalized weakness, found to have an acute infarct on left cerebellar hemisphere, small in nature, secondary to diffuse atherosclerosis disease. At this time, we will recommend to continue with her aspirin and Plavix and statin for stroke prevention, Lipitor 80 mg for 21 days and we can reduce after 21 days to 40. She is at risk for the anticoagulation due to high blood score. 2. 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 At this time, we will recommend PT/OT and acute rehab. Once again, monitor . Thank you for this consult. Beck Burks MD
--- NOTE | 2018-11-06 19:49 | PN ---
DATE: 11/06/2018 SUBJECTIVE: The patient is seen in room 262 bed one. Overnight nurse's notes were reviewed. The patient stayed in bed most of the time. According to the nurses' note, the patient was found to be alert, awake, responsive. Complaining of left leg questionable weakness and pain and hand pain. PHYSICAL EXAMINATION: VITAL SIGNS: T-max 98.4. Telemetry shows atrial fibrillation, heart rate in 50, 60 70s. Blood pressure 143/74, respiration 18, O2 sat is 94-99%. Intake output, output today is 1800, intake 4 60. HEENT: Head examination normocephalic, atraumatic. HEENT examination shows pink conjunctivae. Anicteric sclerae. No oropharyngeal lesion. NECK: No neck rigidity. CHEST: Kyphosis. LUNGS: Shows decreased breath sound at the bases. CARDIOVASCULAR: S1, S2, irregular rhythm. Positive systolic murmur left sternal border, right second intercostal space, left second intercostal space. ABDOMEN: Obese, protuberant, obese. Positive bowel sound. GENITALIA: Female. RECTAL: Deferred, EXTREMITIES: Shows positive pitting edema of the lower extremity. MUSCULOSKELETAL: Shows a body mass index of 38. NEUROLOGIC: The patient is alert, awake, responsive. The patient is able to move upper and lower extremity without assistance. The patient is able to do [id number] coordination with limitation. DIAGNOSTIC: 11/06/2018, WBC 4.3, hemoglobin/hematocrit 11.3/36, platelet 88,000, manual platelet pending. Chemistry is significant for potassium of 3.3, CO2 of 37, glucose 124, all three sets of troponin is negative. BNP is 2590, cholesterol 135, LDL 62, HDL 41. Digoxin level 1. Blood type B positive. MRI of the brain which was done with and without contrast shows left cerebellar hemisphere area of restricted diffusion, chronic left posterior parietal lobe encephalomalacia. Echocardiogram was done today which shows ejection fraction of 65%. Right ventricular systolic pressure of 49 mmHg with concentric left ventricular hypertrophy, moderate mitral regurgitation, moderate tricuspid regurgitation, moderate pulmonary hypertension. IMPRESSION AND PLAN: 1. Acute left cerebellar hemisphere acute infarct with area of restricted diffusion. 2. Left posterior parietal lobe chronic encephalomalacia secondary to chronic infarct. 3. Cerebral cortical atrophy of the brain. 4. Microvascular skin disease of the brain. 5. Chronic left posterior parietal infarct. 6. Atrial fibrillation. 7. Left ventricular ejection fraction of 65% with pulmonary hypertension and right ventricular systolic pressure of 49 mmHg. 8. Concentric left ventricular hypertrophy. 9. Biatrial enlargement. 10. Moderate mitral regurgitation with mildly thickened mitral valve. 11. Moderate tricuspid regurgitation with moderate pulmonary hypertension and right ventricular systolic pressure of 49 mmHg. 12. Gait dysfunction. 13. Deconditioning. 14. Bilateral lower extremity venous stasis of the legs. 15. Morbid obesity. 16. Atrial fibrillation. 17. Gait dysfunction. 18. Neurosis. 19. Posterior left parietal occipital lesion watershed location geographic infarct with nonhemorrhagic area of cortical infarction. 20. Non hemorrhagic bland infarct watershed distribution left posterior parietal region. 21. Severe cardiomegaly. 22. Left lower extremity weakness and pain and leg swelling. 23. Left lower extremity weakness. 24. Leukopenia, anemia, thrombocytopenia and pancytopenia. 26. Hypokalemia. 27. Mild metabolic alkalosis. 28. Atrial fibrillation with nonspecific ST changes. 29. Diastolic right-sided congestive heart failure. Plan at this time, the patient's hemoglobin A1c is pending. The patient has been ordered repeat CMP, magnesium phosphorus in the morning. The patient has been ordered manual platelet count, repeat CBC. Current consultation Cardiology, Neurology. The patient is ordered Colace 100 mg three times a day, digoxin 0.125 daily, aspirin 81 mg daily, Flonase nasal spray, regular insulin sliding scale coverage, K-Dur increased to 20 mEq twice a day with an extra dose of potassium 40 mEq given today, Lasix 40 mg IV every 12 hours, Lipitor 40 mg daily. The patient is on Lovenox 40 mg subcu daily, MiraLax 17 g twice a day, Neurontin 100 mg h.s., Plavix 75 mg daily, Protonix 40 mg daily, Toprol XL 25 mg daily, Tylenol p.r.n., Zestril 5 mg daily. The patient's repeat chest x-ray, carotid Doppler has been pending. The patient is on heart-healthy diet, RAMSES stockings, out of bed, ambulation therapy, gait training ordered. The patient has been ordered physical, occupational therapy, occupational therapy, ambulation therapy, gait training ordered. The patient has been ordered out of bed to chair. SCDs ordered. Dictated and electronically signed, not read. Kole MD [facility] # [id number] RENE
[2018-11-06] MEDS: Magnesium Citrate Oral SOL (300 ml) PO ONE ×2 (22:20→22:25)
[2018-11-07] MEDS: Pantoprazole 40 mg EC Tab PO SCH (05:50)
[2018-11-07 07:43] LABS: BASO # 0.01 K/mm3 (0.0-2.0); BASO % 0.2 % (0.0-3.0); EOS # 0.1 (0.0-0.7); HEMOGLOBIN 10.5 g/dL (12.0-16.0); LYMPH # 1.6 (1.2-3.4); LYMPH % 33.3 % (22.0-35.0); MEAN CELL VOLUME 84.7 fl (80.0-105.0); MEAN CORPUSCULAR HEMOGLOBIN 26.7 pg (25.0-35.0); MEAN CORPUSCULAR HGB CONC 31.5 g/dl (31.0-37.0); MONO # 0.4 (0.1-0.6); MONO % 7.3 % (1.0-6.0); RBC 3.93 10^6/uL (3.5-6.1); RED CELL DISTRIBUTION WIDTH 15.7 % (11.5-14.5); WHITE BLOOD COUNT 4.9 10^3/uL (4.5-11.0)
[2018-11-07 08:24] LABS: ALB/GLOB RATIO 0.8 (1.1-1.8); ALBUMIN 3.1 g/dL (3.0-4.8); ALT/SGPT 24 U/L (7-56); AST/SGOT 25 U/L (14-36); BLOOD UREA NITROGEN 19 mg/dL (7-21); CALCIUM 8.5 mg/dL (8.4-10.5); GFR NON-AFRICAN AMERICAN 59
[2018-11-07] MEDS: Fluticasone Nasal 50 mcg/Spray NS SCH ×2 (11:12→17:47)
[2018-11-07] MEDS: Insulin Reg-MEDIUM-Coverage SC SCH ×4 (11:12→21:46)
[2018-11-07] MEDS: Potassium Chloride 10 mEq ER Tab PO SCH ×2 (11:12→17:47)
[2018-11-07] MEDS: POLYETHYLENE GLYCOL 3350 17 GM/Dose PACKET PO SCH (11:13)
[2018-11-07] MEDS: Enoxaparin 40 mg Syringe SC SCH (11:13)
--- NOTE | 2018-11-07 12:16 | US ---
PROCEDURE: Bilateral carotid artery duplex ultrasound HISTORY: Carotid stenosis PHYSICIAN(S): Rafael Elise MD. TECHNIQUE: Duplex sonography and color-flow Doppler were used to evaluate the carotid bifurcations and limited segments of the vertebral arteries bilaterally. FINDINGS: There is mild to moderate smooth diffuse heterogeneous plaque noted at the carotid bifurcations bilaterally. The peak systolic velocity in the proximal right internal carotid artery is 84 cm/sec. This corresponds to a 20 to 39% proximal right ICA stenosis. Normal systolic velocities are noted in the proximal right external carotid artery. There is antegrade flow in the right vertebral artery. The peak systolic velocity in the proximal left internal carotid artery is 54 cm/sec. This corresponds to a 20 to 39% proximal left ICA stenosis. Normal systolic velocities are noted in the proximal left external carotid artery. There is antegrade flow in the left vertebral artery. IMPRESSION: 1. Bilateral 20-39% proximal ICA stenoses. 2. Antegrade flow in both vertebral arteries.
--- NOTE | 2018-11-07 12:18 | US ---
HISTORY: Leg pain and swelling. Evaluate for DVT PHYSICIAN(S): Rafael Elise MD. TECHNIQUE: Duplex sonography and color-flow Doppler with graded compression were used to evaluate the deep venous systems of both lower extremities. The exam is limited by edema. The tibial veins are not adequately seen. FINDINGS: The visualized deep venous systems of both lower extremities are sonographically normal and compressible. Normal wave forms and augmentation are seen. There is no sonographic evidence for deep venous thrombosis in the visualized segments of both lower extremities. IMPRESSION: No sonographic evidence for deep venous thrombosis in the visualized segments of both lower extremities. Limited study. The tibial veins are not adequately seen
[2018-11-07] MEDS: Digoxin 125 mcg (0.125 mg) Tab PO SCH (13:16)
[2018-11-07 13:17] VITALS: PULSE 74
--- NOTE | 2018-11-07 16:54 | PN ---
DATE: 11/07/2018 SUBJECTIVE: The patient is seen in room 262, bed 1. The patient is lying in the bed. The patient's nurses present at the bedside. According to the patient's nurse, the patient had two large bowel movements and requesting discontinuation of the MiraLax.. The patient is seen lying in the bed. A 14-system review is positive for improving left leg weakness, questionable dizziness and bilateral joint pain of the hand which I have explained to the patient, it could be a component of arthritic pain and could be a component of new stroke which the patient had. Other 14-system review was done, which is negative. Pertinent positive negative dictated above. OBJECTIVE: VITAL SIGNS: T-max 97.2, pulse 59. Telemetry shows atrial fibrillation. Blood pressure 132/78, respiration 20, O2 sat 98%. HEENT: Head is normocephalic, atraumatic. Eyes; shows pinkish pale conjunctivae. Anicteric sclerae. No oropharyngeal lesion. NECK: No neck rigidity. CHEST: Kyphosis. LUNGS: Shows no audible crackle, rales, or wheezing. Decreased breath sound at the bases, left more than right. CARDIOVASCULAR: S1, S2, irregular rhythm. Positive systolic murmur left sternal border, right second intercostal space, left second intercostal space. ABDOMEN: Obese, protuberant. Positive bowel sound. No palpable hepatosplenomegaly. GENITALIA: Female. RECTAL: Deferred. EXTREMITIES: Shows decreasing pitting edema of the lower extremity and decreasing pitting edema and swelling of the lower extremity. MUSCULOSKELETAL: Shows an elevated body mass index. NEUROLOGIC: The patient is alert, awake, responsive, is able to move upper and lower extremity without assistance. Gait examination could not be tested. PSYCHIATRIC: Negative for anxiety, depression. Negative for auditory visual hallucination. Negative for suicidal, homicidal ideation. DIAGNOSTICS: On 11/07/2018; WBC 4.9, hemoglobin/hematocrit 10.5/33.3, platelet 75,000 manual platelet pending. Sodium 140, potassium 4.1, chloride 98, CO2 of 37, BUN 19, creatinine 0.9, glucose 123, calcium 8.5, phosphorus 3.5, magnesium 2.2. The patient was seen by Neurology, Cardiology. The recommendations were reviewed. IMPRESSION: 1. 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 2. Anemia. 3. Acute left cerebellar infarct with left leg weakness and left leg pain. 4. Atrial fibrillation. 5. High risk for fall. 6. Acute right-sided diastolic congestive heart failure with pulmonary hypertension and bilateral lower extremity venous stasis and elevated ProBNP. 7. Thrombocytopenia, etiology undetermined. 8. History of diet-controlled diabetes mellitus. 9. Mild metabolic alkalosis. 10. Bilateral lower extremity venous stasis. 11. Gait dysfunction. 12. Morbid obesity. 13. 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 14. Hypertensive cardiovascular disease. 1. Acute left cerebellar hemisphere acute infarct with area of restricted diffusion. 2. Left posterior parietal lobe chronic encephalomalacia secondary to chronic infarct. 3. Cerebral cortical atrophy of the brain. 4. Microvascular skin disease of the brain. 5. Chronic left posterior parietal infarct. 6. Atrial fibrillation. 7. Left ventricular ejection fraction of 65% with pulmonary hypertension and right ventricular systolic pressure of 49 mmHg. 8. Concentric left ventricular hypertrophy. 9. Biatrial enlargement. 10. Moderate mitral regurgitation with mildly thickened mitral valve. 11. Moderate tricuspid regurgitation with moderate pulmonary hypertension and right ventricular systolic pressure of 49 mmHg. 12. Gait dysfunction. 13. Deconditioning. 14. Bilateral lower extremity venous stasis of the legs. 15. Morbid obesity. 16. Atrial fibrillation. 17. Gait dysfunction. 18. Neurosis. 19. Posterior left parietal occipital lesion watershed location geographic infarct with nonhemorrhagic area of cortical infarction. 20. Non hemorrhagic bland infarct watershed distribution left posterior parietal region. 21. Severe cardiomegaly. 22. Left lower extremity weakness and pain and leg swelling. 23. Left lower extremity weakness. 24. Leukopenia, anemia, thrombocytopenia and pancytopenia. 26. Hypokalemia. 27. Mild metabolic alkalosis. 28. Atrial fibrillation with nonspecific ST changes. 29. Diastolic right-sided congestive heart failure. PLAN: At this time, the patient has been requested Hematology/Oncology evaluation for thrombocytopenia, MiraLax will be discontinued. The patient has been ordered SCDs and RAMSES stockings, which are not in place at this time. The patient will be continued on all the therapeutic intervention as per the MAR of today. I have advised the patient's nurse to get the patient out of bed to chair and apply RAMSES stockings and SCDs. The patient has been updated about her condition, diagnosis, test results and treatment plan in layman's language and even this was explained to the patient yesterday and the patient stated that she does not recall anybody explaining her condition, so today, I have explained and re-explained to the patient all the details, diagnosis and medical condition in layman's language, but the patient's nurse present at the bedside. The patient has been ordered out of bed to chair, physical therapy, occupational therapy, ambulation therapy, gait training. The patient's further management will be dependent upon the patient's clinical condition, hemodynamic status and as per the patient response to therapeutic intervention as per the patient's diagnostic test results and as per recommendation by all the physician involved in the care of the patient. Dictated and electronically signed, not read. Kole Almanza MD [facility]
[2018-11-08] MEDS: Pantoprazole 40 mg EC Tab PO SCH (05:09)
[2018-11-08] MEDS: Fluticasone Nasal 50 mcg/Spray NS SCH ×3 (05:10→18:25)
[2018-11-08 07:02] LABS: BASO # 0.01 K/mm3 (0.0-2.0); BASO % 0.2 % (0.0-3.0); EOS # 0.1 (0.0-0.7); EOS % 2.9 % (1.5-5.0); HEMOGLOBIN 11.8 g/dL (12.0-16.0); LYMPH # 1.7 (1.2-3.4); MEAN CELL VOLUME 85.3 fl (80.0-105.0); MEAN CORPUSCULAR HEMOGLOBIN 26.8 pg (25.0-35.0); MEAN CORPUSCULAR HGB CONC 31.4 g/dl (31.0-37.0); MONO # 0.4 (0.1-0.6); MONO % 7.2 % (1.0-6.0); PLATELET COUNT 77 10^3/uL (120.0-450.0); RBC 4.41 10^6/uL (3.5-6.1); RED CELL DISTRIBUTION WIDTH 15.7 % (11.5-14.5); WHITE BLOOD COUNT 4.9 10^3/uL (4.5-11.0)
[2018-11-08 07:18] LABS: ALB/GLOB RATIO 0.8 (1.1-1.8); ALBUMIN 3.5 g/dL (3.0-4.8); ALT/SGPT 16 U/L (7-56); AST/SGOT 23 U/L (14-36); BLOOD UREA NITROGEN 21 mg/dL (7-21); CALCIUM 8.9 mg/dL (8.4-10.5); GFR NON-AFRICAN AMERICAN 59
[2018-11-08 08:04] LABS: PLATELET COUNT MANUAL 124 K/mm3 (120-450)
--- NOTE | 2018-11-08 08:15 | PN ---
DATE: 11/08/2018 LOCATION: The patient is in telemetry 262, bed 1. SUBJECTIVE: The patient is lying in the bed. Overnight nurse's notes were reviewed. The patient slept well without any adverse event, without any documentation of respiratory compromise, without any complaints of neurological changes, and without any complaints of chest pain. The patient slept well. According to the nurses' notes, no adverse events or issues were reported, called for, or notified. PHYSICAL EXAMINATION: VITAL SIGNS: T-max 98. Telemetry shows atrial fibrillation, heart rate 63-66, atrial fibrillation. Blood pressure 116/70, 128/63; respirations 19; O2 sat is 99%. HEAD EXAMINATION: Normocephalic, atraumatic. HEENT EXAMINATION: Shows pinkish pale conjunctivae. Anicteric sclerae. No oropharyngeal lesion. No neck rigidity. CHEST EXAMINATION: Kyphosis. LUNG EXAMINATION: Shows decreased breath sound at the bases. No audible crackle, rales, or wheezing. CARDIOVASCULAR EXAMINATION: S1, S2, irregular rhythm. Positive systolic murmur in left sternal border, right second intercostal space and left second intercostal space. ABDOMEN: Morbidly obese. Unable to palpate any hepatosplenomegaly. GENITALIA: Female. RECTAL EXAMINATION: Deferred. EXTREMITIES: Extremity shows chronic swelling of the lower extremity, decreased pitting edema of the lower extremity. MUSCULOSKELETAL EXAMINATION: Shows an elevated body mass index. NEUROLOGIC: The patient is alert, awake, responsive, is able to move upper and lower extremities without assistance. Gait examination is not tested. Vascular examination, unable to be evaluated. DIAGNOSTIC DATA: Diagnostics from 11/08/2018 pending, though ordered. IMPRESSION AND PLAN: 1. Acute left cerebellar infarct with chronic left posterior parietal chronic infarct and chronic encephalomalacia. 2. Left leg pain and weakness secondary to above. 3. Anemia. 4. Thrombocytopenia. 5. 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 6. Pulmonary hypertension with right ventricular systolic pressure of 49 mmHg. 7. Biatrial enlargement. 8. Moderate mitral regurgitation. 9 Moderate tricuspid regurgitation. 10. Moderate pulmonary hypertension. 11. Morbid obesity. 12. Degenerative joint disease. 13. Gait dysfunction. 14. Deconditioning. 15. Bilateral lower extremity venous stasis. 16. History of constipation. 17. History of atrial fibrillation. 18. Hyperlipidemia. 19. Hypovitaminosis D. 1. 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 2. Anemia. 3. Acute left cerebellar infarct with left leg weakness and left leg pain. 4. Atrial fibrillation. 5. High risk for fall. 6. Acute right-sided diastolic congestive heart failure with pulmonary hypertension and bilateral lower extremity venous stasis and elevated ProBNP. 7. Thrombocytopenia, etiology undetermined. 8. History of diet-controlled diabetes mellitus. 9. Mild metabolic alkalosis. 10. Bilateral lower extremity venous stasis. 11. Gait dysfunction. 12. Morbid obesity. 13. 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 14. Hypertensive cardiovascular disease. 1. Acute left cerebellar hemisphere acute infarct with area of restricted diffusion. 2. Left posterior parietal lobe chronic encephalomalacia secondary to chronic infarct. 3. Cerebral cortical atrophy of the brain. 4. Microvascular skin disease of the brain. 5. Chronic left posterior parietal infarct. 6. Atrial fibrillation. 7. Left ventricular ejection fraction of 65% with pulmonary hypertension and right ventricular systolic pressure of 49 mmHg. 8. Concentric left ventricular hypertrophy. 9. Biatrial enlargement. 10. Moderate mitral regurgitation with mildly thickened mitral valve. 11. Moderate tricuspid regurgitation with moderate pulmonary hypertension and right ventricular systolic pressure of 49 mmHg. 12. Gait dysfunction. 13. Deconditioning. 14. Bilateral lower extremity venous stasis of the legs. 15. Morbid obesity. 16. Atrial fibrillation. 17. Gait dysfunction. 18. Neurosis. 19. Posterior left parietal occipital lesion watershed location geographic infarct with nonhemorrhagic area of cortical infarction. 20. Non hemorrhagic bland infarct watershed distribution left posterior parietal region. 21. Severe cardiomegaly. 22. Left lower extremity weakness and pain and leg swelling. 23. Left lower extremity weakness. 24. Leukopenia, anemia, thrombocytopenia and pancytopenia. 26. Hypokalemia. 27. Mild metabolic alkalosis. 28. Atrial fibrillation with nonspecific ST changes. 29. Diastolic right-sided congestive heart failure. PLAN: At this time, the patient is being consulted with Neurology, Cardiology, and Hematology. We are awaiting recommendations from Hematology regarding anemia and thrombocytopenia. The patient is recommended to be continued on antiplatelet therapy and statins by Neurology. We will await further recommendation by Hematology/Oncology. The patient's chemistry and LFTs will be reviewed when available from today. Next, the patient will be continued on the therapeutic intervention as per the MAR of today. The patient has been ordered physical therapy, occupational therapy, ambulation therapy, and gait training. The patient has been ordered out of bed to chair. The patient's discharge disposition will be dependent upon the patient's clinical condition, hemodynamic status, and as per recommendation by all the physicians involved in the care of the patient and also in particular by recommendation by Physical Therapy. Yesterday, again, the patient was extensively explained about her diagnoses, test results, and recommendation by all the physicians involved in the care of the patient in layman's language in the presence of the patient's nurse. After the patient agreed and understood all above, then I left the room, and all the patient's questions were answered to her satisfaction. Dictated and electronically signed, not read. Kole Almanza MD [facility]
--- NOTE | 2018-11-08 09:16 | PN ---
DATE: 11/07/2018 SUBJECTIVE: The patient's shortness of breath improved as well as her leg swelling. She denies any chest pain. PHYSICAL EXAMINATION: VITAL SIGNS: Blood pressure 114/67, heart rate 100, temperature 97.9, respirations 18. HEENT: Normocephalic. CHEST: Bibasilar rhonchi. HEART: S1 and S2 . ABDOMEN: Soft. EXTREMITIES: 1+ pitting edema. LABORATORY DATA: Hemoglobin and hematocrit are 10.5 and 33.3, white count 12.9, platelet count 95,000. SMA-7: Sodium 140, potassium 4.1, chloride 98, CO2 of 37, glucose of 123, BUN 19, creatinine 0.9. Echocardiographic study performed yesterday revealed normal left ventricular size and systolic function, mild concentric LVH, mild to moderate mitral insufficiency, moderate pulmonary hypertension. ASSESSMENT: 1. Recent cerebrovascular accident with an MRI finding of recent left cerebellar hemispheric infarct with chronic left posterior parietal infarct. 2. Consider diastolic heart failure. 3. Chronic atrial fibrillation. 4. Improved hypokalemia. 5. Mild thrombocytopenia. RECOMMENDATIONS: Continue current digoxin 0.125 mg orally daily, aspirin 81 mg once a day, Lasix 40 mg intravenous twice a day, Lipitor at 40 mg once a day, Lovenox 40 mg subcutaneously daily, Plavix 75 mg once a day, Zestril 5 mg once a day. Consider Eliquis at 2.5 mg orally daily. Ander Bailey MD
--- NOTE | 2018-11-08 11:21 | CP.PCM.APN ---
Subjective - Date & Time of Evaluation Date of Evaluation: 11/08/18 Time of Evaluation: 10:00 - Subjective Subjective: pt seen and examined at bedside, pt states her left LE feels much bettter and is bale to move it better than yesterday. pt deneis sob/cp and offera no complaints at this time. Review of Systems - Review of Systems All systems: reviewed and no additional remarkable complaints except Objective - Vital Signs/Intake and Output Vital Signs (last 24 hours): Temp Pulse Resp BP Pulse Ox 97.8 F 72 18 116/70 94 L 11/08/18 06:00 11/08/18 06:00 11/08/18 06:00 11/08/18 06:00 11/08/18 06:00 Intake and Output: 11/08/18 11/08/18 06:59 18:59 Intake Total 540 Output Total 300 Balance 240 - Medications Medications: Current Medications Acetaminophen (Tylenol 325mg Tab) 650 mg PO Q6 PRN PRN Reason: TEMP>=99.5F Acetazolamide (Diamox 250 Mg Tab) 250 mg PO BID [facility] Stop: 11/10/18 18:01 Apixaban (Eliquis) 2.5 mg PO BID [facility]; Protocol Atorvastatin Calcium (Lipitor) 40 mg PO DIN [facility] Last Admin: 11/07/18 17:47 Dose: 40 mg Dextrose (Dextrose 50% Inj) 0 ml IV STAT PRN; Protocol PRN Reason: Hypoglycemia Protocol Docusate Sodium (Colace) 100 mg PO TID [facility] Last Admin: 11/07/18 19:29 Dose: Not Given Fluticasone Propionate (Flonase) 1 actuation NS BID [facility] Last Admin: 11/08/18 05:10 Dose: 1 spray Furosemide (Lasix) 40 mg IVP DAILY [facility] Gabapentin (Neurontin) 100 mg PO HS [facility]; Protocol Last Admin: 11/07/18 21:45 Dose: 100 mg Hydrocortisone (Anusol-Hc) 0 gm ID BID [facility] Stop: 11/14/18 18:01 Dextrose (Dextrose 5% In Water 1000 Ml) 1,000 mls @ 0 mls/hr IV .Q0M PRN; Protocol PRN Reason: Hypoglycemia Protocol Insulin Human Regular (Humulin R Med) 0 units SC ACHS [facility]; Protocol Last Admin: 11/07/18 21:46 Dose: Not Given Metoprolol Succinate (Toprol Xl) 25 mg PO BRK [facility] Last Admin: 11/06/18 12:01 Dose: Not Given Pantoprazole Sodium (Protonix Ec Tab) 40 mg PO 0600 [facility] Last Admin: 11/08/18 05:09 Dose: 40 mg Potassium Chloride (Klor-Con 10) 20 meq PO DAILY [facility] - Labs Labs: 11/08/18 06:10 11/08/18 06:10 PT 12.1 SECONDS (9.4-12.5) 11/05/18 18:20 INR 1.09 11/05/18 18:20 APTT 33.1 Seconds (26.9-38.3) 11/05/18 18:20 - Constitutional Appears: No Acute Distress - Eye Exam Pupil Exam: NORMAL ACCOMODATION, PERRL - ENT Exam ENT Exam: Normal Exam - Neck Exam Neck Exam: Normal Inspection - Respiratory Exam Respiratory Exam: Decreased Breath Sounds, NORMAL BREATHING PATTERN - Cardiovascular Exam Cardiovascular Exam: +S1, +S2 - GI/Abdominal Exam GI & Abdominal Exam: Soft, Normal Bowel Sounds - Extremities Exam Extremities Exam: Pedal Edema Additional comments: ITS Impressions Chest X-Ray 11/05/18 17:04 IMPRESSION: No active pulmonary disease. Severe cardiomegaly. Head CT 11/05/18 17:04 IMPRESSION: Nonhemorrhagic/bland infarct watershed distribution posterior left parietal region. Concordant results (preliminary interpretation) provided by [facility]. Procedure Completed: 19:10. Preliminary Report: Interpreted and electronically signed: 19:44. Final Interpretation: 11:33. November 06, 2018 Extremity Ultrasound 11/05/18 20:50 IMPRESSION: No sonographic evidence for deep venous thrombosis in the visualized segments of both lower extremities. Limited study. The tibial veins are not adequately seen Carotid Artery Ultrasound 11/05/18 23:43 IMPRESSION: 1. Bilateral 20-39% proximal ICA stenoses. 2. Antegrade flow in both vertebral arteries. Brain MRI 11/06/18 00:07 IMPRESSION: Small recent infarct in the left cerebellar hemisphere. 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 No evidence of intracranial hemorrhage. Chest X-Ray 11/06/18 05:00 IMPRESSION: No active disease. No significant interval change compared to the prior examination(s). 88 yr old AA female with pmh sig for dm, htn, chronic afib, diastolic chf dvt and prior cva who presented to the Ed with C/o acute left LE weakness and dizziness now admitted with neurology eval and workup in progress. Pt found to have small recent infarct in the left cerebellar hemisphere on MRI. Pt is on Eliquis and statin therapy per discussion with physical therapist, FRANK will be recommendation. discussed rodriguez of care with PMd and relayed info to [facility] re: FRANK as plan anthony continue to follow clinical course. BPCI/TIC - BPCIA/TIC Educated pt/family on BPCIA/CIR/Med to Bed Programs: N/A Flyers given, including [facility] Beneficiary letter: N/A Pt/family verbalized understanding & agreed to program: N/A
[2018-11-08] MEDS: Potassium Chloride 10 mEq ER Tab PO SCH (12:02)
[2018-11-08] MEDS: Hydrocortisone 2.5% Rectal Cream(30 gm) PR SCH ×2 (12:06→18:27)
[2018-11-08] MEDS: Insulin Reg-MEDIUM-Coverage SC SCH ×3 (12:08→23:31)
--- NOTE | 2018-11-08 13:32 | PN ---
DATE: 11/08/2018 SUBJECTIVE: The patient is awake, alert. Working with physical therapy moving from bed to chair. PHYSICAL EXAMINATION: VITAL SIGNS: Blood pressure 116/70, heart rates in atrial fibrillation in the 50s. NECK: Negative JVD. LUNGS: Without rales. HEART: S1, S2. EXTREMITIES: Trace edema. LABORATORY DATA: INR is normal. BUN and creatinine unremarkable. Glucose is 107, hemoglobin is 11.8 with a platelet count of 77,000. IMPRESSION: 1. Chronic atrial fibrillation. 2. Hypertension. 3. Diabetes mellitus. 4. Mild congestive heart failure. 5. Questionable cerebrovascular accident. 6. Pedal edema. 7. Weakness. 8. Thrombocytopenia. Given these findings, the patient states she is on Plavix and aspirin for peripheral vascular disease. She is not on anticoagulation. Given her findings on brain MRI along with a dilated atrium on echocardiogram and an atrial fibrillation, the patient will need to be on anticoagulation. We will start the patient on Eliquis 2.5 twice a day. We will stop her aspirin and stop her Plavix. Rafael Ovalle MD
[2018-11-08] MEDS: Enoxaparin 40 mg Syringe SC SCH (13:38)
[2018-11-08] MEDS ORDERED: Barium Sulfate Susp 2.1% w/v, 2.0% w/w 450 mL Bottle PO ONE (18:30)
--- NOTE | 2018-11-08 20:53 | CON ---
DATE: 11/08/2018 Dr. Callejas covering for Dr. Michael Thomas. REASON FOR CONSULTATION: Rectal discomfort while sitting up. HISTORY OF PRESENT ILLNESS: This is an 88-year-old patient with past medical history of diabetes mellitus, status post CVA, hypertension, CHF, was admitted with weakness of the left lower extremity and also swelling. Patient was complaining of some discomfort in the perineal area, especially when she was sitting. She describes no any persistent pain. No bleeding per rectum. No recent change of bowel habits. She was concerned because of the persistence of the symptoms. Patient had a colonoscopy in [address] Martinez and patient did carry the report that showed only diverticulosis and hemorrhoids. No polyps are noticed. Patient is due to have also a followup appointment with him. PAST MEDICAL HISTORY: Significant for atrial fibrillation and obesity. PAST SURGICAL HISTORY: Significant for thyroid surgery, right knee surgery, and hemorrhoidectomy in the past. SOCIAL HISTORY: Denies smoking. No alcohol. ALLERGIES: NO KNOWN DRUG ALLERGY. REVIEW OF SYSTEMS: Positive as above, other systems reviewed. PHYSICAL EXAMINATION GENERAL: The patient is lying on the bed, not in acute distress. VITAL SIGNS: Temperature 98.3, pulse 89, blood pressure 136/77, and respirations 18. HEENT: Atraumatic and anicteric. NECK: Supple. HEART: S1 and S2 heard. LUNGS: Bilateral air entry present. ABDOMEN: Soft. There is no tenderness RECTAL: Done which showed a slightly reduced anal tone, otherwise no mass palpable. No tenderness. EXTREMITIES: Showed some edema. LABORATORY DATA: Hemoglobin 11.8, hematocrit 37.6, WBC 4.9, and platelets 77. Patient had a slow drop in platelet, platelets count is 77, manual count is 124. Chemistry shows LFTs are normal, BUN 10, and creatinine 0.9. IMPRESSION: This 88-year-old patient with a history of atrial fibrillation, coronary artery disease, congestive heart failure, type 2 diabetes mellitus, hypertension, questionable cerebrovascular accident was admitted with left lower extremity weakness. Patient is presently being started on Eliquis. Patient was on aspirin and Plavix before. Patient has episodes of rectal discomfort. Rectal examination did not reveal any tenderness. The etiology for her chronic discomfort is unclear, which is reasonable. RECOMMENDATIONS: The patient did have a colonoscopy in 2014. No polyps noticed. It is reasonable at this point to get CT with only p.o. contrast to further evaluate the pelvic and rectal discomfort. Rule out any pelvic or rectal inflammatory changes. Thank you very much Dr. Almanza for allowing us to participate in the care of the patient. Roxana Callejas MD
--- NOTE | 2018-11-08 23:15 | CP.PCM.CON ---
History of Present Illness - History of Present Illness History of Present Illness: 88 year old female with a history of DM, HTN, DVT, afib, CVA, presenting with left leg weakness, found to have an acute CVA, with thrombocytopenia. The patient is unaware of having blood problems in the past. She denies abnormal bleed and bruising. Review of her blood work shows a platelet demar at 75,000 during this admission. She did have mild thrombocytopenia fluctuations in 2018. Past medical history: DM, HTN, DVT, afib, CVA Past surgical history: Thyroid and hemorrhoid surgery Family history: Denies hematologic and oncologic problems Social history: Former tobacco Allergies: NKA Review of systems: All remaining review of systems including HEENT, cardiovascular, respiratory, gastrointestinal, genitourinary, musculoskeletal, dermatologic, neurologic, and psychiatric are negative unless mentioned in the HPI. Past Patient History - Infectious Disease Hx of Infectious Diseases: None - Past Social History Smoking Status: Never Smoked - CARDIAC Hx Congestive Heart Failure: Yes Hx Hypertension: Yes - PULMONARY Hx Chronic Obstructive Pulmonary Disease (COPD): No - NEUROLOGICAL HX Cerebrovascular Accident: Yes - HEENT Hx HEENT Problems: Yes Hx Blind: No Hx Cataracts: Yes Hx Deafness: No Hx Difficulty Chewing: No Hx Epistaxis: No Hx Glaucoma: No - RENAL Hx Chronic Kidney Disease: No - ENDOCRINE/METABOLIC Hx Diabetes Mellitus Type 2: Yes - HEMATOLOGICAL/ONCOLOGICAL Hx Blood Disorders: No - INTEGUMENTARY Hx Dermatological Problems: No Hx Basil Cell: No Hx Eczema: No Hx Melanoma: No Hx Psoriasis: No Hx Squamous Cell: No - MUSCULOSKELETAL/RHEUMATOLOGICAL Hx Arthritis: Yes - GASTROINTESTINAL Hx Gastrointestinal Disorders: Yes - GENITOURINARY/GYNECOLOGICAL Hx Genitourinary Disorders: Yes Hx Incontinence: Yes - PSYCHIATRIC Hx Psychophysiologic Disorder: No Hx Substance Use: No - SURGICAL HISTORY Hx Surgeries: Yes (thyroidectomy) - ANESTHESIA Hx Anesthesia: Yes Meds Home Medications: Home Medication List Medication Instructions Recorded Confirmed Type Acetaminophen [Tylenol 325mg tab] 650 mg PO Q6 PRN tab 11/08/18 Rx Apixaban [Eliquis] 2.5 mg PO BID tab 11/08/18 Rx Fluticasone Nasal [Flonase] 1 actuation NS BID spr 11/08/18 Rx Furosemide [Lasix] 40 mg PO BID vial 11/08/18 Rx Gabapentin [Neurontin] 100 mg PO HS cap 11/08/18 Rx Hydrocortisone 2.5% (Rectal) 1 gm [place] BID tube 11/08/18 Rx [Anusol-Hc] Potassium Chloride [Klor-Con 10] [address] 11/08/18 Rx Allergies/Adverse Reactions: Allergies Allergy/AdvReac Type Severity Reaction Status Date / Time No Known Allergies Allergy Verified 11/05/18 16:54 - Medications Medications: Current Medications Acetaminophen (Tylenol 325mg Tab) 650 mg PO Q6 PRN PRN Reason: TEMP>=99.5F Acetazolamide (Diamox 250 Mg Tab) 250 mg PO BID [facility] Stop: 11/10/18 18:01 Last Admin: 11/08/18 18:25 Dose: 250 mg Apixaban (Eliquis) 2.5 mg PO BID [facility]; Protocol Last Admin: 11/08/18 18:25 Dose: 2.5 mg Atorvastatin Calcium (Lipitor) 40 mg PO DIN [facility] Last Admin: 11/08/18 18:25 Dose: 40 mg Dextrose (Dextrose 50% Inj) 0 ml IV STAT PRN; Protocol PRN Reason: Hypoglycemia Protocol Docusate Sodium (Colace) 100 mg PO TID [facility] Last Admin: 11/08/18 18:26 Dose: 100 mg Fluticasone Propionate (Flonase) 1 actuation NS BID [facility] Last Admin: 11/08/18 18:25 Dose: 1 spray Furosemide (Lasix) 40 mg IVP DAILY [facility] Last Admin: 11/08/18 12:06 Dose: 40 mg Gabapentin (Neurontin) 100 mg PO HS [facility]; Protocol Last Admin: 11/08/18 22:14 Dose: 100 mg Hydrocortisone (Anusol-Hc) 0 gm [place] BID [facility] Stop: 11/14/18 18:01 Last Admin: 11/08/18 18:27 Dose: 1 applic Dextrose (Dextrose 5% In Water 1000 Ml) 1,000 mls @ 0 mls/hr IV .Q0M PRN; Protocol PRN Reason: Hypoglycemia Protocol Insulin Human Regular (Humulin R Med) 0 units SC ACHS [facility]; Protocol Last Admin: 11/08/18 18:28 Dose: Not Given Metoprolol Succinate (Toprol Xl) 25 mg PO BRK [facility] Last Admin: 11/06/18 12:01 Dose: Not Given Pantoprazole Sodium (Protonix Ec Tab) 40 mg PO 0600 [facility] Last Admin: 11/08/18 05:09 Dose: 40 mg Potassium Chloride (Klor-Con 10) 20 meq PO DAILY [facility] Physical Exam - Head Exam Head Exam: ATRAUMATIC - Eye Exam Eye Exam: Normal appearance - ENT Exam ENT Exam: Mucous Membranes Dry - Respiratory Exam Respiratory Exam: Decreased Breath Sounds - Cardiovascular Exam Cardiovascular Exam: +S1, +S2 - GI/Abdominal Exam GI & Abdominal Exam: Normal Bowel Sounds - Extremities Exam Extremities exam: Positive for: pedal edema - Neurological Exam Neurological exam: Oriented x3 - Psychiatric Exam Psychiatric exam: Normal Affect, Normal Mood - Skin Skin Exam: Warm Results - Vital Signs Recent Vital Signs: Last Vital Signs Temp 97.8 F 11/08/18 18:00 Pulse 80 11/08/18 18:00 Resp 18 11/08/18 18:00 BP 135/80 11/08/18 18:00 Pulse Ox 94 L 11/08/18 06:00 - Labs Result Diagrams: 11/08/18 06:10 11/08/18 06:10 Labs: Laboratory Results - last 24 hr 11/08/18 11/08/18 06:10 06:10 WBC 4.9 RBC 4.41 Hgb 11.8 L Hct 37.6 MCV 85.3 MCH 26.8 MCHC 31.4 RDW 15.7 H Plt Count 77 L Manual Plt Count 124 Neut % (Auto) 55.7 Lymph % (Auto) 34.0 [place] % (Auto) 7.2 H Eos % (Auto) 2.9 Baso % (Auto) 0.2 Lymph # (Auto) 1.7 [place] # (Auto) 0.4 Eos # (Auto) 0.1 Baso # (Auto) 0.01 Absolute Neuts (auto) 2.70 Sodium 141 Potassium 4.0 Chloride 95 L Carbon Dioxide > 40 H Anion Gap 10 BUN 21 Creatinine 0.9 Est GFR ( Amer) > 60 Est GFR (Non-Af Amer) 59 Random Glucose 107 Calcium 8.9 Phosphorus 3.4 Magnesium 2.2 Total Bilirubin 0.5 AST 23 ALT 16 Alkaline Phosphatase 107 Total Protein 7.8 Albumin 3.5 Globulin 4.3 Albumin/Globulin Ratio 0.8 L Assessment & Plan (1) Thrombocytopenia Assessment and Plan: suspect medication induced - diuretics given mild nature, no intervention or holding of meds required okay to cont. Eliquis for now; may need to hold if plt < 50,000 will add HIV and hepatitis panel Status: Acute (2) Anemia Assessment and Plan: mild retic count, b12, folate, ferritin, FOBT Thank you for this interesting consult. Status: Acute
--- NOTE | 2018-11-09 01:49 | PCM.RRT ---
<Shabbir Zuniga - Last Filed: 11/09/18 01:52> PIPE THREADING MACHINE OPERATOR Nurse Assessment - Situation Date: 11/09/18 Time PIPE THREADING MACHINE OPERATOR was called: 01:28 PIPE THREADING MACHINE OPERATOR Responder Arrival Time: 01:30 PIPE THREADING MACHINE OPERATOR Location:: [address] [place] [address] Room Number: 62-1 PIPE THREADING MACHINE OPERATOR Reason for Call: Change in Mental Status PIPE THREADING MACHINE OPERATOR Called By: RN - IV IV Inserted during PIPE THREADING MACHINE OPERATOR?: No - Respiratory Oxygen Delivery Method: Nasal Cannula @L/min Oxygen Flow Rate: 2 Received Nebulizer Treatments:: No Was the Patient Ventilated with Bag/Mask 100% O2?: No Secretions Suctioned?: No Was the Patient Intubated?: No Was the Patient Placed on a Ventilator?: No - Diagnostic Test Ordered EKG: No Chest X-Ray: No CT Scan: Yes Other Diagnostic Test Ordered: head ct CPR started during PIPE THREADING MACHINE OPERATOR?: No - Vital Signs Vital Sign: Rapid Response Vital Sign Blood Pressure 142/75 Pulse Rate 80 Respiratory Rate 18 Oxygen Saturation 98 - Finger Stick Blood Glucose Finger Stick Blood Glucose: 142 - Time PIPE THREADING MACHINE OPERATOR Ended Time PIPE THREADING MACHINE OPERATOR Ended: 01:39 - Vital Signs at end of PIPE THREADING MACHINE OPERATOR Vital Signs at end of PIPE THREADING MACHINE OPERATOR: Rapid Response End Vital Sign Blood Pressure 175/76 Pulse Rate 89 Respiratory Rate 18 Temperature 97.8 F O2 Sat by Pulse Oximetry 99 I.Reason for PIPE THREADING MACHINE OPERATOR - A) Acute Change in Patient: (Select all that apply): Staff member or family is worried about patient - Neurological Status (Select all that apply): Alert, Responsive - Respiratory Oxygen Delivery Method: Nasal Cannula @L/min Oxygen Flow Rate: 2 - Constitutional Appears: Non-toxic, No Acute Distress - Head Head Exam: ATRAUMATIC, NORMOCEPHALIC - Eyes Eye Exam: EOMI, PERRL - Respiratory Exam Respiratory Exam: Clear to Ausculation Bilateral, NORMAL BREATHING PATTERN. absent: Rales, Rhonchi, Wheezes - Cardiovascular Exam Cardiovascular Exam: REGULAR RHYTHM, RRR, +S1, +S2. absent: Gallop, Rubs, Murmur - GI/Abdominal Exam GI & Abdominal Exam: Soft, Normal Bowel Sounds. absent: Guarding, Tenderness - Neurological Exam Neurological Exam: Alert, Awake, CN II-XII Intact Additional exam: Muscle strength 5/5 b/l, L sided moderate facial droop with mild dysarthria noted - Extremities Exam Extremities Exam: Full ROM, Normal Inspection. absent: Pedal Edema Plan - Assessment of Findings&Treatment Plan PIPE THREADING MACHINE OPERATOR called for concern of new L sided facial droop which was not previously seen Case reviewed, patient is an 88 year old female with PMH of HTN, diastolic CHF, atrial fibrillation, T2DM, DVT, CVA, and obesity presenting with LLE weakness found to have L cerebellar infarct on brain MRI Patient VS stable, SpO2 > 95% on room air, able to protect airway Since this L sided facial droop was not reported previously, code stroke was called Stat repeat head CT to be reviewed Dr. Almanza notified, asked Dr. Burks to be notified, awaiting callback <Lynn Govea - Last Filed: 11/09/18 19:25> PIPE THREADING MACHINE OPERATOR Nurse Assessment - Vital Signs Vital Sign: Rapid Response Vital Sign Blood Pressure 142/75 Pulse Rate 80 Respiratory Rate 18 Oxygen Saturation 98 - Vital Signs at end of PIPE THREADING MACHINE OPERATOR Vital Signs at end of PIPE THREADING MACHINE OPERATOR: Rapid Response End Vital Sign Blood Pressure 175/76 Pulse Rate 89 Respiratory Rate 18 Temperature 97.8 F O2 Sat by Pulse Oximetry 99 Attending/Attestation - Attestation I have personally seen and examined this patient.: No I have fully participated in the care of the patient.: No I have reviewed all pertinent clinical information, including history, physical exam and plan: No
[2018-11-09 03:12] LABS: ALB/GLOB RATIO 0.9 (1.1-1.8); ALBUMIN 3.9 g/dL (3.0-4.8); CALCIUM 9.2 mg/dL (8.4-10.5)
[2018-11-09 03:24] LABS: BASO # 0.01 K/mm3 (0.0-2.0); BASO % 0.2 % (0.0-3.0); EOS # 0.1 (0.0-0.7); EOS % 1.5 % (1.5-5.0); HEMOGLOBIN 12.4 g/dL (12.0-16.0); LYMPH # 1.2 (1.2-3.4); LYMPH % 22.3 % (22.0-35.0); MEAN CELL VOLUME 84.9 fl (80.0-105.0); MEAN CORPUSCULAR HEMOGLOBIN 27.6 pg (25.0-35.0); MEAN CORPUSCULAR HGB CONC 32.5 g/dl (31.0-37.0); MONO # 0.4 (0.1-0.6); MONO % 7.8 % (1.0-6.0); PLATELET COUNT 74 10^3/uL (120.0-450.0); RED CELL DISTRIBUTION WIDTH 15.5 % (11.5-14.5); WHITE BLOOD COUNT 5.4 10^3/uL (4.5-11.0)
[2018-11-09] MEDS: Pantoprazole 40 mg EC Tab PO SCH (05:43)
[2018-11-09] MEDS ORDERED: Potassium Chloride 20 mEq ER Tab PO STA (06:01)
--- NOTE | 2018-11-09 07:59 | CT ---
Date of service: 11/09/2018 PROCEDURE: CT HEAD WITHOUT CONTRAST. HISTORY: code stroke COMPARISON: 11/05/2018 TECHNIQUE: Axial computed tomography images were obtained through the head/brain without intravenous contrast. Radiation dose: Total exam DLP = 975.24 mGy-cm. This CT exam was performed using one or more of the following dose reduction techniques: Automated exposure control, adjustment of the mA and/or kV according to patient size, and/or use of iterative reconstruction technique. FINDINGS: HEMORRHAGE: No intracranial hemorrhage. BRAIN: No mass effect or edema. Chronic microvascular changes are seen in the periventricular white matter. There is a subacute or chronic infarct in the left parietal lobe unchanged from prior study. VENTRICLES: Unremarkable. No hydrocephalus. CALVARIUM: Unremarkable. PARANASAL SINUSES: Unremarkable as visualized. No significant inflammatory changes. MASTOID AIR CELLS: Unremarkable as visualized. No inflammatory changes. OTHER FINDINGS: The report concurs with the preliminary [facility] report IMPRESSION: Chronic microvascular changes are seen in the periventricular white matter. There is a subacute or chronic infarct in the left parietal lobe unchanged from prior study.
[2018-11-09 08:21] LABS: ALB/GLOB RATIO 0.9 (1.1-1.8); ALBUMIN 3.6 g/dL (3.0-4.8); ALT/SGPT 17 U/L (7-56); AST/SGOT 23 U/L (14-36); BLOOD UREA NITROGEN 17 mg/dL (7-21); CALCIUM 8.9 mg/dL (8.4-10.5); GFR NON-AFRICAN AMERICAN 59
[2018-11-09 08:59] LABS: BASO # 0.02 K/mm3 (0.0-2.0); BASO % 0.4 % (0.0-3.0); EOS # 0.1 (0.0-0.7); EOS % 2.1 % (1.5-5.0); HEMOGLOBIN 11.9 g/dL (12.0-16.0); LYMPH # 1.2 (1.2-3.4); LYMPH % 21.4 % (22.0-35.0); MEAN CELL VOLUME 84.4 fl (80.0-105.0); MEAN CORPUSCULAR HEMOGLOBIN 26.9 pg (25.0-35.0); MEAN CORPUSCULAR HGB CONC 31.8 g/dl (31.0-37.0); MONO # 0.5 (0.1-0.6); MONO % 9.1 % (1.0-6.0); PLATELET COUNT 68 10^3/uL (120.0-450.0); RBC 4.43 10^6/uL (3.5-6.1); RED CELL DISTRIBUTION WIDTH 15.5 % (11.5-14.5); WHITE BLOOD COUNT 5.7 10^3/uL (4.5-11.0)
[2018-11-09] MEDS: Insulin Reg-MEDIUM-Coverage SC SCH ×4 (10:25→22:30)
[2018-11-09] MEDS: Potassium Chloride 10 mEq ER Tab PO SCH (10:31)
[2018-11-09] MEDS: Hydrocortisone 2.5% Rectal Cream(30 gm) PR SCH ×2 (10:32→18:43)
[2018-11-09] MEDS: Fluticasone Nasal 50 mcg/Spray NS SCH ×2 (10:32→18:45)
[2018-11-09 10:37] LABS: PLATELET COUNT MANUAL 90 K/mm3 (120-450)
--- NOTE | 2018-11-09 11:14 | CT ---
Date of service: 11/08/2018 PROCEDURE: CT Abdomen and Pelvis without intravenous contrast HISTORY: pelvic /perineal discomfort COMPARISON: None. TECHNIQUE: Without contrast.. Contrast dose: Radiation dose: Total exam DLP = 936.1 mGy-cm. This CT exam was performed using one or more of the following dose reduction techniques: Automated exposure control, adjustment of the mA and/or kV according to patient size, and/or use of iterative reconstruction technique. FINDINGS: LOWER THORAX: Unremarkable. LIVER: Unremarkable. No gross lesion or ductal dilatation. GALLBLADDER AND BILE DUCTS: Unremarkable. PANCREAS: Unremarkable. No gross lesion or ductal dilatation. SPLEEN: Unremarkable. ADRENALS: Unremarkable. No mass. KIDNEYS AND URETERS: Unremarkable. No hydronephrosis. No solid mass. VASCULATURE: Unremarkable. No aortic aneurysm. No aortic atherosclerotic calcification or mural plaque present. BOWEL: Unremarkable. No obstruction. No gross mural thickening. Mild diverticulosis of the sigmoid colon APPENDIX: Unremarkable. Normal appendix. PERITONEUM: Unremarkable. No free fluid. No free air. LYMPH NODES: Unremarkable. No enlarged lymph nodes. BLADDER: Unremarkable. REPRODUCTIVE: Unremarkable. BONES: Multilevel disc degeneration in the lumbar spine. Severe spinal stenosis OTHER FINDINGS: Subcutaneous edema, possible anasarca. The report concurs with the preliminary [facility] report IMPRESSION: No acute intra-abdominal findings
--- NOTE | 2018-11-09 12:20 | MRI ---
Date of service: 11/09/2018 PROCEDURE: MRI BRAIN WITHOUT CONTRAST HISTORY: ??new cva COMPARISON: 11/06/2018 MRI TECHNIQUE: Multiplanar, multisequence MR images of the brain were obtained without intravenous contrast enhancement. FINDINGS: HEMORRHAGE: There is a small thin subdural hematoma over the right parietal convexity measuring 4 mm in thickness. There is no mass effect. DWI: There is a small acute or subacute infarct in the left cerebellar vermis. This is unchanged. BRAIN PARENCHYMA: No mass effect or edema. There is a chronic infarct in the left posterior temporal parietal lobe. VENTRICLES: Unremarkable. No hydrocephalus. CRANIUM: Unremarkable. ORBITS: Grossly unremarkable. PARANASAL SINUSES/MASTOIDS: Clear there is a partially empty sella. VASCULAR SYSTEM: Skull base flow voids intact. OTHER FINDINGS: None. IMPRESSION: There is a small thin subdural hematoma over the right parietal convexity measuring 4 mm in thickness. There is no mass effect. There is a small acute or subacute infarct in the left cerebellar vermis. This is unchanged. There is a chronic infarct in the left posterior temporal parietal lobe.
[2018-11-09 12:51] LABS: HEPATITIS B SURFACE AG Negative (NEGATIVE)
[2018-11-09 12:57] LABS: HEPATITIS A IGM NEGATIVE (NEGATIVE); HEPATITIS B CORE AB NEGATIVE (NEGATIVE)
[2018-11-09 13:00] LABS: FERRITIN 26.2 ng/mL
[2018-11-09 13:09] LABS: HEPATITIS C ANTIBODY NEGATIVE (NEGATIVE)
[2018-11-09 13:30] LABS: FOLATE 7.5 ng/mL
--- NOTE | 2018-11-09 14:49 | PN ---
DATE: 11/09/2018 CARDIOLOGY FOLLOWUP SUBJECTIVE: Rapid response was called today for questionable facial droop although the patient denies it. PHYSICAL EXAMINATION: VITAL SIGNS: Blood pressure 143/81, heart rate in the 70s, atrial fibrillation. NECK: Negative JVD. LUNGS: Without rales. HEART: S1 and S2. EXTREMITIES: Without edema. LABORATORY DATA: BUN and creatinine are unremarkable. Hemoglobin is 11.9. MRI of the brain that was done this morning revealed a thin subdural hematoma over the right parietal area without mass effect. IMPRESSION: 1. Atrial fibrillation. 2. Recurrent cerebrovascular accidents. 3. Small subdural hematoma. 4. Chronic atrial fibrillation. 5. Thrombocytopenia. 6. Congestive heart failure which has resolved. 7. Diabetes mellitus. 8. Hypertension. Given these findings, we will hold her Eliquis for now. Will need Neurology to evaluate whether the patient can be placed back on her anticoagulation given her high probability for thromboembolic phenomenon from her atrial fibrillation. Rafael Ovalle MD
--- NOTE | 2018-11-09 17:41 | PN ---
DATE: 11/09/2018 SUBJECTIVE: The patient is seen in room 262 bed one. Overnight nurse's notes and resident's were reviewed. The patient had an PANTS BUSHELER called around early this morning for questionable new onset left-sided facial droop, PANT[employer]HELER was called. Code stroke was called. The patient underwent a stat CAT scan of the bed. The patient is now seen in the bed, lying in the bed 262, bed one. The patient is comfortable, but there is no grossly visible facial droop noted. The patient's speech is clear. PHYSICAL EXAMINATION: GENERAL: The patient is alert, awake, responsive, is able to answer questions without any hesitation or without any dysarthria. VITAL SIGNS: T-max 97.1. Telemetry atrial fibrillation, heart rate 73, blood pressure 164/78, 142/75, 157/81, 175/76, O2 sat 99%. HEENT: Head examination normocephalic, atraumatic. HEENT examination showed no gross facial asymmetry. Tongue is midline. No facial asymmetry noted. Questionable soft carotid bruit. CHEST: Kyphosis. LUNGS: Examination shows no audible crackle, rales or wheezing. CARDIOVASCULAR: S1 and S2, irregular rhythm. Positive systolic murmur left sternal border, right second intercostal space, left second intercostal space. ABDOMEN: Soft, obese. Positive bowel sounds. Unable to appreciate any hepatosplenomegaly. GENITALIA: Female. RECTAL: Deferred. EXTREMITIES: Shows significant reduction and resolution of the pitting edema of the lower extremity which is almost resolved, but not completely resolved. MUSCULOSKELETAL: Elevated body mass index. NEUROLOGIC: The patient is alert, awake, responsive, is able to move upper and lower extremity without assistance. Gait examination is not tested. VASCULAR: Palpable pulses. DIAGNOSTICS: CBC from 11/09/2018, WBC 5.4, hemoglobin/hematocrit 12.4/38, platelet 74,000; manual platelet pending. Sodium 140, potassium 3.3 which is low, chloride 96, CO2 38, BUN 18, creatinine 1.1, glucose 125, calcium 9.2, phosphorus 3.7, magnesium 2.2. CT of the head which was done shows low density wedge-shaped left posterior parietal subacute infarct, cerebral cortical atrophy of the brain, and microvascular ischemic disease of the brain. CAT scan of the abdomen and pelvis shows sigmoid diverticulosis, anasarca, lumbar spine degenerative disc disease, hepatomegaly, and questionable cirrhosis. IMPRESSION AND PLAN: 1. Status post PANTS BUSHELER and questionable code stroke. 2. Questionable new onset left-sided facial droop. 3. Acute left cerebellar infarct. 4. Thrombocytopenia. 5. Hypokalemia. 6. Metabolic alkalosis secondary to diuretics. 7. Questionable new onset left-sided facial droop and (resolved). 8. Left posterior parietal wedge-shaped low-density. 9. Left posterior parietal subacute infarct with low density wedge-shaped density. 10. Cerebral cortical atrophy of the brain. 11. Microvascular ischemic disease of the brain. 12. internal hemorrhoid. 13. Anasarca. 14. Lumbar spine degenerative disc disease. 15. Hepatomegaly. 16. Questionable cirrhosis. 17. 20-39% internal carotid artery stenosis. 18. Atrial fibrillation. 19. Pulmonary hypertension with right ventricular systolic pressure of 49 mmHg. 20. 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 21. Biatrial enlargement. 22. Moderate mitral regurgitation and moderate tricuspid regurgitation. 23. Pulmonary hypertension. 24. Bilateral lower extremity venous stasis secondary to right-sided diastolic congestive heart failure with pulmonary hypertension. 25. Morbid obesity. 26. Gait dysfunction. 27. Status post left leg weakness. PLAN: At this time, the patient will be continued on telemetry with neurology reevaluation has been requested. The patient has been ordered an MRI of the brain without gadolinium for the evaluation of the new neurological finding overnight. The patient has been requested neurology evaluation and clearance. The patient has been ordered an MRI of the brain. The patient will be continued on all the medications as per the [facility] today. The patient's further management will be dependent upon the patient's clinical condition, hemodynamic status and as per the patient's response to therapeutic intervention as per the patient's diagnostic test results. The patient will be continued on daily out of bed to chair. The patient will be continued on daily physical therapy, occupational therapy, ambulation therapy, gait therapy, gait training. The patient has been updated about her condition, diagnosis, treatment plan, treatment options all discussed and explained. The patient's further management will be dependent upon the patient's repeat MRI of the brain,neurology reevaluation and clearance. The patient will be considered for discharge disposition once the patient's MRI is negative and after cleared by Neurology. Kole MD Archie [facility] # [id number]
--- NOTE | 2018-11-09 18:51 | PN ---
DATE: 11/09/2018 NEUROLOGY FOLLOWUP CHIEF COMPLAINT: Followup for left lower extremity weakness and transient altered mental status. SUBJECTIVE: The patient had a rapid response today with questionable altered mental status and questionable facial droop. She underwent an MRI oft he brain, which showed her small [id number] infract in left cerebellar , which was unchanged from prior MRI, but there was evidence of a small thin subdural hematoma of the right parietal convexity measuring 4 mm in thickness, likely this related to spontaneous subdural hemorrhage from underlying thrombocytopenia and low platelet count. She is on Eliquis for atrial fibrillation and given history of strokes, which is fine, but will recommend to hold for at least 1 week to prevent further evolution of the small subdural hematoma. Risk versus benefit has to be explained. PAST MEDICAL HISTORY: History of hypertension, diastolic CHF, atrial fibrillation, type 2 diabetes mellitus, DVT, CVA, and obesity. REVIEW OF SYSTEMS: A 14-point review of systems is negative except per the HPI. PAST SURGICAL HISTORY: Thyroidectomy and history of hemorrhoidectomy. ALLERGIES: NO KNOWN DRUG ALLERGIES. MEDICATIONS: Reviewed by nurse's reconciliation sheet. PHYSICAL EXAMINATION GENERAL: The patient is seen up in bed and in no acute distress. VITAL SIGNS: Temperature 97.8, pulse 67, blood pressure 143/81, and respiratory rate 20. HEENT: Atraumatic and normocephalic. PERRLA. Extraocular muscles intact. NECK: Supple. No JVD. No adenopathy noted. LUNGS: Decreased breath sounds bilaterally. HEART: S1 and S2. Irregular rate and rhythm. No murmurs, rubs, or gallops. ABDOMEN: Soft and nontender. Nondistended. Bowel sounds present. EXTREMITIES: No clubbing. No cyanosis. Peripheral pulses 2+ bilaterally. NECROLOGIC: The patient is alert and oriented to person, place, month and year. Recall after 5 minutes is 0/3. Poor attention span. Slow thought process. Speech is fluent without any errors. Motor exam; moves all extremities equally, except for mild left lower extremity weakness 5-/5. Cranial nerves II through XII intact. Sensory exam; decreased light touch and pinprick proprioception up to the calves bilaterally. Decreased vibration at the toes. DTRs are 2+ throughout and 1 at both knees and ankles. Coordination; [id number] intact. No dysmetria noted. Dysdiadochokinesia is present. Gait is deferred for now. LABORATORY DATA: Hemoglobin is 11.9, hematocrit 37.4, and platelet count of 90 manual platelet count. ASSESSMENT AND PLAN: This is a 88-year-old woman with history of hypertension, diastolic congestive heart failure, atrial fibrillation, type 2 diabetes mellitus, deep vein thrombosis, cerebrovascular accident in the left posterior parietal infarct region, who presents with left lower extremity weakness, dizziness and generalized weakness, found to have an acute infarct in the left cerebellar hemisphere, small in nature secondary to diffuse atherosclerotic disease with a history of atrial fibrillation, those related to a low platelet count and thrombocytopenia and atrial fibrillation. She has a very high blood score, though risk of having future infracts with atrial fibrillation is elevated; therefore, I recommend her to be on Eliquis, but since she had the transient altered mental status today from development of a spontaneous small thin subdural hematoma of the right parietal convexity measuring 4 mm in thickness from a low thrombus platelet count, we will recommend to hold Eliquis for at least just 1 week given the risk versus benefit ratio. At this time, continue with Lipitor 40 mg for dyslipidemia and follow up with Cardiology in regards to her atrial fibrillation management and if okay to hold Eliquis for a week given the risk versus benefit ratio. At this time, physical therapy/occupational therapy evaluation. We will recommend acute rehab. Thank you for this followup. Beck Burks MD
[2018-11-10] MEDS: Pantoprazole 40 mg EC Tab PO SCH (06:21)
[2018-11-10 07:42] LABS: ALB/GLOB RATIO 0.9 (1.1-1.8); ALBUMIN 3.6 g/dL (3.0-4.8); ALT/SGPT 17 U/L (7-56); AST/SGOT 22 U/L (14-36); BLOOD UREA NITROGEN 17 mg/dL (7-21); CALCIUM 8.9 mg/dL (8.4-10.5); GFR NON-AFRICAN AMERICAN 59
[2018-11-10 08:02] LABS: BASO # 0.01 K/mm3 (0.0-2.0); BASO % 0.2 % (0.0-3.0); EOS # 0.2 (0.0-0.7); EOS % 2.8 % (1.5-5.0); HEMOGLOBIN 12.3 g/dL (12.0-16.0); LYMPH # 1.4 (1.2-3.4); LYMPH % 24.8 % (22.0-35.0); MEAN CELL VOLUME 84.7 fl (80.0-105.0); MEAN CORPUSCULAR HEMOGLOBIN 27.6 pg (25.0-35.0); MEAN CORPUSCULAR HGB CONC 32.6 g/dl (31.0-37.0); MONO # 0.5 (0.1-0.6); MONO % 9.2 % (1.0-6.0); RBC 4.45 10^6/uL (3.5-6.1); RED CELL DISTRIBUTION WIDTH 15.6 % (11.5-14.5); WHITE BLOOD COUNT 5.8 10^3/uL (4.5-11.0)
--- NOTE | 2018-11-10 08:15 | CP.PCM.PN ---
Subjective - Date & Time of Evaluation Date of Evaluation: 11/10/18 Time of Evaluation: 07:45 - Subjective Subjective: (covering for Dr. Almanza) Patient is seen this morning. She is awake and alert and says she sat in the chair yesterday for a few hours. Objective - Vital Signs/Intake and Output Vital Signs (last 24 hours): Temp Pulse Resp BP Pulse Ox 98.0 F 88 20 109/74 100 11/10/18 06:00 11/10/18 06:00 11/10/18 06:00 11/10/18 06:00 11/10/18 06:00 Intake and Output: 11/10/18 11/10/18 06:59 18:59 Intake Total 240 Output Total 1500 Balance -1260 - Medications Medications: Current Medications Acetaminophen (Tylenol 325mg Tab) 650 mg PO Q6 PRN PRN Reason: TEMP>=99.5F Acetazolamide (Diamox 250 Mg Tab) 250 mg PO BID [facility] Stop: 11/10/18 18:01 Last Admin: 11/09/18 18:44 Dose: 250 mg Apixaban (Eliquis) 2.5 mg PO BID [facility]; Protocol Last Admin: 11/09/18 10:32 Dose: 2.5 mg Atorvastatin Calcium (Lipitor) 40 mg PO DIN [facility] Last Admin: 11/09/18 18:45 Dose: 40 mg Dextrose (Dextrose 50% Inj) 0 ml IV STAT PRN; Protocol PRN Reason: Hypoglycemia Protocol Docusate Sodium (Colace) 100 mg PO TID [facility] Last Admin: 11/09/18 18:44 Dose: 100 mg Fluticasone Propionate (Flonase) 1 actuation NS BID [facility] Last Admin: 11/09/18 18:45 Dose: 1 spray Furosemide (Lasix) 40 mg IVP DAILY [facility] Last Admin: 11/09/18 10:30 Dose: 40 mg Gabapentin (Neurontin) 100 mg PO HS [facility]; Protocol Last Admin: 11/09/18 21:28 Dose: 100 mg Hydrocortisone (Anusol-Hc) 0 gm SD BID [facility] Stop: 11/14/18 18:01 Last Admin: 11/09/18 18:43 Dose: 1 applic Dextrose (Dextrose 5% In Water 1000 Ml) 1,000 mls @ 0 mls/hr IV .Q0M PRN; Protocol PRN Reason: Hypoglycemia Protocol Insulin Human Regular (Humulin R Med) 0 units SC ACHS [facility]; Protocol Last Admin: 11/09/18 22:30 Dose: Not Given Metoprolol Succinate (Toprol Xl) 25 mg PO BRK [facility] Last Admin: 11/06/18 12:01 Dose: Not Given Pantoprazole Sodium (Protonix Ec Tab) 40 mg PO 0600 [facility] Last Admin: 11/10/18 06:21 Dose: 40 mg Potassium Chloride (Klor-Con 10) 20 meq PO DAILY [facility] Last Admin: 11/09/18 10:31 Dose: 20 meq - Labs Labs: 11/10/18 06:45 11/10/18 06:45 PT 12.1 SECONDS (9.4-12.5) 11/05/18 18:20 INR 1.09 11/05/18 18:20 APTT 33.1 Seconds (26.9-38.3) 11/05/18 18:20 - Constitutional Appears: No Acute Distress - Head Exam Head Exam: ATRAUMATIC, NORMOCEPHALIC - Respiratory Exam Respiratory Exam: Decreased Breath Sounds, NORMAL BREATHING PATTERN - Cardiovascular Exam Cardiovascular Exam: +S1, +S2 - GI/Abdominal Exam GI & Abdominal Exam: Soft, Normal Bowel Sounds. absent: Tenderness - Extremities Exam Additional comments: BL SCDs - Neurological Exam Neurological Exam: Alert, Awake, Oriented x3 Assessment and Plan - Assessment and Plan (Free Text) Assessment: Acute infarct Left cerebellar hemisphere spontaneous small subdural hematoma AFib HTN DMII Chronic diastolic heart failure Plan: Patient was on Eliquis for atrial fibrillation and history of CVA. Eliquis currently on hold due to small subdural hematoma. Neurology note reviewed. Eliquis to be held for 1 week. continue Toprol for hypertension. continue Lasix and potassium. Potassium is 3.4 today. There is a standing order for potassium. Awaiting neurosurgical input. Patient will need rehab. She may go to rehab once cleared by neurology and neurosurgery.
[2018-11-10] MEDS: Fluticasone Nasal 50 mcg/Spray NS SCH ×2 (08:59→17:03)
[2018-11-10] MEDS: Potassium Chloride 10 mEq ER Tab PO SCH (09:00)
[2018-11-10] MEDS: Insulin Reg-MEDIUM-Coverage SC SCH ×5 (09:00→21:47)
--- NOTE | 2018-11-10 10:45 | CP.PCM.PN ---
<Scott Wooten - Last Filed: 11/10/18 17:24> Subjective - Date & Time of Evaluation Date of Evaluation: 11/10/18 Time of Evaluation: 07:43 - Subjective Subjective: Scott Wooten PGY2 GI Progress Note for Dr. Callejas covering for Dr. Thomas Patient was seen and examined at bedside. She states that her abdominal pain has improved and that she had a BM. Patient has no other complaints. Objective - Vital Signs/Intake and Output Vital Signs (last 24 hours): Temp Pulse Resp BP Pulse Ox 98.0 F 88 20 114/78 100 11/10/18 06:00 11/10/18 06:00 11/10/18 06:00 11/10/18 09:01 11/10/18 06:00 Intake and Output: 11/10/18 11/10/18 06:59 18:59 Intake Total 240 Output Total 1500 Balance -1260 - Medications Medications: Current Medications Acetaminophen (Tylenol 325mg Tab) 650 mg PO Q6 PRN PRN Reason: TEMP>=99.5F Acetazolamide (Diamox 250 Mg Tab) 250 mg PO BID [facility] Stop: 11/10/18 18:01 Last Admin: 11/10/18 09:00 Dose: 250 mg Apixaban (Eliquis) 2.5 mg PO BID [facility]; Protocol Last Admin: 11/09/18 10:32 Dose: 2.5 mg Atorvastatin Calcium (Lipitor) 40 mg PO DIN [facility] Last Admin: 11/09/18 18:45 Dose: 40 mg Dextrose (Dextrose 50% Inj) 0 ml IV STAT PRN; Protocol PRN Reason: Hypoglycemia Protocol Docusate Sodium (Colace) 100 mg PO TID [facility] Last Admin: 11/10/18 09:00 Dose: 100 mg Fluticasone Propionate (Flonase) 1 actuation NS BID [facility] Last Admin: 11/10/18 08:59 Dose: 2 spray Furosemide (Lasix) 40 mg IVP DAILY [facility] Last Admin: 11/10/18 09:01 Dose: 40 mg Gabapentin (Neurontin) 100 mg PO HS [facility]; Protocol Last Admin: 11/09/18 21:28 Dose: 100 mg Hydrocortisone (Anusol-Hc) 0 gm IL BID [facility] Stop: 11/14/18 18:01 Last Admin: 11/09/18 18:43 Dose: 1 applic Dextrose (Dextrose 5% In Water 1000 Ml) 1,000 mls @ 0 mls/hr IV .Q0M PRN; Protocol PRN Reason: Hypoglycemia Protocol Insulin Human Regular (Humulin R Med) 0 units SC ACHS [facility]; Protocol Last Admin: 11/10/18 09:29 Dose: Not Given Metoprolol Succinate (Toprol Xl) 25 mg PO BRK [facility] Last Admin: 11/06/18 12:01 Dose: Not Given Pantoprazole Sodium (Protonix Ec Tab) 40 mg PO 0600 [facility] Last Admin: 11/10/18 06:21 Dose: 40 mg Potassium Chloride (Klor-Con 10) 20 meq PO DAILY [facility] Last Admin: 11/10/18 09:00 Dose: 20 meq - Labs Labs: 11/10/18 06:45 11/10/18 06:45 PT 12.1 SECONDS (9.4-12.5) 11/05/18 18:20 INR 1.09 11/05/18 18:20 APTT 33.1 Seconds (26.9-38.3) 11/05/18 18:20 - Constitutional Appears: Well, Non-toxic, No Acute Distress - Head Exam Head Exam: ATRAUMATIC, NORMAL INSPECTION, NORMOCEPHALIC - Eye Exam Eye Exam: EOMI, Normal appearance, PERRL Pupil Exam: NORMAL ACCOMODATION, PERRL - ENT Exam ENT Exam: Mucous Membranes Moist, Normal Exam - Neck Exam Neck Exam: Full ROM, Normal Inspection. absent: Lymphadenopathy - Respiratory Exam Respiratory Exam: Clear to Ausculation Bilateral, NORMAL BREATHING PATTERN - Cardiovascular Exam Cardiovascular Exam: Irregular Rhythm, +S1, +S2. absent: Murmur - GI/Abdominal Exam GI & Abdominal Exam: Soft, Normal Bowel Sounds. absent: Distended, Tenderness - Extremities Exam Extremities Exam: Full ROM, Normal Capillary Refill, Normal Inspection. absent: Joint Swelling, Pedal Edema - Back Exam Back Exam: NORMAL INSPECTION - Neurological Exam Neurological Exam: Alert, Awake, Oriented x3 - Skin Skin Exam: Dry, Intact, Normal Color, Warm Assessment and Plan - Assessment and Plan (Free Text) Assessment: 88 year old AAF with a PMH of Afib on Xarelto, DM2, obesity, HTN and CHF who is admitted for acute L cerebellar infarct and a small subdural hematoma. GI is consulted for diverticulosis. Chart was reviewed. CT abd/pelvis reviewed showing no acute intra-abdominal pathology. Symptoms improved with BMs. Plan: - Xarelto is held due to subdural hematoma - cont colace for bowel regimen - cont PPI for GI ppx - further recs per PMD, cardiology and neurology teams - further recs per Dr. Callejas Case was reviewed and discussed with Dr. Callejas <Roxana Callejas V - Last Filed: 11/10/18 19:15> Objective - Vital Signs/Intake and Output Vital Signs (last 24 hours): Temp Pulse Resp BP Pulse Ox 98.2 F 83 20 125/70 99 11/10/18 18:00 11/10/18 18:00 11/10/18 18:00 11/10/18 18:00 11/10/18 10:00 - Medications Medications: Current Medications Acetaminophen (Tylenol 325mg Tab) 650 mg PO Q6 PRN PRN Reason: TEMP>=99.5F Apixaban (Eliquis) 2.5 mg PO BID [facility]; Protocol Last Admin: 11/10/18 17:02 Dose: Not Given Atorvastatin Calcium (Lipitor) 40 mg PO DIN [facility] Last Admin: 11/10/18 16:53 Dose: 40 mg Dextrose (Dextrose 50% Inj) 0 ml IV STAT PRN; Protocol PRN Reason: Hypoglycemia Protocol Docusate Sodium (Colace) 100 mg PO TID [facility] Last Admin: 11/10/18 17:02 Dose: 100 mg Fluticasone Propionate (Flonase) 1 actuation NS BID [facility] Last Admin: 11/10/18 17:03 Dose: 2 spray Furosemide (Lasix) 40 mg IVP DAILY [facility] Last Admin: 11/10/18 09:01 Dose: 40 mg Gabapentin (Neurontin) 100 mg PO HS [facility]; Protocol Last Admin: 11/09/18 21:28 Dose: 100 mg Hydrocortisone (Anusol-Hc) 0 gm [place] BID [facility] Stop: 11/14/18 18:01 Last Admin: 11/10/18 17:02 Dose: 1 applic Dextrose (Dextrose 5% In Water 1000 Ml) 1,000 mls @ 0 mls/hr IV .Q0M PRN; Protocol PRN Reason: Hypoglycemia Protocol Insulin Human Regular (Humulin R Med) 0 units SC ACHS [facility]; Protocol Last Admin: 11/10/18 16:54 Dose: Not Given Metoprolol Succinate (Toprol Xl) 25 mg PO BRK [facility] Last Admin: 11/06/18 12:01 Dose: Not Given Pantoprazole Sodium (Protonix Ec Tab) 40 mg PO 0600 [facility] Last Admin: 11/10/18 06:21 Dose: 40 mg Potassium Chloride (Klor-Con 10) 20 meq PO DAILY [facility] Last Admin: 11/10/18 09:00 Dose: 20 meq - Labs Labs: 11/10/18 06:45 11/10/18 06:45 PT 12.1 SECONDS (9.4-12.5) 11/05/18 18:20 INR 1.09 11/05/18 18:20 APTT 33.1 Seconds (26.9-38.3) 11/05/18 18:20 Attending/Attestation - Attestation I have personally seen and examined this patient.: Yes I have fully participated in the care of the patient.: Yes I have reviewed all pertinent clinical information, including history, physical exam and plan: Yes Notes (Text): This patient was seen and evaluated here earlier with the resident. This is an addendum to the GI progress report dictated by the medical logistics specialist. Patient feeling better with regard to her pelvic/perineal discomfort after having good bowel movements. Patient is presently has subdural. Patient is also on Colace and Anusol HC suppositories. Titrate laxative dose 11/10/18 19:14
--- NOTE | 2018-11-10 10:59 | CP.PCM.PCO ---
Physician Communication Note - Physician Communication Note Physician Communication Note: once pt and cardio clear then can go to acute rehab.
--- NOTE | 2018-11-10 12:35 | PN ---
DATE: 11/10/2018 CARDIOLOGY FOLLOWUP SUBJECTIVE: The patient is comfortable in bed without complaints. PHYSICAL EXAMINATION VITAL SIGNS: Blood pressure 109/74 and heart rate in the 80s, atrial fibrillation. NECK: Negative JVD. LUNGS: Without rales. HEART: Reveals S1 and S2. EXTREMITIES: Without edema. LABORATORY DATA: Hemoglobin is 12.3. Chemistries; BUN and creatinine unremarkable. Neuro note is appreciated. The recommendation is to hold the Eliquis for a week given her new hemorrhagic findings on CT scan. IMPRESSION 1. Cerebrovascular accident. 2. Atrial fibrillation. 3. Small subdural hematoma. 4. Resolution of congestive heart failure. 5. Diabetes mellitus. 6. Hypertension. Given these findings, we will hold the Eliquis for a week and repeat the CT scan before restarting the patient on anticoagulation. Rafael Ovalle MD
--- NOTE | 2018-11-10 14:58 | CP.PCM.CON ---
History of Present Illness - History of Present Illness History of Present Illness: CT Brain is Normal Past Patient History - Infectious Disease Hx of Infectious Diseases: None - Past Social History Smoking Status: Never Smoked - CARDIAC Hx Congestive Heart Failure: Yes Hx Hypertension: Yes - PULMONARY Hx Chronic Obstructive Pulmonary Disease (COPD): No - NEUROLOGICAL HX Cerebrovascular Accident: Yes - HEENT Hx HEENT Problems: Yes Hx Blind: No Hx Cataracts: Yes Hx Deafness: No Hx Difficulty Chewing: No Hx Epistaxis: No Hx Glaucoma: No - RENAL Hx Chronic Kidney Disease: No - ENDOCRINE/METABOLIC Hx Diabetes Mellitus Type 2: Yes - HEMATOLOGICAL/ONCOLOGICAL Hx Blood Disorders: No - INTEGUMENTARY Hx Dermatological Problems: No Hx Basil Cell: No Hx Eczema: No Hx Melanoma: No Hx Psoriasis: No Hx Squamous Cell: No - MUSCULOSKELETAL/RHEUMATOLOGICAL Hx Arthritis: Yes - GASTROINTESTINAL Hx Gastrointestinal Disorders: Yes - GENITOURINARY/GYNECOLOGICAL Hx Genitourinary Disorders: Yes Hx Incontinence: Yes - PSYCHIATRIC Hx Psychophysiologic Disorder: No Hx Substance Use: No - SURGICAL HISTORY Hx Surgeries: Yes (thyroidectomy) - ANESTHESIA Hx Anesthesia: Yes Meds Home Medications: Home Medication List Medication Instructions Recorded Confirmed Type Acetaminophen [Tylenol 325mg tab] 650 mg PO Q6 PRN tab 11/08/18 Rx Apixaban [Eliquis] 2.5 mg PO BID tab 11/08/18 Rx Fluticasone Nasal [Flonase] 1 actuation [place] BID spr 11/08/18 Rx Furosemide [Lasix] 40 mg PO BID vial 11/08/18 Rx Gabapentin [Neurontin] 100 mg PO HS cap 11/08/18 Rx Hydrocortisone 2.5% (Rectal) 1 gm [place] BID tube 11/08/18 Rx [Anusol-Hc] Potassium Chloride [Klor-Con 10] [address] 11/08/18 Rx Allergies/Adverse Reactions: Allergies Allergy/AdvReac Type Severity Reaction Status Date / Time No Known Allergies Allergy Verified 11/05/18 16:54 - Medications Medications: Current Medications Acetaminophen (Tylenol 325mg Tab) 650 mg PO Q6 PRN PRN Reason: TEMP>=99.5F Acetazolamide (Diamox 250 Mg Tab) 250 mg PO BID [facility] Stop: 11/10/18 18:01 Last Admin: 11/10/18 09:00 Dose: 250 mg Apixaban (Eliquis) 2.5 mg PO BID [facility]; Protocol Last Admin: 11/09/18 10:32 Dose: 2.5 mg Atorvastatin Calcium (Lipitor) 40 mg PO DIN [facility] Last Admin: 11/09/18 18:45 Dose: 40 mg Dextrose (Dextrose 50% Inj) 0 ml IV STAT PRN; Protocol PRN Reason: Hypoglycemia Protocol Docusate Sodium (Colace) 100 mg PO TID [facility] Last Admin: 11/10/18 09:00 Dose: 100 mg Fluticasone Propionate (Flonase) 1 actuation [place] BID [facility] Last Admin: 11/10/18 08:59 Dose: 2 spray Furosemide (Lasix) 40 mg IVP DAILY [facility] Last Admin: 11/10/18 09:01 Dose: 40 mg Gabapentin (Neurontin) 100 mg PO HS [facility]; Protocol Last Admin: 11/09/18 21:28 Dose: 100 mg Hydrocortisone (Anusol-Hc) 0 gm [place] BID [facility] Stop: 11/14/18 18:01 Last Admin: 11/09/18 18:43 Dose: 1 applic Dextrose (Dextrose 5% In Water 1000 Ml) 1,000 mls @ 0 mls/hr IV .Q0M PRN; Protocol PRN Reason: Hypoglycemia Protocol Insulin Human Regular (Humulin R Med) 0 units SC ACHS [facility]; Protocol Last Admin: 11/10/18 12:58 Dose: Not Given Metoprolol Succinate (Toprol Xl) 25 mg PO BRK [facility] Last Admin: 11/06/18 12:01 Dose: Not Given Pantoprazole Sodium (Protonix Ec Tab) 40 mg PO 0600 [facility] Last Admin: 11/10/18 06:21 Dose: 40 mg Potassium Chloride (Klor-Con 10) 20 meq PO DAILY [facility] Last Admin: 11/10/18 09:00 Dose: 20 meq Results - Vital Signs Recent Vital Signs: Last Vital Signs Temp 98 F 11/10/18 12:00 Pulse 65 11/10/18 12:00 Resp 20 11/10/18 12:00 BP 116/65 11/10/18 12:00 Pulse Ox 100 11/10/18 06:00 - Labs Result Diagrams: 11/10/18 06:45 11/10/18 06:45 Labs: Laboratory Results - last 24 hr 11/10/18 11/10/18 06:45 06:45 WBC 5.8 RBC 4.45 Hgb 12.3 Hct 37.7 MCV 84.7 MCH 27.6 MCHC 32.6 RDW 15.6 H Plt Count 85 L Manual Plt Count 86 L MPV 12.0 H Neut % (Auto) 63.0 Lymph % (Auto) 24.8 [place] % (Auto) 9.2 H Eos % (Auto) 2.8 Baso % (Auto) 0.2 Lymph # (Auto) 1.4 [place] # (Auto) 0.5 Eos # (Auto) 0.2 Baso # (Auto) 0.01 Absolute Neuts (auto) 3.63 Sodium 139 Potassium 3.4 L Chloride 98 Carbon Dioxide 37 H Anion Gap 8 L BUN 17 Creatinine 0.9 Est GFR ( Amer) > 60 Est GFR (Non-Af Amer) 59 Random Glucose 140 H Calcium 8.9 Phosphorus 3.8 Magnesium 2.2 Total Bilirubin 0.3 AST 22 ALT 17 Alkaline Phosphatase 110 Total Protein 7.6 Albumin 3.6 Globulin 4.1 Albumin/Globulin Ratio 0.9 L
[2018-11-10] MEDS: Hydrocortisone 2.5% Rectal Cream(30 gm) PR SCH ×2 (16:53→17:02)
--- NOTE | 2018-11-10 21:03 | CP.PCM.PN ---
Subjective - Date & Time of Evaluation Date of Evaluation: 11/09/18 Time of Evaluation: 12:00 - Subjective Subjective: Feeling better Objective - Vital Signs/Intake and Output Vital Signs (last 24 hours): Temp Pulse Resp BP Pulse Ox 98.2 F 83 20 125/70 99 11/10/18 18:00 11/10/18 18:00 11/10/18 18:00 11/10/18 18:00 11/10/18 10:00 Intake and Output: 11/10/18 11/11/18 18:59 06:59 Intake Total 1074 Output Total 800 Balance 274 - Medications Medications: Current Medications Acetaminophen (Tylenol 325mg Tab) 650 mg PO Q6 PRN PRN Reason: TEMP>=99.5F Apixaban (Eliquis) 2.5 mg PO BID [facility]; Protocol Last Admin: 11/10/18 17:02 Dose: Not Given Atorvastatin Calcium (Lipitor) 40 mg PO DIN [facility] Last Admin: 11/10/18 16:53 Dose: 40 mg Dextrose (Dextrose 50% Inj) 0 ml IV STAT PRN; Protocol PRN Reason: Hypoglycemia Protocol Docusate Sodium (Colace) 100 mg PO TID [facility] Last Admin: 11/10/18 17:02 Dose: 100 mg Fluticasone Propionate (Flonase) 1 actuation NS BID [facility] Last Admin: 11/10/18 17:03 Dose: 2 spray Furosemide (Lasix) 40 mg IVP DAILY [facility] Last Admin: 11/10/18 09:01 Dose: 40 mg Gabapentin (Neurontin) 100 mg PO HS [facility]; Protocol Last Admin: 11/09/18 21:28 Dose: 100 mg Hydrocortisone (Anusol-Hc) 0 gm [place] BID [facility] Stop: 11/14/18 18:01 Last Admin: 11/10/18 17:02 Dose: 1 applic Dextrose (Dextrose 5% In Water 1000 Ml) 1,000 mls @ 0 mls/hr IV .Q0M PRN; Prot ocol PRN Reason: Hypoglycemia Protocol Insulin Human Regular (Humulin R Med) 0 units SC ACHS [facility]; Protocol Last Admin: 11/10/18 16:54 Dose: Not Given Metoprolol Succinate (Toprol Xl) 25 mg PO BRK [facility] Last Admin: 11/06/18 12:01 Dose: Not Given Pantoprazole Sodium (Protonix Ec Tab) 40 mg PO 0600 [facility] Last Admin: 11/10/18 06:21 Dose: 40 mg Potassium Chloride (Klor-Con 10) 20 meq PO DAILY [facility] Last Admin: 11/10/18 09:00 Dose: 20 meq - Labs Labs: 11/10/18 06:45 11/10/18 06:45 PT 12.1 SECONDS (9.4-12.5) 11/05/18 18:20 INR 1.09 11/05/18 18:20 APTT 33.1 Seconds (26.9-38.3) 11/05/18 18:20 - Head Exam Head Exam: ATRAUMATIC - Eye Exam Eye Exam: Normal appearance - ENT Exam ENT Exam: Mucous Membranes Dry - Respiratory Exam Respiratory Exam: NORMAL BREATHING PATTERN - Cardiovascular Exam Cardiovascular Exam: +S1, +S2 - GI/Abdominal Exam GI & Abdominal Exam: Normal Bowel Sounds Assessment and Plan (1) Thrombocytopenia Assessment & Plan: suspect medication induced - diuretics given mild nature, no intervention or holding of meds required HIV and hepatitis negative Status: Acute (2) Anemia Assessment & Plan: borderline low iron stores recommend PO supplementation Status: Acute
--- NOTE | 2018-11-10 21:04 | CP.PCM.PN ---
Subjective - Date & Time of Evaluation Date of Evaluation: 11/10/18 Time of Evaluation: 19:00 - Subjective Subjective: Feeling better. Objective - Vital Signs/Intake and Output Vital Signs (last 24 hours): Temp Pulse Resp BP Pulse Ox 98.2 F 83 20 125/70 99 11/10/18 18:00 11/10/18 18:00 11/10/18 18:00 11/10/18 18:00 11/10/18 10:00 Intake and Output: 11/10/18 11/11/18 18:59 06:59 Intake Total 1074 Output Total 800 Balance 274 - Medications Medications: Current Medications Acetaminophen (Tylenol 325mg Tab) 650 mg PO Q6 PRN PRN Reason: TEMP>=99.5F Apixaban (Eliquis) 2.5 mg PO BID [facility]; Protocol Last Admin: 11/10/18 17:02 Dose: Not Given Atorvastatin Calcium (Lipitor) 40 mg PO DIN [facility] Last Admin: 11/10/18 16:53 Dose: 40 mg Dextrose (Dextrose 50% Inj) 0 ml IV STAT PRN; Protocol PRN Reason: Hypoglycemia Protocol Docusate Sodium (Colace) 100 mg PO TID [facility] Last Admin: 11/10/18 17:02 Dose: 100 mg Fluticasone Propionate (Flonase) 1 actuation NS BID [facility] Last Admin: 11/10/18 17:03 Dose: 2 spray Furosemide (Lasix) 40 mg IVP DAILY [facility] Last Admin: 11/10/18 09:01 Dose: 40 mg Gabapentin (Neurontin) 100 mg PO HS [facility]; Protocol Last Admin: 11/09/18 21:28 Dose: 100 mg Hydrocortisone (Anusol-Hc) 0 gm [place] BID [facility] Stop: 11/14/18 18:01 Last Admin: 11/10/18 17:02 Dose: 1 applic Dextrose (Dextrose 5% In Water 1000 Ml) 1,000 mls @ 0 mls/hr IV .Q0M PRN; Pro tocol PRN Reason: Hypoglycemia Protocol Insulin Human Regular (Humulin R Med) 0 units SC ACHS [facility]; Protocol Last Admin: 11/10/18 16:54 Dose: Not Given Metoprolol Succinate (Toprol Xl) 25 mg PO BRK [facility] Last Admin: 11/06/18 12:01 Dose: Not Given Pantoprazole Sodium (Protonix Ec Tab) 40 mg PO 0600 [facility] Last Admin: 11/10/18 06:21 Dose: 40 mg Potassium Chloride (Klor-Con 10) 20 meq PO DAILY [facility] Last Admin: 11/10/18 09:00 Dose: 20 meq - Labs Labs: 11/10/18 06:45 11/10/18 06:45 PT 12.1 SECONDS (9.4-12.5) 11/05/18 18:20 INR 1.09 11/05/18 18:20 APTT 33.1 Seconds (26.9-38.3) 11/05/18 18:20 - Head Exam Head Exam: ATRAUMATIC - Eye Exam Eye Exam: Normal appearance - ENT Exam ENT Exam: Mucous Membranes Dry - Respiratory Exam Respiratory Exam: NORMAL BREATHING PATTERN - Cardiovascular Exam Cardiovascular Exam: +S1, +S2 - GI/Abdominal Exam GI & Abdominal Exam: Normal Bowel Sounds Assessment and Plan (1) Thrombocytopenia Assessment & Plan: suspect medication induced - diuretics given mild nature, no intervention or holding of meds required HIV and hepatitis negative Status: Acute (2) Anemia Assessment & Plan: borderline low iron stores recommend PO supplementation PRN Status: Acute
[2018-11-11] MEDS: Pantoprazole 40 mg EC Tab PO SCH (05:35)
[2018-11-11 06:47] LABS: BASO # 0.02 K/mm3 (0.0-2.0); BASO % 0.4 % (0.0-3.0); EOS # 0.2 (0.0-0.7); EOS % 3.2 % (1.5-5.0); HEMOGLOBIN 11.4 g/dL (12.0-16.0); LYMPH # 1.4 (1.2-3.4); MEAN CELL VOLUME 83.2 fl (80.0-105.0); MEAN CORPUSCULAR HEMOGLOBIN 26.6 pg (25.0-35.0); MEAN CORPUSCULAR HGB CONC 31.9 g/dl (31.0-37.0); MONO # 0.5 (0.1-0.6); PLATELET COUNT 93 10^3/uL (120.0-450.0); RBC 4.29 10^6/uL (3.5-6.1); RED CELL DISTRIBUTION WIDTH 15.7 % (11.5-14.5); WHITE BLOOD COUNT 4.7 10^3/uL (4.5-11.0)
[2018-11-11 06:54] VITALS: O2SAT 98
[2018-11-11 07:11] LABS: ALB/GLOB RATIO 0.8 (1.1-1.8); ALBUMIN 3.2 g/dL (3.0-4.8); ALT/SGPT 8 U/L (7-56); AST/SGOT 21 U/L (14-36); BLOOD UREA NITROGEN 20 mg/dL (7-21); GFR NON-AFRICAN AMERICAN 59
--- NOTE | 2018-11-11 07:50 | CP.PCM.PN ---
Subjective - Date & Time of Evaluation Date of Evaluation: 11/11/18 Time of Evaluation: 07:20 - Subjective Subjective: (covering for Dr. Almanza) Patient is seen this morning. She has no new complaints. Objective - Vital Signs/Intake and Output Vital Signs (last 24 hours): Temp Pulse Resp BP Pulse Ox 97.9 F 77 20 147/68 98 11/11/18 06:00 11/11/18 06:00 11/11/18 06:00 11/11/18 06:00 11/11/18 06:00 Intake and Output: 11/11/18 11/11/18 06:59 18:59 Intake Total 1554 Output Total 900 Balance 654 - Medications Medications: Current Medications Acetaminophen (Tylenol 325mg Tab) 650 mg PO Q6 PRN PRN Reason: TEMP>=99.5F Apixaban (Eliquis) 2.5 mg PO BID [facility]; Protocol Last Admin: 11/10/18 17:02 Dose: Not Given Atorvastatin Calcium (Lipitor) 40 mg PO DIN [facility] Last Admin: 11/10/18 16:53 Dose: 40 mg Dextrose (Dextrose 50% Inj) 0 ml IV STAT PRN; Protocol PRN Reason: Hypoglycemia Protocol Docusate Sodium (Colace) 100 mg PO TID [facility] Last Admin: 11/10/18 17:02 Dose: 100 mg Fluticasone Propionate (Flonase) 1 actuation NS BID [facility] Last Admin: 11/10/18 17:03 Dose: 2 spray Furosemide (Lasix) 40 mg IVP DAILY [facility] Last Admin: 11/10/18 09:01 Dose: 40 mg Gabapentin (Neurontin) 100 mg PO HS [facility]; Protocol Last Admin: 11/10/18 21:50 Dose: 100 mg Hydrocortisone (Anusol-Hc) 0 gm [place] BID [facility] Stop: 11/14/18 18:01 Last Admin: 11/10/18 17:02 Dose: 1 applic Dextrose (Dextrose 5% In Water 1000 Ml) 1,000 mls @ 0 mls/hr IV .Q0M PRN; Protocol PRN Reason: Hypoglycemia Protocol Insulin Human Regular (Humulin R Med) 0 units SC ACHS [facility]; Protocol Last Admin: 11/10/18 21:47 Dose: Not Given Metoprolol Succinate (Toprol Xl) 25 mg PO BRK [facility] Last Admin: 11/06/18 12:01 Dose: Not Given Pantoprazole Sodium (Protonix Ec Tab) 40 mg PO 0600 [facility] Last Admin: 11/11/18 05:35 Dose: 40 mg Potassium Chloride (Klor-Con 10) 20 meq PO DAILY [facility] Last Admin: 11/10/18 09:00 Dose: 20 meq Potassium Chloride (Klor-Con 10) 20 meq PO DAILY [facility] - Labs Labs: 11/11/18 06:15 11/11/18 06:15 PT 12.1 SECONDS (9.4-12.5) 11/05/18 18:20 INR 1.09 11/05/18 18:20 APTT 33.1 Seconds (26.9-38.3) 11/05/18 18:20 - Constitutional Appears: No Acute Distress - Head Exam Head Exam: ATRAUMATIC, NORMOCEPHALIC - Respiratory Exam Respiratory Exam: Decreased Breath Sounds, NORMAL BREATHING PATTERN - Cardiovascular Exam Cardiovascular Exam: +S1, +S2 - GI/Abdominal Exam GI & Abdominal Exam: Soft, Normal Bowel Sounds. absent: Tenderness - Extremities Exam Extremities Exam: Pedal Edema - Neurological Exam Neurological Exam: Alert, Awake, Oriented x3 Assessment and Plan - Assessment and Plan (Free Text) Assessment: Spontaneous small subdural hematoma Acute infarct Left cerebellar hemisphere HTN Diastolic heart failure Atrial Fibrillation DMII Plan: Elquis is currently on hold for 1 week due to spontaneous subdural hematoma. Awaiting neurosurgical consult. continue Lasix for lower extremity edema. continue PT. Patient's potassium continues to run slightly low despite daily potassium supplementation. We will order an extra dose of potassium for today and repeat chemistry in AM. Patient can go to rehab once cleared by cardiology and neurosurgery.
--- NOTE | 2018-11-11 08:05 | CP.PCM.PN ---
Subjective - Date & Time of Evaluation Date of Evaluation: 11/11/18 Time of Evaluation: 07:05 - Subjective Subjective: Scott Wooten PGY2 GI Progress Note for Dr. Callejas covering for Dr. Thomas Patient was seen and examined at bedside. Patient's abdominal pain has improved with current bowel regimen. No acute overnight events. Objective - Vital Signs/Intake and Output Vital Signs (last 24 hours): Temp Pulse Resp BP Pulse Ox 97.9 F 77 20 147/68 98 11/11/18 06:00 11/11/18 06:00 11/11/18 06:00 11/11/18 06:00 11/11/18 06:00 Intake and Output: 11/11/18 11/11/18 06:59 18:59 Intake Total 1554 Output Total 900 Balance 654 - Medications Medications: Current Medications Acetaminophen (Tylenol 325mg Tab) 650 mg PO Q6 PRN PRN Reason: TEMP>=99.5F Apixaban (Eliquis) 2.5 mg PO BID [facility]; Protocol Last Admin: 11/10/18 17:02 Dose: Not Given Atorvastatin Calcium (Lipitor) 40 mg PO DIN [facility] Last Admin: 11/10/18 16:53 Dose: 40 mg Dextrose (Dextrose 50% Inj) 0 ml IV STAT PRN; Protocol PRN Reason: Hypoglycemia Protocol Docusate Sodium (Colace) 100 mg PO TID [facility] Last Admin: 11/10/18 17:02 Dose: 100 mg Fluticasone Propionate (Flonase) 1 actuation [place] BID [facility] Last Admin: 11/10/18 17:03 Dose: 2 spray Furosemide (Lasix) 40 mg IVP DAILY [facility] Last Admin: 11/10/18 09:01 Dose: 40 mg Gabapentin (Neurontin) 100 mg PO HS [facility]; Protocol Last Admin: 11/10/18 21:50 Dose: 100 mg Hydrocortisone (Anusol-Hc) 0 gm [place] BID [facility] Stop: 11/14/18 18:01 Last Admin: 11/10/18 17:02 Dose: 1 applic Dextrose (Dextrose 5% In Water 1000 Ml) 1,000 mls @ 0 mls/hr IV .Q0M PRN; Protocol PRN Reason: Hypoglycemia Protocol Insulin Human Regular (Humulin R Med) 0 units SC ACHS [facility]; Protocol Last Admin: 11/10/18 21:47 Dose: Not Given Metoprolol Succinate (Toprol Xl) 25 mg PO BRK [facility] Last Admin: 11/06/18 12:01 Dose: Not Given Pantoprazole Sodium (Protonix Ec Tab) 40 mg PO 0600 [facility] Last Admin: 11/11/18 05:35 Dose: 40 mg Potassium Chloride (Klor-Con 10) 20 meq PO DAILY [facility] Last Admin: 11/10/18 09:00 Dose: 20 meq Potassium Chloride (K-Dur 20 Meq Er Tab) 20 meq PO DAILY [facility] - Labs Labs: 11/11/18 06:15 11/11/18 06:15 PT 12.1 SECONDS (9.4-12.5) 11/05/18 18:20 INR 1.09 11/05/18 18:20 APTT 33.1 Seconds (26.9-38.3) 11/05/18 18:20 - Constitutional Appears: Well, Non-toxic, No Acute Distress - Head Exam Head Exam: ATRAUMATIC, NORMAL INSPECTION, NORMOCEPHALIC - Eye Exam Eye Exam: EOMI, Normal appearance, PERRL Pupil Exam: NORMAL ACCOMODATION, PERRL - ENT Exam ENT Exam: Mucous Membranes Moist, Normal Exam - Neck Exam Neck Exam: Full ROM, Normal Inspection. absent: Lymphadenopathy - Respiratory Exam Respiratory Exam: Clear to Ausculation Bilateral, NORMAL BREATHING PATTERN - Cardiovascular Exam Cardiovascular Exam: Irregular Rhythm, +S1, +S2. absent: Murmur - GI/Abdominal Exam GI & Abdominal Exam: Soft, Normal Bowel Sounds. absent: Distended, Tenderness - Extremities Exam Extremities Exam: Full ROM, Normal Capillary Refill, Normal Inspection. absent: Joint Swelling, Pedal Edema - Back Exam Back Exam: NORMAL INSPECTION - Neurological Exam Neurological Exam: Alert, Awake, Oriented x3 - Skin Skin Exam: Dry, Intact, Normal Color, Warm Assessment and Plan - Assessment and Plan (Free Text) Assessment: 88 year old AAF with a PMH of Afib on Eliquis, DM2, obesity, HTN and CHF who is admitted for acute L cerebellar infarct and a small subdural hematoma. GI is consulted for diverticulosis. Chart was reviewed. CT abd/pelvis reviewed showing no acute intra-abdominal pathology. Symptoms resolved with BMs. Plan: - Eliquis is held due to subdural hematoma, per primary team - cont colace for bowel regimen - cont PPI for GI ppx - further recs per PMD, cardiology and neurology teams - further recs per Dr. Callejas Case was reviewed and discussed with Dr. Callejas
[2018-11-11] MEDS: Insulin Reg-MEDIUM-Coverage SC SCH ×2 (08:36→11:48)
[2018-11-11 08:39] LABS: PLATELET COUNT MANUAL 120 K/mm3 (120-450)
[2018-11-11] MEDS ORDERED: Potassium Chloride 20 mEq ER Tab PO SCH (10:00)
[2018-11-11] MEDS: Fluticasone Nasal 50 mcg/Spray NS SCH (10:39)
[2018-11-11] MEDS: Potassium Chloride 10 mEq ER Tab PO SCH (10:40)
[2018-11-11] MEDS: Hydrocortisone 2.5% Rectal Cream(30 gm) PR SCH (10:42)
--- NOTE | 2018-11-11 15:45 | PN ---
DATE: 11/11/2018 CARDIOLOGY FOLLOWUP SUBJECTIVE: The patient is without complaints. PHYSICAL EXAMINATION VITAL SIGNS: Blood pressure 147/68 and heart rates in the 70s. NECK: Negative JVD. LUNGS: Without rales. HEART: Reveals S1 and S2. EXTREMITIES: Without change. LABORATORY DATA: Hemoglobin is 11.4. Potassium is 3.3 and glucose is 138. IMPRESSION: 1. Cerebrovascular accident. 2. Atrial fibrillation. 3. Small subdural hematoma. 4. Resolution of congestive heart failure. 5. Diabetes mellitus. 6. Hypertension. PLAN: Given these findings, the patient is scheduled for subacute rehab today. If there is no change in her subdural, the patient should continue on the Eliquis for her atrial fibrillation and her recurrent CVA. Rafael Ovalle MD
[2018-11-11 15:53] VITALS: BP 108/66; PULSE 71; RESP 18; TEMP 98.2
--- NOTE | 2018-11-12 00:21 | CP.PCM.PN ---
Subjective - Date & Time of Evaluation Date of Evaluation: 11/11/18 Time of Evaluation: 10:00 - Subjective Subjective: Feeling better. Objective - Vital Signs/Intake and Output Vital Signs (last 24 hours): Temp Pulse Resp BP Pulse Ox 98.2 F 71 18 108/66 98 11/11/18 12:00 11/11/18 12:00 11/11/18 12:00 11/11/18 12:00 11/11/18 06:00 - Labs Labs: 11/11/18 06:15 11/11/18 06:15 PT 12.1 SECONDS (9.4-12.5) 11/05/18 18:20 INR 1.09 11/05/18 18:20 APTT 33.1 Seconds (26.9-38.3) 11/05/18 18:20 - Head Exam Head Exam: ATRAUMATIC - Eye Exam Eye Exam: Normal appearance - ENT Exam ENT Exam: Mucous Membranes Dry - Respiratory Exam Respiratory Exam: NORMAL BREATHING PATTERN - Cardiovascular Exam Cardiovascular Exam: +S1, +S2 - GI/Abdominal Exam GI & Abdominal Exam: Normal Bowel Sounds - Extremities Exam Extremities Exam: Pedal Edema Assessment and Plan (1) Thrombocytopenia Assessment & Plan: suspect medication induced - diuretics given mild nature, no intervention or holding of meds required HIV and hepatitis negative Status: Acute (2) Anemia Assessment & Plan: borderline low iron stores recommend PO supplementation PRN Status: Acute
== END 2018-11-11 16:59 | DRG 64 ==
LOC: ED 16:50 → ERH 20:47 → 2RNO 11-06 01:00
PROVIDERS: ADMIT Internal Medicine; ATTEND Internal Medicine
DX: I63.9 Cerebral infarction, unspecified (principal); I50.33 Acute on chronic diastolic (congestive) heart failure; I62.01 Nontraumatic acute subdural hemorrhage; E87.3 Alkalosis; D61.818 Other pancytopenia; I48.2 Chronic atrial fibrillation; I11.0 Hypertensive heart disease with heart failure; I27.20 Pulmonary hypertension, unspecified; E87.6 Hypokalemia; I25.10 Atherosclerotic heart disease of native coronary artery without angina pectoris; R29.810 Facial weakness; E11.51 Type 2 diabetes mellitus with diabetic peripheral angiopathy without gangrene; G93.89 Other specified disorders of brain; E66.01 Morbid (severe) obesity due to excess calories; T50.2X5A Adverse effect of carbonic-anhydrase inhibitors, benzothiadiazides and other diuretics, initial encounter; I65.23 Occlusion and stenosis of bilateral carotid arteries; E11.42 Type 2 diabetes mellitus with diabetic polyneuropathy; I08.1 Rheumatic disorders of both mitral and tricuspid valves; I87.2 Venous insufficiency (chronic) (peripheral); M17.0 Bilateral primary osteoarthritis of knee; M51.36 Other intervertebral disc degeneration, lumbar region; E78.5 Hyperlipidemia, unspecified; E55.9 Vitamin D deficiency, unspecified; Z68.37 Body mass index [BMI] 37.0-37.9, adult; Z86.73 Personal history of transient ischemic attack (TIA), and cerebral infarction without residual deficits; Z91.81 History of falling; Z99.81 Dependence on supplemental oxygen; Z86.718 Personal history of other venous thrombosis and embolism; Z87.891 Personal history of nicotine dependence

== ENCOUNTER 2018-11-26 14:49 | Outpatient (CLI) | payer MEDICARE | END 2018-11-26 14:50 | disposition home or self-care (01) | LOC: RAD 14:49 | DX: S06.5X0A Traumatic subdural hemorrhage without loss of consciousness, initial encounter (principal) ==